=== PATIENT | male | born 1955 | race Caucasian/White ===

== ENCOUNTER 2016-07-05 13:59 | Emergency (ER) | payer MEDICARE ==
[2016-07-05] MEDS ORDERED: Albuterol 2.5 MG/3 ML NEB.SOL* (0.083%) INH ONE (15:06)
[2016-07-05] MEDS ORDERED: methylPREDNISolone SOD SUCC* 125 MG 2 ML VIAL IM ONE (15:06)
[2016-07-05] MEDS ORDERED: Ipratropium 0.5MG/2.5ML NEB* 0.5 MG/2.5 ML NEB.SOLN INH ONE (15:06)
--- NOTE | 2016-07-05 15:15 | UC ---
Respiratory Complaint HPI - History of Current Complaint Chief Complaint: UCRespiratory Stated Complaint: TIGHT CHEST,SINUS,COUGH-COPD Time Seen by Provider: 07/05/16 15:01 Hx Obtained From: Patient Onset/Duration: Sudden Onset, Lasting Weeks - 1 1/2 weeks, Worse Since - gradually worse since onset Severity Initially: Mild Severity Currently: Severe Character: Cough: Productive - yellow sputum Aggravating Factors: Exertion, Deep Breaths Associated Signs And Symptoms: Positive: Dyspnea, Wheezing, URI, Nasal Congestion, Hoarseness, Sinus Discomfort Related History: Similar Episode/Dx as: - COPD exacerbation. - Risk Factors Pulmonary Embolism Risk Factors: Smoking Cardiac Risk Factors: Smoking Pseudomonas Risk Factors: Chronic Lung Disease - COPD Tuberculosis Risk Factors: Smoking - Allergies/Home Medications Allergies/Adverse Reactions: Allergies Allergy/AdvReac Type Severity Reaction Status Date / Time Phenytoin [From Dilantin] Allergy Severe seizure Verified 07/05/16 14:18 BLUEBERRIES Allergy Severe Edema Uncoded 07/05/16 14:18 Home Medications: Home Medications Albuterol HFA INHALER* [Ventolin HFA Inhaler*] 2 puff INH Q4HR PRN 07/05/16 [ History Confirmed 07/05/16] Albuterol/Ipratropium [id number]* [Duoneb (Albuterol 2.5 MG/Ipratropium 0.5 MG)] 1 neb INH Q3HR PRN 07/05/16 [History Confirmed 07/05/16] Fexofenadine (NF) [Angelique (NF)] 1 tab PO DAILY PRN 07/05/16 [History Confirmed 07/05/16] PMH/Surg Hx/FS Hx/Imm Hx Endocrine History Of: Denies: Diabetes, Thyroid Disease Cardiovascular History Of: Denies: Cardiac Disorders, Hypertension, Pacemaker/ICD Respiratory History Of: Reports: COPD, Asthma, Pneumonia Neurological History Of: Reports: 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 1994 CARPET INSTALLATION SPECIALIST SHUNT W/PUMP, [facility] 1995 VALVE REPLACED WITH SHUNT, [facility]. 1996 THIRD VENTRICULAR OSCOPY,. 1977 & 1979 RIGHT KNEE SURGERY REPAIR TENDON & [place],. PUMP DISCONNECTED. CURRENTLY IMPLANTED SHUNT CLEARED FOR IMAGING BY DR KELLER UP TO 1.5 T,USING PLAIN FILMSWEM - Family History Known Family History: Positive: Diabetes Negative: Cardiac Disease, Hypertension - Social History Occupation: Disabled Lives: With Family Alcohol Use: None Substance Use Type: None Smoking Status (MU): Heavy Every Day Tobacco Smoker Type: Cigarettes Amount Used/How Often: 1.5 PPD Length of Time of Smoking/Using Tobacco: since age 15 Have You Smoked in the Last Year: Yes Household Exposure Type: Cigarettes - Immunization History Most Recent Influenza Vaccination: 2016 Most Recent Tetanus Shot: Within 10 years Most Recent Pneumonia Vaccination: 2016 Review of Systems ENT: Sore Throat - feels like something is caught in the throat Respiratory: Shortness Of Breath, Cough All Other Systems Reviewed And Are Negative: Yes Physical Exam Triage Information Reviewed: Yes Appearance: No Pain Distress, Well-Nourished, Ill-Appearing - Mild Vital Signs: Initial Vital Signs Temp 98.5 F 07/05/16 14:02 Pulse 77 07/05/16 14:02 Resp 20 07/05/16 14:02 BP 129/82 07/05/16 14:02 Pulse Ox 96 07/05/16 14:02 Vital Signs Reviewed: Yes Eyes: Positive: Conjunctiva Clear ENT: Positive: Pharynx normal, TMs normal Neck exam: Normal Respiratory: Positive: Decreased breath sounds - diffusely., Wheezing - Diffuse end inspiratory and expiratory wheezes. Cardiovascular: Positive: RRR Musculoskeletal Exam: Normal Neurological Exam: Normal Psychological Exam: Normal Skin Exam: Normal UC Diagnostic Evaluation - Laboratory O2 Sat by Pulse Oximetry: 96 Re-Evaluation - Re-Evaluation First Eval Re-Evaluation Time: 15:47 Change: Improved - Moving air better. Wheezing resolved. Respiratory Course/Dx - Differential Dx/Diagnosis Differential Diagnosis/HQI/PQRI: Exacerbation Of COPD, Lower Resp Infection, Sinusitis Provider Diagnoses: COPD with acute exacerbation. Acute sinusitis Discharge - Discharge Plan Condition: Stable Disposition: HOME Prescriptions: Sulfamethox/Trimethoprim DS* [Bactrim DS 800/160 TAB*] 1 tab PO BID #20 tab predniSONE TAB* [Deltasone TAB*] 20 mg PO DAILY #18 tab Patient Education Materials: COPD (Chronic Obstructive Pulmonary Disease) (ED) , Prednisone (By mouth), Sinusitis (ED), Sulfamethoxazole/Trimethoprim (By mouth ) Additional Instructions: Smoking Cessation Tricks. 1. Cut down by 1 cigarette per day every 2-3 days. Write the number of smokes for that day on the calendar. 2. Identify triggers to smoking: after meals, on the phone, in the car, with coffee, on breaks at work, etc. 3. Formulate a plan with a behavior to replace the smoking. Fireballs in the car , doodle pad on the phone, flavored creamer for the coffee, go for a walk after a meal or on break at work. 4. For stress smokes do deep breathing relaxation. Breath deep in through the nose hold the breath in for a few seconds then breath out slowly through the mouth.
[2016-07-05 15:45] VITALS: BP 118/72
== END 2016-07-05 15:54 | disposition home or self-care (01) ==
LOC: UCCORT 13:59
DX: J44.1 Chronic obstructive pulmonary disease with (acute) exacerbation (principal); J01.90 Acute sinusitis, unspecified; F41.8 Other specified anxiety disorders; Z86.73 Personal history of transient ischemic attack (TIA), and cerebral infarction without residual deficits; F17.210 Nicotine dependence, cigarettes, uncomplicated
CPT/HCPCS: 93005; 96372; 99212; G0463; J2930; J7644

== ENCOUNTER 2016-07-06 22:08 | Inpatient (IN) | payer MEDICARE ==
[2016-07-06] MEDS ORDERED: Albuterol/Ipratropium NEB.SOL* Albuterol 2.5 MG/Ipratropium 0.5 MG 3 ML INH ONE (22:44)
[2016-07-06 23:20] LABS: Hematocrit 43 % (42-52); Hemoglobin 14.5 g/dl (14.0-18.0); Mean Corpuscular HGB Conc 33 g/dl (31-36); Mean Corpuscular Hemoglobin 32 pg (27-31); Mean Corpuscular Volume 97 fL (80-94); Mean Platelet Volume 8 um3 (7.4-10.4); Red Blood Count 4.49 10^6/ul (4.0-5.4); Red Cell Distribution Width 14 % (10.5-15); White Blood Count 13.4 10^3/ul (3.5-10.8)
[2016-07-06 23:30] LABS: Albumin 4.1 g/dL (3.2-5.2); BUN/Creatinine Ratio 19.7 (8-20); Calcium 9.5 mg/dL (8.6-10.3); EGFR African American 82.3 (>60); Globulin 3.4 g/dL (2-4); Potassium 4.3 mmol/L (3.5-5.0); Total Bilirubin 0.2 mg/dL (0.2-1.0); Total Protein 7.5 g/dL (6.4-8.9)
[2016-07-06 23:31] LABS: Troponin I 0.01 ng/mL (<0.04)
--- NOTE | 2016-07-07 00:25 | ED ---
I, Alex,April, scribed for Darryn Diop MD on 07/06/16 at 2246 . Shortness of Breath - HPI Summary HPI Summary: This 60 y/o male presents to ED for acute on chronic SOB since today. Pt was seen at [facility] yesterday where he was dx with bronchitis and sinus infection. Pt was given steroid and abx. He decided to visit ED again today when SOB persisted. PMHx includes asthma, COPD, and CVA with cerebral shunt. - History of Current Complaint Chief Complaint: EDUpperRespComplaint Time Seen by Provider: 07/06/16 22:41 Hx Obtained From: Patient Onset/Duration: Lasting Days, Still Present Timing: Constant Dyspnea At: Rest - Allergy/Home Medications Allergies/Adverse Reactions: Allergies Allergy/AdvReac Type Severity Reaction Status Date / Time Phenytoin [From Dilantin] Allergy Severe seizure Verified 07/05/16 14:18 BLUEBERRIES Allergy Severe Edema Uncoded 07/05/16 14:18 Home Medications: Home Medications Acetaminophen W/ Codeine [Acetaminophen/Codeine #3 300-30 mg] 1 tab PO TID PRN 07/07/16 [History Confirmed 07/07/16] Baclofen TAB* [Lioresal TAB*] 10 mg PO TID 07/07/16 [History Confirmed 07/07/16] Ibuprofen [Motrin Ib] 800 mg PO BID PRN 07/07/16 [History Confirmed 07/07/16] PMH/Surg Hx/FS Hx/Imm Hx Endocrine/Hematology History: Reports: Hx Blood Transfusions Denies: Hx Diabetes, Hx Thyroid Disease Cardiovascular History: Denies: Hx Hypertension, Hx Pacemaker/ICD Respiratory History: Reports: Hx Asthma, Hx Chronic Obstructive Pulmonary Disease (COPD), Hx Pneumonia, Hx Seasonal Allergies, Other Respiratory Problems/ Disorders - HX OF PNEUMONIA 03/20/2013 Musculoskeletal History: Reports: Hx Arthritis, Hx Back Problems Sensory History: Reports: Hx Contacts or Glasses - READING GLASSES Denies: Hx Hearing Aid Opthamlomology History: Reports: Hx Contacts or Glasses - READING GLASSES Neurological History: Reports: Hx Seizures - CAUSED BY A CLOGGED VENTRICLE , SINCE REPAIRED, NO PROBLEMS SINCE 1996 Psychiatric History: Reports: Hx Anxiety, Hx Depression Denies: Hx Panic Disorder - Surgical History Surgery Procedure, Year, and Place: 1994 [facility] 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 1996 THIRD VENTRICULAR OSCOPY,. 1977 & 1979 RIGHT KNEE SURGERY REPAIR TENDON & [place],. PUMP DISCONNECTED. CURRENTLY IMPLANTED SHUNT CLEARED FOR IMAGING BY DR KELLER UP TO 1.5 T,USING PLAIN FILMSWEM Hx Anesthesia Reactions: No - Immunization History Date of Tetanus Vaccine: Unk Date of Influenza Vaccine: None Infectious Disease History: No Infectious Disease History: Denies: Hx Clostridium Difficile, Hx Hepatitis, Hx Human Immunodeficiency Virus (HIV), Hx of Known/Suspected MRSA, Hx Shingles, Hx Tuberculosis, Hx Known/ Suspected VRE, Hx Known/Suspected VRSA, History Other Infectious Disease, Traveled Outside the [place] in Last 30 Days - Family History Known Family History: Positive: Diabetes Negative: Cardiac Disease, Hypertension - Social History Alcohol Use: None Hx Substance Use: No Substance Use Type: Reports: None Hx Tobacco Use: Yes Smoking Status (MU): Heavy Every Day Tobacco Smoker Type: Cigarettes Amount Used/How Often: 1 PPD Length of Time of Smoking/Using Tobacco: since age 15 Have You Smoked in the Last Year: Yes Review of Systems Negative: Fever Positive: Shortness Of Breath All Other Systems Reviewed And Are Negative: Yes Physical Exam Triage Information Reviewed: Yes Vital Signs On Initial Exam: Initial Vitals Temp Pulse Resp BP Pulse Ox 99.5 F 131 24 155/103 93 07/06/16 22:10 07/06/16 22:10 07/06/16 22:10 07/06/16 22:10 07/06/16 22:10 Vital Signs Reviewed: Yes Appearance: Positive: No Pain Distress, Ill-Appearing Skin: Positive: Warm Head/Face: Positive: Normal Head/Face Inspection Eyes: Positive: CHERYLE ENT: Positive: Hearing grossly normal Neck: Positive: Nontender Respiratory/Lung Sounds: Positive: Decreased Breath Sounds, Wheezes - bilat diffuse exp Cardiovascular: Positive: Normal Abdomen Description: Positive: Nontender, Soft Bowel Sounds: Positive: Present Musculoskeletal: Positive: Strength/ROM Intact Diagnostics - Vital Signs Vital Signs Temp Pulse Resp BP Pulse Ox 07/06/16 22:10 99.5 F 131 24 155/103 93 - Laboratory Lab Results: Lab Results 07/06/16 07/06/16 07/06/16 Range/Units 22:55 22:55 22:55 WBC 13.4 H (3.5-10.8) 10^3/ul RBC 4.49 (4.0-5.4) 10^6/ul Hgb 14.5 (14.0-18.0) g/dl Hct 43 (42-52) % MCV 97 H (80-94) fL MCH 32 H (27-31) pg MCHC 33 (31-36) g/dl RDW 14 (10.5-15) % Plt Count 233 (150-450) 10^3/ul MPV 8 (7.4-10.4) um3 Neut % (Auto) 84.1 H (38-83) % Lymph % (Auto) 6.2 L (25-47) % Pinal % (Auto) 9.7 H (1-9) % Eos % (Auto) 0 (0-6) % Baso % (Auto) 0 (0-2) % Absolute Neuts (auto) 11.3 H (1.5-7.7) 10^3/ul Absolute Lymphs (auto) 0.8 L (1.0-4.8) 10^3/ul Absolute Monos (auto) 1.3 H (0-0.8) 10^3/ul Absolute Eos (auto) 0 (0-0.6) 10^3/ul Absolute Basos (auto) 0 (0-0.2) 10^3/ul Absolute Nucleated RBC 0 10^3/ul Nucleated RBC % 0 Sodium 140 (133-145) mmol/L Potassium 4.3 (3.5-5.0) mmol/L Chloride 109 (101-111) mmol/L Carbon Dioxide 22 (22-32) mmol/L Anion Gap 9 (2-11) mmol/L BUN 23 (6-24) mg/dL Creatinine 1.17 (0.67-1.17) mg/dL Est GFR ( Amer) 82.3 (>60) Est GFR (Non-Af Amer) 64.0 (>60) BUN/Creatinine Ratio 19.7 (8-20) Glucose 151 H (70-100) mg/dL Lactic Acid 2.8 H* (0.5-2.0) mmol/L Calcium 9.5 (8.6-10.3) mg/dL Total Bilirubin 0.20 (0.2-1.0) mg/dL AST 13 (13-39) U/L ALT 15 (7-52) U/L Alkaline Phosphatase 53 (34-104) U/L Troponin I 0.01 (<0.04) ng/mL Total Protein 7.5 (6.4-8.9) g/dL Albumin 4.1 (3.2-5.2) g/dL Globulin 3.4 (2-4) g/dL Albumin/Globulin Ratio 1.2 (1-3) Influenza A (Rapid) (Negative) Influenza B (Rapid) (Negative) 07/07/16 Range/Units 00:01 WBC (3.5-10.8) 10^3/ul RBC (4.0-5.4) 10^6/ul Hgb (14.0-18.0) g/dl Hct (42-52) % MCV (80-94) fL MCH (27-31) pg MCHC (31-36) g/dl RDW (10.5-15) % Plt Count (150-450) 10^3/ul MPV (7.4-10.4) um3 Neut % (Auto) (38-83) % Lymph % (Auto) (25-47) % Pinal % (Auto) (1-9) % Eos % (Auto) (0-6) % Baso % (Auto) (0-2) % Absolute Neuts (auto) (1.5-7.7) 10^3/ul Absolute Lymphs (auto) (1.0-4.8) 10^3/ul Absolute Monos (auto) (0-0.8) 10^3/ul Absolute Eos (auto) (0-0.6) 10^3/ul Absolute Basos (auto) (0-0.2) 10^3/ul Absolute Nucleated RBC 10^3/ul Nucleated RBC % Sodium (133-145) mmol/L Potassium (3.5-5.0) mmol/L Chloride (101-111) mmol/L Carbon Dioxide (22-32) mmol/L Anion Gap (2-11) mmol/L BUN (6-24) mg/dL Creatinine (0.67-1.17) mg/dL Est GFR ( Amer) (>60) Est GFR (Non-Af Amer) (>60) BUN/Creatinine Ratio (8-20) Glucose (70-100) mg/dL Lactic Acid (0.5-2.0) mmol/L Calcium (8.6-10.3) mg/dL Total Bilirubin (0.2-1.0) mg/dL AST (13-39) U/L ALT (7-52) U/L Alkaline Phosphatase (34-104) U/L Troponin I (<0.04) ng/mL Total Protein (6.4-8.9) g/dL Albumin (3.2-5.2) g/dL Globulin (2-4) g/dL Albumin/Globulin Ratio (1-3) Influenza A (Rapid) Negative (Negative) Influenza B (Rapid) Negative (Negative) Result Diagrams: 07/06/16 22:55 07/06/16 22:55 Lab Statement: Any lab studies that have been ordered have been reviewed, and results considered in the medical decision making process. - Radiology CXR Xray Interpretation: No Acute Changes Radiology Interpretation Completed By: ED Physician Re-Evaluation - Re-Evaluation First Eval Change: Improved - but still sob Course/Dx - Diagnoses Provider Diagnoses: COPD exacerbation - Physician Notifications Discussed Care of Patient With: Dr. Alvarenga (Hospitalist) at 0252 AM Time Discussed With Above Provider: 02:52 Instructed by Provider To: Admit As Inpatient - Critical Care Time Critical Care Time: 30-74 min Discharge - Discharge Plan Condition: Fair Disposition: ADMITTED TO [facility] The documentation as recorded by the Alex shukla Soohyun accurately reflects the service I personally performed and the decisions made by Chikis rausch David, MD.
[2016-07-07] MEDS ORDERED: Albuterol/Ipratropium NEB.SOL* Albuterol 2.5 MG/Ipratropium 0.5 MG 3 ML INH ONE (00:41)
[2016-07-07] MEDS ORDERED: Ibuprofen TAB* 800 MG PO PRN (03:15)
[2016-07-07] MEDS ORDERED: Cetirizine* 10 MG TAB PO PRN (03:15)
[2016-07-07] MEDS ORDERED: methylPREDNISolone SOD SUCC* 40 MG/ML VIAL IM SCH (04:00)
[2016-07-07] MEDS: methylPREDNISolone SOD SUCC* 40 MG/ML VIAL IV SCH ×3 (04:00→20:33)
[2016-07-07] MEDS: LORazepam INJ* 2 MG/ML 1 ML VIAL IV PUSH PRN ×2 (04:02→09:03)
[2016-07-07] MEDS: Albuterol/Ipratropium NEB.SOL* Albuterol 2.5 MG/Ipratropium 0.5 MG 3 ML INH PRN ×2 (04:03→06:17)
[2016-07-07] MEDS: Azithromycin IV(*) 500 MG in NS 0.9% 250 ML* 250 ML IVPB SCH (04:47)
[2016-07-07] MEDS ORDERED: LORazepam INJ* 2 MG/ML 1 ML VIAL IV PUSH ONE (05:05)
[2016-07-07] MEDS: Heparin VIAL(*) 5000 UNITS/ML VIAL (FIVE THOUSAND) SUBCUT SCH ×3 (06:34→20:33)
--- NOTE | 2016-07-07 07:51 | RAD ---
INDICATION: Short of breath. Bronchitis. COMPARISON: March 05, 2014 TECHNIQUE: PA and lateral dual-energy views were obtained. FINDINGS: Bones/Soft Tissues: There are no acute bony findings. There is a ventriculoperitoneal shunt catheter Cardiomediastinal: The cardiomediastinal silhouette is normal. Lungs: There are no infiltrates. There is mild hyperinflation Pleura: There are no pleural effusions. Other: None IMPRESSION: HYPERINFLATION. NO FOCAL INFILTRATES.
[2016-07-07] MEDS ORDERED: Albuterol 2.5 MG/3 ML NEB.SOL* (0.083%) INH PRN (08:23)
--- NOTE | 2016-07-07 08:28 | PN ---
Subjective Date of Service: 07/07/16 Interval History: Patient seen this morning. Still feels SOB and having dry cough. No fever, chills, chest pain. Notices some improvement with nebulizer treatments. Says he continues to smoke 1.5 PPD "like an idiot" and has been through this illness. Family History: Unchanged from Admission Social History: Unchanged from Admission Past Medical History: Unchanged from Admission Objective Active Medications: Acetaminophen/Codeine Phosphate (Tylenol/Codeine 30 Mg Tab*) 1 tab PO TID PRN Albuterol/Ipratropium (Duoneb (Albuterol 2.5 Mg/Ipratropium 0.5 Mg)) 1 neb INH Q2H PRN Baclofen (Lioresal Tab*) 10 mg PO TID CASIMIRO Cetirizine HCl (Zyrtec*) 5 mg PO DAILY PRN; Protocol Heparin Sodium (Porcine) (Heparin Vial(*)) 5,000 units SUBCUT Q8HR CASIMIRO Azithromycin 500 mg/ Sodium (Chloride) 250 mls @ 250 mls/hr IVPB Q24H CASIMIRO Ibuprofen (Motrin Tab*) 800 mg PO BID PRN Lorazepam (Ativan Inj*) 1 mg IV PUSH Q4H PRN Methylprednisolone Sodium Succinate (Solu-Medrol*) 40 mg IV Q8H CASIMIRO Paroxetine HCl (Paxil Tab*) 20 mg PO QPM [facility] Vital Signs 07/07/16 07/07/16 07/07/16 04:30 05:00 05:17 Temperature Pulse Rate 128 112 Respiratory 33 26 Rate Blood Pressure 190/109 128/77 (mmHg) O2 Sat by Pulse 93 94 Oximetry 07/07/16 07/07/16 07/07/16 05:30 05:51 06:17 Temperature 98.9 F Pulse Rate 102 Respiratory 33 36 Rate Blood Pressure 125/91 (mmHg) O2 Sat by Pulse 97 Oximetry 07/07/16 07/07/16 07/07/16 06:19 06:20 07:53 Temperature 98.1 F 99.3 F Pulse Rate 120 105 85 Respiratory 28 34 16 Rate Blood Pressure 133/62 132/58 (mmHg) O2 Sat by Pulse 97 99 94 Oximetry Oxygen Devices in Use Now: Nasal Cannula - 6L Appearance: Middle-aged, M, laying in bed in mild respiratory distress with intermittent coughing Eyes: No Scleral Icterus Ears/Nose/Mouth/Throat: Mucous Membranes Moist Neck: NL Appearance and Movements; NL JVP, Trachea Midline Respiratory: - - Tachypnea, minimal-moderate air movement, prolonged expiratory phase with significant wheezing diffusely Cardiovascular: NL Sounds; No Murmurs; No JVD, - - Tachycardia Abdominal: NL Sounds; No Tenderness; No Distention Lymphatic: No Cervical Adenopathy Extremities: No Edema Skin: No Rash or Ulcers Neurological: Alert and Oriented x 3 Result Diagrams: 07/06/16 22:55 07/06/16 22:55 Assess/Plan/Problems-Billing Assessment: COPD exacerbation in a 60 yo M with hx of COPD, tobacco abuse, anxiety/ depression, obstructive hydrocephalus s/p CLINICAL NURSING PROFESSOR shunt placement - Patient Problems (1) COPD exacerbation Current Visit: No Comment: Probably due to viral etiology. Still with significant wheezing and O2 requirements. Continue IV solumedrol 40 mg q8h. ATC duonebs and prn albuterol. Continue Azithromycin. Wean O2 as able. (2) Anxiety Current Visit: Yes Comment: Continue Paxil. Continue prn Lorazepam for now. (3) Tobacco abuse Current Visit: No Comment: Counseled on need for cessation. (4) Obstructive hydrocephalus Current Visit: No Comment: Distant hx. S/P CLINICAL NURSING PROFESSOR shunt. No acute issues. (5) Chronic pain Current Visit: Yes Comment: Continue home baclofen and tylenol/codeine (6) DVT prophylaxis Current Visit: No Comment: HSQ Status and Disposition: Inpatient. Likely discharge in 48-72 hours
[2016-07-07] MEDS: Baclofen TAB* 10 MG PO SCH ×3 (09:03→20:32)
[2016-07-07] MEDS: Albuterol/Ipratropium NEB.SOL* Albuterol 2.5 MG/Ipratropium 0.5 MG 3 ML INH SCH ×3 (09:47→19:58)
--- NOTE | 2016-07-07 15:49 | HP ---
HISTORY AND PHYSICAL: DATE OF ADMISSION: 07/07/2016. CHIEF COMPLAINT: Shortness of breath. HISTORY OF PRESENT ILLNESS: The patient is a 60-year-old gentleman with known history of COPD and tobacco abuse, who says he has been cutting wood in his garage and being exposed to quite a bit of saw dust lately. About a week ago, he noticed he was getting more short of breath and feeling increased tightness in his chest. He also started getting a cough productive of yellow thick phlegm. He thought he could handle on his own by using his own inhaler and finally went to [facility] yesterday, where he was put on Bactrim and some prednisone. Despite this treatment, he felt worse today and came to the ER for further evaluation. He denies fevers or chills, but says he just cannot catch his breath. In the ED, the patient was evaluated and felt likely to have COPD exacerbation. PAST MEDICAL HISTORY: Significant for COPD; tobacco abuse; obstructive hydrocephalus, status post FLIGHT INSTRUCTOR shunt with intraoperative CVA complication in 1996 ; multiple craniotomies; right knee arthroscopy, 12/13/13. MEDICATIONS: His current home medications are: 1. Ibuprofen 800 mg twice a day as needed. 2. Baclofen 10 mg 3 times a day. 3. Tylenol with Codeine 1 tab 3 times a day as needed. 4. Angelique 1 tab daily as needed. 5. DuoNeb 1 nebulizer q.3 hours as needed. 6. Albuterol inhaler 2 puffs every 4 hours as needed. 7. Prednisone 20 mg daily. 8. Bactrim 1 tab twice daily. 9. Paxil 20 mg in the evening. ALLERGIES: The patient has an allergy/adverse reaction to PHENYTOIN and BLUEBERRIES. FAMILY HISTORY: Positive for diabetes and cancer. SOCIAL HISTORY: Positive 1 pack a day for over 45 years of tobacco, still smoking. Rare alcohol. No recreational drug use. He is on disability. His significant other, Zeinab Mackey, is his healthcare proxy. He has two daughters and a stepson. REVIEW OF SYSTEMS: A 14-point review of systems was completed with the patient. All pertinent positives and negatives are in the history of present illness, otherwise is negative. PHYSICAL EXAMINATION GENERAL: Pleasant gentleman, lying in bed, in no acute distress. VITAL SIGNS: Blood pressure 124/70, pulse ox 97% on 2 L, respiratory rate 25 breaths per minute, heart rate 119 beats per minute, temperature is 99 degrees. HEENT: Normocephalic, atraumatic. Pupils equal, round, and reactive to light. Moist mucous membranes. NECK: Supple. No JVD, bruits, palpable thyroid, or lymphadenopathy. CHEST: Bilateral wheezing. CARDIOVASCULAR: S1, S2 appreciated. ABDOMEN: Positive bowel sounds in all four quadrants. Soft, nontender, nondistended. EXTREMITIES: No cyanosis, clubbing, or edema. NEURO: Alert and oriented x3. Moves all extremities. SKIN: No rashes. No abnormalities. DIAGNOSTIC STUDIES/LAB DATA: White count 13.4, hemoglobin 14.5, hematocrit 43 , platelets 233. Sodium 140, potassium 4.3, chloride 109, CO2 22, BUN 23, creatinine 1.17, glucose 151, lactic acid 2.8. Flu swab is negative. Chest x-ray shows no acute infiltrates. EKG shows sinus tachycardia, 103 beats per minute, normal axis. No acute ST-T wave changes. ASSESSMENT AND PLAN: 1. Chronic obstructive pulmonary disease exacerbation: Place the patient on respiratory driven protocol and DuoNeb q.2 hours as needed, Solu-Medrol 40 IV q.8 hours, Zithromax 500 mg IV q. day, expect the patient to improve in the next few days. 2. Tobacco abuse: The patient denies need for nicotine replacement at this time. Encourage cessation. 3. Anxiety: Continue Paxil, Ativan p.r.n. at this time. 4. Fluids, electrolytes, and nutrition: Regular diet. 5. DVT prophylaxis: Heparin subcu. 6. The patient is a full code. TIME SPENT: Over 75 minutes was spent on this H and P, more than 40 minutes was spent in direct [id number] contact with the patient in evaluation, physical exam, counseling, and coordination of care. CC: Dr. Alphonso Juárez* [id number]/[facility] #: [id number] RADHA
[2016-07-07] MEDS: PARoxetine HCL TAB* 20 MG PO SCH (18:05)
[2016-07-08] MEDS: Albuterol/Ipratropium NEB.SOL* Albuterol 2.5 MG/Ipratropium 0.5 MG 3 ML INH SCH ×4 (02:08→19:48)
[2016-07-08] MEDS: methylPREDNISolone SOD SUCC* 40 MG/ML VIAL IV SCH ×3 (04:03→20:53)
[2016-07-08] MEDS: Azithromycin IV(*) 500 MG in NS 0.9% 250 ML* 250 ML IVPB SCH (04:03)
[2016-07-08] MEDS: Heparin VIAL(*) 5000 UNITS/ML VIAL (FIVE THOUSAND) SUBCUT SCH ×3 (04:04→21:35)
[2016-07-08] MEDS: Baclofen TAB* 10 MG PO SCH ×3 (09:17→20:52)
--- NOTE | 2016-07-08 09:32 | PN ---
Subjective Date of Service: 07/08/16 Interval History: Patient seen this morning. Says he continues to feel SOB, maybe a bit better than yesterday. Received neb recently. Just got up to urinate and got back into bed and felt winded, needed 1 minute to recover. Continued cough, not productive but feels things "breaking up". No fever or chills. No nausea but minimal appetite. Family History: Unchanged from Admission Social History: Unchanged from Admission Past Medical History: Unchanged from Admission Objective Active Medications: Acetaminophen/Codeine Phosphate (Tylenol/Codeine 30 Mg Tab*) 1 tab PO TID PRN Albuterol (Ventolin 2.5 Mg/3 Ml Neb.Brenda*) 2.5 mg INH Q4H PRN Albuterol/Ipratropium (Duoneb (Albuterol 2.5 Mg/Ipratropium 0.5 Mg)) 1 neb INH Q6H CASIMIRO Baclofen (Lioresal Tab*) 10 mg PO TID CASIMIRO Cetirizine HCl (Zyrtec*) 5 mg PO DAILY PRN; Protocol Heparin Sodium (Porcine) (Heparin Vial(*)) 5,000 units SUBCUT Q8HR CASIMIRO Azithromycin 500 mg/ Sodium (Chloride) 250 mls @ 250 mls/hr IVPB Q24H CSAIMIRO Lorazepam (Ativan Inj*) 1 mg IV PUSH Q4H PRN Methylprednisolone Sodium Succinate (Solu-Medrol*) 40 mg IV Q8H CASIMIRO Paroxetine HCl (Paxil Tab*) 20 mg PO QPM [facility] Vital Signs 07/07/16 07/07/16 07/07/16 09:53 15:30 15:53 Temperature 98.1 F Pulse Rate 104 81 68 Respiratory 22 32 24 Rate Blood Pressure 113/67 (mmHg) O2 Sat by Pulse 96 99 99 Oximetry 07/07/16 07/07/16 07/07/16 18:15 19:39 20:01 Temperature 97.9 F Pulse Rate 74 65 66 Respiratory 28 28 Rate Blood Pressure 113/59 (mmHg) O2 Sat by Pulse 95 97 99 Oximetry 07/08/16 07/08/16 08:51 09:16 Temperature 97.4 F Pulse Rate 87 Respiratory 14 16 Rate Blood Pressure 125/81 (mmHg) O2 Sat by Pulse 96 94 Oximetry Oxygen Devices in Use Now: Nasal Cannula - 3L Appearance: Middle-aged, M, laying in bed in NAD Eyes: No Scleral Icterus Ears/Nose/Mouth/Throat: Mucous Membranes Moist Neck: NL Appearance and Movements; NL JVP Respiratory: Symmetrical Chest Expansion and Respiratory Effort, - - No tachypnea, improved aeration, still with prolonged expiratory phase and diffuse expiratory wheezing Cardiovascular: NL Sounds; No Murmurs; No JVD, RRR Abdominal: NL Sounds; No Tenderness; No Distention Lymphatic: No Cervical Adenopathy Extremities: No Edema Skin: No Rash or Ulcers Neurological: Alert and Oriented x 3 Result Diagrams: 07/06/16 22:55 07/06/16 22:55 Additional Lab and Data: Lab Results 07/06/16 07/06/16 07/06/16 Range/Units 22:55 22:55 22:55 WBC 13.4 H (3.5-10.8) 10^3/ul RBC 4.49 (4.0-5.4) 10^6/ul Hgb 14.5 (14.0-18.0) g/dl Hct 43 (42-52) % MCV 97 H (80-94) fL MCH 32 H (27-31) pg MCHC 33 (31-36) g/dl RDW 14 (10.5-15) % Plt Count 233 (150-450) 10^3/ul MPV 8 (7.4-10.4) um3 Neut % (Auto) 84.1 H (38-83) % Lymph % (Auto) 6.2 L (25-47) % [place] % (Auto) 9.7 H (1-9) % Eos % (Auto) 0 (0-6) % Baso % (Auto) 0 (0-2) % Absolute Neuts (auto) 11.3 H (1.5-7.7) 10^3/ul Absolute Lymphs (auto) 0.8 L (1.0-4.8) 10^3/ul Absolute Monos (auto) 1.3 H (0-0.8) 10^3/ul Absolute Eos (auto) 0 (0-0.6) 10^3/ul Absolute Basos (auto) 0 (0-0.2) 10^3/ul Absolute Nucleated RBC 0 10^3/ul Nucleated RBC % 0 Sodium 140 (133-145) mmol/L Potassium 4.3 (3.5-5.0) mmol/L Chloride 109 (101-111) mmol/L Carbon Dioxide 22 (22-32) mmol/L Anion Gap 9 (2-11) mmol/L BUN 23 (6-24) mg/dL Creatinine 1.17 (0.67-1.17) mg/dL Est GFR ( Amer) 82.3 (>60) Est GFR (Non-Af Amer) 64.0 (>60) BUN/Creatinine Ratio 19.7 (8-20) Glucose 151 H (70-100) mg/dL Lactic Acid 2.8 H* (0.5-2.0) mmol/L Calcium 9.5 (8.6-10.3) mg/dL Total Bilirubin 0.20 (0.2-1.0) mg/dL AST 13 (13-39) U/L ALT 15 (7-52) U/L Alkaline Phosphatase 53 (34-104) U/L Troponin I 0.01 (<0.04) ng/mL Total Protein 7.5 (6.4-8.9) g/dL Albumin 4.1 (3.2-5.2) g/dL Globulin 3.4 (2-4) g/dL Albumin/Globulin Ratio 1.2 (1-3) Influenza A (Rapid) (Negative) Influenza B (Rapid) (Negative) 07/07/16 Range/Units 00:01 WBC (3.5-10.8) 10^3/ul RBC (4.0-5.4) 10^6/ul Hgb (14.0-18.0) g/dl Hct (42-52) % MCV (80-94) fL MCH (27-31) pg MCHC (31-36) g/dl RDW (10.5-15) % Plt Count (150-450) 10^3/ul MPV (7.4-10.4) um3 Neut % (Auto) (38-83) % Lymph % (Auto) (25-47) % [place] % (Auto) (1-9) % Eos % (Auto) (0-6) % Baso % (Auto) (0-2) % Absolute Neuts (auto) (1.5-7.7) 10^3/ul Absolute Lymphs (auto) (1.0-4.8) 10^3/ul Absolute Monos (auto) (0-0.8) 10^3/ul Absolute Eos (auto) (0-0.6) 10^3/ul Absolute Basos (auto) (0-0.2) 10^3/ul Absolute Nucleated RBC 10^3/ul Nucleated RBC % Sodium (133-145) mmol/L Potassium (3.5-5.0) mmol/L Chloride (101-111) mmol/L Carbon Dioxide (22-32) mmol/L Anion Gap (2-11) mmol/L BUN (6-24) mg/dL Creatinine (0.67-1.17) mg/dL Est GFR ( Amer) (>60) Est GFR (Non-Af Amer) (>60) BUN/Creatinine Ratio (8-20) Glucose (70-100) mg/dL Lactic Acid (0.5-2.0) mmol/L Calcium (8.6-10.3) mg/dL Total Bilirubin (0.2-1.0) mg/dL AST (13-39) U/L ALT (7-52) U/L Alkaline Phosphatase (34-104) U/L Troponin I (<0.04) ng/mL Total Protein (6.4-8.9) g/dL Albumin (3.2-5.2) g/dL Globulin (2-4) g/dL Albumin/Globulin Ratio (1-3) Influenza A (Rapid) Negative (Negative) Influenza B (Rapid) Negative (Negative) Assess/Plan/Problems-Billing Assessment: COPD exacerbation in a 60 yo M with hx of COPD, tobacco abuse, anxiety/ depression, obstructive hydrocephalus s/p [employer] shunt placement - Patient Problems (1) COPD exacerbation Current Visit: No Comment: Probably due to viral etiology. Improvement in RR and O2 needs. Continue IV solumedrol 40 mg q8h. ATC duonebs and prn albuterol. Continue Azithromycin. Wean O2 as able. (2) Anxiety Current Visit: Yes Comment: Continue Paxil. Continue prn Lorazepam for now. (3) Tobacco abuse Current Visit: No Comment: Counseled on need for cessation. Patient says intends to quit (4) Obstructive hydrocephalus Current Visit: No Comment: Distant hx. S/P [employer] shunt. No acute issues. (5) Chronic pain Current Visit: Yes Comment: Continue home baclofen and tylenol/codeine (6) DVT prophylaxis Current Visit: No Comment: HSQ Status and Disposition: Inpatient. Likely discharge in 24-48 hours
[2016-07-08] MEDS: guaiFENesin ER TAB 600 MG PO SCH ×2 (09:58→20:52)
[2016-07-08] MEDS: Saline NASAL SPRAY 0.65%* BTL BOTH NARES PRN ×2 (15:17→20:53)
[2016-07-08] MEDS: PARoxetine HCL TAB* 20 MG PO SCH (17:59)
[2016-07-08] MEDS: Acetaminop/Codeine 30 MG TAB* 1 TAB (300 MG/30 MG) PO PRN (20:52)
[2016-07-09] MEDS: Albuterol/Ipratropium NEB.SOL* Albuterol 2.5 MG/Ipratropium 0.5 MG 3 ML INH SCH ×4 (01:45→20:22)
[2016-07-09] MEDS: Azithromycin IV(*) 500 MG in NS 0.9% 250 ML* 250 ML IVPB SCH (04:25)
[2016-07-09] MEDS: methylPREDNISolone SOD SUCC* 40 MG/ML VIAL IV SCH ×3 (05:21→21:41)
[2016-07-09] MEDS: Heparin VIAL(*) 5000 UNITS/ML VIAL (FIVE THOUSAND) SUBCUT SCH ×3 (05:21→21:45)
[2016-07-09] MEDS: Acetaminop/Codeine 30 MG TAB* 1 TAB (300 MG/30 MG) PO PRN ×3 (05:27→21:44)
[2016-07-09] MEDS: Baclofen TAB* 10 MG PO SCH ×3 (08:55→21:45)
[2016-07-09] MEDS: guaiFENesin ER TAB 600 MG PO SCH ×2 (08:56→21:45)
--- NOTE | 2016-07-09 09:44 | PN ---
Subjective Date of Service: 07/09/16 Interval History: Patient seen this morning. Says he feels like he is continuing to improve. Feels cough is breaking up. Walked around the unit last with O2 in place. Denies fever or chills. Does not feel like he is wheezing but "they tell me I am ". Family History: Unchanged from Admission Social History: Unchanged from Admission Past Medical History: Unchanged from Admission Objective Active Medications: Acetaminophen/Codeine Phosphate (Tylenol/Codeine 30 Mg Tab*) 1 tab PO TID PRN Albuterol (Ventolin 2.5 Mg/3 Ml Neb.Brenda*) 2.5 mg INH Q4H PRN Albuterol/Ipratropium (Duoneb (Albuterol 2.5 Mg/Ipratropium 0.5 Mg)) 1 neb INH Q6H CASIMIRO Baclofen (Lioresal Tab*) 10 mg PO TID CASIMIRO Cetirizine HCl (Zyrtec*) 5 mg PO DAILY PRN; Protocol Guaifenesin (Mucinex*) 600 mg PO BID CASIMIRO Heparin Sodium (Porcine) (Heparin Vial(*)) 5,000 units SUBCUT Q8HR CASIMIRO Azithromycin 500 mg/ Sodium (Chloride) 250 mls @ 250 mls/hr IVPB Q24H CASIMIRO Ibuprofen (Motrin Tab*) 800 mg PO BID PRN Lorazepam (Ativan Inj*) 1 mg IV PUSH Q4H PRN Methylprednisolone Sodium Succinate (Solu-Medrol*) 40 mg IV Q8H CASIMIRO Paroxetine HCl (Paxil Tab*) 20 mg PO QPM CASIMIRO Sodium Chloride (Sodium Chloride 0.65% Nasal [place]*) 1 spray BOTH NARES Q4H PRN Vital Signs 07/08/16 07/08/16 07/08/16 11:20 15:06 15:26 Temperature 98.8 F 98.4 F Pulse Rate 63 83 88 Respiratory 15 12 Rate Blood Pressure 134/73 135/79 (mmHg) O2 Sat by Pulse 91 99 90 Oximetry 07/08/16 07/08/16 07/08/16 19:30 19:51 20:00 Temperature 98.6 F Pulse Rate 100 92 Respiratory 17 Rate Blood Pressure 108/85 (mmHg) O2 Sat by Pulse 91 97 Oximetry 07/08/16 07/08/16 07/08/16 20:52 22:52 23:25 Temperature 98.1 F Pulse Rate 75 Respiratory 17 19 21 Rate Blood Pressure 132/86 (mmHg) O2 Sat by Pulse 90 Oximetry 07/09/16 07/09/16 07/09/16 01:48 01:50 05:27 Temperature Pulse Rate 65 82 Respiratory 18 Rate Blood Pressure (mmHg) O2 Sat by Pulse 98 94 Oximetry 07/09/16 07/09/16 07/09/16 07:27 07:30 07:39 Temperature 97.8 F Pulse Rate 64 78 Respiratory 18 20 14 Rate Blood Pressure 142/89 (mmHg) O2 Sat by Pulse 90 92 Oximetry Oxygen Devices in Use Now: Nasal Cannula - 3L Appearance: Middle-aged, M, laying in bed in NAD Eyes: No Scleral Icterus Ears/Nose/Mouth/Throat: Mucous Membranes Moist Neck: NL Appearance and Movements; NL JVP Respiratory: Symmetrical Chest Expansion and Respiratory Effort, - - Moderate air movement, minimal wheezing, no rales or ronchi Cardiovascular: NL Sounds; No Murmurs; No JVD, RRR Abdominal: NL Sounds; No Tenderness; No Distention Lymphatic: No Cervical Adenopathy Extremities: No Edema Skin: No Rash or Ulcers Neurological: Alert and Oriented x 3 Result Diagrams: 07/06/16 22:55 07/06/16 22:55 Assess/Plan/Problems-Billing Assessment: COPD exacerbation in a 60 yo M with hx of COPD, tobacco abuse, anxiety/ depression, obstructive hydrocephalus s/p [employer] shunt placement - Patient Problems (1) COPD exacerbation Current Visit: No Comment: Probably due to viral etiology. Continues to improve, wean O2 more aggressively today. Continue IV solumedrol 40 mg q8h. ATC duonebs and prn albuterol. Completed Azithromycin. (2) Anxiety Current Visit: Yes Comment: Continue Paxil. D/C lorazepam (3) Tobacco abuse Current Visit: No Comment: Counseled on need for cessation. Patient says intends to quit (4) Obstructive hydrocephalus Current Visit: No Comment: Distant hx. S/P [employer] shunt. No acute issues. (5) Chronic pain Current Visit: Yes Comment: Continue home baclofen and tylenol/codeine (6) DVT prophylaxis Current Visit: No Comment: HSQ Status and Disposition: Inpatient. Discharge within 24 hours
[2016-07-09] MEDS: Saline NASAL SPRAY 0.65%* BTL BOTH NARES PRN ×2 (13:53→21:41)
[2016-07-09] MEDS: PARoxetine HCL TAB* 20 MG PO SCH (17:34)
[2016-07-10] MEDS: Albuterol/Ipratropium NEB.SOL* Albuterol 2.5 MG/Ipratropium 0.5 MG 3 ML INH SCH ×2 (05:06→07:41)
[2016-07-10] MEDS: methylPREDNISolone SOD SUCC* 40 MG/ML VIAL IV SCH (05:28)
[2016-07-10] MEDS: Heparin VIAL(*) 5000 UNITS/ML VIAL (FIVE THOUSAND) SUBCUT SCH (05:30)
--- NOTE | 2016-07-10 07:34 | DCNOTE ---
Patient feeling well today. Has been off O2 overnight. Had desaturation with ambulation yesterday, will try again today. Still with cough, not much sputum production. Not wheezing much. On exam, RRR, s1 and s2 present, no m/g/r, lungs with moderate air movement, minimal wheezing, abd soft, NTND, BS+, no LE edema Discharge home today with oral prednisone. Will rx Spiriva and Advair in addition to home ventolin. Patient concerned about costs, says he makes too much for medicaid and usually can't afford inhalers rx by Dr. Juárez. Will see if case packer and sealer can help. Will need to f/u with PCP. Encouraged him to call them if he cannot afford inhalers. Says he is motivated to stop smoking.
[2016-07-10 07:55] VITALS: BP 143/82
[2016-07-10] MEDS: Baclofen TAB* 10 MG PO SCH (07:58)
[2016-07-10] MEDS: guaiFENesin ER TAB 600 MG PO SCH (07:58)
[2016-07-10] MEDS: Acetaminop/Codeine 30 MG TAB* 1 TAB (300 MG/30 MG) PO PRN (08:01)
--- NOTE | 2016-07-11 03:32 | DS ---
CC: Alphonso Juárez DO DISCHARGE SUMMARY: DATE OF ADMISSION: 07/07/16 DATE OF DISCHARGE: 07/10/16 PCP: Alphonso Juárez DO. PRINCIPAL DISCHARGE DIAGNOSIS: Chronic obstructive pulmonary disease exacerbation. SECONDARY DIAGNOSES: 1. Tobacco abuse. 2. Chronic obstructive pulmonary disease. 3. Obstructive hydrocephalus, status post CLINICAL DERMATOLOGIST shunt with intraoperative cerebrovascular accident, mu ltiple craniotomies. DISCHARGE MEDICATION REGIMEN: 1. Ventolin 2 puffs inhaled every 4 hours as needed for shortness of breath or wheezing. 2. Advair 1 puff inhaled 2 times daily. 3. Spiriva 1 capsule inhaled daily. 4. Prednisone taper. 5. Paxil 20 mg by mouth nightly. 6. Angelique 1 tablet by mouth daily as needed for allergies. 7. Acetaminophen with codeine 1 tablet by mouth 3 times daily as needed for pain. 8. Baclofen 10 mg by mouth 3 times daily. 9. Ibuprofen 800 mg by mouth 2 times daily as needed. STUDIES DONE DURING HOSPITALIZATION: Chest x-ray. Impression: Hyperinflation, no focal infiltrate s. HISTORY OF PRESENT ILLNESS AND HOSPITAL SUMMARY: Please see the full history and physical by Dr. Cl Alvarenga for full details. Briefly, Mr. Shepherd is a 60-year-old male with a past medical history as above including tobacco abuse, who presented to the hospital with progressive shortness of breath, chest tightness, productive cough. The patient was initially seen at [facility] and was placed on Bactrim and prednisone; however, despite this, he continued to have issues with breathing and ca me to the hospital for further evaluation. He was noted to be hypoxic and initially required up to 6 L of oxygen for appropriate O2 saturation. He was started on IV steroids, around the clock nebulizers. Over the following day, he was also t reated with a course of azithromycin. The following day, his symptoms improved. He was slowly able to be weaned off oxygen. He will be discharged home on prednisone taper in addition to his home al buterol. He will be also prescribed Spiriva and Advair; however, he states he has had issues afford ing this in the past as he does not have insurance. He will be seen by the family service caseworker prior to dis charge to see if something could be set up. He states at times he is able to get free samples throu gh Dr. Juárez's office and I have encouraged him to call if he is unable to obtain them through the pharmacy. He was counseled multiple times during the hospitalization on smoking cessation and he s tates he is motivated to do so. TIME SPENT: Total time spent on this discharge, 45 minutes. This is the summary of the hospitaliza tion, please see the full medical record for further details. [id number]/[facility] #: [id number]
== END 2016-07-10 11:00 | disposition home or self-care (01) | DRG 192 ==
LOC: ED 22:08 → MED 07-07 04:08
PROVIDERS: ADMIT Internal Medicine; ATTEND Hospitalist
DX: J44.1 Chronic obstructive pulmonary disease with (acute) exacerbation (principal); F32.9 Major depressive disorder, single episode, unspecified; F17.210 Nicotine dependence, cigarettes, uncomplicated; R09.02 Hypoxemia; M19.90 Unspecified osteoarthritis, unspecified site; F41.9 Anxiety disorder, unspecified; G89.29 Other chronic pain; Z86.73 Personal history of transient ischemic attack (TIA), and cerebral infarction without residual deficits; Z88.8 Allergy status to other drugs, medicaments and biological substances; Z91.018 Allergy to other foods; Z87.01 Personal history of pneumonia (recurrent); Z83.3 Family history of diabetes mellitus; Z80.9 Family history of malignant neoplasm, unspecified; Z98.2 Presence of cerebrospinal fluid drainage device
CPT/HCPCS: 36415; 71020; 80053; 83605; 84484; 85025; 87502; 93005; 94640; 94760; 96372; 99212; A9270-GY; G0463; J0456; J1644; J2060; J2920; J2930; J7644

== ENCOUNTER 2018-04-03 12:58 | Inpatient (IN) | payer MEDICARE ==
--- OUTSIDE RECORDS SUMMARY | 2018-04-03 13:07 | XMS REPORT | Continuity of Care Document ---
:1955 External Reference #:[id number] Author Name Alphonso Juárez D.O. Address [address] [place] [address] Care Team Providers Name Role Phone HCP given Primary Care Physician Unavailable Payers Type Date Identification Numbers Payment Provider Subscriber Effective: Policy Number: [id number] [employer] [place] 1998 PayID: [id number] [address] [place] [address] Advance Directives Description No Information Available Problems Date Description Provider Status Onset: 02/28/2003 Seizure Qamar Prater M.D. Active Onset: 02/28/2003 Tobacco user Qamar rPater M.D. Active Onset: 12/20/2012 Cough Alphonso Juárez D.O. Active Onset: 12/20/2012 Prolonged depressive adjustment Alphonso Juárez D.O. Active reaction Onset: 05/23/2013 Acute bronchitis Alphonso Juárez D.O. Active Onset: 05/23/2013 Chronic obstructive lung disease Alphonso Juárez D.O. Active Onset: 10/05/2013 Acute exacerbation of chronic Alphonso Juárez D.O. Active obstructive airways disease Onset: 07/09/2014 Arthralgia of the lower leg Alphonso Juárez D.O. Active Onset: 07/09/2014 Knee joint effusion Alphonso Juárez D.O. Active Onset: 07/09/2014 Localized, primary osteoarthritis Alphonso Juárez D.O. Active Onset: 07/09/2014 Screening Malignant Neoplasm Alphonso Juárez D.O. Active Respiratory Organs Onset: 07/09/2014 Dizziness and giddiness Alphonso Juárez D.O. Active Onset: 10/22/2014 Acute maxillary sinusitis Alphonso Juárez D.O. Active Onset: 12/24/2014 Chronic obstructive pulmonary Alphonso Juárez D.O. Active disease with (acute) exacerbation Onset: 08/25/2017 Abnormal reflex Alphonso Juárez D.O. Active Onset: 08/25/2017 Low back pain Alphonso Juárez D.O. Active Onset: 08/25/2017 Polyneuropathy Alphonso Juárez D.O. Active Family History Date Family Member(s) Problem(s) Comments : (age 54 Father due to Cancer at base of bronchial Years) tubes : (age 62 Mother due to Cancer behind heart Years) Siblings 5 brothers Fourth Brother Diabetes, Nos Fifth Brother Diabetes, Nos First Sister Lupus Social History Type Date Description Comments Sex Unknown Education Highest level completed, 12th grade Marital Status Work Status Not Currently Working due to disability self imposed from stroke Tobacco Use Start: Unknown currently smokes 1/2 2-2.5 packs per day Pack Daily since age 13-14. Decreased to 1/2 ppd 01/2014. Pack year history >80 pack years. ETOH Use Denies alcohol use Tobacco Use Reviewed: 07/24/17 Patient is a current smoker, smokes every day Smoking Status Reviewed: 02/12/18 Patient is a current smoker, smokes every day Sun Exposure moderate amount of sun exposure Sun Exposure Uses sunscreen Seat Belt/Car Seat always uses seat belt Currently Active Patient is currently sexually active Allergies, Adverse Reactions, Alerts Date Description Reaction Status Severity Comments 04/10/2004 Dilantin Active PT Has Seizures On This Med Per PT Medications Medication Date Status Form Strength Qnty SIG Indications Ordering Provider Tamsulosin 12/16/ Active Capsules 0.4mg 90cap 1 by mouth Franck, HCL 2018 s every day Maurice Werner.O. Vitamin B 08/30/ Active Capsules 180ca 1 by mouth Franck, Complex-C 2018 ps twice a day Maurice Werner.O. Vitamin D3 08/30/ Active Capsules 5000Unit 90cap 1 by mouth Sopchak, Maximum 2018 s every day or Alphonso, Strength 7 tablets D.O. once a week Baclofen 08/25/ Active Tablets 10mg 90tab take 1 tablet Franck, 2018 s by mouth Alphonso, three times a D.O. day for muscle spasms Albuterol 01/01/ Active Nebulizer (2.5mg/3ML 225un Use 1 Ampoule Silcoff, Sulfate 2016 ) 0.083% its In Nebulizer Dc, Four Times A M.D. Day as Needed For Cough, For Shortness Of Breath Gabapentin 12/11/ Active Capsules 100mg 180ca 2 tabs three M54.17 Franck 2016 ps times a day. Hetal Werner Acetaminophen 08/18/ Active Tablets 300-30mg 90tab Take One M25.561 [facility], -[facility] #3 2017 s Tablet By Alphonso, Mouth Three D.O. Times A Day as Needed Maximum Daily Dose=3 Tablets Ventolin HFA 07/10/ Active Aerosol 108(90Base 18uni Inhale Two Terra 2016 ) mcg/Act ts Puffs By Dc Mouth Every 4 M.D. Hours as Needed For Bronchospasm Ibuprofen 10/08/ Active Tablets 800mg 90tab 1 cap by Terra, 2015 s mouth three Dc, times a day M.D. Ipratropium 07/09/ Active Solution 0.5-2.5(3) 180un Inhale The J44.9 Sopchak, [place]/Albut 2016 mg/3ML its Contents Of Alphonso, ailyn Sulfate One Vial Via D.O. Nebulizer Four Times A Day Symbicort 12/24/ Active Aerosol 160-4.5mcg 30.6g inhale 2 J44.1 Sopchapadma , 2015 /Act m puffs by Alphonso, mouth twice a D.O. day gargle after use Nebulizer 03/11/ Active 1Set use with Unknown Tubing With 2013 nebulizer5 Med Cup Paxil 10/26/ Active Tablets 20mg 90tab 1 by mouth F43.21 Franck 2011 s every day Hetal Werner R42 Azithromycin Hx Tablets 250mg 12tabs take 2 tablets by Franck 018 - mouth one time on , the first day then Stew Werner take 1 tablet by D.O. mouth daily for 10 days Azithromycin Hx Tablets 250mg 6tabs take 2 tablets by J01.90 Franck 018 - mouth one time on , the first day then Stew Werner take 1 tablet by D.O. mouth daily for 4 days Amoxicillin/Clavula Hx Tablets 875-125 20tabs 1 tab by mouth J01.90 Silcoff guru Potassium 018 - mg twice a day x10 , days Stew Irwin M.D. Diflucan Hx Tablets 150mg 3tabs 1 cap by mouth once B37.0 Sopchak 017 - every 3 days , Stew Werner D.O. Azithromycin Hx Tablets 250mg 12tabs take 2 tablets by J44.1 Sopjamesk 017 - mouth one time on , the first day then Stew Werner take 1 tablet by D.O. mouth daily for 10 days Prednisone Hx Tablets 10mg 10tabs 2 tabs for 3 days J44.1 Sopandra 017 - then 1 tab for 4 , days Stew Werner D.O. Azithromycin Hx Tablets 250mg 6tabs take 2 tablets by J44.1 Sopchak 017 - mouth one time on , the first day then Wayne Werner take 1 tablet by D.O. mouth daily for 4 days Prednisone Hx Tablets 10mg 15tabs 2 tabs for 5 days J44.1 Sopandra 017 - then 1 tab for 5 , days with Wayne Werner exacerbation of D.O. bronchitis Diflucan Hx Tablets 200mg 15tabs 2 tabs day one then B37.0 Silcoff 017 - 1 tab days 2-13. , Wayne Irwin M.D. Gabapentin Hx Capsules 300mg 30caps 1 by mouth at night M54.17 Sopchak 017 - for leg pain , Wayne Werner D.O. Breo Ellipta Hx Aerosol 100-25m 60units Inhale 1 puff by F17.210 Sopchak 017 - cg/Inh mouth daily for , chronic obstructive Wayne Werner lung disease D.O. J44.9 Prednisone 07/16/2016 - Hx Tablets 10mg 10tabs 2 tabs for 3 J44.1 Hektor, 07/23/2016 days then 1 Meli, tab for 4 PA days Angelique Allergy 07/10/2016 - Hx Tablets 180mg 1 by mouth Unknown 11/25/2016 every day as needed for allergies Oxycodone-Acetaminop 05/27/2016 - Hx Tablets 5-325 14tabs 1 every [address] [facility] 06/03/2016 mg hours as 1 Alphonso, needed severe D.O. pain MDD 2 Spiriva Respimat 05/27/2016 - Hx Aerosol 2.5mc 8gm two J44.9 [facility], 07/10/2016 g/Act inhalations Alphonso, (5mcg) once D.O. daily (maximum: 2 inhalations per 24 hours). Cefadroxil 01/25/2016 - Hx Capsules 500mg 20caps 1 bid J44.1 Qamar 02/04/2016 Emerson Prater M.D. Prednisone 01/25/2016 - Hx Tablets 10mg 42tabs 2 tabs for 3 J44.1 Qamar 02/04/2016 days then 1 A. tab for 4 Klepack, days with M.D. exacerbation of bronchitis Proair HFA 12/02/2015 - Hx Aerosol 108(9 18units Inhale Two [facility], 07/10/2016 0Base Puffs By Alphonso, ) Mouth Every 4 D.O. mcg/A To [address] Voltaren 10/09/2015 - Hx Gel 1% 100gm 2 gm apply to [facility], 11/25/2016 affected area Alphonso, every day # D.O. 100gm Amoxicillin 09/21/2015 - Hx Tablets 500mg 60tabs 2 by mouth J01.10 Silcoff, 10/01/2015 three times a Dc, day for 10 M.D. days for sinusitis Loratadine 09/21/2015 - Hx Tablets 10mg 0tabs 1 by mouth J30.9 Silcoff, 07/14/2016 every day as Dc, needed for M.D. allergies Diflucan 05/30/2015 - Hx Suspension 40mg/ 30ml 4ml swish and B37.0 Sopchak, 06/14/2015 Rec ml swallow until Alphonso, gone. D.O. Levofloxacin 05/28/2015 - Hx Tablets 500mg 7tabs 1 by mouth J44.1 [facility], 06/[facility]2015 every day x 7 Alphonso, days D.O. Methylprednisolone 05/28/2015 - Hx Tablets 4mg 21tabs 24 mg([address] [facility], ([place] 06/03/2015 tablets) on Alphonso, day 1, 20 mg D.O. (5 tablets) on day 2, 16 mg (4 tablets) on day 3, 12 mg (3 tablets)day 4, then 2 then 1 tab Guaifenesin ac 05/28/2015 - Hx Syrup 100-1 100unit 1-2 teaspoon J44.1 [facility], 06/07/2015 0mg/5 s every 6 Alphonso, ML hours, as D.O. needed Tylenol With Codeine 05/28/2015 - Hx Tablets 300-3 90tabs 1 by mouth M25.56 Hektor, #3 08/18/2016 0mg three times a 1 Meli, day as needed PA Baclofen 05/28/2015 - Hx Tablets 10mg 90tabs Take One M25.56 [facility], 12/11/2016 Tablet By 1 Alphonso, Mouth Three D.O. Times A Day For Muscle Spasms, Will Make Sleepy Dulera 04/10/2015 - Hx Aerosol 100-5 26.4gm 2 puff twice J41.8 [facility], 05/27/2015 mcg/A a day Alphonso, ct D.O. Prednisone 04/10/2015 - Hx Tablets 10mg 42tabs 2 tabs for 3 J41.8 [facility], 05/27/2015 days then 1 Alphonso, tab for 4 D.O. days with exacerbation of bronchitis Azithromycin 04/10/2015 - Hx Tablets 250mg 6tabs take 2 J41.8 [facility], 04/15/2015 tablets by Alphonso, mouth one D.O. time on the first day then take 1 tablet by mouth daily for 4 days Cephalexin 01/21/2015 - Hx Capsules 500mg 20caps 1 by mouth L72.3 [facility], 01/31/2015 twice a day Alphonso, D.O. Hydrocodone-Acetamin 12/24/2014 - Hx Tablets 5-325 90tabs 1 tabletq 6 M25.56 [facility] ophen 05/28/2015 mg hours as 1 Alphonso, needed for D.O. severe pain Amoxicillin/Clavulan 10/22/2014 - Hx Tablets 875-1 20tabs 1 by mouth 461.[address] [facility], ate Potassium 11/01/2014 25mg twice a day Alphonso, D.O. Fluticasone 10/22/2014 - Hx Suspension 50mcg 16units 2 sprays 461.0 [facility], Propionate 12/21/2014 /Act twice a day Alphonso, for 4 days D.O. then daily until symptoms resolved. Valacyclovir HCL 03/12/2014 - Hx Tablets 1gm 21tabs 1 three times 053.[address] [facility], 03/19/2014 a day for 7 Alphonso, days D.O. Clarithromycin 03/12/2014 - Hx Tablets 500mg 20tabs 1 by mouth 466.0 Sopchak, 03/12/2014 twice a day Alphonso, D.O. Azithromycin 03/12/2014 - Hx Tablets 250mg 6tabs take 2 466.0 [facility], 07/06/2014 tablets by Alphonso, mouth one D.O. time on the first day then take 1 tablet by mouth daily for 4 days Albuterol Sulfate 03/09/2014 - Hx Nebulizer (2.5m 225unit Use 1 Ampoule [facility], 01/24/2016 g/3ML s In Nebulizer Alphonso, ) Four Times A D.O. 0.083 Day as Needed % For Cough, For Shortness Of Breath Bupropion HCL ER 10/05/2013 - Hx Tablets ER 150mg take two 305.[address] [facility], ([facility]) 10/04/2013 24HR tablets by Alphonso, mouth every D.O. morning, for mood, for 1 month, then change back to the 300mg tablets Prednisone 10/05/2013 - Hx Tablets 5mg 1 by mouth 466.0 [facility], 10/04/2013 every day Alphonso, D.O. Proair HFA 10/05/2013 - Hx Aerosol 108(9 8.500gm 1-2 puffs 496 [facility], 03/11/2014 0Base four times a Alphonso, ) day as needed D.O. mcg/A ct Flovent HFA 10/05/2013 - Hx Aerosol 44mcg 1canist 2 puff twice 491.21 [facility], 03/11/2014 /Act er a day Alphonso, D.O. Symbicort 10/05/2013 - Hx Aerosol 160-4 10.2uni inhale 2 491.21 [facility] , 03/11/2014 .5mcg ts puffs by Alphonso, /Act mouth twice a D.O. day gargle after use Bupropion HCL ER 05/23/2013 - Hx Tablets ER 150mg 60tabs 1 tab po in 305.1 [facility], 10/04/2013 12HR am for 3 Alphonso, days anf then D.O. increase to 1 twice a day Chantix Starting 05/23/2013 - Hx Tablets 0.5mg 1tabs take as 305.1 [facility] Reagan 10/04/2013 X 11 directed Alphonso, & 1 D.O. mg X 42 Azithromycin 05/23/2013 - Hx Tablets 250mg 6tabs take 2 466.0 [facility], 10/04/2013 tablets by Alphonso, mouth one D.O. time on the first day then take 1 tablet by mouth daily for 4 days Prednisone 05/23/2013 - Hx Tablets 10mg 10tabs 1 cap by 466.0 [facility], 10/04/2013 mouth every Alphonso, day D.O. Ventolin HFA 05/10/2013 - Hx Aerosol 108(9 1canist 2 puff every [facility], 04/10/2015 0Base er 4-6 Alphonso, ) D.O. mcg/A ct Cefuroxime Axetil 03/23/2013 - Hx Tablets 500mg 20tabs 1 by mouth Unknown 05/22/2013 twice a day for copd exacerbation/ bronchitis Azithromycin 03/23/2013 - Hx Tablets 250mg 6tabs 1 tabs day Unknown 05/22/2013 one x 3 days Prednisone 03/23/2013 - Hx Tablets 10mg 15tabs 1 tab po Unknown 05/22/2013 taper to 5 to 0 in 5 days Ventolin HFA 03/06/2013 - Hx Aerosol 108(9 18units Inhale Two 786.09 [facility], 05/22/2013 0Base Puffs By Alphonso, ) Mouth Every 4 D.O. mcg/A Hours as ct Needed For Bronchospasm 786.2 Proventil 05/20/2012 - Hx Aerosol 108(90Base) 6.700gm 2 puffs q4h 786.09 Sopandra, HFA 03/06/2013 mcg/Act prn for Alphonso, cough, D.O. wheezing, sob 786.2 Acular 05/04/2012 - Hx Solution 0.5% 5ml 1 drop right 918.1 Silcoff, 05/09/2012 eye four Dc, times a day M.D. until pain resolved, or up to 5 days Polyethylene 12/08/2011 - Hx Powder 3350NF 527gm use 1 cap 564.01 Qamar A. Glycol 3350 03/28/2012 full in 8 oz Klepack, of water M.D. every day; may increase to 2 caps as needed Proventil HFA 12/05/2011 - Hx Aerosol 108(90B 6.700g 2 puffs q4h 786.09 Qamar A. 05/20/2012 ase) m prn for Klepack, mcg/ac cough, M.D. wheezing, sob 786.2 Omeprazole 12/05/2011 - Hx Capsules DR 40mg 30caps 1 by mouth 789.06 Silcoff, 12/20/2012 every day Dc, for upper M.D. abdominal pain Paxil 06/22/2011 - Hx Tablets 20mg 30tabs 1 po qd 309.1 Qamar Tanvir. 10/20/2011 Nicola Prater Cipro 06/08/2006 - Hx Tablets 500mg 20tabs 1 PO bid 461.1 Violette, 06/18/2006 Jaycee RANDOLPH Nasonex 06/08/2006 - Hx Aerosol 50mcg Sample 2 Sprays In 461.1 Sanchezson, Intranasal 06/15/2006 Each Nostril Jaycee RANDOLPH [place] Once A Day Cortisporin 09/28/2005 - Hx Suspension 5mg;10 1Bottle 3-4 gtts tid 380.10 Silcoff, Otic 10/05/2005 000U;1 To Left Ear Dc, 0mg/ML For 1 Week M.D. Sodium 09/28/2005 - Hx Solution 10% 1-2 gtts 372.30 Silcoff, Sulfacetamide 10/08/2005 O.D. Q3H Dc, While Awake M.D. For 5 Days; Start Only If Eye Discharge Gets A Lot Heavier Or Redness Very Persistent Fluocinolone 09/29/2004 - Hx Solution 0.01% QS use in ear 380.22 Qamar Norman 06/08/2006 prn bid for Tigre itching M.D. apply with q tip or fingertip Cipro 08/11/2004 - Hx Tablets 500mg 20tabs 1 po bid 380.10 Qamar Norman 08/31/2004 Until Gone Nicola Prater Cortisporin 08/11/2004 - Hx Solution 5mg;10 QS 1 Dropperful 380.10 Qamar Norman Otic 08/18/2004 000U;1 qid For 7 Klecasa 0mg/ML Days M.D. Tylenol W/ 08/11/2004 - Hx Tablets 300mg; 60tabs 1 Or2 Q4H 380.10 Qamar Norman Codeine #3 09/29/2004 30 mg prn Pain Nicola Prater Tylenol W/ 07/11/2004 - Hx Tablets 300mg; 30tabs 1-2 tabs po Violette Codeine #3 06/18/2011 30 mg q4h prn for Jaycee RANDOLPH back pain Anusol HC 07/01/2004 - Hx Suppositor 25mg 28units 1 pr bid as 455.0 Silcoff, 07/15/2004 directed Nicola Irwin Tylenol W04/19/2003 - Hx Tablets 300mg; 30tabs 1 or2 q4h 719.41 Qamar Norman Codeine #3 09/03/2003 30 mg prn pain Nicola Prater Motrin 04/14/2003 - Hx Tablets 600mg 30tabs 1 tid for Qamar Norman 04/24/2003 four days Klecasa, then prn M.D. after that take with food for shoulder Paxil 02/28/2003 - Hx Tablets 20mg 30tabs 1 po qd 309.1 Qamar Norman 06/20/2003 Nicola Prater Doxycycline 01/16/2003 - Hx Capsules 100mg 20caps 1 bid for 464.00 Qamar Norman Hyclate 01/26/2003 ten days Nicola Prater Alkolol 01/16/2003 - Hx qs1mo use tid to 464.00 Qamar Vallejo 09/03/2003 cleanse nose Tigre and throat Nicola Tegretol 01/03/2003 - Hx Tablets 200mg 30tabs 1 tid 780.39 Qamar Norman 06/17/2011 Nicola Prater Tylenol - Hx Tablets 300mg; 100tabs 1 or2 q4h 724.2 Qamar Norman Codeine #3 07/01/2004 30 mg prn pain Nicola Prater Medications Administered in Office Medication Date Status Form Strength Qnty SIG Indications Ordering Provider injection, Administered Injection Sopchak, kenalog, 10 mg 018 Alphonso, D.O. injection, Administered Injection Sopchak, kenalog, 10 mg 017 Alphonso, D.O. Toradol 15MG. Administered Injection Sopchak, 016 Alphonso, D.O. SC/Im Administered Injection Sopchak, Injections 016 Alphonso, D.O. injection, Administered Injection Sopchak, kenalog, 10 mg 015 Alphonso, D.O. injection, Administered Injection Sopchak, kenalog, 10 mg 015 Alphonso, D.O. Injection Of Administered Injection Qamar Norman Phenergan 50 003 Klepack, mg M.D. Injection, Administered Injection Qamar Norman Epinephrine Up 003 Klepack, To 1 ML. M.D. Ampule Immunizations CPT Code Status Date Vaccine Lot # [id number] Given 07/10/2015 Prevnar 13 [id number] Given 09/10/1998 Td Immunization U-Flu Refused 02/12/2018 Influenza,Unspecified [id number] Refused 12/05/2011 Flu, Split Virus 3Yrs Vital Signs Date Vital Result Comment 03/07/2018 5:04pm BP Systolic 128 mmHg BP Diastolic 82 mmHg Body Temperature 98.3 F Weight 168.00 lb with shoes 02/12/2018 11:09am BP Systolic 130 mmHg BP Diastolic 84 mmHg Body Temperature 98.3 F Height 69 inches 5'9" Weight 165.00 lb BMI (Body Mass Index) 24.4 kg/m2 01/11/2018 2:10pm BP Systolic 128 mmHg BP Diastolic 80 mmHg Body Temperature 97.9 F Weight 164.00 lb with shoes 12/16/2017 11:12am BP Systolic 132 mmHg BP Diastolic 72 mmHg Weight 163.50 lb 10/20/2017 2:05pm BP Systolic 142 mmHg BP Diastolic 80 mmHg Body Temperature 98.0 F Weight 163.00 lb w/shoes 09/20/2017 4:48pm BP Systolic 120 mmHg BP Diastolic 82 mmHg Weight 159.00 lb with shoes 08/25/2017 1:00pm BP Systolic 140 mmHg BP Diastolic 88 mmHg Weight 164.00 lb with shoes 07/24/2017 11:26am BP Systolic 148 mmHg BP Diastolic 80 mmHg Weight 164.00 lb w/shoes 06/30/2017 4:19pm BP Systolic 138 mmHg BP Diastolic 82 mmHg Height 69.75 inches 5'9.75" with shoes Weight 161.00 lb with shoes BMI (Body Mass Index) 23.3 kg/m2 04/30/2017 2:26pm BP Systolic 130 mmHg BP Diastolic 76 mmHg Weight 165.00 lb 03/17/2017 2:36pm BP Systolic 136 mmHg BP Diastolic 80 mmHg Heart Rate 100 /min O2 % BldC Oximetry 94 % Body Temperature 98.2 F 03/04/2017 4:36pm BP Systolic 124 mmHg BP Diastolic 80 mmHg Weight 167.00 lb 01/04/2017 8:49am BP Systolic 132 mmHg BP Diastolic 80 mmHg Heart Rate 73 /min O2 % BldC Oximetry 98 % Weight 168.00 lb with shoes 01/01/2017 12:00pm BP Systolic 132 mmHg BP Diastolic 85 mmHg Heart Rate 80 /min O2 % BldC Oximetry 90 % Body Temperature 98.2 F Weight 167.00 lb with shoes 12/11/2016 1:34pm BP Systolic 122 mmHg BP Diastolic 70 mmHg Weight 165.00 lb 11/26/2016 3:12pm BP Systolic 120 mmHg BP Diastolic 76 mmHg Height 69 inches w/shoes Weight 165.00 lb w/shoes BMI (Body Mass Index) 24.4 kg/m2 07/16/2016 10:45am BP Systolic 130 mmHg BP Diastolic 80 mmHg Heart Rate 100 /min O2 % BldC Oximetry 92 % Weight 164.00 lb w/workboots 05/27/2016 2:06pm BP Systolic 156 mmHg BP Diastolic 84 mmHg Weight 175.00 lb 05/05/2016 12:22pm BP Systolic 124 mmHg BP Diastolic 78 mmHg Height 69.50 inches 5'9.50" w/shoes Weight 176.00 lb w/shoes BMI (Body Mass Index) 25.6 kg/m2 10/09/2015 1:29pm BP Systolic 128 mmHg BP Diastolic 83 mmHg Heart Rate 89 /min Height 69 inches 5'9" Weight 174.00 lb BMI (Body Mass Index) 25.7 kg/m2 09/21/2015 12:36pm BP Systolic 122 mmHg BP Diastolic 76 mmHg Heart Rate 70 /min reg Respiratory Rate 14 /min not laboured Body Temperature 98.4 F Weight 175.00 lb 07/10/2015 1:10pm BP Systolic 96 mmHg BP Diastolic 60 mmHg Weight 176.00 lb 05/28/2015 9:52am BP Systolic 121 mmHg BP Diastolic 75 mmHg Heart Rate 76 /min Body Temperature 98.0 F Weight 178.00 lb 04/10/2015 3:40pm BP Systolic 128 mmHg BP Diastolic 76 mmHg Body Temperature 98.1 F Weight 178.00 lb w/shoes 01/21/2015 2:41pm BP Systolic 110 mmHg BP Diastolic 70 mmHg Weight 172.00 lb with boots 12/24/2014 10:31am BP Systolic 116 mmHg BP Diastolic 81 mmHg Heart Rate 54 /min Weight 174.00 lb with boots 10/22/2014 1:58pm BP Systolic 124 mmHg BP Diastolic 66 mmHg Heart Rate 76 /min Body Temperature 98.7 F Weight 164.00 lb w/shoes 07/11/2014 3:39pm BP Systolic 129 mmHg BP Diastolic 85 mmHg Heart Rate 85 /min 07/09/2014 10:48am BP Systolic 139 mmHg BP Diastolic 80 mmHg Heart Rate 76 /min Height 70 inches 5'10" Weight 174.00 lb BMI (Body Mass Index) 25.0 kg/m2 03/12/2014 10:45am BP Systolic 148 mmHg BP Diastolic 70 mmHg Weight 182.00 lb shoes & coat on 10/05/2013 12:06pm BP Systolic 148 mmHg BP Diastolic 88 mmHg Weight 177.00 lb 05/23/2013 4:12pm BP Systolic 120 mmHg BP Diastolic 82 mmHg O2 % BldC Oximetry 9192 % Body Temperature 99.0 F Weight 174.00 lb 12/20/2012 9:56am BP Systolic 126 mmHg BP Diastolic 84 mmHg Height 70 inches 5'10" Weight 169.00 lb BMI (Body Mass Index) 24.2 kg/m2 05/04/2012 1:28pm BP Systolic 138 mmHg BP Diastolic 82 mmHg Body Temperature 98.0 F Weight 176.00 lb 03/28/2012 12:08pm BP Systolic 130 mmHg BP Diastolic 80 mmHg Height 70 inches 5'10" Weight 177.00 lb BMI (Body Mass Index) 25.4 kg/m2 01/22/2012 3:53pm BP Systolic 130 mmHg BP Diastolic 78 mmHg O2 % BldC Oximetry 9697 % Body Temperature 98.0 F Weight 170.00 lb 01/11/2012 5:01pm BP Systolic 126 mmHg BP Diastolic 78 mmHg Heart Rate 80 /min Respiratory Rate 16 /min Body Temperature 97.9 F Weight 167.00 lb Last Menstrual Period 0 12/18/2011 3:42pm BP Systolic 108 mmHg BP Diastolic 66 mmHg Weight 166.00 lb Last Menstrual Period 0 12/08/2011 3:55pm BP Systolic 118 mmHg BP Diastolic 70 mmHg Body Temperature 98.7 F Weight 165.00 lb Last Menstrual Period 0 12/05/2011 9:06am BP Systolic 106 mmHg BP Diastolic 78 mmHg Heart Rate 74 /min reg Respiratory Rate 14 /min not laboured Body Temperature 98.6 F Weight 165.00 lb 10/27/2011 4:31pm BP Systolic 124 mmHg BP Diastolic 78 mmHg Weight 169.00 lb Last Menstrual Period 0 07/09/2011 1:30pm BP Systolic 110 mmHg BP Diastolic 76 mmHg Weight 170.00 lb Last Menstrual Period 0 06/22/2011 3:49pm BP Systolic 140 mmHg BP Diastolic 72 mmHg Height 69 inches 5'9" Weight 171.00 lb BMI (Body Mass Index) 25.2 kg/m2 Last Menstrual Period 0 06/08/2006 4:20pm BP Systolic 108 mmHg BP Diastolic 90 mmHg Body Temperature 99.3 F Height 70.6 inches 5'10.60" Weight 172.00 lb BMI (Body Mass Index) 24.3 kg/m2 Last Menstrual Period 0 11/21/2005 9:05am BP Systolic 132 mmHg BP Diastolic 78 mmHg Height 70.6 inches 5'10.60" Weight 171.00 lb BMI (Body Mass Index) 24.1 kg/m2 09/28/2005 11:17am BP Systolic 136 mmHg BP Diastolic 80 mmHg Body Temperature 97.9 F Height 70.6 inches 5'10.60" Weight 173.00 lb BMI (Body Mass Index) 24.4 kg/m2 09/29/2004 9:29am BP Systolic 134 mmHg BP Diastolic 84 mmHg Heart Rate 80 /min rrr Respiratory Rate 16 /min easy Height 70.6 inches 5'10.60" Weight 172.50 lb BMI (Body Mass Index) 24.3 kg/m2 08/14/2004 10:51am BP Systolic 112 mmHg BP Diastolic 82 mmHg Body Temperature 97.8 F has been running temp in the afternoon Height 70.6 inches 5'10.60" 08/11/2004 11:22am BP Systolic 125 mmHg BP Diastolic 85 mmHg Respiratory Rate 16 /min Body Temperature 98.2 F Height 70.6 inches 5'10.60" Weight 177.00 lb BMI (Body Mass Index) 25.0 kg/m2 07/01/2004 3:27pm BP Systolic 120 mmHg BP Diastolic 74 mmHg Height 70.6 inches 5'10.60" Weight 180.00 lb BMI (Body Mass Index) 25.4 kg/m2 04/10/2004 9:09am BP Systolic 130 mmHg BP Diastolic 76 mmHg Height 70.6 inches 5'10.60" Weight 183.00 lb BMI (Body Mass Index) 25.8 kg/m2 09/03/2003 10:45am BP Systolic 114 mmHg BP Diastolic 76 mmHg Weight 171.00 lb Lost 14 lbs. 04/19/2003 10:17am BP Systolic 120 mmHg R Arm BP Diastolic 80 mmHg R Arm Weight 185.00 lb 02/28/2003 4:21pm BP Systolic 128 mmHg BP Diastolic 74 mmHg Heart Rate 70 /min Weight 185.00 lb 01/16/2003 1:46pm BP Systolic 130 mmHg BP Diastolic 88 mmHg Body Temperature 97.9 F Weight 178.00 lb Last Menstrual Period 0 01/16/2003 1:46pm Body Temperature 97.9 F 01/16/2003 1:43pm BP Systolic 130 mmHg BP Diastolic 88 mmHg Weight 178.00 lb Results Test Date Facility Test Result H/L Range Note Laboratory test 08/25/2017 [facility] Uric Acid 5.5 mg/dL N 4.4-7.6 finding [phone] Phosphorus 3.3 mg/dL N 2.5-5.0 Tick-Borne Panel PCR 08/25/2017 [facility] Babesia microti Negative Negative Blood [phone] PCR Babesia ducani Negative Negative Babesia divergens/Mo-1 Negative Negative 1 Anaplasma phagocytophilum Negative Negative Ehrlichia chaffeensis Negative Negative Ehrlichia ewingii/canis Negative Negative Ehrlichia muris-like Negative Negative 2 B. miyamotoi PCR, B Negative Negative 3 CBC Auto Diff 08/25/2017 [facility] White Blood Count 5.5 10^3/uL N 3.5-10.8 [phone] Red Blood Count 4.35 10^6/uL N 4.0-5.4 Hemoglobin 14.6 g/dL N 14.0-18.0 Hematocrit 43 % N 42-52 Mean Corpuscular Volume 98 fL High 80-94 Mean Corpuscular Hemoglobin 34 pg High 27-31 Mean Corpuscular HGB Conc 34 g/dL N 31-36 Red Cell Distribution Width 13 % N 10.5-15 Platelet Count 274 10^3/uL N 150-450 Mean Platelet Volume 7.6 um3 N 7.4-10.4 Abs Neutrophils 3.5 10^3/uL N 1.5-7.7 Abs Lymphocytes 1.4 10^3/uL N 1.0-4.8 Abs Monocytes 0.5 10^3/uL N 0-0.8 Abs Eosinophils 0 10^3/uL N 0-0.6 Abs Basophils 0 10^3/uL N 0-0.2 Abs Nucleated RBC 0 10^3/uL Granulocyte % 63.7 % N 38-83 Lymphocyte % 25.6 % N 25-47 Monocyte % 9.5 % High 0-7 Eosinophil % 0.8 % N 0-6 Basophil % 0.4 % N 0-2 Nucleated Red Blood Cells % 0 Comp Metabolic Panel 08/25/2017 [facility] Sodium 141 mmol/L N 139- 145 [phone] Potassium 4.2 mmol/L N 3.5-5.0 Chloride 106 mmol/L N 101-111 Co2 Carbon Dioxide 25 mmol/L N 22-32 Anion Gap 10 mmol/L N 2-11 Glucose 104 mg/dL High 70-100 Blood Urea Nitrogen 13 mg/dL N 6-24 Creatinine 0.75 mg/dL N 0.67-1.17 BUN/Creatinine Ratio 17.3 N 8-20 Calcium 9.2 mg/dL N 8.6-10.3 Total Protein 7.1 g/dL N 6.4-8.9 Albumin 4.1 g/dL N 3.2-5.2 Globulin 3.0 g/dL N 2-4 Albumin/Globulin Ratio 1.4 N 1-3 Total Bilirubin 0.50 mg/dL N 0.2-1.0 Alkaline Phosphatase 56 U/L N 34-104 Alt 17 U/L N 7-52 Ast 24 U/L N 13-39 Egfr Non- 106.6 >60 Egfr 137.1 >60 4 Laboratory test 08/25/2017 [facility] TSH (Thyroid 0.36 mcIU/mL N 0.34-5.60 finding [phone] Stim Horm) Magnesium 2.2 mg/dL N 1.9-2.7 Lyme Western Blot 08/25/2017 [facility] Lyme Disease IgG Negative Negative [phone] Ab WB Lyme Disease IgG Bands Present No bands detecte <SEE NOTE> kDa 5 Lyme Disease IgM Ab WB Negative Negative Lyme Disease IgM Bands Present No bands detecte <SEE NOTE> kDa 6 Lyme Disease Interpretation See Comment 7 Laboratory test 08/25/2017 [facility] Erythrocyte Sed 24 mm/Hr High 0 -20 finding [phone] Rate C Reactive Protein 5.31 mg/L High < 5.00 8 Vitamin B12 206 pg/mL N 180-914 9 Vitamin D Total 25(Oh) 15.4 ng/mL Low 20-50 Connective Tissue Panel 08/25/2017 [facility] Anti-Nuclear Antibody 0.2 U 10 [phone] Cyclic Citrullinated Peptide <15.6 U 11 Interpretation See Comment 12 Rapid Influenza A 07/07/2016 [facility] Influenza A NEGATIVE N Negative 13 & B Molecular [phone] Molecular Influenza B Molecular NEGATIVE N Negative Laboratory test 07/06/2016 [facility] Rapid Influenza SEE RESULT 14 finding [phone] A B Antigen BELOW Xray 05/27/2016 [facility] X-Ray, Pelvis, No change 15 1 Or 2 Views Xray 10/09/2015 [facility] X-Ray, Hips, 2 Normal hip View With x-ray Pelvis - Left Laboratory test 05/28/2015 [facility] Throat SEE RESULT 16 finding [phone] BELOW Body Fluid Cell 07/11/2014 [facility] Body Fluid Synovial Fluid N Count [phone] Source Body Fluid Appearance Clear N Body Fluid Color Yellow N Body Fluid Volume 0.3 mL N Body Fluid WBC 3175 N Body Fluid RBC 345 N Body Fluid Polys 2 N Body Fluid Lymph 90 N Body Fluid [place] 3 N Body Fluid Other Cells 2 N Body Fluid NRBC 3 N Body Fluid Total Cells Counted 100 N Fluid Reviewed By MD (SEE NOTE) N 17 Laboratory test 07/11/2014 [facility] Fluid Crystals None Seen N 18 finding [phone] Body Fluid C&S 07/11/2014 [facility] Body Fluid Cult (SEE NOTE) 19 [phone] Gram Stain Body Fluid C&S 07/11/2014 [facility] Body Fluid Cult (SEE NOTE) 20 [phone] Gram Stain Body Fluid Cell 07/11/2014 [facility] Body Fluid Source Synovial Fluid N Count [phone] Body Fluid Appearance Clear N Body Fluid Color Yellow N Body Fluid Volume 1 mL N Body Fluid WBC 1736 N Body Fluid RBC 134 N Body Fluid Polys 2 N Body Fluid Lymph 93 N Body Fluid [place] 4 N Body Fluid Other Cells 1 N Body Fluid NRBC 0 N Body Fluid Total Cells Counted 100 N Fluid Reviewed By MD (SEE NOTE) N 21 Laboratory test 07/11/2014 [facility] Fluid Crystals None Seen N 22 finding [phone] Body Fluid C&S 07/11/2014 [facility] Body Fluid Cult (SEE NOTE) 23 [phone] Gram Stain CBC Auto Diff 03/05/2014 [facility] White Blood 7.5 10^3/uL N 4.8- 10.8 [phone] Count Red Blood Count 4.54 10^6/uL N 4.0-5.4 Hemoglobin 14.6 g/dL N 14.0-18.0 Hematocrit 45 % N 42-52 Mean Corpuscular Volume 99 fL High 80-94 Mean Corpuscular Hemoglobin 32 pg High 27-31 Mean Corpuscular HGB Conc 32 g/dL N 31-36 Red Cell Distribution Width 13 % N 10.5-15 Platelet Count 263 10^3/uL N 150-450 Mean Platelet Volume 8 um3 N 7.4-10.4 Abs Neutrophils 5.3 10^3/uL N 1.5-7.7 Abs Lymphocytes 1.1 10^3/uL N 1.0-4.8 Abs Monocytes 0.7 10^3/uL N 0-0.8 Abs Eosinophils 0.3 10^3/uL N 0-0.6 Abs Basophils 0 10^3/uL N 0-0.2 Abs Nucleated RBC 0 10^3/uL N Granulocyte % 70.7 % N 38-83 Lymphocyte % 15.1 % Low 25-47 Monocyte % 9.7 % High 1-9 Eosinophil % 3.9 % N 0-6 Basophil % 0.6 % N 0-2 Nucleated Red Blood Cells % 0 N Comp Metabolic Panel 03/05/2014 [facility] Sodium 140 mmol/L N 133- 145 [phone] Potassium 4.3 mmol/L N 3.5-5.0 Chloride 108 mmol/L N 101-111 Co2 Carbon Dioxide 25 mmol/L N 22-32 Anion Gap 7 mmol/L N 2-11 Glucose 122 mg/dL High 70-100 Blood Urea Nitrogen 12 mg/dL N 6-24 Creatinine 0.83 mg/dL N 0.67-1.17 BUN/Creatinine Ratio 14.5 N 8-20 Calcium 8.6 mg/dL N 8.6-10.3 Total Protein 7.1 g/dL N 6.4-8.9 Albumin 3.9 g/dL N 3.2-5.2 Globulin 3.2 g/dL N 2-4 Albumin/Globulin Ratio 1.2 N 1-3 Total Bilirubin 0.30 mg/dL N 0.2-1.0 Alkaline Phosphatase 40 U/L N 34-104 Alt 10 U/L N 7-52 Ast 13 U/L N 13-39 Egfr Non- 95.8 N >60 Egfr 123.3 N >60 24 Laboratory test finding 03/05/2014 [facility] Troponin I 0.07 ng/mL High <0.03 25 [phone] C Reactive Protein 9.50 mg/L High < 5.00 26 Inr/Protime 03/05/2014 [facility] Inr 0.91 N 0.85-1.06 [phone] Laboratory test 03/05/2014 [facility] Activated 36.1 seconds N 24.0- 36.1 finding [phone] Partial Thrombo Time B Type Natriuretic Peptide 34 pg/mL N 27 Lactic Acid 1.1 mmol/L N 0.5-2.2 Comp Metabolic Panel 09/21/2013 [facility] Sodium 137 mmol/L N 133- 145 [phone] Potassium 4.4 mmol/L N 3.7-5.6 Chloride 107 mmol/L N 101-111 Co2 Carbon Dioxide 25 mmol/L N 22-32 Anion Gap 5 mmol/L N 2-11 Glucose 107 mg/dL High 70-100 Blood Urea Nitrogen 16 mg/dL N 6-24 Creatinine 0.85 mg/dL N 0.67-1.17 BUN/Creatinine Ratio 18.8 N 8-20 Calcium 9.0 mg/dL N 8.6-10.3 Total Protein 6.8 g/dL N 6.4-8.9 Albumin 3.9 g/dL N 3.2-5.2 Globulin 2.9 g/dL N 2-4 Albumin/Globulin Ratio 1.3 N 1-3 Total Bilirubin 0.30 mg/dL N 0.2-1.0 Alkaline Phosphatase 43 U/L N 34-104 Alt 11 U/L N 7-52 Ast 13 U/L N 13-39 Egfr Non- 93.6 N >60 Egfr 120.4 N >60 28 Laboratory test finding 09/21/2013 [facility] Uric Acid 5.2 mg/dL N 4.4-7.6 [phone] C Reactive Protein 3.03 mg/L N < 5.00 29 B Type Natriuretic Peptide 24 pg/mL N 30 Inr/Protime 09/21/2013 [facility] Inr 0.85 N 0.85-1.06 [phone] Laboratory test 09/21/2013 [facility] Activated 34.9 seconds N 24.0- 36.1 finding [phone] Partial Thrombo Time CBC Auto Diff 09/21/2013 [facility] White Blood 5.3 10^3/uL N 4.8- 10.8 [phone] Count Red Blood Count 4.59 10^6/uL N 4.0-5.4 Hemoglobin 15.1 g/dL N 14.0-18.0 Hematocrit 45 % N 42-52 Mean Corpuscular Volume 97 fL High 80-94 Mean Corpuscular Hemoglobin 33 pg High 27-31 Mean Corpuscular HGB Conc 34 g/dL N 31-36 Red Cell Distribution Width 13 % N 10.5-15 Platelet Count 236 10^3/uL N 150-450 Mean Platelet Volume 8 um3 N 7.4-10.4 Abs Neutrophils 3.7 10^3/uL N 1.5-7.7 Abs Lymphocytes 1.0 10^3/uL N 1.0-4.8 Abs Monocytes 0.4 10^3/uL N 0-0.8 Abs Eosinophils 0.1 10^3/uL N 0-0.6 Abs Basophils 0 10^3/uL N 0-0.2 Abs Nucleated RBC 0 10^3/uL N Granulocyte % 69.7 % N 38-83 Lymphocyte % 18.7 % Low 25-47 Monocyte % 8.5 % N 1-9 Eosinophil % 2.2 % N 0-6 Basophil % 0.9 % N 0-2 Nucleated Red Blood Cells % 0.1 N Laboratory test 09/21/2013 [facility] Erythrocyte Sed Rate 12 mm/Hr N 0-20 finding [phone] Lyme Disease Serology Negative N Negative 31 CBC Auto Diff 05/13/2013 [facility] White Blood Count 5.7 10^3/uL 4.8-10.8 [phone] Red Blood Count 4.77 10^6/uL 4.0-5.4 Hemoglobin 15.1 g/dL 14.0-18.0 Hematocrit 46 % 42-52 Mean Corpuscular Volume 96 fL High 80-94 Mean Corpuscular Hemoglobin 32 pg High 27-31 Mean Corpuscular HGB Conc 33 g/dL 31-36 Red Cell Distribution Width 13 % 10.5-15 Platelet Count 228 10^3/uL 150-450 Mean Platelet Volume 8 um3 7.4-10.4 Abs Neutrophils 3.3 10^3/uL 1.5-7.7 Abs Lymphocytes 1.6 10^3/uL 1.0-4.8 Abs Monocytes 0.5 10^3/uL 0-0.8 Abs Eosinophils 0.3 10^3/uL 0-0.6 Abs Basophils 0.1 10^3/uL 0-0.2 Abs Nucleated RBC 0 10^3/uL Granulocyte % 57.7 % 38-83 Lymphocyte % 28.1 % 25-47 Monocyte % 8.1 % 1-9 Eosinophil % 5.0 % 0-6 Basophil % 1.1 % 0-2 Nucleated Red Blood Cells % 0.1 Comp Metabolic Panel 05/13/2013 [facility] Sodium 138 mmol/L 133- 145 [phone] Potassium 4.5 mmol/L 3.7-5.6 Chloride 105 mmol/L 101-111 Co2 Carbon Dioxide 27 mmol/L 22-32 Anion Gap 6 mmol/L 2-11 Glucose 104 mg/dL High 70-100 Blood Urea Nitrogen 11 mg/dL 6-24 Creatinine 0.86 mg/dL 0.67-1.17 BUN/Creatinine Ratio 12.8 8-20 Calcium 9.1 mg/dL 8.6-10.3 Total Protein 6.7 g/dL 6.4-8.9 Albumin 4.0 g/dL 3.2-5.2 Globulin 2.7 g/dL 2-4 Albumin/Globulin Ratio 1.5 1-3 Total Bilirubin 0.60 mg/dL 0.2-1.0 Alkaline Phosphatase 42 U/L 34-104 Alt 11 U/L 7-52 Ast 12 U/L Low 13-39 Egfr Non- 92.3 >60 Egfr 118.7 >60 32 Laboratory test 05/13/2013 [facility] Troponin I < 0.01 ng/mL <0.03 33 finding [phone] Arterial Blood Gas 03/20/2013 [facility] PH Arterial 7.31 Low 7.35- 7.45 [phone] Pco2 Arterial 50 mmHg High 35-45 Po2 Arterial 72 mmHg Low 80-100 O2 Saturation Arterial 96.3 % 95-98 Base Excess Arterial -1.9 -2.0-2.0 34 Hco3 Arterial 23.3 mmol/L 19-31 O2 Device VentiMask Fio2 35 CBC Auto Diff 03/20/2013 [facility] White Blood Count 10.3 10^3/uL 4.8-10.8 [phone] Red Blood Count 5.20 10^6/uL 4.0-5.4 Hemoglobin 17.0 g/dL 14.0-18.0 Hematocrit 50 % 42-52 Mean Corpuscular Volume 96 fL High 80-94 Mean Corpuscular Hemoglobin 33 pg High 27-31 Mean Corpuscular HGB Conc 34 g/dL 31-36 Red Cell Distribution Width 13 % 10.5-15 Platelet Count 230 10^3/uL 150-450 Mean Platelet Volume 8 um3 7.4-10.4 Abs Neutrophils 4.9 10^3/uL 1.5-7.7 Abs Lymphocytes 3.7 10^3/uL 1.0-4.8 Abs Monocytes 0.8 10^3/uL 0-0.8 Abs Eosinophils 0.8 10^3/uL High 0-0.6 Abs Basophils 0.1 10^3/uL 0-0.2 Abs Nucleated RBC 0.01 10^3/uL Granulocyte % 47.4 % 38-83 Lymphocyte % 36.1 % 25-47 Monocyte % 8.2 % 1-9 Eosinophil % 7.3 % High 0-6 Basophil % 1.0 % 0-2 Nucleated Red Blood Cells % 0.1 Laboratory test 03/20/2013 [facility] D Dimer < 200 ng/mL Less Than 35 finding [phone] Quantitative 230 Comp Metabolic 03/20/2013 [facility] Sodium 142 mmol/L 133-145 Panel [phone] Potassium 4.6 mmol/L 3.5-5.0 Chloride 110 mmol/L 101-111 Co2 Carbon Dioxide 26.0 mmol/L 22-32 Anion Gap 6.0 mmol/L 2-11 Glucose 153 mg/dL High 70-100 Blood Urea Nitrogen 18 mg/dL 6-24 Creatinine 0.90 mg/dL 0.50-1.40 BUN/Creatinine Ratio 20.0 8-20 Calcium 9.0 mg/dL 8.1-9.9 Total Protein 7.3 g/dL 6.2-8.1 Albumin 4.2 g/dL 3.6-5.4 Globulin 3.1 g/dL 2-4 Albumin/Globulin Ratio 1.4 1-3 Total Bilirubin 0.4 mg/dL 0.4-1.5 Alkaline Phosphatase 47 U/L 30-110 Alt 13 U/L Low 14-54 Ast 18 U/L 12-42 Egfr Non- 87.6 >60 Egfr 112.7 >60 36 Laboratory test 03/20/2013 [facility] Creatine Kinase 213 U/L High 0- 200 finding [phone] CKMB 03/20/2013 [facility] CKMB ng/mL 5.9 ng/mL High 0.3-4.0 37 [phone] Laboratory test 03/20/2013 [facility] Troponin I 0.04 0-0.06 38 finding [phone] ng/mL Venous Blood Gas 03/20/2013 [facility] Venous Blood pH 7.23 Low 7.33- 7.43 [phone] Venous Pco2 58 mmHg High 41-51 Venous Po2 154 mmHg High 35-45 Venous O2 Saturation 100.1 % High 70-80 Venous Blood Base Excess -4.6 Low 0-4 39 Venous Bicarbonate Hco3 21.2 mmol/L Low 24-28 West Nile Igg And 01/14/2012 [facility] West Nile Virus Negative Negative Igm [phone] IgG West Nile Virus IgM Negative Negative 40 Laboratory test 01/14/2012 [facility] Lyme Disease Negative Negative 41 finding [phone] Serology Clotest 12/29/2011 [facility] Clotest (SEE NOTE) 42, 43 [phone] Surgical 12/29/2011 [facility] S RUN DATE: 44, 45 Pathology [phone] 12/30/ <SEE NOTE> Laboratory test 12/18/2011 [facility] Erythrocyte Sed 8 MM/HR 0-20 finding [phone] Rate Basic Metabolic 12/18/2011 [facility] Sodium 138 mmol/L 135-145 Panel [phone] Potassium 4.0 mmol/L 3.5-5.0 Chloride 101 mmol/L 101-111 Co2 (Carbon Dioxide) 30.0 mmol/L 22-32 Anion Gap 7.0 mmol/L 2-11 46 Glucose 134 mg/dL High 70-100 BUN 9 mg/dL 6-24 Creatinine 0.9 mg/dL 0.50-1.40 One Over Creatinine 1.11 BUN/Creatinine Ratio 10.0 8-20 Calcium 9.1 mg/dL 8.1-9.9 eGFR Non- 87.9 > 60 eGFR 113.1 > 60 47 Liver Function Panel 12/18/2011 [facility] Total Protein 7.1 GM/DL 6.2-8.9 [phone] Albumin 3.9 GM/DL 3.6-5.4 Globulin 3.2 GM/DL 2-4 Albumin/Globulin Ratio 1.2 1-3 Bilirubin Total 0.7 mg/dL 0.4-1.5 48 Bilirubin Direct 0.1 mg/dL 0.1-0.5 Indirect Bilirubin 0.6 mg/dL 0.3-1.0 49 Alkaline Phosphatase 44 U/L 39-117 Alt (SGPT) 18 U/L 17-63 Ast (Sgot) 18 U/L 12-42 CBC Auto Diff 12/18/2011 [facility] White Blood Count 6.8 CUMM 4.8- 10.8 [phone] Red Cell Count 4.71 CUMM 4.6-6.2 Hemoglobin 15.6 g/dL 14.0-18.0 Hematocrit 47 % 42-52 Mean Corpuscular Volume 99 um3 High 80-94 Mean Corpuscular Hemoglob 33 pg High 27-31 Mean Corpuscular HGB Cone 34 g/dL 32-36 Redcell Distribution WDTH 13 % 10.5-15 Platelet Count 189 CUMM 150-450 Mean Platelet Volume 8.6 um3 7.4-10.4 Gran % 59.9 % 38-83 Lymph % 34.4 % 20-45 Mononuclear % 4.4 % 1-9 Eosinophil % 0.8 % 0-6 Basophil % 0.5 % 0-2 Abs Lymphs 2.3 1.0-4.8 Abs Mononuclear 0.3 0-0.8 Absolute Neutrophil Count 4.1 1.5-7.7 Abs Eosinophils 0.1 0-0.6 Abs Basophils 0 0-0.2 Urine Micro Inhouse 12/08/2011 In House Ua WBC - Ua RBC - Ua Casts - Ua Epi - Ua Other - Ua Glucose - Ua Bilirubin - Ua Ketones - Ua Specific [place] 1.015 Ua Blood - Ua PH 6.5 Ua Protein - Ua Urobilinogen - Ua Nitrite - Ua Leukocytes - Xray 12/08/2011 [facility] Medicine X-Ray, Chest, 2 Views nl acute chge X-Ray, Abdomen, Acute Series, 2 views stool CBC Auto Diff 06/24/2011 [facility] White Blood Count 6.7 CUMM 4.8- 10.8 [phone] Red Cell Count 4.74 CUMM 4.6-6.2 Hemoglobin 15.7 g/dL 14.0-18.0 Hematocrit 45 % 42-52 Mean Corpuscular Volume 95 um3 High 80-94 Mean Corpuscular Hemoglob 33 pg High 27-31 Mean Corpuscular HGB Cone 35 g/dL 32-36 Redcell Distribution WDTH 13 % 10.5-15 Platelet Count 293 CUMM 150-450 Mean Platelet Volume 8.4 um3 7.4-10.4 Gran % 65.2 % 38-83 Lymph % 27.8 % 25-47 Mononuclear % 5.7 % 1-9 Eosinophil % 0.9 % 0-6 Basophil % 0.4 % 0-2 Abs Lymphs 1.9 1.0-4.8 Abs Mononuclear 0.4 0-0.8 Absolute Neutrophil Count 4.4 1.5-7.7 Abs Eosinophils 0.1 0-0.6 Abs Basophils 0 0-0.2 Comp Metabolic Panel 06/24/2011 [facility] Sodium 135 mmol/L 135- 145 [phone] Potassium 4.5 mmol/L 3.5-5.0 Chloride 101 mmol/L 101-111 Co2 (Carbon Dioxide) 27.0 mmol/L 22-32 Anion Gap 7.0 mmol/L 2-11 50 Glucose 131 mg/dL High 70-100 BUN 10 mg/dL 6-24 Creatinine 0.9 mg/dL 0.50-1.40 One Over Creatinine 1.11 BUN/Creatinine Ratio 11.1 8-20 Calcium 9.1 mg/dL 8.1-9.9 Total Protein 7.2 GM/DL 6.2-8.1 Albumin 4.1 GM/DL 3.6-5.4 Globulin 3.1 GM/DL 2-4 Albumin/Globulin Ratio 1.3 1-3 Bilirubin Total 0.6 mg/dL 0.4-1.5 51 Alkaline Phosphatase 49 U/L 39-117 Alt (SGPT) 19 U/L 17-63 Ast (Sgot) 15 U/L 12-42 eGFR Non- 88.3 > 60 eGFR 113.5 > 60 52 Laboratory test 06/24/2011 [facility] Folic Acid 13.8 NG/ML See Below 53 finding [phone] Vitamin B12 338 pg/mL 180-914 TSH 0.96 MIU/ML 0.34-5.60 Urine Drug Screen Inhouse 06/22/2011 In House Urine THC Screen NEG Ua Cocaine NEG Ua Opiates NEG Ua Amphetamines NEG Urine Methanephrine Random NEG Urine Phenyclidine GC/MS NEG Urine Mdma QN Random NEG Ua Barbiturates NEG Urine Benzodiazepines QN [place] NEG Ua Methadone NEG Urine Tricyclc Antidepress RND NEG Urine Oxycodone QL NEG Urine Micro Inhouse 06/22/2011 In House Ua WBC - Ua RBC - Ua Casts - Ua Epi - Ua Other - Ua Glucose - Ua Bilirubin - Ua Ketones - Ua Specific [place] 1.020 Ua Blood - Ua PH 5.0 Ua Protein - Ua Urobilinogen - Ua Nitrite - Ua Leukocytes - Lipid Profile 09/29/2004 [facility] Cholesterol 184 mg/dL Less Than 54 (Trig/Chol/HDL) [phone] 200 Triglyceride 106 mg/dL 40-200 High Density Lipoprotein 49 mg/dL 40-60 Low Density Lipoprotein 114 mg/dL High Less Than 100 55 Cholesterol/HDL Ratio 3.76 AVERAGE 1-4.97 Comp Metabolic Panel 09/29/2004 [facility] Anion Gap 7.0 mmol/L 2- 11 56 [phone] Albumin/Globulin Ratio 1.3 1-3 Albumin 4.0 GM/DL 3.6-5.4 Alkaline Phosphatase 60 U/L 39-117 Alt (SGPT) 20 U/L 17-63 Ast (Sgot) 15 U/L 12-42 BUN 10 mg/dL 6-24 Calcium 9.6 mg/dL 8.7-10.2 Chloride 104 mmol/L 101-111 Co2 (Carbon Dioxide) 28.0 mmol/L 22-32 Creatinine 0.9 mg/dL 0.5-1.4 Globulin 3.0 GM/DL 2-4 Glucose 120 mg/dL High 70-105 Potassium 5.0 mmol/L 3.5-5.0 Sodium 139 mmol/L 135-145 Bilirubin Total 0.7 mg/dL 0.4-1.5 Total Protein 7.0 GM/DL 6.2-8.1 BUN/Creatinine Ratio 11.1 8-20 CBC With Electronic 09/29/2004 [facility] White Blood 7.9 CUMM 4.8- 10.8 Diff [phone] Count Abs Basophils 0 0-0.2 Abs Eosinophils 0.1 0-0.6 Abs Grans 5.5 1.5-7.7 Abs Lymphs 1.8 1.0-4.8 Abs Mononuclear 0.4 0-0.8 Basophil % 0.3 % 0-2 Hematocrit 50 % 42-52 Hemoglobin 16.9 g/dL 14.0-18.0 Eosinophil % 1.4 % 0-6 Gran % 70.0 % 38-83 Lymph % 22.6 % 20-45 Mean Corpuscular HGB Cone 34 g/dL 32-36 Mean Corpuscular Hemoglob 33 pg High 27-31 Mean Corpuscular Volume 96 um3 High 80-94 Mean Platelet Volume 8.0 um3 7.4-10.4 Mononuclear % 5.7 % 1-9 Platelet Count 318 CUMM 150-450 Red Cell Count 5.20 CUMM 4.6-6.2 Redcell Distribution WDTH 13 % 10.5-15 Laboratory test finding 09/29/2004 [facility] PSA Screening 0.6 NG/ML 0-4 57 [phone] CBC With Manual Diff 04/10/2004 [facility] RBC Morphology NORMAL [phone] White Blood Count 6.5 CUMM 4.8-10.8 Atypical Lymph 8 % High 0-6 Hematocrit 48 % 42-52 Hemoglobin 16.3 g/dL 14.0-18.0 Eosenophil 5 % 0-6 Lymphocyte 18 % 5-47 Mean Corpuscular HGB Cone 34 g/dL 32-36 Mean Corpuscular Hemoglob 32 pg High 27-31 Mean Corpuscular Volume 95 um3 High 80-94 Monocyte 10 % 0-13 Mean Platelet Volume 8.0 um3 7.4-10.4 Platelet Count 266 CUMM 150-450 Polysegmented Neutrophil 59 % 38-83 Red Cell Count 5.11 CUMM 4.6-6.2 Redcell Distribution WDTH 12 % 10.5-15 CBC With Electronic 04/10/2004 [facility] White Blood 6.5 CUMM 4.8- 10.8 Diff [phone] Count Abs Basophils 0 0-0.2 Abs Eosinophils 0 0-0.6 Abs Grans 1.9 1.5-7.7 Abs Lymphs 0.9 Low 1.0-4.8 Abs Mononuclear 3.7 High 0-0.8 Basophil % 0.5 % 0-2 Hematocrit 48 % 42-52 Hemoglobin 16.3 g/dL 14.0-18.0 Eosinophil % 0.6 % 0-6 Gran % 28.8 % Low 38-83 Lymph % 13.3 % Low 20-45 Mean Corpuscular HGB Cone 34 g/dL 32-36 Mean Corpuscular Hemoglob 32 pg High 27-31 Mean Corpuscular Volume 95 um3 High 80-94 Mean Platelet Volume 8.0 um3 7.4-10.4 Mononuclear % 56.8 % High 1-9 Platelet Count 266 CUMM 150-450 Red Cell Count 5.11 CUMM 4.6-6.2 Redcell Distribution WDTH 12 % 10.5-15 Comp Metabolic Panel 04/10/2004 [facility] Anion Gap 8.0 mmol/L 2- 11 58 [phone] Albumin/Globulin Ratio 2.0 1-3 Albumin 4.2 GM/DL 3.6-5.4 Alkaline Phosphatase 62 U/L 39-117 Alt (SGPT) 21 U/L 17-63 Ast (Sgot) 18 U/L 12-42 BUN 15 mg/dL 6-24 Calcium 9.8 mg/dL 8.7-10.2 Chloride 101 mmol/L 101-111 Co2 (Carbon Dioxide) 27.0 mmol/L 22-32 Creatinine 0.9 mg/dL 0.5-1.4 Globulin 2.1 GM/DL 2-4 Glucose 113 mg/dL High 70-105 Potassium 4.7 mmol/L 3.5-5.0 Sodium 136 mmol/L 135-145 Bilirubin Total 0.6 mg/dL 0.4-1.5 Total Protein 6.3 GM/DL 6.2-8.1 BUN/Creatinine Ratio 16.7 8-20 CBC With Electronic Diff 09/03/2003 [facility] White Blood Count 6.4 [phone] Abs Basophils 0.1 Abs Eosinophils 0.1 Abs Grans 3.8 Abs Lymphs 2.1 Abs Mononuclear 0.4 Basophil % 1.3 Hematocrit 47 Hemoglobin 16.5 Eosinophil % 1.2 Gran % 58.8 Lymph % 32.4 Mean Corpuscular HGB Cone 35 Mean Corpuscular Hemoglob 33 High Mean Corpuscular Volume 94 Mean Platelet Volume 8.2 Mononuclear % 6.3 Platelet Count 239 Red Cell Count 5.04 Redcell Distribution WDTH 13 Comp Metabolic Panel 09/03/2003 [facility] Anion Gap 1.0 Low 59 [phone] Albumin/Globulin Ratio 1.7 Albumin 4.1 Alkaline Phosphatase 61 Alt (SGPT) 22 Ast (Sgot) 17 BUN 12 Calcium 9.4 Chloride 107 Co2 (Carbon Dioxide) 30.0 Creatinine 1.0 Globulin 2.4 Glucose 120 High Potassium 4.7 Sodium 138 Bilirubin Total 0.5 Total Protein 6.5 BUN/Creatinine Ratio 12.0 Laboratory test 09/03/2003 [facility] Carbamazepine 5.6 60 finding [phone] (Tegretol) Laboratory test 01/22/2003 [facility] TSH 0.85 0.34-5. finding [phone] MIU/ML 60 Monospot NEGATIVE Negative Erythrocyte Sed Rate 1 MM/HR 0-15 Comp Metabolic Panel 01/22/2003 [facility] Anion Gap 8.0 mmol/L 2- 11 61 [phone] Albumin/Globulin Ratio 1.6 1-3 Albumin 4.1 GM/DL 3.6-5.4 BUN 13 mg/dL 6-24 Calcium 9.2 mg/dL 8.7-10.2 Chloride 102 mmol/L 101-111 Co2 (Carbon Dioxide) 27.0 mmol/L 22-32 Creatinine 0.9 mg/dL 0.5-1.4 Globulin 2.6 GM/DL 2-4 Glucose 117 mg/dL High 70-105 Potassium 4.5 mmol/L 3.5-5.0 Sodium 137 mmol/L 135-145 Total Protein 6.7 GM/DL 6.2-8.1 BUN/Creatinine Ratio 14.4 8-20 Alkaline Phosphatase 51 U/L 39-117 Alt (SGPT) 31 U/L 17-63 Ast (Sgot) 22 U/L 12-42 Bilirubin Total 0.5 mg/dL 0.4-1.5 CBC With Electronic 01/22/2003 [facility] Platelet Count 288 CUMM 150-450 Diff [phone] White Blood Count 7.4 CUMM 4.8-10.8 Abs Basophils 0.1 0-0.2 Abs Eosinophils 0.1 0-0.6 Abs Grans 4.7 1.5-7.7 Abs Lymphs 2.1 1.0-4.8 Abs Mononuclear 0.4 0-0.8 Basophil % 1.0 % 0-2 Hematocrit 47 % 42-52 Hemoglobin 15.7 g/dL 14.0-18.0 Eosinophil % 0.7 % 0-6 Gran % 64.3 % 38-83 Lymph % 28.3 % 20-45 Mean Corpuscular HGB Cone 34 g/dL 32-36 Mean Corpuscular Hemoglob 32 pg High 27-31 Mean Corpuscular Volume 96 um3 High 80-94 Mean Platelet Volume 7.7 um3 7.4-10.4 Mononuclear % 5.7 % 1-9 Red Cell Count 4.85 CUMM 4.6-6.2 Redcell Distribution WDTH 12 % 10.5-15 1 ADDITIONAL INFORMATION This test was developed and its performance characteristics determined by [facility] in a manner consistent with CLIA requirements. This test has not been cleared or approved by the U.S. Food and Drug Administration. 2 ADDITIONAL INFORMATION This test was developed and its performance characteristics determined by [facility] in a manner consistent with CLIA requirements. This test has not been cleared or approved by the U.S. Food and Drug Administration. 3 ADDITIONAL INFORMATION This test was developed and its performance characteristics determined by [facility] in a manner consistent with CLIA requirements. This test has not been cleared or approved by the U.S. Food and Drug Administration. Test Performed by: [address] [address] 4 Because ethnic data is not always readily available, this report includes an eGFR for both -Americans and non- Americans. The National Kidney Disease Education Program (NKDEP) does not endorse the use of the MDRD equation for patients that are not between the ages of 18 and 70, are , have extremes of body size, muscle mass, or nutritional status, or are non- or non-. According to the National Kidney Foundation, irrespective of diagnosis, the stage of the disease is based on the level of kidney function: Stage Description GFR(mL/min/1.73 m(2)) 1 Kidney damage with normal or decreased GFR 90 2 Kidney damage with mild decrease in GFR 60-89 3 Moderate decrease in GFR 30-59 4 Severe decrease in GFR 15-29 5 Kidney failure <15 (or dialysis) 5 No bands detected 6 No bands detected 7 Specific serologic response to B. burgdorferi infection is not detected, but cannot rule out early infection during which low or undetectable antibody levels to B. burgdorferi may be present. If clinically indicated, a new serum specimen should be submitted in 7-14 days. ADDITIONAL INFORMATION CDC criteria require >=5 bands for IgG or >=2 bands for IgM for the Immunoblot to be considered positive. Bands (e.g.,p41) may be detected in patients without Lyme disease, and patterns not meeting the CDC criteria should be interpreted with caution. Immunoblot should be ordered only on specimens that are positive or equivocal by a FDA-licensed Lyme disease antibody screening test (e.g., EIA). Test Performed by: [facility] [employer] [facility] [address] [place] [address] 8 Acute inflammation: >10.00 9 Normal Range 180 to 914 Indeterminate Range 145 to 180 Deficient Range <145 10 REFERENCE VALUE <=1.0 (Negative) 11 REFERENCE VALUE <20.0 (Negative) 12 Tests for antibodies to dsDNA and HOLLY antigens are not performed automatically unless the WOLFGANG result is > or= 3.0 U. Studies performed at [facility] indicate that positive WOLFGANG results <3.0 U are rarely accompanied by positive second order tests. Test Performed by: [facility] - [address] [address] 13 Logistics Support: [id number] 14 SEE RESULT BELOW Name: PA ANDERSON : [address]: Darryn Diop MD Acct: [id number] Unit: [id number] AGE: 60 Location: ED Re07/06/16 SEX: M Status: REG ER SPEC: [id number] FRANTZ: 07/06/[address] [facility] [address]: Darryn Diop MD REQ: [id number] RECD: 07/07/16 STATUS: COLEEN NESS DR: Alphonso Juárez DO _ SOURCE: [facility]: ORDERED: Flu A B Request Procedure Result Reported Site Rapid Influenza A B Request Final 07/07/16- 0006 ML Specimen received for Influenza A/B Molecular testing * ML - MAIN LAB ([facility]) . END OF REPORT * ML=Testing performed at Main Lab DEPARTMENT OF PATHOLOGY, [address] [place] [address] Chas Huggins M.D. Director [facility] # [id number] 15 No fracture DJD right > left hip minimal to no progression from September hip x- ray. 16 SEE RESULT BELOW Name: PA ANDERSON : [address]: Alphonso Juárez DO Acct: [id number] Unit: [id number] AGE: 59 Location: [facility] Re05/28/15 SEX: M Status: REG REF SPEC: [id number] FRANTZ: 05/28/15-[address] [facility] [address]: Alphonso Juárez DO REQ: [id number] RECD: 05/28/15 STATUS: COMP _ SOURCE: THROAT SPDESC: ORDERED: Throat Culture Procedure Result Reported Site Throat Culture Final 05/30/15- 0957 ML Organism 1 YEAST Quantity 3+ Organism 2 NORMAL CONSTANTINE Quantity 3+ Throat cultures are clinically indicated to detect the presence of group A strep, arcanobacterium and yeast. In certain cases, predominating organisms will be reported. * ML - MAIN LAB ([facility]) . END OF REPORT * ML=Testing performed at Main Lab DEPARTMENT OF PATHOLOGY, [facility] [employer] [place], [place] [address] Chas Huggins M.D. Director [facility] # [id number] 17 Others are synoviocytes. Reviewed by Christina Carrera MD 18 Synovial (Joint) Fluid [id number] 19 RUN DATE: 07/16/14 [facility] LAB LIVE PAGE 1 RUN TIME: 1051 [facility] [employer] [place], [place] [address] Specimen Inquiry Name: PA ANDERSON : [address]: Alphonso Juárez DO Acct: [id number] Unit: [id number] AGE: 58 Location: [facility] Re07/11/14 SEX: M Status: REG REF SPEC: [id number] FRANTZ: 07/11/14-[address] [facility] [address]: Alphonso Juárez DO REQ: [id number] RECD: 07/12/14-1557 STATUS: COMP _ SOURCE: JOINT FLUI SPDESC:KNEE LEFT ORDERED: BF Cult/GS QUERIES: Provider Requisition # [id number] Procedure Result Verified Site Body Fluid Gram Stain Final 07/12/14- 1617 ML 3+ Nucleated Cells No Neutrophils Observed No Organisms Seen Preparation By Direct Smear Body Fluid Culture Final 07/16/14- 1051 ML No Growth Day 4 * ML - MAIN LAB ([facility]) . END OF REPORT * ML=Testing performed at Main Lab DEPARTMENT OF PATHOLOGY, [facility] [employer] [address] [place], [place] [address] Chas Huggins M.D. Director [facility] # [id number] 20 RUN DATE: 07/16/14 [facility] LAB LIVE PAGE 1 RUN TIME: 1052 [facility] [employer] [place], [place] [address] Specimen Inquiry Name: PA ANDERSON : [address]: Alphonso Juárez DO Acct: [id number] Unit: [id number] AGE: 58 Location: [facility] Re07/11/14 SEX: M Status: REG REF SPEC: [id number] FRANTZ: 07/11/14-[address]: Alphonso Juárez DO REQ: [id number] RECD: 07/12/14 STATUS: COMP _ SOURCE: JOINT FLUI SPDESC:KNEE RIGHT ORDERED: YOVANI Ugarte/SHERI QUERIES: Provider Requisition # [id number] Procedure Result Verified Site Body Fluid Gram Stain Final 07/12/14- 1620 ML 3+ Nucleated Cells No Neutrophils Observed No Organisms Seen Preparation By Direct Smear Body Fluid Culture Final 07/16/14- 1051 ML No Growth Day 4 * ML - MAIN LAB ([facility]) . END OF REPORT * ML=Testing performed at Main Lab DEPARTMENT OF PATHOLOGY, [facility] [employer] [address] [place], [place] [address] Chas Huggins M.D. Director [facility] # [id number] 21 Others are synoviocytes. Reviewed by Christina Carrera MD 22 Synovial (Joint) Fluid [id number] 23 RUN DATE: 07/12/14 [facility] LAB LIVE PAGE 1 RUN TIME: 1618 [facility] [employer] [place], [place] [address] Specimen Inquiry Name: PA ANDERSON : [address]: Alphonso Juárez DO Acct: [id number] Unit: [id number] AGE: 58 Location: [facility] Re07/11/14 SEX: M Status: REG REF SPEC: [id number] FRANTZ: 07/11/14-[address]: Alphonso Juárez DO REQ: [id number] RECD: 07/12/14-7119 STATUS: RES _ SOURCE: JOINT FLUI SPDESC:KNEE LEFT ORDERED: BF Cult/SHERI QUERIES: Provider Requisition # [id number] Procedure Result Verified Site Body Fluid Gram Stain Final 07/12/14- 1617 ML 3+ Nucleated Cells No Neutrophils Observed No Organisms Seen Preparation By Direct Smear Body Fluid Culture PENDING * ML - MAIN LAB ([facility]) . END OF REPORT * ML=Testing performed at Main Lab DEPARTMENT OF PATHOLOGY, [address] [place] [address] Chas Huggins M.D. Director [facility] # [id number] 24 Because ethnic data is not always readily available, this report includes an eGFR for both -Americans and non- Americans. The National Kidney Disease Education Program (NKDEP) does not endorse the use of the MDRD equation for patients that are not between the ages of 18 and 70, are , have extremes of body size, muscle mass, or nutritional status, or are non- or non-. According to the National Kidney Foundation, irrespective of diagnosis, the stage of the disease is based on the level of kidney function: Stage Description GFR(mL/min/1.73 m(2)) 1 Kidney damage with normal or decreased GFR 90 2 Kidney damage with mild decrease in GFR 60-89 3 Moderate decrease in GFR 30-59 4 Severe decrease in GFR 15-29 5 Kidney failure <15 (or dialysis) 25 Reference Range and Interpretation: TnI (ng/mL) Interpretation Less Than 0.03 ng/mL Not supportive of diagnosis of [place] 0.03 - 0.50 ng/mL Indeterminate: suggest serial studies if clinically indicated. Greater than 0.5 ng/mL Consistent with diagnosis of [place] 26 Acute inflammation: >10.00 27 >100 to <200 pg/mL: likely compensated congestive heart failure (CHF) 200 to 400 pg/mL: likely moderate CHF >400 pg/mL: likely moderate to severe CHF [place] [facility] 28 Because ethnic data is not always readily available, this report includes an eGFR for both -Americans and non- Americans. The National Kidney Disease Education Program (NKDEP) does not endorse the use of the MDRD equation for patients that are not between the ages of 18 and 70, are , have extremes of body size, muscle mass, or nutritional status, or are non- or non-. According to the National Kidney Foundation, irrespective of diagnosis, the stage of the disease is based on the level of kidney function: Stage Description GFR(mL/min/1.73 m(2)) 1 Kidney damage with normal or decreased GFR 90 2 Kidney damage with mild decrease in GFR 60-89 3 Moderate decrease in GFR 30-59 4 Severe decrease in GFR 15-29 5 Kidney failure <15 (or dialysis) 29 Acute inflammation: >10.00 30 >100 to <200 pg/mL: likely compensated congestive heart failure (CHF) 200 to 400 pg/mL: likely moderate CHF >400 pg/mL: likely moderate to severe CHF [place] [facility] 31 Serologic response to B. burgdorferi infection is not detected, but cannot rule out early infection during which low or undetectable antibody levels to B. burgdorferi may be present. If clinically indicated, a new serum specimen should be submitted in 7-14 days. Test Performed by: [place] [address] Shoulder Boner: Danial Salomon III, M.D. 32 Because ethnic data is not always readily available, this report includes an eGFR for both -Americans and non- Americans. The National Kidney Disease Education Program (NKDEP) does not endorse the use of the MDRD equation for patients that are not between the ages of 18 and 70, are , have extremes of body size, muscle mass, or nutritional status, or are non- or non-. According to the National Kidney Foundation, irrespective of diagnosis, the stage of the disease is based on the level of kidney function: Stage Description GFR(mL/min/1.73 m(2)) 1 Kidney damage with normal or decreased GFR 90 2 Kidney damage with mild decrease in GFR 60-89 3 Moderate decrease in GFR 30-59 4 Severe decrease in GFR 15-29 5 Kidney failure <15 (or dialysis) 33 Reference Range and Interpretation: TnI (ng/mL) Interpretation Less Than 0.03 ng/mL Not supportive of diagnosis of [place] 0.03 - 0.50 ng/mL Indeterminate: suggest serial studies if clinically indicated. Greater than 0.5 ng/mL Consistent with diagnosis of [place] 34 Reference ranges based on room air. 35 Please note: The following may produce a false positive D Dimer test: - Rheumatoid factor greater than 60 IU/ml - Plasma hemoglobin greater than 0.05 gm/dl - Bilirubin greater than 50 mg/dl - Lipids greater than 1000 mg/dl - FDP greater than 20 ug/ml 36 Because ethnic data is not always readily available, this report includes an eGFR for both -Americans and non- Americans. The National Kidney Disease Education Program (NKDEP) does not endorse the use of the MDRD equation for patients that are not between the ages of 18 and 70, are , have extremes of body size, muscle mass, or nutritional status, or are non- or non-. According to the National Kidney Foundation, irrespective of diagnosis, the stage of the disease is based on the level of kidney function: Stage Description GFR(mL/min/1.73 m(2)) 1 Kidney damage with normal or decreased GFR 90 2 Kidney damage with mild decrease in GFR 60-89 3 Moderate decrease in GFR 30-59 4 Severe decrease in GFR 15-29 5 Kidney failure <15 (or dialysis) 37 CKMB interpretation should be made in conjunction with clinical symptoms, patient history and EKG changes. 38 Reference Range and Interpretation: TnI (ng/mL) Interpretation Less Than 0.06 ng/mL Not supportive of diagnosis of [place] 0.06 - 0.50 ng/mL Indeterminate: suggest serial studies if clinically indicated. Greater than 0.5 ng/mL Consistent with diagnosis of [place] 39 Reference ranges based on room air. 40 Test Performed by: [facility] [place] [address] Shoulder Boner: Danial Salomon III, M.D. R 41 Serologic response to B. burgdorferi infection is not detected, but cannot rule out early infection during which low or undetectable antibody levels to B. burgdorferi may be present. If clinically indicated, a new serum specimen should be submitted in 7-14 days. Test Performed by: [facility] [place] [address] Shoulder Boner: Danial Salomon III, M.D. R 42 neg 43 RUN DATE: 12/30/11 [facility] LAB LIVE PAGE 1 RUN TIME: [address] [place] [address] Specimen Inquiry Name: PA ANDERSON : [address]: Chris Busby MD Acct: [id number] Unit: [id number] AGE: 56 Location: [facility] Re12/29/11 SEX: M Status: REG REF SPEC: [id number] FRANTZ: 12/29/[address]: Chris Busby MD REQ: [id number] RECD: 12/29/11 STATUS: COLEEN NESS DR: Tigre RANDOLPH,Qamar Norman _ SOURCE: [facility]: ORDERED: Clotest Procedure Result Verified Site Clotest Final 12/30/11 2140 ML Clotest Negative END OF REPORT * ML=Testing performed at Main Lab DEPARTMENT OF PATHOLOGY, [facility] [employer] [address] [place], [place] [address] Chas Huggins M.D. Director [facility] Permit #[id number] 44 wnl 45 RUN DATE: 12/31/11 [facility] LAB LIVE PAGE 1 RUN TIME: 1210 [facility] [employer] [place], [place] [address] Specimen Inquiry Name: PA ANDERSON : [address]: Chris Busby MD Acct: [id number] Unit: [id number] AGE: 56 Location: ENDO Re12/29/11 SEX: M Status: REG REF SPEC: [id number] FRANTZ: 12/29/11- DR: Chris Busby MD REQ: [id number] RECD: 12/30/11 STATUS: PEYTON NESS DR: Tigre RANDOLPH,Qamar Norman _ ORDERED: LEVEL IV/5 FINAL DIAGNOSIS 1. Small bowel, third portion of duodenum, biopsy: Small bowel mucosa with normal villous architecture and no significant pathologic abnormality. 2. Stomach, cardia, biopsy: A. Gastroesophageal transition zone mucosa with foveolar hyperplasia and focal hyperplastic glandular changes. B. No specific features of reflux esophagitis identified. C. No goblet cell metaplasia or dysplasia identified. 3. Colon, distal transverse, biopsy: A. Tubular adenoma. B. No high grade dysplasia or malignancy. 4. Colon, 16 cm., biopsy: Hyperplastic polyp. 5. Colon, 13 cm., biopsy: Hyperplastic polyp. 1. Colon, biopsy - BIOPSY THIRD PORTION DUODENUM, 2. Fundus - BIOPSY GASTRIC CARDIA NODULE, 3. Colon Polyp - DISTAL TRANSVERSE POLYP, 4. Colon Polyp - COLON POLYP AT 16 CM., 5. Colon Polyp - COLON POLYP AT 13 CM. CLINICAL HISTORY Abdominal pain; constipation CONTINUED ON NEXT PAGE * ML=Testing performed at Main Lab DEPARTMENT OF PATHOLOGY, [facility] [employer] [address] [place], [place] [address] Chas Huggins M.D. Director [facility] Permit #[id number] RUN DATE: 12/31/11 [facility] LAB LIVE PAGE 2 RUN TIME: 1450 [facility] [employer] [facility], [place], [place] [address] Specimen Inquiry Patient: PA ANDERSON [id number] (Continued) POST-OPERATIVE DIAGNOSIS (Continued) POST-OPERATIVE DIAGNOSIS Rule out duodenopathy. Colon polyps, constipation GROSS DESCRIPTION 1. The specimen is received in formalin labelled Pa Anderson, Biopsy Third Portion Duodenum, and consists of multiple graf, soft tissue fragments measuring 0.9 x 0.3 x 0.2 cm. Submitted entirely, one cassette. 2. The specimen is received in formalin labelled Pa Anderson, Biopsy Gastric Cardia Nodule, and consists of two graf, soft tissue fragments measuring 0.5 x 0.2 x 0.2 cm. Submitted entirely, one cassette. 3. The specimen is received in formalin labelled Pa Anderson, Distal Transverse Polyp, and consists of a graf, soft tissue fragment measuring 0.7 x 0.4 x 0.2 cm. Submitted entirely, one cassette. 4. The specimen is received in formalin labelled Pa Anderson, Colon Polyp at 16 cm., and consists of two graf, soft tissue fragments measuring 0.5 x 0.3 x 0.2 cm. Submitted entirely, one cassette. 5. The specimen is received in formalin labelled Pa Anderson, Colon Polyp at 13 cm., and consists of a graf, soft tissue fragment measuring 0.4 x 0.3 x 0.2 cm. Submitted entirely, one cassette. 1. Signed (signature on file) Chas Huggins MD 1450 END OF REPORT * ML=Testing performed at Main Lab DEPARTMENT OF PATHOLOGY, [address] [place] [address] Chas Huggins M.D. Director [facility] Permit #[id number] 46 Anion gap measurement may be of limited value in the presence of any alkalosis, especially in a combined acid base disorder. . 47 Because ethnic data is not always readily available, this report includes an eGFR for both -Americans and non- Americans. The National Kidney Disease Education Program (NKDEP) does not endorse the use of the MDRD equation for patients that are not between the ages of 18 and 70, are , have extremes of body size, muscle mass, or nutritional status, or are non- or non-. According to the National Kidney Foundation, irrespective of diagnosis, the stage of the disease is based on the level of kidney function: Stage Description GFR(mL/min/1.73 m(2)) 1 Kidney damage with normal or decreased GFR 90 2 Kidney damage with mild decrease in GFR 60-89 3 Moderate decrease in GFR 30-59 4 Severe decrease in GFR 15-29 5 Kidney failure <15 (or dialysis) 48 A metabolite of Naproxen, O-desmethylnaproxen, has been shown to interfere with the Jendrassik-Rema method for measuring total bilirubin. Samples from patients who have taken Naproxen have shown spurious elevation in total bilirubin levels. 49 Please note updated reference range, effective 10/10/09 50 Anion gap measurement may be of limited value in the presence of any alkalosis, especially in a combined acid base disorder. . 51 A metabolite of Naproxen, O-desmethylnaproxen, has been shown to interfere with the Jendrassik-Rema method for measuring total bilirubin. Samples from patients who have taken Naproxen have shown spurious elevation in total bilirubin levels. 52 Because ethnic data is not always readily available, this report includes an eGFR for both -Americans and non- Americans. The National Kidney Disease Education Program (NKDEP) does not endorse the use of the MDRD equation for patients that are not between the ages of 18 and 70, are , have extremes of body size, muscle mass, or nutritional status, or are non- or non-. According to the National Kidney Foundation, irrespective of diagnosis, the stage of the disease is based on the level of kidney function: Stage Description GFR(mL/min/1.73 m(2)) 1 Kidney damage with normal or decreased GFR 90 2 Kidney damage with mild decrease in GFR 60-89 3 Moderate decrease in GFR 30-59 4 Severe decrease in GFR 15-29 5 Kidney failure <15 (or dialysis) 53 Please note: New reference range, effective 03/12/11 NORMAL REFERENCE RANGE: GREATER THAN 4.1 NG/ML 54 Classification: Desirable . 55 CALCULATED LDL APPROXIMATES THE VALUE OF A DIRECT LDL MEASUREMENT. Classification: Near or above optimal . 56 Anion gap measurement may be of limited value in the presence of any alkalosis, especially in a combined acid base disorder. . 57 * SERUM LEVELS OF PSA MEASURED USING THE [employer]it ACCESS HYBRITECH IMMUNOASSAY SHOULD NOT BE INTERPRETED ABSOLUTE EVIDENCE OF THE PRESENCE OR ABSENCE OF DISEASE. THE PSA VALUE SHOULD BE USED IN CONJUNCTION WITH OTHER PERTINENT CLINICAL DIAGNOSTIC PROCEDURES. A PSA value in the range of 0.1 to 0.6 ng/ml is indeterminate if being used as an indicator of recurrent or residual disease. . 58 Anion gap measurement may be of limited value in the presence of any alkalosis, especially in a combined acid base disorder. . 59 Anion gap measurement may be of limited value in the presence of any alkalosis, especially in a combined acid base disorder. . 60 The detection limit for CARBAMAZEPINE is 2.0 mcg/ml . Values less than 2.0 mcg/ml cannot be accurately measured. . 61 Anion gap measurement may be of limited value in the presence of any alkalosis, especially in a combined acid base disorder. . Procedures Date Code Description Status 06/30/2017 34760 Omt 7-8 Body Regions Completed 06/30/2017 16706 Brief Emotional/Behav Assessment W/ Scoring Doc Per Completed Standard Inst 04/30/201757433 Inject/Drain Joint/Bursa Major Completed 12/11/2016 38858 Omt 3 To 4 Body Regions Involved Completed 05/27/2016 13307 X-Ray Pelvis, Ap Only Completed 05/05/201625885 Inject/Drain Joint/Bursa Major Completed 10/09/2015 49861 Radiologic Exam Hip Unilateral With Pelvis 2-3 Views Completed 05/28/2015 47955 SC/Im Injections Completed 12/24/201413715 Inject/Drain Joint/Bursa Major Completed 07/11/201415847 Inject/Drain Joint/Bursa Major Completed 12/21/2012 05274 X-Ray Chest Two Views Completed 03/28/2012 35901 Bronchospasm Evaluation Pre & Post Completed 12/21/2011 12443660 Colonoscopy Completed 12/08/2011 87706 X-Ray Chest Two Views Completed 12/08/2011 96168 Xray Abdomen Upright/Flat Abd Completed 08/22/2004 91483 Removal Of FB, External Eye Completed 08/21/2004 72813 Remove Impact Cerumen Requiring Instrument, Unilateral Completed 08/21/2004 33626 Remove Impact Cerumen Requiring Instrument, Unilateral Completed 08/14/2004 86639 Remove Impact Cerumen Requiring Instrument, Unilateral Completed 07/01/2004 34929 Anoscopy Diagnostic Completed 09/03/200329431 Injection Tendon Origin/Insertion Completed 01/18/2003 04075 X-Ray Chest Two Views Completed 01/18/2003 04220 X-Ray Chest Two Views Completed 09/30/2002 Inject/Drain Joint/Bursa Major Completed 09/30/2002 Injection Tendon Origin/Insertion Completed Encounters Type Date Location Provider Dx Diagnosis Office Visit 02/12/2018 Main Office Rosa Maria Valdes M79.605 Pain in left leg 11:00a L53.9 Erythematous condition, unspecified R60.0 Localized edema Office Visit 01/11/2018 2:00p Main Office Alphonso Juárez, J01.00 Acute maxillary D.O. sinusitis, unspecified M54.5 Low back pain F17.210 Nicotine dependence, cigarettes, uncomplicated Office Visit 12/16/2017 11:00a Main Office Alphonso Juárez, G91.1 Obstructive D.O. 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 R29.2 Abnormal reflex M54.5 Low back pain G63 Polyneuropathy in diseases classified elsewhere F17.210 Nicotine dependence, cigarettes, uncomplicated M17.0 Bilateral primary osteoarthritis of knee L72.3 Sebaceous cyst Office Visit 07/24/2017 11:15a Main Office Meli Morales PA R07.82 Intercostal pain F17.210 Nicotine dependence, cigarettes, uncomplicated Office Visit 06/30/2017 3:45p Main Office Alphonso Juárez, M99.08 Segmental and D.O. somatic dysfunction of rib cage M99.02 Segmental and somatic dysfunction of thoracic region M99.01 Segmental and somatic dysfunction of cervical region M99.05 Segmental and somatic dysfunction of pelvic region M99.04 Segmental and somatic dysfunction of sacral region M99.03 Segmental and somatic dysfunction of lumbar region M99.00 Segmental and somatic dysfunction of head region M17.0 Bilateral primary osteoarthritis of knee M54.17 Radiculopathy, lumbosacral region M47.25 Other spondylosis with radiculopathy, thoracolumbar region Z13.89 Encounter for screening for other disorder Office Visit 04/30/2017 2:00p Main Office Alphonso Juárez, M17.0 Bilateral primary D.O. osteoarthritis of knee J44.1 Chronic obstructive pulmonary disease w (acute) exacerbation F17.210 Nicotine dependence, cigarettes, uncomplicated Office Visit 03/17/2017 2:30p Main Office Alphonso Juárez J44.1 Chronic obstructive D.O. pulmonary disease w (acute) exacerbation J06.9 Acute upper respiratory infection, unspecified B37.0 Candidal stomatitis F17.210 Nicotine dependence, cigarettes, uncomplicated Z63.4 Disappearance and of family member Office Visit 03/04/2017 4:30p Main Office Alphonso Juárez J44.1 Chronic obstructive D.O. pulmonary disease w (acute) exacerbation J06.9 Acute upper respiratory infection, unspecified Office Visit 01/04/2017 8:40a Main Office Kathleen Valdes06.9 Acute upper P.A. respiratory infection, unspecified J44.1 Chronic obstructive pulmonary disease w (acute) exacerbation B37.0 Candidal stomatitis Office Visit 01/01/2017 11:40a Main Office Kathleen Valdes44.1 Chronic obstructive P.A. pulmonary disease w (acute) exacerbation F17.210 Nicotine dependence, cigarettes, uncomplicated B37.0 Candidal stomatitis Office Visit 12/11/2016 1:30p Main Office Alphonso Juárez, M54.17 Radiculopathy, D.O. lumbosacral region J44.1 Chronic obstructive pulmonary disease w (acute) exacerbation F17.210 Nicotine dependence, cigarettes, uncomplicated M99.03 Segmental and somatic dysfunction of lumbar region M99.04 Segmental and somatic dysfunction of sacral region M99.05 Segmental and somatic dysfunction of pelvic region Office Visit 11/26/2016 3:00p Main Office Alphonso Juárez, M54.17 Radiculopathy, D.O. lumbosacral region Office Visit 07/16/2016 10:25a Main Office Meli Morales J44.1 Chronic obstructive PA pulmonary disease w (acute) exacerbation F17.210 Nicotine dependence, cigarettes, uncomplicated Office Visit 05/27/2016 1:30p Main Office Alphonso Juárez, M25.551 Pain in right D.O. hip J44.9 Chronic obstructive pulmonary disease, unspecified W07.xxxA Fall from chair, initial encounter Y92.[address] in single-family (private) house as place Office Visit 05/05/2016 11:45a Main Office Aplhonso Juárez J44.9 Chronic obstructive D.O. pulmonary disease, unspecified M25.561 Pain in right knee M25.562 Pain in left knee M17.0 Bilateral primary osteoarthritis of knee Office Visit 01/25/2016 11:00a Main Office Qamar [email or web address] Chronic obstructive Nicola Prater pulmonary disease w (acute) exacerbation Office Visit 10/09/2015 1:15p Main Office Alphonso Juárez, M25.552 Pain in left hip D.O. R05 Cough J44.9 Chronic obstructive pulmonary disease, unspecified F17.210 Nicotine dependence, cigarettes, uncomplicated Office Visit 09/21/2015 11:15a Main Office Dc Ellison M.D. R05 Cough J30.9 Allergic rhinitis, unspecified J01.10 Acute frontal sinusitis, unspecified J44.9 Chronic obstructive pulmonary disease, unspecified G89.4 Chronic pain syndrome Office Visit 07/10/2015 12:55p Main Office Alphonso Juárez D.O. R05 Cough J44.9 Chronic obstructive pulmonary disease, unspecified F17.210 Nicotine dependence, cigarettes, uncomplicated Z23 Encounter for immunization Office Visit 05/28/2015 9:45a Main Office Alphonso Juárez D.O. 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 Office Visit 12/24/2014 10:15a Main Office Alphonso Juárez, M25.461 Effusion, right D.O. knee M25.462 Effusion, left knee M25.561 Pain in right knee M25.562 Pain in left knee J44.1 Chronic obstructive pulmonary disease w (acute) exacerbation Office Visit 10/22/2014 1:45p Main Office Alphonso Juárez D.O. 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 Leg 719.06 Effusion Joint Lower Leg 715.16 Osteoarthrosis Localized Prim Lower Leg Office Visit 07/09/2014 10:45a Main Office Alphonso Juárez, 309.1 Depressive Reaction D.O. Prolonged 719.46 Pain Joint Lower Leg 719.06 Effusion Joint Lower Leg 715.16 Osteoarthrosis Localized Prim Lower Leg V76.0 Screening Malignant Neoplasm Respiratory Organs 780.4 Dizziness & Giddiness Office Visit 03/12/2014 10:15a Main Office Alphonso Juárez, 491.21 Bronchitis D.O. Obstructive Chronic W/Acute Exacerbation 466.0 Bronchitis Acute 305.1 Tobacco Use Disorder 496 COPD Airway Obstruction Chronic Not Class Elsewhere 053.9 Herpes Zoster W/O Complication Office Visit 10/05/2013 11:30a Main Office Alphonso Juárez, 305.1 Tobacco Use D.O. Disorder 496 COPD Airway Obstruction Chronic Not Class Elsewhere 786.2 Cough 491.21 Bronchitis Obstructive Chronic W/Acute Exacerbation Office Visit 05/23/2013 4:00p Main Office Alphonso Juárez, 305.1 Tobacco Use D.O. Disorder 466.0 Bronchitis Acute 496 COPD Airway Obstruction Chronic Not Class Elsewhere 491.21 Bronchitis Obstructive Chronic W/Acute Exacerbation Office Visit 12/20/2012 9:45a Main Office Alphonso Juárez D.O. 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.5 Monoplegia Unspec Nicola Prater Office Visit 01/11/2012 5:00p Main Office Qamar Norman 780.79 Malaise And Nicola Prater Fatigue Other V12.54 Personal HX TIA, & Cerebral Infarct W/Out Residual Deficit Office Visit 12/18/2011 3:25p Main Office Qamar Norman 564.01 Constipation Slow Nicola Prater Transit Office Visit 12/08/2011 3:45p Main Office Qamar Norman 789.06 Pain Abdominal Nicola Prater Epigastric 305.1 Tobacco Use Disorder V76.51 Special Screening For Malignant Neoplasms Colon 786.50 Pain Chest Unspec 564.01 Constipation Slow Transit Office Visit 12/05/2011 9:00a Main Office Dc Ellison, 789.06 Pain Abdominal MYeseniaDYesenia Epigastric 786.2 Cough 786.09 Dyspnea & Respiratory Abnormalities Other 305.1 Tobacco Use Disorder V76.51 Special Screening For Malignant Neoplasms Colon Office Visit 10/27/2011 4:15p Main Office Qamar Norman 780.39 Convulsions Other Nicola Prater 780.79 Malaise And Fatigue Other 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 at Main Office
--- NOTE | 2018-04-03 13:29 | ED ---
Shortness of Breath - HPI Summary HPI Summary: A 62 y/o male accompanied by family presents to the ED c/o increased SOB. Additionally has a fever. In the ED room, the patient has a pulse of 11 BPM, O2 saturation of 94%, and blood pressure of 119/73. As per triage, "pt woke up this morning with increased sob and states he took several of his duo nebs at home without relief. Pt states everyone around him has been ill. Pt given mask in triage. Hx copd". According to the patient, he has been SOB. He stated that he stopped taking his antibiotics (doxycycline, 14 days) a little over a week ago. He noted that this is the first time this has happened to him. He stated that he has been waking up in the morning SOB with pneumonia. As per family, the patient has had 2 COPD spells in the morning, yesterday he was given an nebulizer albuterol treatment which helped, however, today (this morning) he was given 5 treatments but nothing has helped. He has no O2 at home. Patient was trembling in the ED room. - History of Current Complaint Chief Complaint: EDShortnessOfBreath Time Seen by Provider: 04/03/18 13:27 Hx Obtained From: Patient Onset/Duration: Sudden Onset, Lasting Days, Still Present, Worse Since Timing: Constant Current Severity: None Dyspnea At: Rest Aggrevating Factors: Nothing Alleviating Factors: Nothing Associated Signs & Symptoms: Fever - Allergy/Home Medications Allergies/Adverse Reactions: Allergies Allergy/AdvReac Type Severity Reaction Status Date / Time phenytoin [From Dilantin] Allergy Severe See Comment Verified 04/03/18 13:26 blueberry Allergy Edema Verified 04/03/18 13:26 Home Medications: Home Medications Baclofen 1 tab PO TID 04/03/18 [History Confirmed 04/03/18] PMH/Surg Hx/FS Hx/Imm Hx Endocrine/Hematology History: Reports: Hx Blood Transfusions Denies: Hx Diabetes, Hx Thyroid Disease Cardiovascular History: Denies: Hx Hypertension, Hx Pacemaker/ICD Respiratory History: Reports: Hx Asthma, Hx Chronic Obstructive Pulmonary Disease (COPD), Hx Pneumonia, Hx Seasonal Allergies, Other Respiratory Problems/ Disorders - HX OF PNEUMONIA 03/20/2013 History: Denies: Hx Renal Disease Musculoskeletal History: Reports: Hx Arthritis, Hx Back Problems Sensory History: Reports: Hx Contacts or Glasses - READING GLASSES Denies: Hx Hearing Aid Opthamlomology History: Reports: Hx Contacts or Glasses - READING GLASSES Neurological History: Reports: Hx Seizures - CAUSED BY A CLOGGED VENTRICLE , SINCE REPAIRED, NO PROBLEMS SINCE 1996 Psychiatric History: Reports: Hx Anxiety, Hx Depression Denies: Hx Panic Disorder - Surgical History Surgery Procedure, Year, and Place: 1994 REMOVAL OF CYST FROM CRANIAL POCKET, [facility] 1994 HEAD END DESIZING MACHINE OPERATOR SHUNT W/PUMP, [facility] 1995 VALVE REPLACED WITH SHUNT, [facility]. 1996 THIRD VENTRICULAR OSCOPY,OK [address] MASCORRO(01/2012). 1977 & 1979 RIGHT KNEE SURGERY REPAIR TENDON & [place],. HEAD END DESIZING MACHINE OPERATOR PUMP DISCONNECTED.CURRENTLY IMPLANTED SHUNT CLEARED FOR IMAGING BY DR KELLER UP TO 1.5 T,USING PLAIN FILMSWEM Hx Anesthesia Reactions: No - Immunization History Date of Tetanus Vaccine: Unk Date of Influenza Vaccine: None Infectious Disease History: No Infectious Disease History: Denies: Hx Clostridium Difficile, Hx Hepatitis, Hx Human Immunodeficiency Virus (HIV), Hx of Known/Suspected MRSA, Hx Shingles, Hx Tuberculosis, Hx Known/ Suspected VRE, Hx Known/Suspected VRSA, History Other Infectious Disease, Traveled Outside the [place] in Last 30 Days - Family History Known Family History: Positive: Diabetes Negative: Cardiac Disease, Hypertension - Social History Alcohol Use: None Hx Substance Use: No Substance Use Type: Reports: None Hx Tobacco Use: Yes Smoking Status (MU): Heavy Every Day Tobacco Smoker Type: Cigarettes Amount Used/How Often: 1 PPD Length of Time of Smoking/Using Tobacco: since age 15 Have You Smoked in the Last Year: Yes Review of Systems Positive: Fever Positive: Shortness Of Breath Positive: Other - POSITIVE: TREMORS All Other Systems Reviewed And Are Negative: Yes Physical Exam - Summary Physical Exam Summary: Appearance: The patient is well-nourished in no acute distress and in no acute pain. Skin: The skin is warm and dry and skin color reflects adequate perfusion. HEENT: The head is normocephalic and atraumatic. The pupils are equal and reactive. The conjunctivae are clear and without drainage. Nares are patent and without drainage. Mouth reveals moist mucous membranes and the throat is without erythema and exudate. The external ears are intact. The ear canals are patent and without drainage. The tympanic membranes are intact. Neck: The neck is supple with full range of motion and non-tender. There are no carotid bruits. There is no neck vein distension. Respiratory: Chest is non-tender. Diffuse rhonchi and Dyspneic. Cardiovascular: Tachycardic. There is no murmur or rub auscultated. There is no peripheral edema and pulses are symmetrical and equal. Abdomen: The abdomen is soft and non-tender. There are normal bowel sounds heard in all four quadrants and there is no organomegaly palpated. Musculoskeletal: There is no back tenderness noted. Extremities are non-tender with full range of motion. There is good capillary refill. There is no peripheral edema or calf tenderness elicited. Patient has tremors. Neurological: Patient is alert and oriented to person, place and time. The patient has symmetrical motor strength in all four extremities. Cranial nerves are grossly intact. Deep tendon reflexes are symmetrical and equal in all four extremities. Psychiatric: The patient has an appropriate affect and does not exhibit any anxiety or depression. Triage Information Reviewed: Yes Vital Signs On Initial Exam: Initial Vitals Temp Pulse Resp BP Pulse Ox 99.4 F 123 22 123/82 93 04/03/18 13:02 04/03/18 13:02 04/03/18 13:02 04/03/18 13:02 04/03/18 13:02 Vital Signs Reviewed: Yes Diagnostics - Vital Signs Vital Signs Temp Pulse Resp BP Pulse Ox 04/03/18 13:05 100.2 F 04/03/18 13:02 99.4 F 123 22 123/82 93 - Laboratory Result Diagrams: 04/03/18 13:05 04/03/18 13:05 Lab Statement: Any lab studies that have been ordered have been reviewed, and results considered in the medical decision making process. - Radiology CXR Radiology Interpretation Completed By: Radiologist Summary of Radiographic Findings: 1. No acute cardiopulmonary process. 2. A HEAD END DESIZING MACHINE OPERATOR shunt is partially imaged. 3. Several old left rib fractures. ED PHYSICIAN REVIEWED THIS RADIOLOGY REPORT. Course/Dx - Course Course Of Treatment: Mr. Shepherd presented to the emergency department with a complaint of shortness of breath. He has had upper respiratory symptoms for a few days and came in with a low-grade fever. He had 5 duo nebs prior to arrival. For that reason duo nebs were held because he was a bit tachycardic and he was given fluids and steroids. His workup revealed no pneumonia. He felt a bit improved and I ambulated him in the department. His pulse ox dropped precipitously and he felt very short of breath. I haven't heard much in the way of wheezing but I did give him a DuoNeb at that point and consult to the hospitalist for admission. - Diagnoses Provider Diagnoses: Bronchitis, COPD exacerbation - Physician Notifications Discussed Care of Patient With: Jo-Ann Gomez Time Discussed With Above Provider: 15:55 Instructed by Provider To: Other - ACCEPTS PATIENT FOR ADMISSION. - Critical Care Time Critical Care Time: 30-74 min Discharge - Sign-Out/Discharge Documenting (check all that apply): Patient Departure - ADMIT, Sign-Out Patient - JAVAD Signing out patient TO: Jo-Ann Gomez Receiving patient FROM: Issac Alcantar - Discharge Plan Condition: Stable Disposition: ADMITTED TO [facility] - Billing Disposition and Condition Condition: STABLE Disposition: Admitted to [facility] - Attestation Statements Document Initiated by Addie: Yes Documenting Scribe: Tobin Dixon Provider For Whom Annaibe is Documenting (Include Credential): Issac Alcantar MD Scribe Attestation: I, Tobin Dixon, scribed for Issac Alcantar MD on 04/03/18 at 2140. Scribe Documentation Reviewed: Yes Provider Attestation: The documentation as recorded by the annaibeTobin accurately reflects the service I personally performed and the decisions made by me, Issac Alcantar MD Status of Scribe Document: Viewed
[2018-04-03] MEDS ORDERED: Levofloxacin 750 MG IVPREMIX(* 750 MG/150 ML BAG IVPB ONE (13:41)
[2018-04-03] MEDS ORDERED: NS 0.9% 1000 ML* 2,000 ML IV ONE (13:41)
[2018-04-03 14:06] LABS: ABS Basophils 0 10^3/ul (0-0.2); ABS Eosinophils 0 10^3/ul (0-0.6); ABS Lymphocytes 0.5 10^3/ul (1.0-4.8); ABS Monocytes 0.8 10^3/ul (0-0.8); ABS Neutrophils 6.1 10^3/ul (1.5-7.7); ABS Nucleated RBC 0 10^3/ul; Eosinophil % 0.4 %; Hematocrit 41 % (42-52); Hemoglobin 13.9 g/dl (14.0-18.0); Lymphocyte % 6.1 %; Mean Corpuscular HGB Conc 34 g/dl (31-36); Mean Corpuscular Hemoglobin 33 pg (27-31); Mean Corpuscular Volume 98 fL (80-94); Mean Platelet Volume 7.7 fL (7.4-10.4); Nucleated Red Blood Cells % 0; Platelet Count 204 10^3/ul (150-450); Red Blood Count 4.18 10^6/ul (4.00-5.40); Red Cell Distribution Width 13 % (10.5-15); White Blood Count 7.5 10^3/ul (3.5-10.8)
[2018-04-03 14:22] LABS: Albumin/Globulin Ratio 1.5 (1-3); C Reactive Protein 8.91 mg/L (<8.01); EGFR Non-African American 90.7 (>60); Globulin 2.7 g/dL (2-4); Total Bilirubin 0.3 mg/dL (0.2-1.0); Total Protein 6.7 g/dL (6.4-8.9)
[2018-04-03] MEDS ORDERED: methylPREDNISolone 125 MG* 2 ML VIAL IV ONE (14:33)
[2018-04-03] MEDS ORDERED: Albuterol/Ipratropium NEB.SOL* Albuterol 2.5 MG/Ipratropium 0.5 MG 3 ML INH ONE (15:23)
[2018-04-03 16:03] LABS: Urine Appearance Cloudy; Urine Bilirubin Negative (Negative); Urine Blood Negative (Negative); Urine Color Yellow; Urine Glucose Negative (Negative); Urine Ketones Negative (Negative); Urine Nitrite Negative (Negative); Urine Protein Negative (Negative); Urine Specific Gravity 1.018 (1.010-1.030); Urine Urobilinogen Negative (Negative)
[2018-04-03] MEDS ORDERED: Acetaminophen TAB* 325 MG PO PRN (16:24)
[2018-04-03] MEDS ORDERED: Al Hydrox/Mg Hydrox/Simet LIQ* 30 ML UDC PO PRN (16:24)
[2018-04-03] MEDS ORDERED: Docusate CAP* 100 MG PO PRN (16:24)
[2018-04-03] MEDS ORDERED: Ondansetron INJ* 2 MG/ML VIAL IV PRN (16:24)
[2018-04-03] MEDS ORDERED: Senna TAB PO PRN (16:24)
[2018-04-03] MEDS ORDERED: Albuterol 2.5 MG/3 ML NEB.SOL* (0.083%) INH PRN (16:28)
[2018-04-03] MEDS ORDERED: Albuterol/Ipratropium NEB.SOL* Albuterol 2.5 MG/Ipratropium 0.5 MG 3 ML INH PRN (16:29)
[2018-04-03] MEDS ORDERED: Benzonatate CAP* 100 MG PO PRN (16:30)
[2018-04-03] MEDS ORDERED: Nicotine Inhaler* 10 MG AMP INH PRN (16:42)
[2018-04-03] MEDS: Nystatin SUSPENSION* 100000 UNITS/ML 5 ML UDC PO SCH ×2 (18:40→20:14)
[2018-04-03] MEDS: NS 0.9% 1000 ML* 1,000 ML IV SCH (18:53)
[2018-04-03] MEDS ORDERED: Albuterol 2.5 MG/3 ML NEB.SOL* (0.083%) INH SCH (19:00)
--- NOTE | 2018-04-03 19:21 | HP ---
CC: Alphonso Juárez DO * HISTORY AND PHYSICAL: DATE OF ADMISSION: 04/03/18 PRIMARY CARE PHYSICIAN: Alphonso Juárez DO TIME OF EVALUATION: 1600. CHIEF COMPLAINT: Shortness of breath. HISTORY OF PRESENT ILLNESS: This is a 62-year-old male with past medical history of COPD on room air who presented to the emergency room with onset of shortness of breath for the past 2 days. He is here with his . He states he has had some congestion for the past 2 weeks. Yesterday morning he woke up, felt like he could not breathe. Had his "attack," gave himself a nebulizer which did help. He has had a persistently dry cough that seemed to have worsened. This morning, he woke up with another attack, gave himself 5 DuoNeb. It did help, but he still felt very short of breath, significantly worse with exertion and had his bring him to the emergency room for further evaluation. He states he has a very difficult time taking a breath in or out, has significant chest tightness as if a 10-pound concrete slab was on his chest. He has had a low-grade temp here. He denies any nausea, vomiting, or diarrhea. No abdominal pain. No urinary symptoms. He denies any changes in his weight. No recent medication changes. He is still smoking half to three- quarter pack per day for the past 47 years. In the emergency room, the patient had labs and imaging. When he ambulated, his sats went down to the 80s. He was referred to the hospitalist service for further evaluation. He did receive 1 DuoNeb, Levaquin 750 mg, Solu-Medrol 25 mg IV and 2 L of normal saline. Otherwise, remainder of the systems is negative. PAST MEDICAL HISTORY: 1. COPD, on room air. 2. Tobacco use. 3. 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 4. History of right knee arthroscopy in November 2013. 5. History of spasms and spasticity secondary to complications from his intracranial surgeries. 6. BPH. 7. Depression and anxiety. MEDICATIONS: 1. Baclofen 10 mg t.i.d. as needed for spasms. 2. Vitamin B complex 1 tab daily. 3. Tamsulosin 1 cap daily. 4. Symbicort 160/4.5 two puffs inhaled b.i.d. 5. Paxil 20 mg p.o. daily. 6. Vitamin D3 of 5000 units daily. 7. DuoNeb 1 neb every 3 hours as needed. 8. Albuterol neb every 4 hours as needed. 9. Tylenol with codeine 1 tab every 8 hours as needed. ALLERGIES: PHENYTOIN and BLUEBERRY. FAMILY HISTORY: Mother at age 62 related to question of a heart tumor. Father at age 54 from esophageal cancer. SOCIAL HISTORY: The patient lives at home with his who is his healthcare proxy. The patient states he mainly ambulates independently. He is disabled, unemployed. As mentioned, he smokes half to three-quarter pack per day for the past 47 years. No alcohol use. Code status is full code. REVIEW OF SYSTEMS: A 14-point review of systems as mentioned in the HPI, otherwise negative. PHYSICAL EXAMINATION GENERAL: No acute distress, resting comfortably with his at the bedside. VITAL SIGNS: T-max 100.2, pulse rate is 100, respiratory rate 18, oxygen saturation 99% on 2 L, blood pressure 136/83. HEENT: Head: Normocephalic. Pupils are equal and reactive. Oropharynx: Mucous membranes moist. The patient with posterior oral erythema in the oropharynx. Does have white patches on his tongue. NECK: Supple. No lymphadenopathy. No nuchal rigidity. RESPIRATORY: Poor aeration. Tight coarse cough. No increased work of breathing. No wheezes. No rhonchi or rales, but very poor aeration. CARDIAC: Tachycardia. Soft systolic murmur heard throughout. ABDOMEN: Soft, nontender, nondistended. EXTREMITIES: No clubbing, cyanosis, or edema. +1 DPs. NEUROLOGIC: Alert and oriented x3. He does have weakness in his left side and tremor noted on the left side as well that is his baseline. DIAGNOSTIC STUDIES/LAB DATA: White count 7.5, hemoglobin 13.9, hematocrit 41, platelets 204,000. INR is 1. Sodium 140, potassium 4.0, chloride 107, bicarb 27, BUN 12, creatinine 0.86, glucose 121. Troponin 0.03. CRP 8.91. BNP is 60. Urine is unremarkable. Flu is negative. RADIOGRAPHIC DATA: Chest x-ray: No acute cardiopulmonary process. The CHIN STRAP MAKER shunt is partially imaged, several old left rib fractures. ASSESSMENT: This is a 62-year-old male with past medical history of chronic obstructive pulmonary disease and tobacco use who presents to the emergency room with worsening respiratory distress. 1. Respiratory distress. Assessment: The patient's history and physical are consistent with a chronic obstructive pulmonary disease exacerbation most likely secondary to a viral illness. He is not actively wheezing but he is very tight on his respiratory exam despite getting Solu-Medrol and several Duo-Neb at home prior to his arrival. His lab workup is unremarkable. His chest x-ray does not suggest infiltrate. Plan: We will treat him for a chronic obstructive pulmonary disease exacerbation including albuterol q.2 as needed and q.4 as scheduled with DuoNeb. We will start him on prednisone in the morning. We will substitute a Symbicort for Dulera for now. Place him on antitussive agents as well. There is no indication for antibiotics at this time. Actually, we will continue him on Levaquin at 500 mg for bronchitis. Due to significance of his hypoxia with ambulation, we will check a D-dimer. If this is elevated, we will check a CTA to rule out a pulmonary embolus. We will trend his troponin as well. 2. Oral thrush. We will start him on nystatin. 3. Chronic medical problems. We will resume his home medications as prescribed. 4. FEN: We will place the patient on a regular diet with IV fluids. 5. Code status is full code. 6. DVT prophylaxis: The patient scores moderate risk. Placed him on heparin subcu t.i.d. TIME SPENT: Greater than 45 minutes spent doing the history and physical, more than half the time spent in direct patient contact. [id number]/[facility] #: [id number] RADHA
[2018-04-03] MEDS: Mometasone/Formoter 200/5 MDI INH SCH (19:51)
[2018-04-03] MEDS: Heparin VIAL(*) 5000 UNITS/ML VIAL (FIVE THOUSAND) SUBCUT SCH (20:14)
[2018-04-03] MEDS: guaiFENesin ER TAB 600 MG PO SCH (20:14)
[2018-04-03] MEDS: Baclofen TAB* 10 MG PO PRN (21:45)
[2018-04-03] MEDS: Acetaminop/Codeine 30 MG TAB* 1 TAB (300 MG/30 MG) PO PRN (21:45)
[2018-04-03] MEDS: Melatonin 3 MG TAB PO PRN (21:45)
[2018-04-04] MEDS: Albuterol 2.5 MG/3 ML NEB.SOL* (0.083%) INH SCH ×4 (01:13→20:10)
[2018-04-04] MEDS: NS 0.9% 1000 ML* 1,000 ML IV SCH ×2 (05:44→17:07)
[2018-04-04] MEDS: Heparin VIAL(*) 5000 UNITS/ML VIAL (FIVE THOUSAND) SUBCUT SCH ×3 (05:45→21:50)
[2018-04-04] MEDS: Acetaminop/Codeine 30 MG TAB* 1 TAB (300 MG/30 MG) PO PRN ×2 (05:48→12:18)
[2018-04-04 06:04] LABS: ABS Basophils 0 10^3/ul (0-0.2); ABS Eosinophils 0 10^3/ul (0-0.6); ABS Lymphocytes 0.6 10^3/ul (1.0-4.8); ABS Monocytes 0.3 10^3/ul (0-0.8); ABS Neutrophils 3.3 10^3/ul (1.5-7.7); ABS Nucleated RBC 0 10^3/ul; Eosinophil % 0 %; Hematocrit 40 % (42-52); Hemoglobin 13.5 g/dl (14.0-18.0); Lymphocyte % 13.5 %; Mean Corpuscular HGB Conc 34 g/dl (31-36); Mean Corpuscular Hemoglobin 33 pg (27-31); Mean Corpuscular Volume 99 fL (80-94); Mean Platelet Volume 7.8 fL (7.4-10.4); Nucleated Red Blood Cells % 0; Platelet Count 196 10^3/ul (150-450); Red Blood Count 4.06 10^6/ul (4.00-5.40); Red Cell Distribution Width 13 % (10.5-15); White Blood Count 4.2 10^3/ul (3.5-10.8)
[2018-04-04 06:31] LABS: BUN/Creatinine Ratio 21.1 (8-20); Calcium 8.9 mg/dL (8.6-10.3); EGFR Non-African American 113.2 (>60); Potassium 4.5 mmol/L (3.5-5.0)
[2018-04-04] MEDS: Mometasone/Formoter 200/5 MDI INH SCH ×2 (07:42→20:10)
[2018-04-04] MEDS: Cholecalciferol TAB* 1000 UNITS PO SCH (08:41)
[2018-04-04] MEDS: PARoxetine HCL TAB* 20 MG PO SCH (08:45)
[2018-04-04] MEDS: guaiFENesin ER TAB 600 MG PO SCH ×2 (08:45→21:50)
[2018-04-04] MEDS: Nystatin SUSPENSION* 100000 UNITS/ML 5 ML UDC PO SCH ×4 (08:46→19:52)
[2018-04-04] MEDS: predniSONE TAB* 20 MG PO SCH (08:46)
[2018-04-04] MEDS: Tamsulosin CAP* 0.4 MG PO SCH (08:46)
[2018-04-04] MEDS: Baclofen TAB* 10 MG PO PRN ×2 (08:56→21:51)
[2018-04-04] MEDS ORDERED: Morphine VIAL* 4 MG/ML VIAL (1 ml vial) IV ONE ×2 (13:58→19:33)
[2018-04-04] MEDS ORDERED: Cyclobenzaprine TAB* 10 MG PO PRN (13:59)
[2018-04-04] MEDS ORDERED: oxyCODONE/Acetamin 5/325 MG* TAB PO PRN (13:59)
[2018-04-04] MEDS: Levofloxacin 500 MG IVPREMIX(* 500 MG/100 ML BAG IVPB SCH (14:25)
--- NOTE | 2018-04-04 15:15 | PN ---
Subjective Date of Service: 04/04/18 Interval History: Patient seen and examined. Has deep unproductive cough, denies acute SOB, no chest pain. Complaint of left thigh and hip pain as well as right shoulder pain which are chronic since his stroke. Denies fever or chills, remains on O2. Objective Active Medications: Acetaminophen (Tylenol Tab*) 650 mg PO Q4H PRN PRN Reason: FEVER/PAIN Last Admin: 04/04/18 08:55 Dose: 650 mg Al Hydrox/Mg Hydrox/Simethicone (Maalox Plus*) 30 ml PO Q6H PRN PRN Reason: INDIGESTION Albuterol (Ventolin 2.5 Mg/3 Ml Neb.Brenda*) 2.5 mg INH Q2H PRN PRN Reason: SOB/WHEEZING Albuterol (Ventolin 2.5 Mg/3 Ml Neb.Brenda*) 2.5 mg INH [id number] AWAKE [facility] Last Admin: 04/04/18 13:02 Dose: 2.5 mg Albuterol/Ipratropium (Duoneb (Albuterol 2.5 Mg/Ipratropium 0.5 Mg)) 1 neb INH Q4H PRN PRN Reason: SOB/WHEEZING Baclofen (Lioresal Tab*) 10 mg PO TID PRN PRN Reason: SPASMS Last Admin: 04/04/18 08:56 Dose: 10 mg Benzonatate (Tessalon Cap*) 100 mg PO BID PRN PRN Reason: COUGH Cholecalciferol (Vitamin D Tab*) 5,000 units PO DAILY [facility] Last Admin: 04/04/18 08:41 Dose: 5,000 units Cyclobenzaprine HCl (Flexeril Tab*) 10 mg PO BID PRN PRN Reason: SPASMS Docusate Sodium (Colace Cap*) 100 mg PO BID PRN PRN Reason: CONSTIPATION Guaifenesin (Mucinex*) 1,200 mg PO BID [facility] Last Admin: 04/04/18 08:45 Dose: 1,200 mg Heparin Sodium (Porcine) (Heparin Vial(*)) 5,000 units SUBCUT Q8HR [facility] Last Admin: 04/04/18 14:16 Dose: 5,000 units Sodium Chloride (Ns 0.9% 1000 Ml*) 1,000 mls @ 100 mls/hr IV PER RATE [facility] Last Admin: 04/04/18 05:44 Dose: 100 mls/hr Levofloxacin/Dextrose (Levaquin 500 Mg Ivpremix(*)) 500 mg in 100 mls @ 100 mls /hr IVPB Q24H [facility] Last Admin: 04/04/18 14:25 Dose: 100 mls/hr Melatonin (Melatonin) 3 mg PO BEDTIME PRN; Protocol PRN Reason: SLEEP Last Admin: 04/03/18 21:45 Dose: 3 mg Mometasone Furoate/Formoterol Fumar (Dulera 200/5 Mdi*) 2 puff INH BID [facility] Last Admin: 04/04/18 07:42 Dose: 2 puff Nicotine (Nicotine Inhaler*) 10 mg INH Q2H PRN PRN Reason: CRAVING Nystatin (Nystatin Suspension*) 500,000 units PO QID [facility] Stop: 04/10/18 16:43 Last Admin: 04/04/18 14:16 Dose: 500,000 units Ondansetron HCl (Zofran Inj*) 4 mg IV Q4H PRN PRN Reason: NAUSEA/VOMITING Oxycodone/Acetaminophen (Percocet 5/325 Tab*) 1 tab PO Q6H PRN PRN Reason: PAIN Paroxetine HCl (Paxil Tab*) 20 mg PO DAILY [facility] Last Admin: 04/04/18 08:45 Dose: 20 mg Prednisone (Deltasone Tab*) 40 mg PO DAILY [facility] Last Admin: 04/04/18 08:46 Dose: 40 mg Senna (Senokot Tab*) 1 tab PO BID PRN PRN Reason: CONSTIPATION Tamsulosin HCl (Flomax Cap*) 0.4 mg PO DAILY [facility] Last Admin: 04/04/18 08:46 Dose: 0.4 mg Vital Signs - 8 hr 04/04/18 04/04/18 04/04/18 07:22 07:45 07:46 Temperature 97.6 F Pulse Rate 86 72 72 Respiratory 24 14 14 Rate Blood Pressure 152/87 (mmHg) O2 Sat by Pulse 95 95 95 Oximetry 04/04/18 04/04/18 04/04/18 08:00 08:46 11:25 Temperature 98.2 F Pulse Rate 72 Respiratory 18 18 16 Rate Blood Pressure 137/77 (mmHg) O2 Sat by Pulse 98 Oximetry 04/04/18 04/04/18 04/04/18 12:18 13:04 14:17 Temperature Pulse Rate 72 Respiratory 22 14 20 Rate Blood Pressure (mmHg) O2 Sat by Pulse 94 Oximetry Oxygen Devices in Use Now: Nasal Cannula Appearance: alert, NAD Eyes: No Scleral Icterus, PERRLA Ears/Nose/Mouth/Throat: NL Teeth, Lips, Gums, Mucous Membranes Moist Neck: NL Appearance and Movements; NL JVP, Trachea Midline Respiratory: Symmetrical Chest Expansion and Respiratory Effort, - - diminished throughout, no wheeze Cardiovascular: NL Sounds; No Murmurs; No JVD, RRR, No Edema Abdominal: NL Sounds; No Tenderness; No Distention Extremities: No Edema, No Clubbing, Cyanosis Skin: No Rash or Ulcers Neurological: Alert and Oriented x 3 Nutrition: Taking PO's Result Diagrams: 04/04/18 05:42 04/04/18 05:42 Microbiology and Other Data: Microbiology 04/03/18 13:05 Aerobic Blood Culture - Preliminary Blood Venous No Growth Day 1 Anaerobic Blood Culture - Preliminary No Growth Day 1 04/03/18 13:05 Aerobic Blood Culture - Preliminary Blood Venous No Growth Day 1 Anaerobic Blood Culture - Preliminary No Growth Day 1 04/03/18 14:09 Influenza Types A,B Antigen - Final Nasal Specimen received for Influenza A/B Molecular testing Assess/Plan/Problems-Billing Assessment: This is a 62 year old male with hx of COPD, CVA and craniotomies in the past that presents to ER with acute SOB 2/2 COPD exacerbation. - Patient Problems (1) COPD exacerbation Code(s): J44.1 - CHRONIC OBSTRUCTIVE PULMONARY DISEASE W (ACUTE) EXACERBATION SNOMED Code(s): 317643644 Comment: - hx of environmental exposures with daily tobacco use - No consolidation on CXR - No elevation in WBC count, had low grade fever at admission with mild tachycardia - Last exacerbation appears to be 1 year ago - Will continue nebs, tessalon, mucines, IS/pulmonary toilet - On day 2/5 of levaquin - Continue steroids then taper at DC (2) Chronic pain Code(s): G89.29 - OTHER CHRONIC PAIN SNOMED Code(s): 44751019 Comment: - No relief with tylenol/codeine, baclofen helping a little - Patient did not tolerate gabapentin or lyrica in the past - Will give one dose morphine now, apply lidoderm patches and alternate percocet with flexeril (3) Tobacco abuse Code(s): Z72.0 - TOBACCO USE SNOMED Code(s): 662708710 Comment: - daily smoker, cessation encouraged - combined with environmental exposures in his previous occupation, contributing to his COPD (4) 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
[2018-04-04] MEDS: Lidocaine PATCH 5%* 1 PATCH TRANSDERM SCH (17:01)
[2018-04-04] MEDS: oxyCODONE/Acetamin 5/325 MG* TAB PO PRN (19:51)
[2018-04-04] MEDS: Cyclobenzaprine TAB* 10 MG PO SCH (21:50)
[2018-04-04] MEDS: Melatonin 3 MG TAB PO PRN (21:51)
[2018-04-04] MEDS: Lidocaine Patch REMOVE* 1 NOTE MISC SCH (21:51)
[2018-04-05] MEDS: Albuterol 2.5 MG/3 ML NEB.SOL* (0.083%) INH SCH ×4 (01:44→20:50)
[2018-04-05] MEDS: Heparin VIAL(*) 5000 UNITS/ML VIAL (FIVE THOUSAND) SUBCUT SCH ×3 (05:59→21:06)
[2018-04-05] MEDS: Mometasone/Formoter 200/5 MDI INH SCH ×2 (07:50→20:54)
[2018-04-05] MEDS: Nystatin SUSPENSION* 100000 UNITS/ML 5 ML UDC PO SCH ×4 (08:45→21:41)
[2018-04-05] MEDS: predniSONE TAB* 20 MG PO SCH (08:48)
[2018-04-05] MEDS: PARoxetine HCL TAB* 20 MG PO SCH (08:48)
[2018-04-05] MEDS: Cyclobenzaprine TAB* 10 MG PO SCH ×3 (08:48→21:07)
[2018-04-05] MEDS: Tamsulosin CAP* 0.4 MG PO SCH (08:48)
[2018-04-05] MEDS: guaiFENesin ER TAB 600 MG PO SCH ×2 (08:48→21:06)
[2018-04-05] MEDS: Cholecalciferol TAB* 1000 UNITS PO SCH (08:48)
[2018-04-05] MEDS: Lidocaine PATCH 5%* 1 PATCH TRANSDERM SCH (09:29)
[2018-04-05] MEDS: oxyCODONE/Acetamin 5/325 MG* TAB PO PRN (10:08)
[2018-04-05] MEDS: Levofloxacin 500 MG IVPREMIX(* 500 MG/100 ML BAG IVPB SCH (13:17)
--- NOTE | 2018-04-05 15:39 | PN ---
Subjective Date of Service: 04/05/18 Interval History: Patient seen and examined. States he feels his breathing is starting to improve. States his pain is bad throughout the day because at home he is able to move and ambulate more and get comfortable or stretch. Denies chest pain, no fevers or chills. Objective Active Medications: Acetaminophen (Tylenol Tab*) 650 mg PO Q4H PRN PRN Reason: FEVER/PAIN Last Admin: 04/04/18 08:55 Dose: 650 mg Al Hydrox/Mg Hydrox/Simethicone (Maalox Plus*) 30 ml PO Q6H PRN PRN Reason: INDIGESTION Albuterol (Ventolin 2.5 Mg/3 Ml Neb.Brenda*) 2.5 mg INH Q2H PRN PRN Reason: SOB/WHEEZING Albuterol (Ventolin 2.5 Mg/3 Ml Neb.Brenda*) 2.5 mg INH [id number] AWAKE [facility] Last Admin: 04/05/18 13:44 Dose: 2.5 mg Albuterol/Ipratropium (Duoneb (Albuterol 2.5 Mg/Ipratropium 0.5 Mg)) 1 neb INH Q4H PRN PRN Reason: SOB/WHEEZING Baclofen (Lioresal Tab*) 10 mg PO TID PRN PRN Reason: SPASMS Last Admin: 04/04/18 21:51 Dose: 10 mg Benzonatate (Tessalon Cap*) 100 mg PO BID PRN PRN Reason: COUGH Cholecalciferol (Vitamin D Tab*) 5,000 units PO DAILY [facility] Last Admin: 04/05/18 08:48 Dose: 5,000 units Cyclobenzaprine HCl (Flexeril Tab*) 10 mg PO TID [facility] Last Admin: 04/05/18 13:19 Dose: 10 mg Docusate Sodium (Colace Cap*) 100 mg PO BID PRN PRN Reason: CONSTIPATION Guaifenesin (Mucinex*) 1,200 mg PO BID [facility] Last Admin: 04/05/18 08:48 Dose: 1,200 mg Heparin Sodium (Porcine) (Heparin Vial(*)) 5,000 units SUBCUT Q8HR [facility] Last Admin: 04/05/18 13:19 Dose: 5,000 units Levofloxacin/Dextrose (Levaquin 500 Mg Ivpremix(*)) 500 mg in 100 mls @ 100 mls /hr IVPB Q24H [facility] Last Admin: 04/05/18 13:17 Dose: 100 mls/hr Lidocaine (Lidoderm 5% Patch*) 2 patch TRANSDERM DAILY [facility] Last Admin: 04/05/18 09:29 Dose: 2 patch Melatonin (Melatonin) 3 mg PO BEDTIME PRN; Protocol PRN Reason: SLEEP Last Admin: 04/04/18 21:51 Dose: 3 mg Mometasone Furoate/Formoterol Fumar (Dulera 200/5 Mdi*) 2 puff INH BID [facility] Last Admin: 04/05/18 07:50 Dose: 2 puff Nicotine (Nicotine Inhaler*) 10 mg INH Q2H PRN PRN Reason: CRAVING Nystatin (Nystatin Suspension*) 500,000 units PO QID [facility] Stop: 04/10/18 16:43 Last Admin: 04/05/18 12:26 Dose: Not Given Ondansetron HCl (Zofran Inj*) 4 mg IV Q4H PRN PRN Reason: NAUSEA/VOMITING Oxycodone/Acetaminophen (Percocet 5/325 Tab*) 2 tab PO Q6H PRN PRN Reason: PAIN Last Admin: 04/05/18 10:08 Dose: 2 tab Paroxetine HCl (Paxil Tab*) 20 mg PO DAILY [facility] Last Admin: 04/05/18 08:48 Dose: 20 mg Pharmacy Profile Note (Lidocaine Patch Remove*) 1 note N/A 2100 [facility] Last Admin: 04/04/18 21:51 Dose: 1 note Prednisone (Deltasone Tab*) 40 mg PO DAILY [facility] Last Admin: 04/05/18 08:48 Dose: 40 mg Senna (Senokot Tab*) 1 tab PO BID PRN PRN Reason: CONSTIPATION Tamsulosin HCl (Flomax Cap*) 0.4 mg PO DAILY [facility] Last Admin: 04/05/18 08:48 Dose: 0.4 mg Vital Signs - 8 hr 04/05/18 04/05/18 04/05/18 07:30 07:50 07:58 Temperature 98.0 F Pulse Rate 67 73 Respiratory 20 16 20 Rate Blood Pressure 125/70 (mmHg) O2 Sat by Pulse 97 98 Oximetry 04/05/18 04/05/18 04/05/18 08:00 08:48 10:08 Temperature Pulse Rate Respiratory 18 20 Rate Blood Pressure (mmHg) O2 Sat by Pulse 98 Oximetry 04/05/18 04/05/18 04/05/18 11:33 11:42 13:19 Temperature 97.9 F Pulse Rate 82 Respiratory 20 18 18 Rate Blood Pressure 126/78 (mmHg) O2 Sat by Pulse 93 Oximetry 04/05/18 13:46 Temperature Pulse Rate 90 Respiratory 16 Rate Blood Pressure (mmHg) O2 Sat by Pulse 95 Oximetry Oxygen Devices in Use Now: Nasal Cannula Appearance: alert, NAD Eyes: No Scleral Icterus, PERRLA Ears/Nose/Mouth/Throat: NL Teeth, Lips, Gums, Mucous Membranes Moist Neck: NL Appearance and Movements; NL JVP, Trachea Midline Respiratory: Symmetrical Chest Expansion and Respiratory Effort, - - diminished throughout, improved air entry at the apices, no wheeze Cardiovascular: NL Sounds; No Murmurs; No JVD, RRR, No Edema Abdominal: NL Sounds; No Tenderness; No Distention Extremities: No Edema, No Clubbing, Cyanosis Skin: No Rash or Ulcers, No Nodules or Sclerosis Neurological: Alert and Oriented x 3, NL Sensation, NL Gait Nutrition: Taking PO's Result Diagrams: 04/04/18 05:42 04/04/18 05:42 Microbiology and Other Data: Microbiology 04/03/18 13:05 Aerobic Blood Culture - Preliminary Blood Venous No Growth Day 1 Anaerobic Blood Culture - Preliminary No Growth Day 1 04/03/18 13:05 Aerobic Blood Culture - Preliminary Blood Venous No Growth Day 1 Anaerobic Blood Culture - Preliminary No Growth Day 1 04/03/18 14:09 Influenza Types A,B Antigen - Final Nasal Specimen received for Influenza A/B Molecular testing Assess/Plan/Problems-Billing Assessment: This is a 62 year old male with hx of COPD, CVA and craniotomies in the past that presents to ER with acute SOB 2/2 COPD exacerbation. - Patient Problems (1) COPD exacerbation Code(s): J44.1 - CHRONIC OBSTRUCTIVE PULMONARY DISEASE W (ACUTE) EXACERBATION SNOMED Code(s): 530873013 Comment: - Remains in hypoxic respiratory failure with persistent desats on room air to 86% - hx of environmental exposures with daily tobacco use - No consolidation on CXR - No elevation in WBC count, had low grade fever at admission with mild tachycardia - Last exacerbation appears to be 1 year ago - Will continue nebs, tessalon, mucinex, IS/pulmonary toilet - On day 3/5 of levaquin - Continue steroids then taper at DC - May need home O2 (2) Chronic pain Code(s): G89.29 - OTHER CHRONIC PAIN SNOMED Code(s): 90689080 Comment: - No relief with tylenol/codeine, baclofen helping a little - Patient did not tolerate gabapentin or lyrica in the past - Responded well to IV morphine yesterday which also improved breathing and helped patient sleep, will continue low dose morphine BID (3) Tobacco abuse Code(s): Z72.0 - TOBACCO USE SNOMED Code(s): 822914052 Comment: - daily smoker, cessation encouraged - combined with environmental exposures in his previous occupation, contributing to his COPD (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 Expet to DC home in 1-2 days, may need to be on home O2.
[2018-04-05] MEDS ORDERED: Morphine VIAL* 4 MG/ML VIAL (1 ml vial) IV PRN (21:00)
[2018-04-05] MEDS: Lidocaine Patch REMOVE* 1 NOTE MISC SCH (21:52)
[2018-04-06] MEDS: Albuterol 2.5 MG/3 ML NEB.SOL* (0.083%) INH SCH ×2 (01:32→07:20)
[2018-04-06] MEDS: oxyCODONE/Acetamin 5/325 MG* TAB PO PRN ×3 (01:41→21:16)
[2018-04-06] MEDS: Heparin VIAL(*) 5000 UNITS/ML VIAL (FIVE THOUSAND) SUBCUT SCH ×3 (06:15→21:10)
[2018-04-06] MEDS: Mometasone/Formoter 200/5 MDI INH SCH ×2 (07:20→19:58)
[2018-04-06] MEDS: guaiFENesin ER TAB 600 MG PO SCH ×2 (07:53→21:09)
[2018-04-06] MEDS: Cyclobenzaprine TAB* 10 MG PO SCH ×3 (07:53→21:09)
[2018-04-06] MEDS: Cholecalciferol TAB* 1000 UNITS PO SCH (07:53)
[2018-04-06] MEDS: PARoxetine HCL TAB* 20 MG PO SCH (07:53)
[2018-04-06] MEDS: predniSONE TAB* 20 MG PO SCH (07:53)
[2018-04-06] MEDS: Tamsulosin CAP* 0.4 MG PO SCH (07:53)
[2018-04-06] MEDS: Lidocaine PATCH 5%* 1 PATCH TRANSDERM SCH (07:54)
[2018-04-06] MEDS: Nystatin SUSPENSION* 100000 UNITS/ML 5 ML UDC PO SCH ×4 (07:57→21:22)
[2018-04-06] MEDS: Levofloxacin 500 MG IVPREMIX(* 500 MG/100 ML BAG IVPB SCH (13:47)
--- NOTE | 2018-04-06 16:55 | PN ---
Subjective Date of Service: 04/06/18 Interval History: Resting in bed on assessment. Reports improvement in sob and cough. Hoping for discharge. Denies chest pain, sob, palpitations, nausea, vomiting, diarrhea. Objective Active Medications: Acetaminophen (Tylenol Tab*) 650 mg PO Q4H PRN PRN Reason: FEVER/PAIN Last Admin: 04/04/18 08:55 Dose: 650 mg Al Hydrox/Mg Hydrox/Simethicone (Maalox Plus*) 30 ml PO Q6H PRN PRN Reason: INDIGESTION Albuterol (Ventolin 2.5 Mg/3 Ml Neb.Brenda*) 2.5 mg INH Q2H PRN PRN Reason: SOB/WHEEZING Last Admin: 04/06/18 13:25 Dose: 2.5 mg Albuterol/Ipratropium (Duoneb (Albuterol 2.5 Mg/Ipratropium 0.5 Mg)) 1 neb INH Q4H PRN PRN Reason: SOB/WHEEZING Baclofen (Lioresal Tab*) 10 mg PO TID PRN PRN Reason: SPASMS Last Admin: 04/04/18 21:51 Dose: 10 mg Benzonatate (Tessalon Cap*) 100 mg PO BID PRN PRN Reason: COUGH Cholecalciferol (Vitamin D Tab*) 5,000 units PO DAILY [facility] Last Admin: 04/06/18 07:53 Dose: 5,000 units Cyclobenzaprine HCl (Flexeril Tab*) 10 mg PO TID [facility] Last Admin: 04/06/18 13:46 Dose: 10 mg Docusate Sodium (Colace Cap*) 100 mg PO BID PRN PRN Reason: CONSTIPATION Guaifenesin (Mucinex*) 1,200 mg PO BID [facility] Last Admin: 04/06/18 07:53 Dose: 1,200 mg Heparin Sodium (Porcine) (Heparin Vial(*)) 5,000 units SUBCUT Q8HR [facility] Last Admin: 04/06/18 13:46 Dose: 5,000 units Levofloxacin/Dextrose (Levaquin 500 Mg Ivpremix(*)) 500 mg in 100 mls @ 100 mls /hr IVPB Q24H [facility] Last Admin: 04/06/18 13:47 Dose: 100 mls/hr Lidocaine (Lidoderm 5% Patch*) 2 patch TRANSDERM DAILY [facility] Last Admin: 04/06/18 07:54 Dose: 2 patch Melatonin (Melatonin) 3 mg PO BEDTIME PRN; Protocol PRN Reason: SLEEP Last Admin: 04/04/18 21:51 Dose: 3 mg Mometasone Furoate/Formoterol Fumar (Dulera 200/5 Mdi*) 2 puff INH BID [facility] Last Admin: 04/06/18 07:20 Dose: 2 puff Morphine Sulfate (Morphine Vial*) 2 mg IV BID PRN PRN Reason: PAIN Last Admin: 04/05/18 21:52 Dose: 2 mg Nicotine (Nicotine Inhaler*) 10 mg INH Q2H PRN PRN Reason: CRAVING Nystatin (Nystatin Suspension*) 500,000 units PO QID [facility] Stop: 04/10/18 16:43 Last Admin: 04/06/18 16:06 Dose: Not Given Ondansetron HCl (Zofran Inj*) 4 mg IV Q4H PRN PRN Reason: NAUSEA/VOMITING Oxycodone/Acetaminophen (Percocet 5/325 Tab*) 2 tab PO Q6H PRN PRN Reason: PAIN Last Admin: 04/06/18 07:54 Dose: 2 tab Paroxetine HCl (Paxil Tab*) 20 mg PO DAILY [facility] Last Admin: 04/06/18 07:53 Dose: 20 mg Pharmacy Profile Note (Lidocaine Patch Remove*) 1 note N/A 2100 [facility] Last Admin: 04/05/18 21:52 Dose: 1 note Prednisone (Deltasone Tab*) 40 mg PO DAILY [facility] Last Admin: 04/06/18 07:53 Dose: 40 mg Senna (Senokot Tab*) 1 tab PO BID PRN PRN Reason: CONSTIPATION Tamsulosin HCl (Flomax Cap*) 0.4 mg PO DAILY [facility] Last Admin: 04/06/18 07:53 Dose: 0.4 mg Vital Signs - 8 hr 04/06/18 04/06/18 04/06/18 09:25 11:30 13:40 Temperature 98.3 F Pulse Rate 74 76 Respiratory 18 20 14 Rate Blood Pressure 128/81 (mmHg) O2 Sat by Pulse 92 91 Oximetry 04/06/18 04/06/18 13:46 15:19 Temperature 98.0 F Pulse Rate 91 Respiratory 20 16 Rate Blood Pressure 122/76 (mmHg) O2 Sat by Pulse 92 Oximetry Oxygen Devices in Use Now: None Appearance: Cooperative, comfortable, NAD Eyes: No Scleral Icterus Ears/Nose/Mouth/Throat: Clear Oropharnyx, Mucous Membranes Moist Neck: NL Appearance and Movements; NL JVP Respiratory: Symmetrical Chest Expansion and Respiratory Effort - Sporadic wheeze with moderate decrease in aeration Cardiovascular: NL Sounds; No Murmurs; No JVD, RRR, No Edema Abdominal: NL Sounds; No Tenderness; No Distention Lymphatic: No Cervical Adenopathy Extremities: No Edema Skin: No Rash or Ulcers Neurological: Alert and Oriented x 3 Nutrition: Taking PO's Result Diagrams: 04/04/18 05:42 04/04/18 05:42 Microbiology and Other Data: Microbiology 04/03/18 13:05 Aerobic Blood Culture - Preliminary Blood Venous No Growth Day 1 Anaerobic Blood Culture - Preliminary No Growth Day 1 04/03/18 13:05 Aerobic Blood Culture - Preliminary Blood Venous No Growth Day 1 Anaerobic Blood Culture - Preliminary No Growth Day 1 04/03/18 14:09 Influenza Types A,B Antigen - Final Nasal Specimen received for Influenza A/B Molecular testing Assess/Plan/Problems-Billing Assessment: This is a 62 year old male with hx of COPD, CVA and craniotomies in the past that presents to ER with acute SOB 2/2 COPD exacerbation. - Patient Problems (1) COPD exacerbation Comment: - Hypoxic respiratory failure improving as sats remained above 90% on room and with ambulation - Hx of environmental exposures with daily tobacco use - No consolidation on CXR - No elevation in WBC count, had low grade fever at admission with mild tachycardia - Last exacerbation appears to be 1 year ago - Will continue nebs, tessalon, mucinex, IS/pulmonary toilet - On day 4/5 of levaquin - Continue steroids then taper at DC - May need home O2 (2) Chronic pain Comment: - No relief with tylenol/codeine, baclofen helping a little - Patient did not tolerate gabapentin or lyrica in the past - Responded well to IV morphine yesterday which also improved breathing and helped patient sleep patient was on low dose morphine BID, but in anticipation of discharge tomorrow this will be held (3) DVT prophylaxis Comment: - HSQ (4) Tobacco abuse Comment: - daily smoker, cessation encouraged - combined with environmental exposures in his previous occupation, contributing to his COPD (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 Expect to DC home in 1-2 days, may need to be on home O2. Attending: Deanna Pickett
[2018-04-06] MEDS: Melatonin 3 MG TAB PO PRN (21:10)
[2018-04-06] MEDS: Lidocaine Patch REMOVE* 1 NOTE MISC SCH (21:22)
[2018-04-07] MEDS: Heparin VIAL(*) 5000 UNITS/ML VIAL (FIVE THOUSAND) SUBCUT SCH (05:31)
[2018-04-07] MEDS: predniSONE TAB* 20 MG PO SCH (08:06)
[2018-04-07] MEDS: guaiFENesin ER TAB 600 MG PO SCH (08:06)
[2018-04-07] MEDS: Nystatin SUSPENSION* 100000 UNITS/ML 5 ML UDC PO SCH ×2 (08:07→11:59)
[2018-04-07] MEDS: Cholecalciferol TAB* 1000 UNITS PO SCH (08:07)
[2018-04-07] MEDS: Lidocaine PATCH 5%* 1 PATCH TRANSDERM SCH (08:07)
[2018-04-07] MEDS: Tamsulosin CAP* 0.4 MG PO SCH (08:07)
[2018-04-07] MEDS: PARoxetine HCL TAB* 20 MG PO SCH (08:07)
[2018-04-07] MEDS: Cyclobenzaprine TAB* 10 MG PO SCH (08:07)
[2018-04-07] MEDS: Mometasone/Formoter 200/5 MDI INH SCH (08:59)
[2018-04-07] MEDS: Levofloxacin 500 MG IVPREMIX(* 500 MG/100 ML BAG IVPB SCH (11:07)
[2018-04-07 12:04] VITALS: BP 121/80
--- NOTE | 2018-04-07 23:25 | DS ---
CC: Alphonso Juárez DO * DATE OF ADMISSION: 04/03/18 DATE OF DISCHARGE: 04/07/18 PRIMARY CARE PROVIDER: Alphonso Juárez DO. ATTENDING PHYSICIAN: Dr. Falcon * (dictated by Arden Plata NP). PRIMARY DIAGNOSES: 1. Chronic obstructive pulmonary disease exacerbation. 2. Tobacco use. 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 CONSULTATIONS WHILE IN THE HOSPITAL: There were no consultations. PROCEDURES WHILE IN THE HOSPITAL: There were no procedures. STUDIES WHILE IN THE HOSPITAL: 1. Chest x-ray: Impression: No acute cardiopulmonary disease. There is a INDUSTRIAL ECONOMIST shunt that is partially imaged, several old left rib fractures. 2. EKG: Impression: Sinus rhythm. DISCHARGE MEDICATIONS: New home medications: Prednisone taper. The patient should complete 30 mg x2 days starting tomorrow, then followed by 20 mg x2 days , 10 mg x2 days and 5 mg x2 days. Continued Home Medications: 1. Baclofen 10 mg p.o. t.i.d. 2. Vitamin B complex 1 tab daily. 3. Tamsulosin 1 cap p.o. daily. 4. Symbicort 160/4.5 two puffs inhaled b.i.d. 5. Paxil 20 mg p.o. daily. 6. Vitamin D3 of 5000 units daily. 7. DuoNeb every 3 hours as needed. 8. Albuterol every 4 hours as needed. 9. Tylenol with Codeine 1 tab every 8 hours as needed. Discontinued home medications: No home medications discontinued. HISTORY OF PRESENT ILLNESS/HOSPITAL COURSE: Mr. Shepherd is a 62-year-old male with a past medical history significant for COPD and tobacco use, who presented to the emergency department on 04/03/18 with complaints of shortness of breath x2 days. Please see history and physical dictated by Dr. Gomez for complete summary of events leading up to his hospitalization, but in short, the patient reports he was having shortness of breath x2 days, in addition he was having congestion x2 weeks. He reports the day before presenting to the emergency department he gave himself a nebulizer which helped initially, but today when he awoke feeling short of breath again, five nebulizers did not help. Therefore , he presented to the emergency department. While in the emergency department, the patient was ambulated on room air and his sats went down into the 80s. therefore, he was referred to the hospital service for further evaluation and admission. In addition, while in the emergency department, the patient did receive 1 DuoNeb, Levaquin 750 mg, Solu- Medrol 25 mg IV and 2 L of normal saline. The patient was admitted to the telemetry unit for further evaluation and treatment. It was found that the patient was having exacerbation of chronic obstructive pulmonary disease, most likely secondary to a viral illness. He received Solu-Medrol IV in the emergency department and then was transitioned to p.o. prednisone while inpatient. He received DuoNebs initially q.2 as needed and q.4 as scheduled. Levaquin was also continued 500 mg IV and the patient has completed a full course of five days, half of today. In addition, due to his hypoxia with ambulation, we did check a D-dimer which was negative. Therefore, a CT was not obtained. The patient's troponin was also trended due to his symptomatology, but remained unremarkable at 0.03. Finally, the patient was also on telemetry and remained in sinus with no acute findings while admitted. Today, the patient is stable for discharge and reports he feels ready for discharge. The patient will be discharged home. Prior to discharge decision, the patient was ambulated on room air and noted the sat to 90%, but it should be noted that at rest the patient is 94% to 97% on room air. Therefore, the patient does not qualify for home O2 at this time. I discussed this with the patient and seriously stressed the importance of quitting smoking. In addition, due to slightly low baseline O2 saturation, I have encouraged the patient to continue regular DuoNebs for the next three days and continue prednisone taper. Vital signs as follows: Temp 97.9, pulse 85, respirations 18, O2 saturation 94 % on room air, BP 155/87. REVIEW OF SYSTEMS: The patient reports occasional cough. The patient reports he feels much improved in regards to shortness of breath, as he is not experiencing shortness of breath at this time. The patient denies fever and chills. The patient denies chest pain and palpitations. A 12-point review of systems was completed and all others were negative. PHYSICAL EXAMINATION: General: Mr. Shepherd is a 62-year-old male, sitting on the edge of the bed, breathing with ease, does not appear to be in any acute distress. HEENT: External ears and nose normal. Oropharynx is moist without lesions. Neck: Full ROM. Supple. No lymphadenopathy. Cardiac: S1 and S2 present. Regular rate and rhythm. No murmurs, rubs or gallops. Respiratory: Lung sounds are clear to auscultation with mild decrease in aeration. No wheezing, rales or rhonchi. Abdomen: Soft, nontender, and nondistended. Bowel sounds x4. Extremities: No clubbing or cyanosis. No edema. No deformities. Skin: Harris, warm, intact. Neurologic: Alert and oriented x4. No focal deficits. DISCHARGE PLAN/FOLLOWUP: Mr. Shepherd is a 62-year-old male who will be discharged home with following the plan. 1. COPD exacerbation: As mentioned above, the patient should continue prednisone taper. The patient should also resume home inhalers as previously prescribed. Discussed proper use of Symbicort and albuterol rescue inhaler. The patient should also continue use of DuoNebs during this acute period. The patient has been educated on importance of smoking cessation. The patient has improved since admission as he was ambulating on room air. In the emergency room, he was noted to be low 80s on room air, but today, he is in the 90s on room air. I have encouraged the patient to follow up with his primary care, Dr. Juárez, next week for reassessment and possible referral to a nurse first assist due to COPD, smoking, environmental exposure. 2. Tobacco use: As mentioned above, I have discussed at length the risks associated with continued tobacco use and the patient's COPD. The patient states understanding. The patient reports he will try best to quit. 3. 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 Therefore, at one point, the patient did require IV morphine to sleep. In addition, the patient was provided with Percocet to substitute instead of morphine while admitted. The patient reports that at home his pain is well tolerated on his Tylenol No. 3. Therefore, I have sent no prescriptions and the patient should continue his Tylenol No. 3 and follow up with primary care as needed. 4. BPH: The patient should continue medications as same. 5. Depression/anxiety: The patient should continue paroxetine as previously ordered. 6. Lab followup: The patient had labs completed including the CBC and BMP on 04/04/18 which were within normal limits. Therefore, there is no recommended followup for labs. 7. Education: The patient was educated when he should return to the ER or nearest hospital including experiencing any worsening of symptoms, shortness of breath, lightheadedness, dizziness, chest discomfort, high fevers, chills, night sweats, loss of consciousness, or any other worsening signs or symptoms. This is a summarized report of a complex medical history and hospital stay. For further details, please see the entire medical record. The plan was also discussed with my attending, Dr. Falcon and he agrees with my plan. TIME SPENT: Approximately 35 minutes were spent on this discharge, greater than half that time was spent [id number] with the patient discussing the discharge plans and instructions. ARDEN PLATA, JENNI [id number]/CPS #: [id number] RADHA
== END 2018-04-07 12:30 | disposition home or self-care (01) | DRG 191 ==
LOC: ED 12:58 → MEDTELE 16:24
PROVIDERS: ADMIT Pediatrics; ATTEND Internal Medicine
DX: J44.1 Chronic obstructive pulmonary disease with (acute) exacerbation (principal); B37.0 Candidal stomatitis; B34.9 Viral infection, unspecified; R09.02 Hypoxemia; R25.2 Cramp and spasm; N40.0 Benign prostatic hyperplasia without lower urinary tract symptoms; F41.9 Anxiety disorder, unspecified; M19.90 Unspecified osteoarthritis, unspecified site; F32.9 Major depressive disorder, single episode, unspecified; G89.29 Other chronic pain; F17.210 Nicotine dependence, cigarettes, uncomplicated; Z88.8 Allergy status to other drugs, medicaments and biological substances; Z91.018 Allergy to other foods; Z82.49 Family history of ischemic heart disease and other diseases of the circulatory system; Z80.0 Family history of malignant neoplasm of digestive organs; Z83.3 Family history of diabetes mellitus; Z86.73 Personal history of transient ischemic attack (TIA), and cerebral infarction without residual deficits; Z98.2 Presence of cerebrospinal fluid drainage device
CPT/HCPCS: 36415; 71045; 80048; 80053; 81003; 83605; 83880; 84484; 85025; 85379; 85610; 86140; 87040; 93005; 94640; 99284; 99406; A9270-GY; J1644; J1956; J2270; J2930; J7512

== ENCOUNTER 2018-06-04 12:40 | Inpatient (IN) | payer MEDICARE ==
[2018-06-04] MEDS ORDERED: NS 0.9% 1000 ML** 1,000 ML IV ONE (12:46)
[2018-06-04] MEDS ORDERED: Albuterol/Ipratropium NEB.SOL* Albuterol 2.5 MG/Ipratropium 0.5 MG 3 ML INH ONE (12:47)
[2018-06-04] MEDS ORDERED: Magnesium Sulfate 1 GM IV* 1 GM/100 ML BAG IV ONE (12:48)
--- NOTE | 2018-06-04 12:53 | ED ---
Shortness of Breath - HPI Summary HPI Summary: This patient is a 62 year old M brought in by ambulance to [facility] with a chief complaint of SOB that began yesterday. The patient rates the pain 0/10 in severity. Symptoms aggravated by nothing. Symptoms alleviated by EMS treatment. Patient reports shakiness. Patient states his O2Sat was 58 when he woke up yesterday. Per EMS, the patient had an O2Sat of 88 when they arrived. 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 - History of Current Complaint Hx Obtained From: Patient, EMS Onset/Duration: Sudden Onset, Lasting Days, Still Present Timing: Constant Dyspnea At: Rest Aggrevating Factors: Nothing Alleviating Factors: EMS Tx - Allergy/Home Medications Allergies/Adverse Reactions: Allergies Allergy/AdvReac Type Severity Reaction Status Date / Time phenytoin [From Dilantin] Allergy Severe See Comment Verified 04/03/18 13:26 blueberry Allergy Edema Verified 04/03/18 13:26 PMH/Surg Hx/FS Hx/Imm Hx Previously Healthy: No Endocrine/Hematology History: Reports: Hx Blood Transfusions Denies: Hx Diabetes, Hx Thyroid Disease Cardiovascular History: Denies: Hx Hypertension, Hx Pacemaker/ICD Respiratory History: Reports: Hx Asthma, Hx Chronic Obstructive Pulmonary Disease (COPD), Hx Pneumonia, Hx Seasonal Allergies, Other Respiratory Problems/ Disorders - HX OF PNEUMONIA 03/20/2013 History: Denies: Hx Renal Disease Musculoskeletal History: Reports: Hx Arthritis, Hx Back Problems Sensory History: Reports: Hx Contacts or Glasses - READING GLASSES Denies: Hx Hearing Aid Opthamlomology History: Reports: Hx Contacts or Glasses - READING GLASSES Neurological History: Reports: Hx 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 1994 MORNING NEWS ANCHOR SHUNT W/PUMP, [facility] 1995 VALVE REPLACED WITH SHUNT, [facility]. 1996 THIRD VENTRICULAR OSCOPY,OK 1.[address] MASCORRO(01/2012). 1977 & 1979 RIGHT KNEE SURGERY REPAIR TENDON & [place],. MORNING NEWS ANCHOR PUMP DISCONNECTED.CURRENTLY IMPLANTED SHUNT CLEARED FOR IMAGING BY DR KELLER UP TO 1.5 T,USING PLAIN FILMSWEM Hx Anesthesia Reactions: No - Immunization History Date of Tetanus Vaccine: Unk Date of Influenza Vaccine: None Infectious Disease History: Denies: Hx Clostridium Difficile, Hx Hepatitis, Hx Human Immunodeficiency Virus (HIV), Hx of Known/Suspected MRSA, Hx Shingles, Hx Tuberculosis, Hx Known/ Suspected VRE, Hx Known/Suspected VRSA, History Other Infectious Disease - Family History Known Family History: Positive: Diabetes Negative: Cardiac Disease, Hypertension - Social History Occupation: Disabled Lives: With Family Alcohol Use: None Hx Substance Use: No Substance Use Type: Reports: None Hx Tobacco Use: Yes Smoking Status (MU): Heavy Every Day Tobacco Smoker Type: Cigarettes Amount Used/How Often: 1 PPD Length of Time of Smoking/Using Tobacco: since age 15 Have You Smoked in the Last Year: Yes Review of Systems Positive: Shortness Of Breath Neurological: Other - Positive shakiness All Other Systems Reviewed And Are Negative: Yes Physical Exam - Summary Physical Exam Summary: Appearance: Well appearing, no pain distress Skin: hot and dry, reflects adequate perfusion Head/face: normal Eyes: EOMI, CHERYLE ENT: mucous membranes moist, thick mucus in the pharynx Neck: supple, non-tender Respiratory: Grossly diminished. Fine crackles at the left base best heard anteriorly. Fine expiratory wheeze, breath sounds present Cardiovascular: tachycardia, pulses symmetrical Abdomen: non-tender, soft Bowel Sounds: present Musculoskeletal: normal, strength/ROM intact Neuro: normal, sensory motor intact, A&Ox3 Triage Information Reviewed: Yes Vital Signs Reviewed: Yes Diagnostics - Laboratory Result Diagrams: 06/04/18 13:07 06/04/18 13:07 Lab Statement: Any lab studies that have been ordered have been reviewed, and results considered in the medical decision making process. - Radiology Chest XR Radiology Interpretation Completed By: ED Physician Summary of Radiographic Findings: CXR reveals, per ED physician, right basilar infiltrate. - EKG 1251 Cardiac Rate: Tachycardia EKG Rhythm: Sinus Rhythm - [address] Segment: Non-Specific Summary of EKG Findings: An EKG taken at 1251 reveals sinus tachycardia at 124 BPM with normal axis, PVCs, and nonspecific ST. Course/Dx - Course Course Of Treatment: Nurse's notes reviewed. Patient with fever, difficulty breathing and hypoxia. Infiltrate noted and WBC elevated. Flu negative. Improving with breathing treatments and oxygen. Hydrated here. No elevation a lactate. Rocephin, Zithromax given. Admit to the hospitalist. - Diagnoses Differential Diagnosis/HQI/PQRI: Positive: COPD Exacerbation, Pneumonia Provider Diagnoses: Community acquired pneumonia, COPD exacerbation, Hypoxia - Physician Notifications Discussed Care of Patient With: Louann Valencia Time Discussed With Above Provider: 14:30 Instructed by Provider To: Other - Consult with Dr. Valencia (hospitalist) at 1430. She agrees to admit the patient for further evaluation. - Critical Care Time Critical Care Time: 30-74 min - CCT is EXCLUSIVE of separately billable procedures Discharge - Sign-Out/Discharge Documenting (check all that apply): Patient Departure - [place] [facility] Received Moderate/Deep Sedation with Procedure: No - Discharge Plan Condition: Fair Disposition: ADMITTED TO [facility] - Billing Disposition and Condition Condition: FAIR Disposition: Admitted to [facility] - Attestation Statements Document Initiated by Scribe: Yes Documenting Scribe: Regina Sheffield Provider For Whom Jocelyne is Documenting (Include Credential): Dr. Amari Acevedo MD Scribe Attestation: IRegina, scribed for Dr. Amari Acevedo MD on 06/04/18 at 1613. Scribe Documentation Reviewed: Yes Provider Attestation: The documentation as recorded by the Regina shukla accurately reflects the service I personally performed and the decisions made by me, Dr. Amari Acevedo MD Status of Scribe Document: Viewed
--- OUTSIDE RECORDS SUMMARY | 2018-06-04 13:02 | XMS REPORT | Continuity of Care Document ---
:1955 External Reference #:[id number] Author Name Alphonso Juárez D.O. Address [address] [place] [address] Care Team Providers Name Role Phone HCP given Primary Care Physician Unavailable Payers Date Identification Numbers Payment Provider Subscriber Effective: 1998 Policy Number: [id number] [facility] [place] PayID: [id number] [address] [place] [address] Advance Directives Description No Information Available Problems Date Description Provider Status Onset: 02/28/2003 Seizure Qamar Prater M.D. Active Onset: 02/28/2003 Tobacco user Qamar Prater M.D. Active Onset: 12/20/2012 Cough Alphonso Juárez [...] D.O. Active Family History Date Family Member(s) Observation Comments : (age 54 Father due to [...] smoker, smokes every day Smoking Status Reviewed: 04/19/18 Patient is a current smoker, smokes every [...] Form Strength Qnty SIG Indications Ordering Provider Prednisone 05/18/ Active Tablets 20mg 11tab 2 pills for 3 J44.1 Sopjamesk , 2019 s days then 1 Alphonso, pill for 3 D.O. days 1/2 pill for 4 days. Cefuroxime 05/18/ Active Tablets 500mg 20tab 1 tab by J44.1 Franck Axetil 2018 s mouth twice a Alphonso, day x 10 days D.O. Tamiflu 05/18/ Active Capsules 75mg 10cap Take 1 J11.1 Franck, 2019 s capsule by Alphonso, mouth 2 times D.O. per day for 5 days for flu Tamsulosin 12/16/ Active Capsules 0.4mg 90cap 1 by mouth Margaritak, HCL 2018 s every day Alphonso, D.O. Vitamin B 08/30/ Active Capsules 180ca 1 by mouth Franck, Complex-C 2018 ps twice a day Alphonso, D.O. Vitamin D3 08/30/ Active Capsules 5000Unit 90cap 1 by mouth Sopchak, Maximum 2018 s every day or Alphonso, Strength 7 tablets D.O. once a week Baclofen 08/25/ Active Tablets 10mg 90tab take 1 tablet Sopchak, 2018 s by mouth Alphonso, three times a D.O. day for muscle spasms Albuterol 01/01/ Active Nebulizer (2.5mg/3ML 225un Use 1 Ampoule Silcoff, Sulfate 2016 ) 0.083% its In Nebulizer Dc, Four Times A M.D. Day as Needed For Cough, For Shortness Of Breath Acetaminophen 08/18/ Active Tablets 300-30mg 90tab take one M25.561 [facility], -Code[facility] #3 2016 s tablet by Alphonso, mouth three D.O. times a day as needed maximum daily dose=6 tablets start 04/06 end 04/21 then mdd 3 due 04/28/18 Ventolin HFA 07/10/ Active Aerosol 108(90Base 18uni Inhale Two Franck , 2016 ) mcg/Act ts Puffs By Alphonso, Mouth Every 4 D.O. Hours as Needed For Bronchospasm Ibuprofen 10/08/ Active Tablets 800mg 90tab 1 cap by Silcoff, 2015 s mouth three Dc, times a day M.D. Ipratropium 07/09/ Active Solution 0.5-2.5(3) 180un inhale the J44.9 Sopchak, [place]/Albut 2015 mg/3ML its contents of Alphonso, ailyn Sulfate one vial via D.O. nebulizer four times a day Symbicort 12/24/ Active Aerosol 160-4.5mcg 30.6g inhale 2 J44.1 Sopchak , 2015 /Act m puffs by Alphonso, mouth twice a D.O. day gargle after use Nebulizer 03/11/ Active 1Set use with Unknown Tubing With 2013 nebulizer5 Med Cup Paxil 10/26/ Active Tablets 20mg 90tab 1 by mouth F43.21 Franck 2011 s every day Alphonso D.OYesenia R42 Prednisone Hx Tablets 10mg 8tabs 1 by mouth every Sopchak 019 - day x 5 days then , 1/2 tab for 6 days Jennifer Werner then stop D.O. Prednisone Hx Tablets 20mg 5tabs 1 tab by mouth Silcoff 019 - daily x5 days , Jennifer Irwin M.D. Prednisone Hx Tablets 20mg 5tabs 1 tab by mouth Silcoff 019 - daily x5 days , Jennifer Irwin M.DYesenia Doxycycline Hx Capsules 100mg 28caps 1 by mouth twice a J01.00 Sopandra Monohydrate 018 - day for 14 days. , Stew Werner D.O. Prednisone Hx Tablets 10mg 10tabs 2 tabs for 3 days Sopandra 018 - then 1 tab for 4 , days Stew Werner D.O. Azithromycin Hx Tablets 250mg 12tabs take 2 tablets by Sopandra 018 - mouth one time on , the first day then Stew Werner take 1 tablet by D.O. mouth daily for 10 days Azithromycin Hx Tablets 250mg 6tabs take 2 tablets by J01.90 Sopandra 018 - mouth one time on , the first day then Stew Werner take 1 tablet by D.O. mouth daily for 4 days Amoxicillin/Clavula Hx Tablets 875-125 20tabs 1 tab by mouth J01.90 Silcoff guru Potassium 018 - mg twice a day x10 , days Stew Irwin.DYesenia Diflucan Hx Tablets 150mg 3tabs 1 cap by mouth once B37.0 Franck 017 - every 3 days , Stew Werner D.O. Azithromycin Hx Tablets 250mg 12tabs take 2 tablets by J44.1 Sopchak 017 - mouth one time on , the first day then Stew Werner take 1 tablet by D.O. mouth daily for 10 days Prednisone Hx Tablets 10mg 10tabs 2 tabs for 3 days J44.1 Sopchak 017 - then 1 tab for 4 , days Stew Werner D.O. Azithromycin Hx Tablets 250mg 6tabs take 2 tablets by J44.1 Sopchak 017 - mouth one time on , the first day then Wayne Werner take 1 tablet by D.O. mouth daily for 4 days Prednisone Hx Tablets 10mg 15tabs 2 tabs for 5 days J44.1 Sopchak 017 - then 1 tab for 5 , days with Wayne Werner exacerbation of D.O. bronchitis Diflucan Hx Tablets 200mg 15tabs 2 tabs day one then B37.0 Silcoff 017 - 1 tab days 2-13. , Wayne Irwin M.DYesenia Gabapentin Hx Capsules 100mg 180caps 2 tabs three times M54.17 Sopchak 017 - a day. , Alphonso 019 D.O. Gabapentin Hx Capsules 300mg 30caps 1 by mouth at night M54.17 Sopchak 017 - for leg pain , Alphonso 017 D.O. Breo Ellipta Hx Aerosol 100-25m 60units [...] Tablets 5-325 14tabs 1 every 4 M25.55 kyle Juárez 06/03/2016 mg hours as 1 Alphonso, needed severe D.O. pain MDD 2 Spiriva Respimat 05/27/2016 - Hx Aerosol 2.5mc 8gm two J44.9 [facility], 07/10/2016 g/Act inhalations Alphonso, (5mcg) once D.O. daily (maximum: 2 inhalations per 24 hours). Cefadroxil 01/25/2016 - Hx Capsules 500mg 20caps 1 bid J44.1 Qamar 02/04/2016 Emerson Prater M.D. Prednisone 01/25/2016 - Hx Tablets 10mg 42tabs 2 tabs for 3 J44.1 Qamar 02/04/2016 days then 1 A. tab for 4 [facility], days with M.D. exacerbation of bronchitis Proair HFA 12/02/2015 - Hx Aerosol 108([address] [facility], 07/10/2016 0Base Puffs By Alphonso, ) Mouth Every 4 D.O. mcg/A To [address] Voltaren 10/09/2015 - Hx Gel 1% 100gm [address] [facility], 11/25/2016 affected area Alphonso, every day # D.O. 100gm Amoxicillin 09/21/2015 - Hx Tablets 500mg 60tabs 2 by mouth J01.10 Silcoff, 10/01/2015 three times a Dc, day for 10 M.D. days for sinusitis Loratadine 09/21/2015 - Hx Tablets 10mg 0tabs 1 by mouth J30.9 Silco, 07/14/2016 every day as Dc, needed for M.D. allergies Diflucan 05/30/2015 - Hx Suspension 40mg/ 30ml 4ml swish and B37.0 [facility], 06/14/2015 Rec ml swallow until Alphonso, gone. D.O. Levofloxacin 05/28/2015 - Hx Tablets 500mg 7tabs [address] [facility], 06/04/2015 every day x 7 Alphonso, days D.O. Methylprednisolone 05/28/2015 - Hx Tablets 4mg 21tabs 24 mg([address] [facility], ([place]) 06/03/2015 tablets) on Alphonso, day 1, 20 mg D.O. (5 tablets) on day 2, 16 mg (4 tablets) on day 3, 12 mg (3 tablets)day 4, then 2 then 1 tab Guaifenesin ac 05/28/2015 - Hx Syrup 100-1 100unit 1-2 teaspoon J44.1 [facility], 06/07/2015 0mg/5 s every 6 Alphonso, ML hours, as D.O. needed Tylenol With Codeine 05/28/2015 - Hx Tablets 300-3 90tabs 1 by mouth M25.56 Hektor, #3 08/18/2016 0mg three times a 1 Meli, day as needed PA Baclofen 05/28/2015 - Hx Tablets 10mg 90tabs Take One M25.56 Sopchak, 12/11/2016 Tablet By 1 Alphonso, Mouth Three D.O. Times A Day For Muscle Spasms, Will Make Sleepy Dulera 04/10/2015 - Hx Aerosol 100-5 26.4gm 2 puff twice J41.8 [facility], 05/27/2015 mcg/A a day Alphonso, ct D.O. Prednisone 04/10/2015 - Hx Tablets 10mg 42tabs 2 tabs for [address] [facility], 05/27/2015 days then 1 Alphonso, tab for 4 D.O. days with exacerbation of bronchitis Azithromycin 04/10/2015 - Hx Tablets 250mg 6tabs take 2 J41.8 [facility], 04/15/2015 tablets by Alphonso, mouth one D.O. time on the first day then take 1 tablet by mouth daily for 4 days Cephalexin 01/21/2015 - Hx Capsules 500mg 20caps [address] [facility], 01/31/2015 twice a day Alphonso, D.O. Hydrocodone-Acetamin 12/24/2014 - Hx Tablets 5-325 90tabs 1 tabletq 6 M25.56 [facility] 05[facility]2015 mg hours as 1 Alphonso, needed for D.O. severe pain Amoxicillin/Clavulan 10/22/2014 - Hx Tablets 875-1 20tabs [address] [facility], ate Potassium 11/01/2014 25mg twice a day Alphonso, D.O. Fluticasone 10/22/2014 - Hx Suspension 50mcg 16units [address] [facility], Propionate 12/21/2014 /Act twice a day Alphonso, for 4 days D.O. then daily until symptoms resolved. Valacyclovir HCL 03/12/2014 - Hx Tablets 1gm 21tabs 1 three times 053.9 [facility], 03/19/2014 a day for 7 Alphonso, days D.O. Clarithromycin 03/12/2014 - Hx Tablets 500mg 20tabs 1 by mouth 466.0 [facility], 03/12/2014 twice a day Alphonso, D.O. Azithromycin 03/12/2014 - Hx Tablets 250mg 6tabs take 2 466.0 [facility], 07/06/2014 tablets by Alphonso, mouth one D.O. time on the first day then take 1 tablet by mouth daily for 4 days Albuterol Sulfate 03/09/2014 - Hx Nebulizer (2.5m 225unit Use [address] [facility], 01/24/2016 g/3ML s In Nebulizer Alphonso, ) Four Times A D.O. 0.083 Day as Needed % For Cough, For Shortness Of Breath Bupropion HCL ER 10/05/2013 - Hx Tablets ER 150mg take two 305.1 [facility], (XL) 10/04/2013 24HR tablets by Alphonso, mouth every D.O. morning, for mood, for 1 month, then change back to the 300mg tablets Prednisone 10/05/2013 - Hx Tablets 5mg 1 by mouth 466.0 [facility], 10/04/2013 every day Maurice Werner.O. Proair HFA 10/05/2013 - Hx Aerosol 108(9 8.500gm 1-[address] [facility], 03/11/2014 0Base four times a Alphonso, ) day as needed D.O. mcg/A ct Flovent HFA 10/05/2013 - Hx Aerosol 44mcg 1canist [address] [facility], 03/11/2014 /Act er a day Alphonso, D.O. Symbicort 10/05/2013 - Hx Aerosol 160-[address] inhale [address] [facility] , 03/11/2014 .5mcg ts puffs by Alphonso, /Act mouth twice a D.O. day gargle after use Bupropion HCL ER 05/23/2013 - Hx Tablets ER 150mg 60tabs 1 tab po in 305.1 [facility], 10/04/2013 12HR am for 3 Alphonso, days anf then D.O. increase to 1 twice a day Chantix Starting 05/23/2013 - Hx Tablets 0.5mg 1tabs take as 305.1 Franck, Elliott Reagan 10/04/2013 X 11 directed Alphonso, & 1 D.O. mg X 42 Azithromycin 05/23/2013 - Hx Tablets 250mg 6tabs take [address] [facility], 10/04/2013 tablets by Alphonso, mouth one D.O. time on the first day then take 1 tablet by mouth daily for 4 days Prednisone 05/23/2013 - Hx Tablets 10mg 10tabs [address] [facility], 10/04/2013 mouth every Alphonso, day D.O. Ventolin A 05/10/2013 - Hx Aerosol 108(9 1canist [address] [facility], 04/10/2015 0Base er 4-6 Alphonso, ) D.O. [...] 5 to 0 in 5 days Ventolin A 03/06/2013 - Hx Aerosol 108(9 18units Inhale Two 786.09 [facility], 05/22/2013 0Base Puffs By Alphonso, ) Mouth Every 4 D.O. mcg/A Hours as ct Needed For Bronchospasm 786.2 Proventil 05/20/2012 - Hx Aerosol 108(90Base) 6.700gm 2 puffs q4h 786.09 [facility] 03/06/2013 mcg/Act prn for Alphonso, cough, D.O. [...] 108(90B 6.700g 2 puffs q4h 786.09 Qamar AYesenia 05/20/2012 ase) m prn for Tigre, mcg/ac cough, M.D. wheezing, sob 786.2 Omeprazole 12/05/2011 - Hx Capsules DR 40mg 30caps 1 by mouth 789.06 Silcoff, 12/20/2012 every day Dc, for upper M.D. abdominal pain Paxil 06/22/2011 - Hx Tablets 20mg 30tabs 1 po qd 309.1 Qamar Emerson 10/20/2011 Nicola Prater Cipro 06/08/2006 - Hx Tablets 500mg 20tabs 1 PO bid 461.1 [place], 06/18/2006 Jaycee RANDOLPH Nasonex 06/08/2006 - Hx Aerosol 50mcg Sample 2 Sprays In 461.1 [place], Intranasal 06/15/2006 Each Nostril Jaycee RANDOLPH [place] Once A Day Cortisporin 09/28/2005 - Hx [...] Norman Otic 08/18/2004 000U;1 qid For 7 Tigre 0mg/ML Days RgDYesenia Tylenol W/ 08/11/2004 - Hx Tablets 300mg; 60tabs 1 Or2 Q4H 380.10 Qamar Norman Codeine #3 09/29/2004 30 mg prn Pain Nicola Prater Tylenol W/ 07/11/2004 - Hx Tablets 300mg; 30tabs 1-2 tabs po How[place], Codeine #3 06/18/2011 30 mg q4h prn for Jaycee RANDOLPH back pain Anusol HC 07/01/2004 - Hx Suppositor 25mg 28units 1 pr bid as 455.0 Silcoff, 07/15/2004 directed Nicola Irwin Tylenol W/ 04/19/2003 - Hx Tablets 300mg; 30tabs 1 or2 q4h 719.41 Qamar Norman Codeine #3 09/03/2003 30 mg prn pain Nicola Prater Motrin 04/14/2003 - Hx Tablets 600mg 30tabs 1 tid for Qamar Norman 04/24/2003 four days Tigre then dia Petersen after that take with food for shoulder Paxil 02/28/2003 - Hx Tablets 20mg 30tabs 1 po qd 309.1 Qamar Norman 06/20/2003 Nicola Prater Doxycycline 01/16/2003 - Hx Capsules 100mg 20caps 1 bid for 464.00 Qamar Norman Hyclate 01/26/2003 ten days Nicola Prater Alkolol 01/16/2003 - Hx qs1mo use tid to 464.00 Qamar Norman Solution 09/03/2003 cleanse nose Tigre and throat Nicola Tegretol 01/03/2003 - Hx Tablets 200mg 30tabs 1 tid 780.39 Qamar Norman 06/17/2011 Nicola Prater Tylenol W/ - Hx Tablets 300mg; 100tabs 1 or2 q4h 724.2 Qamar Norman Codeine #3 07/01/2004 30 mg prn pain Klepack, M.D. Medications Administered in Office Medication Date Status [...] CPT Code Status Date Vaccine Lot # [id number] Given 07/10/2015 Prevnar 13 [id number] Given 09/10/1998 Td Immunization U-Flu Refused 02/12/2018 Influenza,Unspecified [id number] Refused 12/05/2011 Flu, Split Virus 3Yrs Vital Signs Date Vital Result Comment 05/18/2018 3:59pm BP Systolic 126 mmHg BP Diastolic 84 mmHg Heart Rate 109 /min O2 % BldC Oximetry 91 % Body Temperature 98.8 F Weight 163.00 lb 04/19/2018 1:43pm BP Systolic 128 mmHg BP Diastolic 68 mmHg Weight 164.00 lb 04/13/2018 2:38pm BP Systolic 120 mmHg BP Diastolic 80 mmHg Heart Rate 101 /min O2 % BldC Oximetry 92 % Weight 164.50 lb w/boots 03/07/2018 5:04pm BP Systolic 128 mmHg BP [...] Date Facility Test Result H/L Range Note Rapid Influenza 04/03/2018 [facility] Influenza A NEGATIVE Negative 1 A & B Molecular [phone] Molecular Influenza B Molecular NEGATIVE Negative Laboratory test 04/03/2018 [facility] B-Type Natriuretic 60 pg/mL <= 100 finding [phone] Peptide BNP Rapid Influenza A B Antigen SEE RESULT BELOW 2 CBC Auto Diff 04/03/2018 [facility] White Blood Count 7.5 10^3/uL N 3.5-10.8 [phone] Red Blood Count 4.18 10^6/uL N 4.00-5.40 Hemoglobin 13.9 g/dL Low 14.0-18.0 Hematocrit 41 % Low 42-52 Mean Corpuscular Volume 98 fL High 80-94 Mean Corpuscular Hemoglobin 33 pg High 27-31 Mean Corpuscular HGB Conc 34 g/dL N 31-36 Red Cell Distribution Width 13 % N 10.5-15 Platelet Count 204 10^3/uL N 150-450 Mean Platelet Volume 7.7 fL N 7.4-10.4 Abs Neutrophils 6.1 10^3/uL N 1.5-7.7 Abs Lymphocytes 0.5 10^3/uL Low 1.0-4.8 Abs Monocytes 0.8 10^3/uL N 0-0.8 Abs Eosinophils 0 10^3/uL N 0-0.6 Abs Basophils 0 10^3/uL N 0-0.2 Abs Nucleated RBC 0 10^3/uL Granulocyte % 81.8 % Lymphocyte % 6.1 % Monocyte % 11.3 % Eosinophil % 0.4 % Basophil % 0.4 % Nucleated Red Blood Cells % 0 Inr/Protime 04/03/2018 [facility] Inr 1.00 N 0.77-1.02 [phone] Comp Metabolic Panel 04/03/2018 [facility] Sodium 140 mmol/L N 135- 145 [phone] Potassium 4.0 mmol/L N 3.5-5.0 Chloride 107 mmol/L N 101-111 Co2 Carbon Dioxide 27 mmol/L N 22-32 Anion Gap 6 mmol/L N 2-11 Glucose 121 mg/dL High 70-100 Blood Urea Nitrogen 12 mg/dL N 6-24 Creatinine 0.86 mg/dL N 0.67-1.17 BUN/Creatinine Ratio 14.0 N 8-20 Calcium 9.0 mg/dL N 8.6-10.3 Total Protein 6.7 g/dL N 6.4-8.9 Albumin 4.0 g/dL N 3.2-5.2 Globulin 2.7 g/dL N 2-4 Albumin/Globulin Ratio 1.5 N 1-3 Total Bilirubin 0.30 mg/dL N 0.2-1.0 Alkaline Phosphatase 44 U/L N 34-104 Alt 20 U/L N 7-52 Ast 22 U/L N 13-39 Egfr Non- 90.7 >60 Egfr 109.8 >60 3 Laboratory test 04/03/2018 [facility] C Reactive 8.91 mg/L High < 8.01 finding [phone] Protein Troponin-I (TnI) 0.03 ng/mL <0.04 4 Lactic Acid 1.2 mmol/L N 0.5-2.0 5 Urinalysis Profile 04/03/2018 [facility] Urine Color Yellow [phone] Urine Appearance Cloudy Urine Specific Majestic 1.018 N 1.010-1.030 Urine pH 5.0 N 5-9 Urine Urobilinogen Negative Negative Urine Ketones Negative Negative Urine Protein Negative Negative Urine Leukocytes Negative Negative Urine Blood Negative Negative Urine Nitrite Negative Negative Urine Bilirubin Negative Negative Urine Glucose Negative Negative Laboratory test 04/03/2018 [facility] D Dimer < 200 ng/mL N Less Than 6 finding [phone] Quantitative 230 Blood Culture SEE RESULT BELOW 7 CBC Auto Diff 08/25/2017 [facility] White Blood Count 5.5 10^3/uL N 3.5-10.8 [phone] Red Blood Count 4.35 10^6/uL N 4.0-5.4 [...] 0-2 Nucleated Red Blood Cells % 0 Laboratory test finding 08/25/2017 [facility] Uric Acid 5.5 mg/dL N 4.4-7.6 [phone] Phosphorus 3.3 mg/dL N 2.5-5.0 Tick-Borne Panel PCR 08/25/2017 [facility] Babesia microti Negative Negative Blood [phone] PCR Babesia ducani Negative Negative Babesia divergens/Mo-1 Negative Negative 8 Anaplasma phagocytophilum Negative Negative Ehrlichia chaffeensis Negative Negative Ehrlichia ewingii/canis Negative Negative Ehrlichia muris-like Negative Negative 9 B. miyamotoi PCR, B Negative Negative 10 Comp Metabolic Panel 08/25/2017 [facility] Sodium 141 mmol/L N 139- 145 [phone] Potassium 4.2 mmol/L N 3.5-5.0 Chloride 106 [...] Egfr Non- 106.6 >60 Egfr 137.1 >60 11 Laboratory test 08/25/2017 [facility] TSH (Thyroid 0.36 mcIU/mL N 0.34-5.60 finding [phone] Stim Horm) Magnesium 2.2 mg/dL N 1.9-2.7 Connective Tissue Panel 08/25/2017 [facility] Anti-Nuclear Antibody 0.2 U 12 [phone] Cyclic Citrullinated Peptide <15.6 U 13 Interpretation See Comment 14 Lyme Western Blot 08/25/2017 [facility] Lyme Disease IgG Negative Negative [phone] Ab WB Lyme Disease IgG Bands Present No bands detecte <SEE NOTE> kDa 15 Lyme Disease IgM Ab WB Negative Negative Lyme Disease IgM Bands Present No bands detecte <SEE NOTE> kDa 16 Lyme Disease Interpretation See Comment 17 Laboratory test 08/25/2017 [facility] Erythrocyte Sed 24 mm/Hr High 0 -20 finding [phone] Rate C Reactive Protein 5.31 mg/L High < 5.00 18 Vitamin B12 206 pg/mL N 180-914 19 Vitamin D Total 25(Oh) 15.4 ng/mL Low 20-50 Rapid Influenza A 07/07/2016 [facility] Influenza A NEGATIVE N Negative 20 & B Molecular [phone] Molecular Influenza B Molecular NEGATIVE N Negative Laboratory test 07/06/2016 [facility] Rapid Influenza SEE RESULT 21 finding [phone] A B Antigen BELOW Xray 05/27/2016 [facility] X-Ray, Pelvis, No change 22 1 Or 2 Views Xray 10/09/2015 [facility] X-Ray, Hips, 2 Normal hip View With x-ray Pelvis - Left Laboratory test 05/28/2015 [facility] Culture Throat SEE RESULT 23 finding [phone] BELOW Body Fluid Cell 07/11/2014 [facility] Body Fluid Synovial Fluid N Count [phone] Source Body Fluid Appearance Clear N Body Fluid Color Yellow N Body Fluid Volume 0.3 mL N Body Fluid WBC 3175 N Body Fluid RBC 345 N Body Fluid Polys 2 N Body Fluid Lymph 90 N Body Fluid Dane 3 N Body Fluid Other Cells 2 N Body Fluid NRBC 3 N Body Fluid Total Cells Counted 100 N Fluid Reviewed By MD (SEE NOTE) N 24 Laboratory test 07/11/2014 [facility] Fluid Crystals None Seen N 25 finding [phone] Body Fluid C&S 07/11/2014 [facility] Body Fluid Cult (SEE NOTE) 26 [phone] Gram Stain Body Fluid C&S 07/11/2014 [facility] Body Fluid Cult (SEE NOTE) 27 [phone] Gram Stain Body Fluid Cell 07/11/2014 [facility] Body Fluid Source Synovial Fluid N Count [phone] Body Fluid Appearance Clear N Body Fluid Color Yellow N Body Fluid Volume 1 mL N Body Fluid WBC 1736 N Body Fluid RBC 134 N Body Fluid Polys 2 N Body Fluid Lymph 93 N Body Fluid Dane 4 N Body Fluid Other Cells 1 N Body Fluid NRBC 0 N Body Fluid Total Cells Counted 100 N Fluid Reviewed By MD (SEE NOTE) N 28 Laboratory test 07/11/2014 [facility] Fluid Crystals None Seen N 29 finding [phone] Body Fluid C&S 07/11/2014 [facility] Body Fluid Cult (SEE NOTE) 30 [phone] Gram Stain CBC Auto Diff 03/05/2014 [facility] White Blood 7.5 10^3/uL N 4.8- 10.8 [phone] Count Red Blood Count 4.54 10^6/uL N [...] % 0 N Comp Metabolic Panel 03/05/2014 [facility] Sodium 140 mmol/L N 133- 145 [phone] Potassium 4.3 mmol/L N 3.5-5.0 Chloride 108 [...] 95.8 N >60 Egfr 123.3 N >60 31 Laboratory test finding 03/05/2014 [facility] Troponin I 0.07 ng/mL High <0.03 32 [phone] C Reactive Protein 9.50 mg/L High < 5.00 33 Inr/Protime 03/05/2014 [facility] Inr 0.91 N 0.85-1.06 [phone] Laboratory test 03/05/2014 [facility] Activated 36.1 seconds N 24.0- 36.1 finding [phone] Partial Thrombo Time B Type Natriuretic Peptide 34 pg/mL N 34 Lactic Acid 1.1 mmol/L N 0.5-2.2 Comp Metabolic Panel 09/21/2013 [facility] Sodium 137 mmol/L N 133- 145 [phone] Potassium 4.4 mmol/L N 3.7-5.6 Chloride 107 [...] 93.6 N >60 Egfr 120.4 N >60 35 Laboratory test finding 09/21/2013 [facility] Uric Acid 5.2 mg/dL N 4.4-7.6 [phone] C Reactive Protein 3.03 mg/L N < 5.00 36 B Type Natriuretic Peptide 24 pg/mL N 37 Inr/Protime 09/21/2013 [facility] Inr 0.85 N 0.85-1.06 [phone] Laboratory test 09/21/2013 [facility] Activated 34.9 seconds N 24.0- 36.1 finding [phone] Partial Thrombo Time CBC Auto Diff 09/21/2013 [facility] White Blood 5.3 10^3/uL N 4.8- 10.8 [phone] Count Red Blood Count 4.59 10^6/uL N [...] Cells % 0.1 N Laboratory test 09/21/2013 [facility] Erythrocyte Sed Rate 12 mm/Hr N 0-20 finding [phone] Lyme Disease Serology Negative N Negative 38 CBC Auto Diff 05/13/2013 [facility] White Blood Count 5.7 10^3/uL 4.8-10.8 [phone] Red Blood Count 4.77 10^6/uL 4.0-5.4 Hemoglobin [...] Cells % 0.1 Comp Metabolic Panel 05/13/2013 [facility] Sodium 138 mmol/L 133- 145 [phone] Potassium 4.5 mmol/L 3.7-5.6 Chloride 105 mmol/L [...] Egfr Non- 92.3 >60 Egfr 118.7 >60 39 Laboratory test 05/13/2013 [facility] Troponin I < 0.01 ng/mL <0.03 40 finding [phone] Arterial Blood Gas 03/20/2013 [facility] PH Arterial 7.31 Low 7.35- 7.45 [phone] Pco2 Arterial 50 mmHg High 35-45 Po2 Arterial 72 mmHg Low 80-100 O2 Saturation Arterial 96.3 % 95-98 Base Excess Arterial -1.9 -2.0-2.0 41 Hco3 Arterial 23.3 mmol/L 19-31 O2 Device VentiMask Fio2 35 CBC Auto Diff 03/20/2013 [facility] White Blood Count 10.3 10^3/uL 4.8-10.8 [phone] Red Blood Count 5.20 10^6/uL 4.0-5.4 Hemoglobin [...] Blood Cells % 0.1 Laboratory test 03/20/2013 [facility] D Dimer < 200 ng/mL Less Than 42 finding [phone] Quantitative 230 Comp Metabolic 03/20/2013 [facility] Sodium 142 mmol/L 133-145 Panel [phone] Potassium 4.6 mmol/L 3.5-5.0 Chloride 110 mmol/L [...] Egfr Non- 87.6 >60 Egfr 112.7 >60 43 Laboratory test 03/20/2013 [facility] Creatine Kinase 213 U/L High 0- 200 finding [phone] CKMB 03/20/2013 [facility] CKMB ng/mL 5.9 ng/mL High 0.3-4.0 44 [phone] Laboratory test 03/20/2013 [facility] Troponin I 0.04 0-0.06 45 finding [phone] Venous Blood Gas 03/20/2013 [facility] Venous Blood pH 7.23 Low 7.33- 7.43 [phone] Venous Pco2 58 mmHg High 41-51 Venous Po2 154 mmHg High 35-45 Venous O2 Saturation 100.1 % High 70-80 Venous Blood Base Excess -4.6 Low 0-4 46 Venous Bicarbonate Hco3 21.2 mmol/L Low 24-28 West Nile Igg And 01/14/2012 [facility] West Nile Virus Negative Negative Igm [phone] IgG West Nile Virus IgM Negative Negative 47 Laboratory test 01/14/2012 [facility] Lyme Disease Negative Negative 48 finding [phone] Serology Clotest 12/29/2011 [facility] Clotest (SEE NOTE) 49, 50 [phone] Surgical 12/29/2011 [facility] S RUN DATE: 51, 52 Pathology [phone] 12/30/ <SEE NOTE> CBC Auto Diff 12/18/2011 [facility] White Blood 6.8 CUMM 4.8-10.8 [phone] Count Red Cell Count 4.71 CUMM 4.6-6.2 Hemoglobin [...] Eosinophils 0.1 0-0.6 Abs Basophils 0 0-0.2 Laboratory test 12/18/2011 [facility] Erythrocyte Sed 8 MM/HR 0-20 finding [phone] Rate Basic Metabolic 12/18/2011 [facility] Sodium 138 mmol/L 135-145 Panel [phone] Potassium 4.0 mmol/L 3.5-5.0 Chloride 101 mmol/L 101-111 Co2 (Carbon Dioxide) 30.0 mmol/L 22-32 Anion Gap 7.0 mmol/L 2-11 53 Glucose 134 mg/dL High 70-100 BUN 9 mg/dL 6-24 Creatinine 0.9 mg/dL 0.50-1.40 One Over Creatinine 1.11 BUN/Creatinine Ratio 10.0 8-20 Calcium 9.1 mg/dL 8.1-9.9 eGFR Non- 87.9 > 60 eGFR 113.1 > 60 54 Liver Function Panel 12/18/2011 [facility] Total Protein 7.1 GM/DL 6.2-8.3 [phone] Albumin 3.9 GM/DL 3.6-5.4 Globulin 3.2 GM/DL 2-4 Albumin/Globulin Ratio 1.2 1-3 Bilirubin Total 0.7 mg/dL 0.4-1.5 55 Bilirubin Direct 0.1 mg/dL 0.1-0.5 Indirect Bilirubin 0.6 mg/dL 0.3-1.0 56 Alkaline Phosphatase 44 U/L 39-117 Alt (SGPT) 18 U/L 17-63 Ast (Sgot) 18 U/L 12-42 Xray 12/08/2011 [facility] Medicine X-Ray, Chest, 2 Views nl acute chge X-Ray, Abdomen, Acute Series, 2 views stool Urine Micro Inhouse 12/08/2011 In House Ua WBC - Ua RBC - Ua Casts - Ua Epi - Ua Other - Ua Glucose - Ua Bilirubin - Ua Ketones - Ua Specific Majestic 1.015 Ua Blood - Ua PH 6.5 Ua Protein - Ua Urobilinogen - Ua Nitrite - Ua Leukocytes - CBC Auto Diff 06/24/2011 [facility] White Blood Count 6.7 CUMM 4.8- 10.8 [phone] Red Cell Count 4.74 CUMM 4.6-6.2 Hemoglobin [...] Basophils 0 0-0.2 Comp Metabolic Panel 06/24/2011 [facility] Sodium 135 mmol/L 135- 145 [phone] Potassium 4.5 mmol/L 3.5-5.0 Chloride 101 mmol/L 101-111 Co2 (Carbon Dioxide) 27.0 mmol/L 22-32 Anion Gap 7.0 mmol/L 2-11 57 Glucose 131 mg/dL High 70-100 BUN 10 mg/dL 6-24 Creatinine 0.9 mg/dL 0.50-1.40 One Over Creatinine 1.11 BUN/Creatinine Ratio 11.1 8-20 Calcium 9.1 mg/dL 8.1-9.9 Total Protein 7.2 GM/DL 6.2-8.1 Albumin 4.1 GM/DL 3.6-5.4 Globulin 3.1 GM/DL 2-4 Albumin/Globulin Ratio 1.3 1-3 Bilirubin Total 0.6 mg/dL 0.4-1.5 58 Alkaline Phosphatase 49 U/L 39-117 Alt (SGPT) 19 U/L 17-63 Ast (Sgot) 15 U/L 12-42 eGFR Non- 88.3 > 60 eGFR 113.5 > 60 59 Laboratory test 06/24/2011 [facility] Folic Acid 13.8 NG/ML See Below 60 finding [phone] Vitamin B12 338 pg/mL [phone] TSH 0.96 MIU/ML 0.34-5.60 Urine Drug Screen Inhouse 06/22/2011 In House Urine THC Screen NEG Ua Cocaine NEG Ua Opiates NEG Ua Amphetamines NEG Urine Methanephrine Random NEG Urine Phenyclidine GC/MS NEG Urine Mdma QN Random NEG Ua Barbiturates NEG Urine Benzodiazepines QN [place] NEG Ua Methadone NEG Urine Tricyclc Antidepress RND NEG Urine Oxycodone QL NEG Urine Micro Inhouse 06/22/2011 In House Ua WBC - Ua RBC - Ua Casts - Ua Epi - Ua Other - Ua Glucose - Ua Bilirubin - Ua Ketones - Ua Specific Majestic 1.020 Ua Blood - Ua PH 5.0 Ua Protein - Ua Urobilinogen - Ua Nitrite - Ua Leukocytes - Lipid Profile 09/29/2004 [facility] Cholesterol 184 mg/dL Less Than 61 (Trig/Chol/HDL) [phone] 200 Triglyceride 106 mg/dL 40-200 High Density Lipoprotein 49 mg/dL 40-60 Low Density Lipoprotein 114 mg/dL High Less Than 100 62 Cholesterol/HDL Ratio 3.76 AVERAGE 1-4.97 Laboratory test finding 09/29/2004 [facility] PSA Screening 0.6 NG/ML 0-4 63 [phone] Comp Metabolic Panel 09/29/2004 [facility] Anion Gap 7.0 mmol/L 2- 11 64 [phone] Albumin/Globulin Ratio 1.3 1-3 Albumin 4.0 GM/DL [...] Ratio 11.1 8-20 CBC With Electronic 09/29/2004 [facility] White Blood 7.9 CUMM 4.8- 10.8 Diff [phone] Count Abs Basophils 0 0-0.2 Abs Eosinophils [...] 4.6-6.2 Redcell Distribution WDTH 13 % 10.5-15 CBC With Manual Diff 04/10/2004 [facility] RBC Morphology NORMAL [phone] White Blood Count 6.5 CUMM 4.8-10.8 Atypical [...] 12 % 10.5-15 CBC With Electronic 04/10/2004 [facility] White Blood 6.5 CUMM 4.8- 10.8 Diff [phone] Count Abs Basophils 0 0-0.2 Abs Eosinophils [...] 12 % 10.5-15 Comp Metabolic Panel 04/10/2004 [facility] Anion Gap 8.0 mmol/L 2- 11 65 [phone] Albumin/Globulin Ratio 2.0 1-3 Albumin 4.2 GM/DL [...] 16.7 8-20 CBC With Electronic Diff 09/03/2003 [facility] White Blood Count 6.4 [phone] Abs Basophils 0.1 Abs Eosinophils 0.1 Abs [...] Distribution WDTH 13 Comp Metabolic Panel 09/03/2003 [facility] Anion Gap 1.0 Low 66 [phone] Albumin/Globulin Ratio 1.7 Albumin 4.1 Alkaline Phosphatase 61 Alt (SGPT) 22 Ast (Sgot) 17 BUN 12 Calcium 9.4 Chloride 107 Co2 (Carbon Dioxide) 30.0 Creatinine 1.0 Globulin 2.4 Glucose 120 High Potassium 4.7 Sodium 138 Bilirubin Total 0.5 Total Protein 6.5 BUN/Creatinine Ratio 12.0 Laboratory test 09/03/2003 [facility] Carbamazepine 5.6 67 finding [phone] (Tegretol) Laboratory test 01/22/2003 [facility] TSH 0.85 0.34-5. finding [phone] MIU/ML 60 Monospot NEGATIVE Negative Erythrocyte Sed Rate 1 MM/HR 0-15 Comp Metabolic Panel 01/22/2003 [facility] Anion Gap 8.0 mmol/L 2- 11 68 [phone] Albumin/Globulin Ratio 1.6 1-3 Albumin 4.1 GM/DL [...] 0.5 mg/dL 0.4-1.5 CBC With Electronic 01/22/2003 [facility] Platelet Count 288 CUMM 150-450 Diff [phone] White Blood Count 7.4 CUMM 4.8-10.8 Abs [...] Redcell Distribution WDTH 12 % 10.5-15 1 Youth Corrections Officer: [id number] SEE RESULT BELOW Name: PA ANDERSON : [address]: Issac Alcantar MD Acct: [id number] Unit: [id number] AGE: 62 Location: ED Re04/03/18 SEX: M Status: REG ER SPEC: [id number] FRANTZ: 04/03/18-1409 [facility] [address]: Issac Alcantar MD REQ: [id number] RECD: 04/03/18 STATUS: COLEEN NESS DR: Alphonso Juárez DO _ SOURCE: NASAL SPDESC: ORDERED: Flu A B Request Procedure Result Reported Site Rapid Influenza A B Request Final 04/03/18- 1418 ML Specimen received for Influenza A/B Molecular testing * ML - Main Lab . END OF REPORT DEPARTMENT OF PATHOLOGY, [address] [place] [address] Chas Huggins M.D. Director [facility] # [id number] 3 Because ethnic data is not always readily [...] 15-29 5 Kidney failure <15 (or dialysis) 4 Troponin-I testing on Plasma Separator Tubes (PST) has a known false positive rate of 0.20-0.40%. All positive troponins reflex immediate secondary confirmatory testing. 5 [facility] Severe Sepsis and Septic Shock Management Bundle Measure requires all lactic acids initially measuring >2.0 mmol/L be repeated. 6 Please note: The following may produce a false positive D Dimer test: - Rheumatoid factor greater than 60 IU/ml - Plasma hemoglobin greater than 0.05 gm/dl - Bilirubin greater than 50 mg/dl - Lipids greater than 1000 mg/dl - FDP greater than 20 ug/ml 7 SEE RESULT BELOW Name: ANDERSONPA : [address]: Deanna Pickett MD Acct: [id number] Unit: [id number] AGE: 62 Location: [place] [address] Re04/03/18 Dis: 04/07/18 SEX: M Status: DIS IN SPEC: [id number] FRANTZ: 04/03/18-1305 [facility] [address]: Issac Alcantar MD REQ: [id number] RECD: 04/03/18 STATUS: COLEEN NESS DR: Alphonso Juárez DO _ SOURCE: BLOOD,VENO SPDESC: ORDERED: Blood Cult Procedure Result Reported Site Aerobic Culture Bottle Final 04/08/18- 1401 ML No Growth Day 5 Anaerobic Culture Bottle Final 04/08/18- 1401 ML No Growth Day 5 * ML - Main Lab . END OF REPORT DEPARTMENT OF PATHOLOGY, [address] [place] [address] Chas Huggins M.D. Director [facility] # [id number] ADDITIONAL INFORMATION This test was developed and its performance characteristics determined by [facility] in a manner consistent with CLIA requirements. This test has not been cleared or approved by the U.S. Food and Drug Administration. 9 ADDITIONAL INFORMATION This test was developed and its performance characteristics determined by [facility] in a manner consistent with CLIA requirements. This test has not been cleared or approved by the U.S. Food and Drug Administration. 10 ADDITIONAL INFORMATION This test was developed and its performance characteristics determined by [facility] in a manner consistent with CLIA requirements. This test has not been cleared or approved by the U.S. Food and Drug Administration. Test Performed by: [facility] - [facility] [address] [place] [address] 11 Because ethnic data is not always readily [...] 15-29 5 Kidney failure <15 (or dialysis) 12 REFERENCE VALUE <=1.0 (Negative) 13 REFERENCE VALUE <20.0 (Negative) 14 Tests for antibodies to dsDNA and HOLLY antigens are not performed automatically unless the WOLFGANG result is > or= 3.0 U. Studies performed at [facility] indicate that positive WOLFGANG results <3.0 U are rarely accompanied by positive second order tests. Test Performed by: [facility] - [address] [address] 15 No bands detected 16 No bands detected 17 Specific serologic response to B. burgdorferi infection [...] (e.g., EIA). Test Performed by: [facility] - [facility] [address] [place] [address] 18 Acute inflammation: >10.00 19 Normal Range 180 to 914 Indeterminate Range 145 to 180 Deficient Range <145 20 Youth Corrections Officer: [id number] 21 SEE RESULT BELOW Name: PA ANDERSON : [address]: Darryn Diop MD Acct: [id number] Unit: [id number] AGE: 60 Location: ED Re07/06/16 SEX: M Status: REG ER SPEC: [id number] FRANTZ: 07/06/162345 [facility] DR: Darryn Diop MD REQ: [id number] RECD: 07/07/16 STATUS: COLEEN NSES DR: Alphonso Juárez DO _ S[facility]: ORDERED: Flu A B Request Procedure Result Reported Site Rapid Influenza A B Request Final 07/07/16- 0006 ML Specimen received for Influenza A/B Molecular testing * ML - MAIN LAB (PSC1) . END OF REPORT * ML=Testing performed at Main Lab DEPARTMENT OF PATHOLOGY, [address] [place] [address] Chas Huggins M.D. Director [facility] # [id number] 22 No fracture DJD right > left hip minimal to no progression from September hip x- ray. 23 SEE RESULT BELOW Name: PA ANDERSON : [address]: Alphonso Juárez DO Acct: [id number] Unit: [id number] AGE: 59 Location: [facility] Re05/28/15 SEX: M Status: REG REF SPEC: [id number] FRANTZ: 05/28/15-[address]: Alphonso Juárez DO REQ: [id number] RECD: 05/28/15 STATUS: COMP _ SOURCE: THROAT SPDESC: ORDERED: Throat Culture Procedure Result Reported Site Throat Culture Final 05/30/15- 0957 ML Organism 1 YEAST Quantity 3+ Organism 2 NORMAL CONSTANTINE Quantity 3+ Throat cultures are clinically indicated to detect the presence of group A strep, arcanobacterium and yeast. In certain cases, predominating organisms will be reported. * ML - MAIN LAB (PSC1) . END OF REPORT * ML=Testing performed at Main Lab DEPARTMENT OF PATHOLOGY, [facility] [employer] [place], [place] [address] Chas Huggins M.D. Director [facility] # [id number] 24 Others are synoviocytes. Reviewed by Christina Carrera MD 25 Synovial (Joint) Fluid [id number] 26 RUN DATE: 07/16/14 [facility] LAB LIVE PAGE 1 RUN TIME: 1051 [facility] [employer] [place], [place] [address] Specimen Inquiry Name: PA ANDERSON : [address]: Alphonso Juárez DO Acct: [id number] Unit: [id number] AGE: 58 Location: [facility] Re07/11/14 SEX: M Status: REG REF SPEC: [id number] FRANTZ: 07/11/14-[address]: Alphonso Juárez DO REQ: [id number] RECD: 07/12/14-5445 STATUS: COMP _ SOURCE: JOINT FLUI SPDESC:KNEE LEFT ORDERED: BF Cult/GS QUERIES: Provider Requisition # [id number] Procedure Result Verified Site Body Fluid Gram Stain Final 07/12/14- 1617 ML 3+ Nucleated Cells No Neutrophils Observed No Organisms Seen Preparation By Direct Smear Body Fluid Culture Final 07/16/14- 1051 ML No Growth Day 4 * ML - MAIN LAB (PSC1) . END OF REPORT * ML=Testing performed at Main Lab DEPARTMENT OF PATHOLOGY, [facility] [place] [place], [place] [address] Chas Huggins M.D. Director [facility] # [id number] RUN DATE: 07/16/14 [facility] LAB LIVE PAGE 1 RUN TIME: 1606 [facility] [employer] [place], [place] [address] Specimen Inquiry Name: PA ANDERSON : [address]: Alphonso Juárez DO Acct: [id number] Unit: [id number] AGE: 58 Location: [facility] Re07/11/14 SEX: M Status: REG REF SPEC: [id number] FRANTZ: 07/11/14-[address]: Alphonso Juárez DO REQ: [id number] RECD: 07/12/14 STATUS: COMP _ SOURCE: JOINT FLUI SPDESC:KNEE RIGHT ORDERED: BF Torito/SHERI QUERIES: Provider Requisition # [id number] Procedure Result Verified Site Body Fluid Gram Stain Final 07/12/14- 1620 ML 3+ Nucleated Cells No Neutrophils Observed No Organisms Seen Preparation By Direct Smear Body Fluid Culture Final 07/16/14- 1051 ML No Growth Day 4 * ML - MAIN LAB ([facility]) . END OF REPORT * ML=Testing performed at Main Lab DEPARTMENT OF PATHOLOGY, [facility] [place], [place] [address] Chas Huggins M.D. Director [facility] # [id number] 28 Others are synoviocytes. Reviewed by Christina Carrera MD 29 Synovial (Joint) Fluid [id number] 30 RUN DATE: 07/12/14 [facility] LAB LIVE PAGE 1 RUN TIME: 1618 [facility] [employer] [place], [place] [address] Specimen Inquiry Name: PA ANDERSON : [address]: Alphonso Juárez DO Acct: [id number] Unit: [id number] AGE: 58 Location: [facility] Re07/11/14 SEX: M Status: REG REF SPEC: [id number] FRANTZ: 07/11/14-[address]: Alphonso Juárez DO REQ: [id number] RECD: 07/12/14-1305 STATUS: RES _ SOURCE: JOINT FLUI SPDESC:KNEE LEFT ORDERED: YOVANI Ugaret/SHERI QUERIES: Provider Requisition # [id number] Procedure Result Verified Site Body Fluid Gram Stain Final 07/12/14- 1617 ML 3+ Nucleated Cells No Neutrophils Observed No Organisms Seen Preparation By Direct Smear Body Fluid Culture PENDING * ML - MAIN LAB (PSC1) . END OF REPORT * ML=Testing performed at Main Lab DEPARTMENT OF PATHOLOGY, [address] [place] [address] Chas Huggins M.D. Director [facility] # [id number] 31 Because ethnic data is not always readily [...] 15-29 5 Kidney failure <15 (or dialysis) 32 Reference Range and Interpretation: TnI (ng/mL) Interpretation Less Than 0.03 ng/mL Not supportive of diagnosis of OR 0.03 - 0.50 ng/mL Indeterminate: suggest serial studies if clinically indicated. Greater than 0.5 ng/mL Consistent with diagnosis of OR 33 Acute inflammation: >10.00 34 >100 to <200 pg/mL: likely compensated congestive heart failure (CHF) 200 to 400 pg/mL: likely moderate CHF >400 pg/mL: likely moderate to severe CHF [place] [facility] 35 Because ethnic data is not always readily [...] 15-29 5 Kidney failure <15 (or dialysis) 36 Acute inflammation: >10.00 37 >100 to <200 pg/mL: likely compensated congestive heart failure (CHF) 200 to 400 pg/mL: likely moderate CHF >400 pg/mL: likely moderate to severe CHF [place] [facility] 38 Serologic response to B. burgdorferi infection is not detected, but cannot rule out early infection during which low or undetectable antibody levels to B. burgdorferi may be present. If clinically indicated, a new serum specimen should be submitted in 7-14 days. Test Performed by: [facility] [place] [address] Continuous Crusher Operator: Danial Salomon III, M.D. 39 Because ethnic data is not always readily [...] 15-29 5 Kidney failure <15 (or dialysis) 40 Reference Range and Interpretation: TnI (ng/mL) Interpretation Less Than 0.03 ng/mL Not supportive of diagnosis of OR 0.03 - 0.50 ng/mL Indeterminate: suggest serial studies if clinically indicated. Greater than 0.5 ng/mL Consistent with diagnosis of OR 41 Reference ranges based on room air. 42 Please note: The following may produce a false positive D Dimer test: - Rheumatoid factor greater than 60 IU/ml - Plasma hemoglobin greater than 0.05 gm/dl - Bilirubin greater than 50 mg/dl - Lipids greater than 1000 mg/dl - FDP greater than 20 ug/ml 43 Because ethnic data is not always readily [...] 15-29 5 Kidney failure <15 (or dialysis) 44 CKMB interpretation should be made in conjunction with clinical symptoms, patient history and EKG changes. 45 Reference Range and Interpretation: TnI (ng/mL) Interpretation Less Than 0.06 ng/mL Not supportive of diagnosis of OR 0.06 - 0.50 ng/mL Indeterminate: suggest serial studies if clinically indicated. Greater than 0.5 ng/mL Consistent with diagnosis of OR 46 Reference ranges based on room air. 47 Test Performed by: [facility] [place] [address] Continuous Crusher Operator: Danial Salomon III, M.D. R 48 Serologic response to B. burgdorferi infection is not detected, but cannot rule out early infection during which low or undetectable antibody levels to B. burgdorferi may be present. If clinically indicated, a new serum specimen should be submitted in 7-14 days. Test Performed by: [facility] [place] [id number] Continuous Crusher Operator: Danial Salomon III, M.D. R 49 neg 50 RUN DATE: 12/30/11 [facility] LAB LIVE PAGE 1 RUN TIME: [address] [place] [address] Specimen Inquiry Name: PA ANDERSON : [address]: Chris Busby MD Acct: [id number] Unit: [id number] AGE: 56 Location: [facility] Re12/29/11 SEX: M Status: REG REF SPEC: [id number] FRANTZ: 12/29/[address]: Chris Busby MD REQ: [id number] RECD: 12/29/11 STATUS: COLEEN NESS DR: Tigre RANDOLPH,Qamar Norman _ SOURCE: CLOTEST [facility]: ORDERED: Clotest Procedure Result Verified Site Clotest Final 12/30/11 4383 ML Clotest Negative END OF REPORT * ML=Testing performed at Main Lab DEPARTMENT OF PATHOLOGY, [address] [place] [address] Chas Huggins M.D. Director [facility] Permit #[id number] wnl 52 RUN DATE: 12/31/11 [facility] LAB LIVE PAGE 1 RUN TIME: [address] [place] [address], [place], [place] [address] Specimen Inquiry Name: PA ANDERSON : [address]: Chris Busby MD Acct: [id number] Unit: [id number] AGE: 56 Location: ENDO Re12/29/11 SEX: M Status: REG REF SPEC: [id number] FRANTZ: 12/29/11- SUBM DR: Chris Busby MD REQ: [id number] RECD: 12/30/11 STATUS: PEYTON NESS DR: Qamar Prater MD _ ORDERED: LEVEL IV/5 FINAL DIAGNOSIS 1. [...] performed at Main Lab DEPARTMENT OF PATHOLOGY, [facility] [employer] [place], [place] [address] Chas Huggins M.D. Director [facility] Permit #[id number] RUN DATE: 12/31/11 [facility] LAB LIVE PAGE 2 RUN TIME: 145 [facility] [employer] [facility], [place], [place] [address] Specimen Inquiry Patient: PA ANDERSON [id number] (Continued) POST-OPERATIVE DIAGNOSIS (Continued) POST-OPERATIVE DIAGNOSIS Rule [...] Signed (signature on file) Chas Huggins MD [id number] END OF REPORT * ML=Testing performed at Main Lab DEPARTMENT OF PATHOLOGY, [address] [place] [address] Chas Huggins M.D. Director [facility] Permit #[id number] 53 Anion gap measurement may be of limited value in the presence of any alkalosis, especially in a combined acid base disorder. . 54 Because ethnic data is not always readily [...] 15-29 5 Kidney failure <15 (or dialysis) 55 A metabolite of Naproxen, O-desmethylnaproxen, has been shown to interfere with the Jendrassik-Whitsett method for measuring total bilirubin. Samples from patients who have taken Naproxen have shown spurious elevation in total bilirubin levels. 56 Please note updated reference range, effective 10/10/09 57 Anion gap measurement may be of limited value in the presence of any alkalosis, especially in a combined acid base disorder. . 58 A metabolite of Naproxen, O-desmethylnaproxen, has been shown to interfere with the Jendrassik-Whitsett method for measuring total bilirubin. Samples from patients who have taken Naproxen have shown spurious elevation in total bilirubin levels. 59 Because ethnic data is not always readily [...] 15-29 5 Kidney failure <15 (or dialysis) 60 Please note: New reference range, effective 03/12/11 NORMAL REFERENCE RANGE: GREATER THAN 4.1 NG/ML 61 Classification: Desirable . 62 CALCULATED LDL APPROXIMATES THE VALUE OF A DIRECT LDL MEASUREMENT. Classification: Near or above optimal . 63 * SERUM LEVELS OF PSA MEASURED USING THE [employer] ACCESS HYBRITECH IMMUNOASSAY SHOULD NOT BE INTERPRETED ABSOLUTE EVIDENCE OF THE PRESENCE OR ABSENCE OF DISEASE. THE PSA VALUE SHOULD BE USED IN CONJUNCTION WITH OTHER PERTINENT CLINICAL DIAGNOSTIC PROCEDURES. A PSA value in the range of 0.1 to 0.6 ng/ml is indeterminate if being used as an indicator of recurrent or residual disease. . 64 Anion gap measurement may be of limited value in the presence of any alkalosis, especially in a combined acid base disorder. . 65 Anion gap measurement may be of limited value in the presence of any alkalosis, especially in a combined acid base disorder. . 66 Anion gap measurement may be of limited value in the presence of any alkalosis, especially in a combined acid base disorder. . 67 The detection limit for CARBAMAZEPINE is 2.0 mcg/ml . Values less than 2.0 mcg/ml cannot be accurately measured. . 68 Anion gap measurement may be of limited value in the presence of any alkalosis, especially in a combined acid base disorder. . Procedures Date Code Description Status 06/30/2017 90631 Omt 7-8 Body Regions Completed 06/30/2017 02789 Brief Emotional/Behav Assessment W/ Scoring Doc Per Completed Standard Inst 04/30/2017 Inject/Drain Joint/Bursa Major Completed 12/11/2016 32607 Omt 3 To 4 Body Regions Involved Completed 05/27/2016 59271 X-Ray Pelvis, Ap Only Completed 05/05/2016 Inject/Drain Joint/Bursa Major Completed 10/09/2015 12433 Radiologic Exam Hip Unilateral With Pelvis 2-3 Views Completed 05/28/2015 54524 SC/Im Injections Completed 12/24/2014 Inject/Drain Joint/Bursa Major Completed 07/11/2014 Inject/Drain Joint/Bursa Major Completed 12/21/2012 30636 X-Ray Chest Two Views Completed 03/28/2012 74906 Bronchospasm Evaluation Pre & Post Completed 12/21/2011 [id number] Colonoscopy Completed 12/08/2011 22895 X-Ray Chest Two Views Completed 12/08/2011 32221 Xray Abdomen Upright/Flat Abd Completed 08/22/2004 46595 Removal Of FB, External Eye Completed 08/21/2004 71939 Remove Impact Cerumen Requiring Instrument, Unilateral Completed 08/21/2004 06395 Remove Impact Cerumen Requiring Instrument, Unilateral Completed 08/14/2004 81090 Remove Impact Cerumen Requiring Instrument, Unilateral Completed 07/01/2004 51593 Anoscopy Diagnostic Completed 09/03/2003 Injection Tendon Origin/Insertion Completed 01/18/2003 X-Ray Chest Two Views Completed 01/18/200317932 X-Ray Chest Two Views Completed 09/30/2002 Inject/Drain Joint/Bursa Major Completed 09/30/2002 Injection Tendon Origin/Insertion Completed Encounters Type Date Location Provider Dx Diagnosis Office Visit 05/18/2018 Main Office Alphonso Juárez J11.1 Flu due to 3:30p D.O. unidentified influenza virus w oth resp manifest J44.1 Chronic obstructive pulmonary disease w (acute) exacerbation Office Visit 04/19/2018 1:30p Main Office Alphonso Juárez J44.1 Chronic obstructive D.O. pulmonary disease w (acute) exacerbation R05 Cough F17.210 Nicotine dependence, cigarettes, uncomplicated Office Visit 04/13/2018 2:30p Main Office Alphonso Juárez J44.1 Chronic obstructive D.O. pulmonary disease w (acute) exacerbation R05 Cough M54.5 Low back pain F17.210 Nicotine dependence, cigarettes, uncomplicated Office Visit 03/07/2018 4:30p Main Office Alphonso Juárez, J01.00 Acute maxillary D.O. sinusitis, unspecified R05 Cough M79.605 Pain in left leg L53.9 Erythematous condition, unspecified R60.0 Localized edema Office Visit 02/12/2018 11:00a Main Office Rosa Maria Valdes M79.605 Pain in left leg L53.9 Erythematous condition, unspecified R60.0 Localized edema [...] hydrocephalus Office Visit 09/20/2017 4:00p Main Office Alphonos Juárez D.O. R29.2 Abnormal reflex I63.9 Cerebral [...] Office Visit 07/24/2017 11:15a Main Office Meli Morales, PA R07.82 Intercostal pain F17.210 Nicotine dependence, [...] Office Visit 03/17/2017 2:30p Main Office Alphonso Juárez, J44.1 Chronic obstructive D.O. pulmonary disease w (acute) exacerbation J06.9 Acute upper respiratory infection, unspecified B37.0 Candidal stomatitis F17.210 Nicotine dependence, cigarettes, uncomplicated Z63.4 Disappearance and of family member Office Visit 03/04/2017 4:30p Main Office Alphonso Juárez J44.1 Chronic obstructive D.O. pulmonary disease w (acute) exacerbation J06.9 Acute upper respiratory infection, unspecified Office Visit 01/04/2017 8:40a Main Office Jessica Tobin J06.9 Acute upper P.A. respiratory infection, unspecified J44.1 [...] place Office Visit 05/05/2016 11:45a Main Office Alphonso Juárez J44.9 Chronic obstructive D.O. pulmonary disease, unspecified M25.561 Pain in right knee M25.562 Pain in left knee M17.0 Bilateral primary osteoarthritis of knee Office Visit 01/25/2016 11:00a Main Office Qamar Wang44.1 Chronic obstructive Nicola Prater pulmonary disease w [...] Office Visit 04/10/2015 3:30p Main Office Alphonso Juárez J41.8 Mixed simple and D.O. mucopurulent chronic bronchitis R05 Cough M25.561 Pain in right knee M25.562 Pain in left knee Office Visit 01/21/2015 2:30p Main Office Alphonso Juárez, L72.3 Sebaceous cyst D.O. Office Visit 12/24/2014 10:15a Main Office Alphonso Juárez M25.461 Effusion, right D.O. knee M25.462 Effusion, [...] Main Office Dc Ellison, 918.1 Injury Superficial Nicola Cornea Office Visit 03/28/2012 11:15a Main Office Qamar Norman 724.2 Letibaadilson Prater M.D. 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 Office Visit 01/11/2012 5:00p Main Office Qamar [...] Main Office Dc Ellison, 789.06 Pain Abdominal M.DYesenia Epigastric 786.2 Cough 786.09 Dyspnea & Respiratory Abnormalities Other 305.1 Tobacco Use Disorder V76.51 Special Screening For Malignant Neoplasms Colon Office Visit 10/27/2011 4:15p Main Office Qamar Norman 780.39 Convulsions Trupti [...] Main Office Dc Ellison, 569.3 Hemorrhage Rectum M.D. & Anus 792.1 Stool Contents Abnormal 455.0 Hemorrhoids Internal W/O Complication Office Visit 04/10/2004 9:05a Main Office Qamar Norman 780.39 Convulsions Trupti [...] 4:00p Main Office Qamar Norman 780.39 Convulsions Trupti [...] Mention Of Obstruction Plan of Treatment Future Appointment(s):07/21/2018 9:45 am - Alphonso Juárez D.O. at [id number]/18/2018 - Alphonso Juárez D.O.J11.1 Influenza due to unidentified influenza virus with other resNew Medication:Tamiflu 75 mg - Take 1 capsule by mouth 2 times per day for 5 days for fluJ44.1 Chronic obstructive pulmonary disease with (acute) exacerbatNew Medication:Prednisone 20 mg - 2 pills for 3 days then 1 pill for 3 days 1/2 pill for 4 days.Cefuroxime Axetil 500 mg - 1 tab by mouth twice a day x 10 days
--- OUTSIDE RECORDS SUMMARY | 2018-06-04 13:03 | XMS REPORT | Continuity of Care Document ---
:1955 External Reference #:[id number] Author Name Alphonso Juárez D.O. Address [address] [place] [address] Care Team Providers Name Role Phone HCP given Primary Care Physician Unavailable Payers Date Identification Numbers Payment Provider Subscriber Effective: 1998 Policy Number: [id number] [place] [employer] [place] Anderson PayID: [id number] [address] [place] [address] Advance Directives Description No Information Available Problems [...] D.O. Active Onset: 07/09/2014 Localized, primary osteoarthritis Aplhonso Juárez D.O. Active Onset: 07/09/2014 Screening Malignant [...] Active Capsules 0.4mg 90cap 1 by mouth Sopchak, HCL 2018 s every day Alphonso D.O. Vitamin B 08/30/ Active Capsules 180ca 1 by mouth Sopandra, Complex-C 2018 ps twice a day Alphonso, [...] Sulfate 2016 ) 0.083% its In Nebulizer Dc Four Times A M.D. Day as Needed For Cough, For Shortness Of Breath Acetaminophen 08/18/ Active Tablets 300-30mg 90tab take [facility]25.561 [facility] 2017 s tablet by Alphonso, mouth three D.O. times a day as needed maximum daily dose=6 tablets start 04/06 end 04/21 then mdd 3 due 04/28/18 Ventolin HFA 07/10/ Active Aerosol 108(90Base 18uni Inhale Two Franck , 2016 ) mcg/Act ts Puffs By Alphonso, Mouth Every 4 D.O. Hours as Needed For Bronchospasm Ibuprofen 10/08/ Active Tablets 800mg 90tab 1 cap by Silcojonathan, 2015 s mouth three Dc, times a day M.D. Ipratropium 07/09/ Active Solution 0.5-2.5(3) 180un inhale the J44.9 [facility] [place]/Albut 2016 mg/3ML its contents of Alphonso, ailyn Sulfate [...] - day x 5 days then , 03/23 tab for 6 days Jennifer Werner then stop D.O. Prednisone Hx Tablets 20mg 5tabs 1 tab by mouth Silcoff 019 - daily x5 days , Jennifer Irwin M.D. Prednisone Hx Tablets 20mg 5tabs 1 tab by mouth Silcoff 019 - daily x5 days , Jennifer Irwin M.D. Doxycycline Hx Capsules 100mg 28caps 1 by mouth twice a J01.00 Sopchak Monohydrate 018 - day for 14 days. , Stew Werner D.O. Prednisone Hx Tablets 10mg 10tabs 2 tabs for 3 days Sopandra 018 - then 1 tab for 4 , days Stew Werner D.O. Azithromycin Hx Tablets 250mg 12tabs take 2 tablets by Sopchak 018 - mouth one time on , the first day then Stew Werner take 1 tablet by D.O. mouth daily for 10 days Azithromycin Hx Tablets 250mg 6tabs take 2 tablets by J01.90 Sopchak 018 - mouth one time on , the first day then Stew Werner take 1 tablet by D.O. mouth daily for 4 days Amoxicillin/Clavula Hx Tablets 875-125 20tabs 1 tab by mouth J01.90 Silcoff guru Potassium 018 - mg twice a day x10 , days Stew Irwin M.D. Diflucan Hx Tablets 150mg 3tabs 1 cap by mouth once B37.0 Sopandra 017 - every 3 days , Stew Werner D.O. Azithromycin Hx Tablets 250mg 12tabs take 2 tablets by J44.1 Sopjamesk 017 - mouth one time on , the first day then Stew Werner take 1 tablet by D.O. mouth daily for 10 days Prednisone Hx Tablets 10mg 10tabs 2 tabs for 3 days J44.1 Margaritak 017 - then 1 tab for 4 [...] 1 tab for 5 , days with Alphonso, 017 exacerbation of D.O. bronchitis Diflucan Hx Tablets 200mg 15tabs 2 tabs day one then B37.0 Silcoff 017 - 1 tab days 2-13. , Wayne Irwin M.D. Gabapentin Hx Capsules 100mg 180caps 2 tabs three times M54.17 Sopchak 017 - a day. , Alphonso, 019 D.O. Gabapentin Hx Capsules 300mg 30caps 1 by mouth at night M54.17 Sopchak 017 - for leg pain , Alphonso, 017 D.O. Breo Ellipta Hx Aerosol 100-25m 60units Inhale 1 puff by F17.210 Sopchak 017 - cg/Inh mouth daily for , chronic obstructive Alphonso, 017 lung disease D.O. J44.9 Prednisone 07/16/2016 - Hx Tablets 10mg 10tabs 2 tabs for 3 J44.1 Hektor, 07/23/2016 days then 1 Meli, tab for 4 PA days Angelique Allergy 07/10/2016 - Hx Tablets 180mg 1 by mouth Unknown 11/25/2016 every day as needed for allergies Oxycodone-Acetaminop 05/27/2016 - Hx Tablets 5-325 14tabs 1 every 4 M25.55 [facility] 06/[facility]/2016 mg hours as 1 Alphonso, needed severe D.O. pain MDD 2 Spiriva Respimat 05/27/2016 - Hx Aerosol 2.5mc 8gm two J44.9 Sopchak, 07/10/2016 g/Act inhalations Alphonso, (5mcg) once D.O. [...] - Hx Aerosol 108(9 18units Inhale Two [facility], 07/10/2016 0Base Puffs By Alphonso, ) Mouth Every 4 D.O. mcg/A To [address] Voltaren 10/09/2015 - Hx Gel 1% 100gm 2 gm apply to [facility], 11/25/2016 affected area Alphonso, every day [...] Suspension 40mg/ 30ml 4ml swish and B37.0 [facility], 06/14/2015 Rec ml swallow until Alphonso, gone. D.O. Levofloxacin 05/28/2015 - Hx Tablets 500mg 7tabs 1 by mouth J44.1 [facility], 06/04/2015 every day x 7 Alphonso, days D.O. Methylprednisolone 05/28/2015 - Hx Tablets 4mg 21tabs 24 mg(6 J44.1 [facility], ([place]) 06/03/2015 tablets) on Alphonso, day 1, 20 mg D.O. (5 tablets) on day 2, 16 mg (4 tablets) on day 3, 12 mg (3 tablets)day 4, then 2 then 1 tab Guaifenesin ac 05/28/2015 - Hx Syrup 100-1 100unit 1-2 teaspoon J44.1 [facility], 06/07/2015 0mg/5 s every 6 Alphonso, ML hours, as D.O. needed Tylenol With Codeine 05/28/2015 - Hx Tablets 300-3 90tabs 1 by mouth M25.56 Hektor, #3 08/18/2016 0mg three times a 1 Meli, day as needed PA Baclofen 05/28/2015 - Hx Tablets 10mg 90tabs Take One M25.56 [facility], 12/11/2016 Tablet By 1 Alphonso, Mouth Three D.O. Times A Day For Muscle Spasms, Will Make Sleepy Dulera 04/10/2015 - Hx Aerosol 100-5 26.4gm 2 puff twice J41.8 [facility], 05/27/2015 mcg/A a day Alphonso, ct D.O. Prednisone 04/10/2015 - Hx Tablets 10mg 42tabs 2 tabs for 3 J41.8 [facility], 05/27/2015 days then 1 Alphonso, tab for 4 D.O. days with exacerbation of bronchitis Azithromycin 04/10/2015 - Hx Tablets 250mg 6tabs take 2 J41.8 [facility], 04/15/2015 tablets by Alphonso, mouth one D.O. time on the first day then take 1 tablet by mouth daily for 4 days Cephalexin 01/21/2015 - Hx Capsules 500mg 20caps 1 by mouth L72.3 [facility], 01/31/2015 twice a day Alphonso, D.O. Hydrocodone-Acetamin 12/24/2014 - Hx Tablets 5-325 90tabs 1 tabletq 6 M25.56 [facility] 05/28/2015 mg hours as 1 Alphonso, needed for D.O. severe pain Amoxicillin/Clavulan 10/22/2014 - Hx Tablets 875-1 20tabs 1 by mouth 461.0 [facility], ate Potassium 11/01/2014 25mg twice a day Alphonso, D.O. Fluticasone 10/22/2014 - Hx Suspension 50mcg 16units 2 sprays 461.0 [facility], Propionate 12/21/2014 /Act twice a day Alphonso, for 4 days D.O. then daily until symptoms resolved. Valacyclovir HCL 03/12/2014 - Hx Tablets 1gm 21tabs 1 three times 053.9 [facility], 03/19/2014 a day for 7 Alphonso, days D.O. Clarithromycin 03/12/2014 - Hx Tablets 500mg 20tabs 1 by mouth 466.0 [facility], 03/12/2014 twice a day Alphonso, D.O. Azithromycin 03/12/2014 - Hx Tablets 250mg 6tabs take 2 466.0 [facility], 07/06/2014 tablets by Alphonso, mouth one D.O. time on the first day then take 1 tablet by mouth daily for 4 days Albuterol Sulfate 03/09/2014 - Hx Nebulizer (2.5m 225unit Use 1 Ampoule [facility], 01/24/2016 g/3ML s In Nebulizer Alphonso, ) Four Times A D.O. 0.083 Day as Needed % For Cough, For Shortness Of Breath Bupropion HCL ER 10/05/2013 - Hx Tablets ER 150mg take two 305.1 [facility] ([facility] 10/04/2013 24HR tablets by Alphonso, mouth every D.O. morning, for mood, for 1 month, then change back to the 300mg tablets Prednisone 10/05/2013 - Hx Tablets 5mg 1 by mouth 466.0 [facility], 10/04/2013 every day Alphonso D.O. Proair HFA 10/05/2013 - Hx Aerosol 108(9 8.500gm 1-2 puffs 496 [facility], 03/11/2014 0Base four times a Alphonso, ) day as needed D.O. mcg/A ct Flovent HFA 10/05/2013 - Hx Aerosol 44mcg 1canist 2 puff twice 491.21 [facility], 03/11/2014 /Act er a day Alphonso, D.O. Symbicort 10/05/2013 - Hx Aerosol 160-4 10.2uni inhale 2 491.21 [facility] , 03/11/2014 .5mcg ts puffs by Alphonso, /Act mouth twice a D.O. day gargle after use Bupropion HCL ER 05/23/2013 - Hx Tablets ER 150mg 60tabs 1 tab [facility] 305[facility]1 [facility] 12[facility] am for 3 Alphonso, days anf then D.O. increase to 1 twice a day Chantix Starting 05/23/2013 - Hx Tablets 0.5mg 1tabs take as 305.1 Sopchak, Month Reagan 10/04/2013 X 11 directed Alphonso, & 1 D.O. mg X 42 Azithromycin 05/23/2013 - Hx Tablets 250mg 6tabs take 2 466.0 [facility], 10/04/2013 tablets by Alphonso, mouth one D.O. time on the first day then take 1 tablet by mouth daily for 4 days Prednisone 05/23/2013 - Hx Tablets 10mg 10tabs 1 cap by 466.0 Sopchak, 10/04/2013 mouth every Alphonso, day D.O. Ventolin HFA 05/10/2013 - Hx Aerosol 108(9 1canist 2 puff every Sopchak, 04/10/2015 0Base er 4-6 Alphonso, ) D.O. [...] Hx Aerosol 108(9 18units Inhale Two 786.09 Sopchak, 05/22/2013 0Base Puffs By Alphonso, ) Mouth Every 4 D.O. mcg/A Hours as ct Needed For Bronchospasm 786.2 Proventil 05/20/2012 - Hx Aerosol 108(90Base) 6.700gm 2 puffs q4h 786.09 Sopchak, HFA 03/06/2013 mcg/Act prn for Alphonso, cough, [...] DR 40mg 30caps 1 by mouth 789.06 Terra, 12/20/2012 every day Dc, for upper M.D. abdominal pain Paxil 06/22/2011 - Hx Tablets 20mg 30tabs 1 po qd 309.1 Qamar Norman 10/20/2011 Nicola Prater Cipro 06/08/2006 - Hx Tablets 500mg 20tabs 1 PO bid 461.1 Violette, 06/18/2006 Jaycee RANDOLPH Nasonex 06/08/2006 - Hx Aerosol 50mcg Sample 2 Sprays In 461.1 [place], Intranasal 06/15/2006 Each Nostril Jaycee RANDOLPH Dewy Rose Once A Day Cortisporin 09/28/2005 - Hx [...] 380.22 Qamar Norman 06/08/2006 prn bid for Klepack, itching M.D. apply with q tip or fingertip Cipro 08/11/2004 - Hx Tablets 500mg 20tabs 1 po bid 380.10 Qamar Norman 08/31/2004 Until Gone Nicola Prater Cortisporin 08/11/2004 - Hx Solution 5mg;10 QS 1 Dropperful 380.10 Qamar Norman Otic 08/18/2004 000U;1 qid For 7 Klepack, 0mg/ML Days M.D. Tylenol W/ 08/11/2004 - Hx Tablets 300mg; 60tabs 1 Or2 Q4H 380.10 Qamar Norman Codeine #3 09/29/2004 30 mg prn Pain Kusum Prater.DYesenia Tylenol W/ 07/11/2004 - Hx Tablets 300mg; 30tabs 1-2 tabs po Violette Codeine #3 06/18/2011 30 mg q4h prn for Jaycee MD back pain Anusol HC 07/01/2004 - Hx Suppositor 25mg 28units 1 pr bid as 455.0 Silcoff, 07/15/2004 karen Irwin M.D. Tylenol W/ 04/19/2003 - Hx Tablets 300mg; 30tabs 1 or2 q4h 719.41 Qamar Norman Codeine #3 09/03/2003 30 mg prn pain Nicola Prater Motrin 04/14/2003 - Hx Tablets 600mg 30tabs 1 tid for Qamar ChristianYesenia 04/24/2003 four days Tigre, then prn RgDYesenia after that take with food for shoulder [...] CPT Code Status Date Vaccine Lot # [id number] Given 07/10/2015 Prevnar 13 [id number] Given 09/10/1998 Td Immunization U-Flu Refused 02/12/2018 Influenza,Unspecified [id number] Refused 12/05/2011 Flu, Split Virus 3Yrs Vital [...] Result H/L Range Note Rapid Influenza 04/03/2018 [facility] Influenza A NEGATIVE Negative 1 A & B Molecular [phone] Molecular Influenza B Molecular NEGATIVE Negative Laboratory test 04/03/2018 [facility] B-Type Natriuretic 60 pg/mL <= 100 finding [phone] Peptide BNP Rapid Influenza A B Antigen SEE RESULT BELOW 2 CBC Auto Diff 04/03/2018 [facility] White Blood Count 7.5 10^3/uL N 3.5-10.8 [phone] Red Blood Count 4.18 10^6/uL N 4.00-5.40 [...] Red Blood Cells % 0 Inr/Protime 04/03/2018 [facility] Inr 1.00 N 0.77-1.02 [phone] Comp Metabolic Panel 04/03/2018 [facility] Sodium 140 mmol/L N 135- 145 [phone] Potassium 4.0 mmol/L N 3.5-5.0 Chloride 107 [...] Egfr 109.8 >60 3 Laboratory test 04/03/2018 [facility] C Reactive 8.91 mg/L High < 8.01 finding [phone] Protein Troponin-I (TnI) 0.03 ng/mL <0.04 4 Lactic Acid 1.2 mmol/L N 0.5-2.0 5 Urinalysis Profile 04/03/2018 [facility] Urine Color Yellow [phone] Urine Appearance Cloudy Urine Specific [place] 1.018 N 1.010-1.030 Urine pH 5.0 N 5-9 Urine Urobilinogen Negative Negative Urine Ketones Negative Negative Urine Protein Negative Negative Urine Leukocytes Negative Negative Urine Blood Negative Negative Urine Nitrite Negative Negative Urine Bilirubin Negative Negative Urine Glucose Negative Negative Laboratory test 04/03/2018 [facility] D Dimer < 200 ng/mL N Less Than 6 finding [phone] Quantitative 230 Blood Culture SEE RESULT BELOW 7 CBC Auto Diff 08/25/2017 [facility] White Blood Count 5.5 10^3/uL N 3.5-10.8 [phone] Red Blood Count 4.35 10^6/uL N 4.0-5.4 [...] Cells % 0 Laboratory test finding 08/25/2017 [facility] Uric Acid 5.5 mg/dL N 4.4-7.6 [phone] Phosphorus 3.3 mg/dL N 2.5-5.0 Tick-Borne Panel PCR 08/25/2017 [facility] Babesia microti Negative Negative Blood [phone] PCR Babesia ducani Negative Negative Babesia divergens/Mo-1 Negative Negative 8 Anaplasma phagocytophilum Negative Negative Ehrlichia chaffeensis Negative Negative Ehrlichia ewingii/canis Negative Negative Ehrlichia muris-like Negative Negative 9 B. miyamotoi PCR, B Negative Negative 10 Comp Metabolic Panel 08/25/2017 [facility] Sodium 141 mmol/L N 139- 145 [phone] Potassium 4.2 mmol/L N 3.5-5.0 Chloride 106 [...] Egfr 137.1 >60 11 Laboratory test 08/25/2017 [facility] TSH (Thyroid 0.36 mcIU/mL N 0.34-5.60 finding [phone] Stim Horm) Magnesium 2.2 mg/dL N 1.9-2.7 Connective Tissue Panel 08/25/2017 [facility] Anti-Nuclear Antibody 0.2 U 12 [phone] Cyclic Citrullinated Peptide <15.6 U 13 Interpretation See Comment 14 Lyme Western Blot 08/25/2017 [facility] Lyme Disease IgG Negative Negative [phone] Ab WB Lyme Disease IgG Bands Present No bands detecte <SEE NOTE> kDa 15 Lyme Disease IgM Ab WB Negative Negative Lyme Disease IgM Bands Present No bands detecte <SEE NOTE> kDa 16 Lyme Disease Interpretation See Comment 17 Laboratory test 08/25/2017 [facility] Erythrocyte Sed 24 mm/Hr High 0 -20 finding [phone] Rate C Reactive Protein 5.31 mg/L High < 5.00 18 Vitamin B12 206 pg/mL N 180-914 19 Vitamin D Total 25(Oh) 15.4 ng/mL Low 20-50 Rapid Influenza A 07/07/2016 [facility] Influenza A NEGATIVE N Negative 20 & B Molecular [phone] Molecular Influenza B Molecular NEGATIVE N Negative Laboratory test 07/06/2016 [facility] Rapid Influenza SEE RESULT 21 finding [phone] A B Antigen BELOW Xray 05/27/2016 [facility] X-Ray, Pelvis, No change 22 1 Or 2 Views Xray 10/09/2015 [facility] X-Ray, Hips, 2 Normal hip View With x-ray Pelvis - Left Laboratory test 05/28/2015 [facility] Culture Throat SEE RESULT 23 finding [phone] BELOW Body Fluid Cell 07/11/2014 [facility] Body Fluid Synovial Fluid N Count [phone] Source Body Fluid Appearance Clear N Body Fluid Color Yellow N Body Fluid Volume 0.3 mL N Body Fluid WBC 3175 N Body Fluid RBC 345 N Body Fluid Polys 2 N Body Fluid Lymph 90 N Body Fluid Aiken 3 N Body Fluid Other Cells 2 N Body Fluid NRBC 3 N Body Fluid Total Cells Counted 100 N Fluid Reviewed By MD (SEE NOTE) N 24 Laboratory test 07/11/2014 [facility] Fluid Crystals None Seen N 25 finding [phone] Body Fluid C&S 07/11/2014 [facility] Body Fluid Cult (SEE NOTE) 26 [phone] Gram Stain Body Fluid C&S 07/11/2014 [facility] Body Fluid Cult (SEE NOTE) 27 [phone] Gram Stain Body Fluid Cell 07/11/2014 [facility] Body Fluid Source Synovial Fluid N Count [phone] Body Fluid Appearance Clear N Body Fluid Color Yellow N Body Fluid Volume 1 mL N Body Fluid WBC 1736 N Body Fluid RBC 134 N Body Fluid Polys 2 N Body Fluid Lymph 93 N Body Fluid Aiken 4 N Body Fluid Other Cells 1 N Body Fluid NRBC 0 N Body Fluid Total Cells Counted 100 N Fluid Reviewed By MD (SEE NOTE) N 28 Laboratory test 07/11/2014 [facility] Fluid Crystals None Seen N 29 finding [phone] Body Fluid C&S 07/11/2014 [facility] Body Fluid Cult (SEE NOTE) 30 [phone] Gram Stain CBC Auto Diff 03/05/2014 [facility] White Blood 7.5 10^3/uL N 4.8- 10.8 [phone] Count Red Blood Count 4.54 10^6/uL N [...] % 0 N Comp Metabolic Panel 03/05/2014 [facility] Sodium 140 mmol/L N 133- 145 [phone] Potassium 4.3 mmol/L N 3.5-5.0 Chloride 108 [...] N >60 31 Laboratory test finding 03/05/2014 [facility] Troponin I 0.07 ng/mL High <0.03 32 [phone] C Reactive Protein 9.50 mg/L High < 5.00 33 Inr/Protime 03/05/2014 [facility] Inr 0.91 N 0.85-1.06 [phone] Laboratory test 03/05/2014 [facility] Activated 36.1 seconds N 24.0- 36.1 finding [phone] Partial Thrombo Time B Type Natriuretic Peptide 34 pg/mL N 34 Lactic Acid 1.1 mmol/L N 0.5-2.2 Comp Metabolic Panel 09/21/2013 [facility] Sodium 137 mmol/L N 133- 145 [phone] Potassium 4.4 mmol/L N 3.7-5.6 Chloride 107 [...] N >60 35 Laboratory test finding 09/21/2013 [facility] Uric Acid 5.2 mg/dL N 4.4-7.6 [phone] C Reactive Protein 3.03 mg/L N < 5.00 36 B Type Natriuretic Peptide 24 pg/mL N 37 Inr/Protime 09/21/2013 [facility] Inr 0.85 N 0.85-1.06 [phone] Laboratory test 09/21/2013 [facility] Activated 34.9 seconds N 24.0- 36.1 finding [phone] Partial Thrombo Time CBC Auto Diff 09/21/2013 [facility] White Blood 5.3 10^3/uL N 4.8- 10.8 [phone] Count Red Blood Count 4.59 10^6/uL N [...] Cells % 0.1 N Laboratory test 09/21/2013 [facility] Erythrocyte Sed Rate 12 mm/Hr N 0-20 finding [phone] Lyme Disease Serology Negative N Negative 38 CBC Auto Diff 05/13/2013 [facility] White Blood Count 5.7 10^3/uL 4.8-10.8 [phone] Red Blood Count 4.77 10^6/uL 4.0-5.4 Hemoglobin [...] Cells % 0.1 Comp Metabolic Panel 05/13/2013 [facility] Sodium 138 mmol/L 133- 145 [phone] Potassium 4.5 mmol/L 3.7-5.6 Chloride 105 mmol/L [...] Egfr 118.7 >60 39 Laboratory test 05/13/2013 [facility] Troponin I < 0.01 ng/mL <0.03 40 finding [phone] Arterial Blood Gas 03/20/2013 [facility] PH Arterial 7.31 Low 7.35- 7.45 [phone] Pco2 Arterial 50 mmHg High 35-45 Po2 Arterial 72 mmHg Low 80-100 O2 Saturation Arterial 96.3 % 95-98 Base Excess Arterial -1.9 -2.0-2.0 41 Hco3 Arterial 23.3 mmol/L 19-31 O2 Device VentiMask Fio2 35 CBC Auto Diff 03/20/2013 [facility] White Blood Count 10.3 10^3/uL 4.8-10.8 [phone] Red Blood Count 5.20 10^6/uL 4.0-5.4 Hemoglobin [...] Blood Cells % 0.1 Laboratory test 03/20/2013 [facility] D Dimer < 200 ng/mL Less Than 42 finding [phone] Quantitative 230 Comp Metabolic 03/20/2013 [facility] Sodium 142 mmol/L 133-145 Panel [phone] Potassium 4.6 mmol/L 3.5-5.0 Chloride 110 mmol/L [...] Egfr 112.7 >60 43 Laboratory test 03/20/2013 [facility] Creatine Kinase 213 U/L High 0- 200 finding [phone] CKMB 03/20/2013 [facility] CKMB ng/mL 5.9 ng/mL High 0.3-4.0 44 [phone] Laboratory test 03/20/2013 [facility] Troponin I 0.04 0-0.06 45 finding [phone] ng/[phone] Venous Blood Gas 03/20/2013 [facility] Venous Blood pH 7.23 Low 7.33- 7.43 [phone] Venous Pco2 58 mmHg High 41-51 Venous Po2 154 mmHg High 35-45 Venous O2 Saturation 100.1 % High 70-80 Venous Blood Base Excess -4.6 Low 0-4 46 Venous Bicarbonate Hco3 21.2 mmol/L Low 24-28 West Nile Igg And 01/14/2012 [facility] West Nile Virus Negative Negative Igm [phone] IgG West Nile Virus IgM Negative Negative 47 Laboratory test 01/14/2012 [facility] Lyme Disease Negative Negative 48 finding [phone] Serology Clotest 12/29/2011 [facility] Clotest (SEE NOTE) 49, 50 [phone] Surgical 12/29/2011 [facility] S RUN DATE: 51, 52 Pathology [phone] 12/30/ <SEE NOTE> CBC Auto Diff 12/18/2011 [facility] White Blood 6.8 CUMM 4.8-10.8 [phone] Count Red Cell Count 4.71 CUMM 4.6-6.2 [...] Abs Basophils 0 0-0.2 Laboratory test 12/18/2011 [facility] Erythrocyte Sed 8 MM/HR 0-20 finding [phone] Rate Basic Metabolic 12/18/2011 [facility] Sodium 138 mmol/L 135-145 Panel [phone] Potassium 4.0 mmol/L 3.5-5.0 Chloride 101 mmol/L 101-111 Co2 (Carbon Dioxide) 30.0 mmol/L 22-32 Anion Gap 7.0 mmol/L 2-11 53 Glucose 134 mg/dL High 70-100 BUN 9 mg/dL 6-24 Creatinine 0.9 mg/dL 0.50-1.40 One Over Creatinine 1.11 BUN/Creatinine Ratio 10.0 8-20 Calcium 9.1 mg/dL 8.1-9.9 eGFR Non- 87.9 > 60 eGFR 113.1 > 60 54 Liver Function Panel 12/18/2011 [facility] Total Protein 7.1 GM/DL 6.2-8.0 [phone] Albumin 3.9 GM/DL 3.6-5.4 Globulin 3.2 GM/DL 2-4 Albumin/Globulin Ratio 1.2 1-3 Bilirubin Total 0.7 mg/dL 0.4-1.5 55 Bilirubin Direct 0.1 mg/dL 0.1-0.5 Indirect Bilirubin 0.6 mg/dL 0.3-1.0 56 Alkaline Phosphatase 44 U/L 39-117 Alt (SGPT) 18 U/L 17-63 Ast (Sgot) 18 U/L 12-42 Xray 12/08/2011 [facility] Medicine X-Ray, Chest, 2 Views nl acute chge X-Ray, Abdomen, Acute Series, 2 views stool Urine Micro Inhouse 12/08/2011 In House Ua WBC - Ua RBC - Ua Casts - Ua Epi - Ua Other - Ua Glucose - Ua Bilirubin - Ua Ketones - Ua Specific [place] 1.015 Ua Blood - Ua PH 6.5 Ua Protein - Ua Urobilinogen - Ua Nitrite - Ua Leukocytes - CBC Auto Diff 06/24/2011 [facility] White Blood Count 6.7 CUMM 4.8- 10.8 [phone] Red Cell Count 4.74 CUMM 4.6-6.2 Hemoglobin [...] Basophils 0 0-0.2 Comp Metabolic Panel 06/24/2011 [facility] Sodium 135 mmol/L 135- 145 [phone] Potassium 4.5 mmol/L 3.5-5.0 Chloride 101 mmol/L [...] 113.5 > 60 59 Laboratory test 06/24/2011 [facility] Folic Acid 13.8 NG/ML See Below 60 finding [phone] Vitamin B12 338 pg/mL 180-914 TSH 0.96 MIU/ML 0.34-5.60 Urine Drug Screen Inhouse 06/22/2011 In House Urine THC Screen NEG Ua Cocaine NEG Ua Opiates NEG Ua Amphetamines NEG Urine Methanephrine Random NEG Urine Phenyclidine GC/MS NEG Urine Mdma QN Random NEG Ua Barbiturates NEG Urine Benzodiazepines QN [place] NEG Ua Methadone NEG Urine Tricyclc Antidepress RND NEG Urine Oxycodone QL NEG Urine Micro Inhouse 06/22/2011 In House Ua WBC - Ua RBC - Ua Casts - Ua Epi - Ua Other - Ua Glucose - Ua Bilirubin - Ua Ketones - Ua Specific [place] 1.020 Ua Blood - Ua PH 5.0 Ua Protein - Ua Urobilinogen - Ua Nitrite - Ua Leukocytes - Lipid Profile 09/29/2004 [facility] Cholesterol 184 mg/dL Less Than 61 (Trig/Chol/HDL) [phone] 200 Triglyceride 106 mg/dL 40-200 High Density Lipoprotein 49 mg/dL 40-60 Low Density Lipoprotein 114 mg/dL High Less Than 100 62 Cholesterol/HDL Ratio 3.76 AVERAGE 1-4.97 Laboratory test finding 09/29/2004 [facility] PSA Screening 0.6 NG/ML 0-4 63 [phone] Comp Metabolic Panel 09/29/2004 [facility] Anion Gap 7.0 mmol/L 2- 11 64 [phone] Albumin/Globulin Ratio 1.3 1-3 Albumin 4.0 GM/DL [...] Ratio 11.1 8-20 CBC With Electronic 09/29/2004 [facility] White Blood 7.9 CUMM 4.8- 10.8 Diff [phone] Count Abs Basophils 0 0-0.2 Abs Eosinophils [...] % 10.5-15 CBC With Manual Diff 04/10/2004 [facility] RBC Morphology NORMAL [phone] White Blood Count 6.5 CUMM 4.8-10.8 Atypical [...] 12 % 10.5-15 CBC With Electronic 04/10/2004 [facility] White Blood 6.5 CUMM 4.8- 10.8 Diff [phone] Count Abs Basophils 0 0-0.2 Abs Eosinophils [...] 12 % 10.5-15 Comp Metabolic Panel 04/10/2004 [facility] Anion Gap 8.0 mmol/L 2- 11 65 [phone] Albumin/Globulin Ratio 2.0 1-3 Albumin 4.2 GM/DL [...] 16.7 8-20 CBC With Electronic Diff 09/03/2003 [facility] White Blood Count 6.4 [phone] Abs Basophils 0.1 Abs Eosinophils 0.1 Abs [...] Distribution WDTH 13 Comp Metabolic Panel 09/03/2003 [facility] Anion Gap 1.0 Low 66 [phone] Albumin/Globulin Ratio 1.7 Albumin 4.1 Alkaline Phosphatase 61 Alt (SGPT) 22 Ast (Sgot) 17 BUN 12 Calcium 9.4 Chloride 107 Co2 (Carbon Dioxide) 30.0 Creatinine 1.0 Globulin 2.4 Glucose 120 High Potassium 4.7 Sodium 138 Bilirubin Total 0.5 Total Protein 6.5 BUN/Creatinine Ratio 12.0 Laboratory test 09/03/2003 [facility] Carbamazepine 5.6 67 finding [phone] (Tegretol) Laboratory test 01/22/2003 [facility] TSH 0.85 0.34-5. finding [phone] MIU/ML 60 Monospot NEGATIVE Negative Erythrocyte Sed Rate 1 MM/HR 0-15 Comp Metabolic Panel 01/22/2003 [facility] Anion Gap 8.0 mmol/L 2- 11 68 [phone] Albumin/Globulin Ratio 1.6 1-3 Albumin 4.1 GM/DL [...] 0.5 mg/dL 0.4-1.5 CBC With Electronic 01/22/2003 [facility] Platelet Count 288 CUMM 150-450 Diff [phone] White Blood Count 7.4 CUMM 4.8-10.8 Abs [...] Redcell Distribution WDTH 12 % 10.5-15 1 Looping Inspector: [id number] 2 SEE RESULT BELOW Name: JUSTINPA : [address]: Issac Alcantar MD Acct: [id number] Unit: [id number] AGE: 62 Location: ED Re04/03/18 SEX: M Status: REG ER SPEC: [id number] FRANTZ: 04/03/[address]: Issac Alcantar MD REQ: [id number] RECD: 04/03/18 STATUS: COLEEN NESS DR: Alphonso Juárez DO _ SOURCE: NASAL SPDESC: ORDERED: Flu A B Request Procedure Result Reported Site Rapid Influenza A B Request Final 04/03/181417 ML Specimen received for Influenza A/B Molecular testing * ML - Main Lab . END OF REPORT DEPARTMENT OF PATHOLOGY, [address] [place] [address] Chas Huggins M.D. Director [facility] # [id number] 3 Because ethnic data is not always [...] troponins reflex immediate secondary confirmatory testing. 5 [facility] Severe Sepsis and Septic Shock Management [...] 20 ug/ml 7 SEE RESULT BELOW Name: JUSTINPA : [address]: Deanna Pickett MD Acct: [id number] Unit: [id number] AGE: 62 Location: [place] [address] Re04/03/18 Dis: 04/07/18 SEX: M Status: DIS IN SPEC: [id number] FRANTZ: 04/03/18-1304 [facility] DR: Issac Alcantar MD REQ: [id number] RECD: 04/03/18 STATUS: COLEEN NESS DR: Alphonso Juárez DO _ SOURCE: BLOOD,VENO SPDESC: ORDERED: Blood Cult Procedure Result Reported Site Aerobic Culture Bottle Final 04/08/18- 1401 ML No Growth Day 5 Anaerobic Culture Bottle Final 04/08/18- 1401 ML No Growth Day 5 * - [facility] Lab . END OF REPORT DEPARTMENT OF PATHOLOGY, [address] [place] [address] Chas Huggins M.D. Director [facility] # [id number] ADDITIONAL INFORMATION This test was developed and its performance characteristics determined by [facility] in a manner consistent with CLIA requirements. This test has not been cleared or approved by the U.S. Food and Drug Administration. 9 ADDITIONAL INFORMATION This test was developed and its performance characteristics determined by [facility] in a manner consistent with CLIA requirements. This test has not been cleared or approved by the U.S. Food and Drug Administration. 10 ADDITIONAL INFORMATION This test was developed and its performance characteristics determined by [facility] in a manner consistent with CLIA requirements. This test has not been cleared or approved by the U.S. Food and Drug Administration. Test Performed by: [facility] - [address] [address] 11 Because ethnic data is not always [...] or= 3.0 U. Studies performed at [facility] indicate that positive WOLFGANG results <3.0 U are rarely accompanied by positive second order tests. Test Performed by: [facility] [employer] - [address] [address] 15 No bands detected 16 No bands [...] screening test (e.g., EIA). Test Performed by: [facility] [employer] - [facility] [address] [place] [address] 18 Acute inflammation: >10.00 19 Normal Range 180 to 914 Indeterminate Range 145 to 180 Deficient Range <145 20 Looping Inspector: [id number] 21 SEE RESULT BELOW Name: PA ANDERSON : [address]: Darryn Diop MD Acct: [id number] Unit: [id number] AGE: 60 Location: ED Re07/06/16 SEX: M Status: REG ER SPEC: [id number] FRANTZ: 07/06/16-5 [facility] DR: Darryn Diop MD REQ: [id number] RECD: 07/07/16 STATUS: COLEEN NESS DR: Alphonso Juárez DO _ SOURCE: [facility]: ORDERED: Flu A B Request Procedure Result Reported Site Rapid Influenza A B Request Final 07/07/16- 0006 ML Specimen received for Influenza A/B Molecular testing * ML - MAIN LAB ([facility]) . END OF REPORT * ML=Testing performed at Main Lab DEPARTMENT OF PATHOLOGY, [address] [place] [address] Chas Huggins M.D. Director [facility] # [id number] 22 No fracture DJD right > left hip minimal to no progression from September hip x- ray. 23 SEE RESULT BELOW Name: PA ANDERSON : [address]: Alphonso Juárez DO Acct: [id number] Unit: [id number] AGE: 59 Location: [facility] Re05/28/15 SEX: M Status: REG REF SPEC: [id number] FRANTZ: 05/28/15-1100 [facility] DR: Alphonso Juárez DO REQ: [id number] RECD: 05/28/15 STATUS: COMP _ SOURCE: THROAT SPDES: ORDERED: Throat Culture Procedure Result Reported Site Throat Culture Final 05/30/15- 0957 ML Organism 1 YEAST Quantity 3+ Organism 2 NORMAL CONSTANTINE Quantity 3+ Throat cultures are clinically indicated to detect the presence of group A strep, arcanobacterium and yeast. In certain cases, predominating organisms will be reported. * ML - MAIN LAB ([facility]) . END OF REPORT * ML=Testing performed at Main Lab DEPARTMENT OF PATHOLOGY, [address] [place] [address] Chas Huggins M.D. Director [facility] # [id number] 24 Others are synoviocytes. Reviewed by Christina Carrera MD 25 Synovial (Joint) Fluid [id number] 26 RUN DATE: 07/16/14 [facility] LAB LIVE PAGE 1 RUN TIME: 1051 [address] [place], [place] [address] Specimen Inquiry Name: PA ANDERSON : [address]: Alphonso Juárez DO Acct: [id number] Unit: [id number] AGE: 58 Location: [facility] Re07/11/14 SEX: M Status: REG REF SPEC: [id number] FRANTZ: 07/11/14-[address]: Alphonso Juárez DO REQ: [id number] RECD: 07/12/14-1304 STATUS: COMP _ SOURCE: JOINT FLUI SPDESC:KNEE LEFT ORDERED: YOVANI Ugarte/SHERI QUERIES: Provider Requisition # [id number] Procedure Result Verified Site Body Fluid Gram Stain Final 07/12/14- 1617 ML 3+ Nucleated Cells No Neutrophils Observed No Organisms Seen Preparation By Direct Smear Body Fluid Culture Final 07/16/14- 1051 ML No Growth Day 4 * ML - MAIN LAB ([facility]) . END OF REPORT * ML=Testing performed at Main Lab DEPARTMENT OF PATHOLOGY, [facility] [email or web address] [place], [place] [address] Chas Huggins M.D. Director [facility] # [id number] 27 RUN DATE: 07/16/14 [facility] LAB LIVE PAGE 1 RUN TIME: [address] [facility] [employer] [place], [place] [address] Specimen Inquiry Name: PA ANDERSON : [address]: Alphonso Juárez DO Acct: [id number] Unit: [id number] AGE: 58 Location: [facility] Re07/11/14 SEX: M Status: REG REF SPEC: [id number] FRANTZ: 07/11/14 [facility] [address]: Alphonso Juárez DO REQ: [id number] RECD: 07/12/14 STATUS: COMP _ SOURCE: JOINT FLUI SPDESC:KNEE RIGHT ORDERED: YOVANI gUarte/SHERI QUERIES: Provider Requisition # [id number] Procedure Result Verified Site Body Fluid Gram Stain Final 07/12/14- 1620 ML 3+ Nucleated Cells No Neutrophils Observed No Organisms Seen Preparation By Direct Smear Body Fluid Culture Final 07/16/14- 1051 ML No Growth Day 4 * ML - MAIN LAB ([facility]) . END OF REPORT * ML=Testing performed at Main Lab DEPARTMENT OF PATHOLOGY, [address] [place] [address] Chas Huggins M.D. Director [facility] # [id number] 28 Others are synoviocytes. Reviewed by Christina Carrera MD 29 Synovial (Joint) Fluid [id number] 30 RUN DATE: 07/12/14 [facility] LAB LIVE PAGE 1 RUN TIME: [address] [place] [address] Specimen Inquiry Name: PA ANDERSON : [address]: Alphonso Juárez DO Acct: [id number] Unit: [id number] AGE: 58 Location: [facility] Re07/11/14 SEX: M Status: REG REF SPEC: [id number] FRANTZ: 07/11/14-1639 [facility] DR: Alphonso Juárez DO REQ: [id number] RECD: 07/12/14-4769 STATUS: RES _ SOURCE: JOINT FLUI SPDESC:KNEE LEFT ORDERED: YOVANI Ugarte/SHERI QUERIES: Provider Requisition # [id number] Procedure Result Verified Site Body Fluid Gram Stain Final 07/12/14- 1617 ML 3+ Nucleated Cells No Neutrophils Observed No Organisms Seen Preparation By Direct Smear Body Fluid Culture PENDING * ML - MAIN LAB ([facility]) . END OF REPORT * ML=Testing performed at Main Lab DEPARTMENT OF PATHOLOGY, [address] [place] [address] Chas Huggins M.D. Director [facility] # [id number] 31 Because ethnic data is not always [...] 0.03 ng/mL Not supportive of diagnosis of [place] 0.03 - 0.50 ng/mL Indeterminate: suggest serial studies if clinically indicated. Greater than 0.5 ng/mL Consistent with diagnosis of [place] 33 Acute inflammation: >10.00 34 >100 to [...] submitted in 7-14 days. Test Performed by: [place] [address] Board Liner Operator: Danial Salomon III, M.D. 39 Because [...] 0.03 ng/mL Not supportive of diagnosis of [place] 0.03 - 0.50 ng/mL Indeterminate: suggest serial studies if clinically indicated. Greater than 0.5 ng/mL Consistent with diagnosis of [place] 41 Reference ranges based on room air. [...] 0.06 ng/mL Not supportive of diagnosis of [place] 0.06 - 0.50 ng/mL Indeterminate: suggest serial studies if clinically indicated. Greater than 0.5 ng/mL Consistent with diagnosis of [place] 46 Reference ranges based on room air. 47 Test Performed by: [facility] - [address] [address] Board Liner Operator: Danial Salomon III, M.D. R 48 Serologic response to B. burgdorferi infection is not detected, but cannot rule out early infection during which low or undetectable antibody levels to B. burgdorferi may be present. If clinically indicated, a new serum specimen should be submitted in 7-14 days. Test Performed by: [facility] - [address] [address] Board Liner Operator: Danial Salomon III, M.D. R 49 neg 50 RUN DATE: 12/30/11 [facility] LAB LIVE PAGE 1 RUN TIME: [address] [place] [address] Specimen Inquiry Name: PA ANDERSON : [address]: Chris Busby MD Acct: [id number] Unit: [id number] AGE: 56 Location: ENDO Re12/29/11 SEX: M Status: REG REF SPEC: [id number] FRANTZ: 12/29/11-1499 [facility] DR: Chris Busby MD REQ: [id number] RECD: 12/29/11 STATUS: COLEEN NESS DR: Tigre RANDOLPH,Qamar Norman _ SOURCE: CLOTEST SPDESC: ORDERED: Clotest Procedure Result Verified Site Clotest Final 12/30/11- 0740 ML Clotest Negative END OF REPORT * ML=Testing performed at Main Lab DEPARTMENT OF PATHOLOGY, [facility] [email or web address] [place], [place] [address] Chas Huggins M.D. Director [facility] Permit #[id number] 51 wnl 52 RUN DATE: 12/31/11 [facility] LAB LIVE PAGE 1 RUN TIME: [address] [place] [address] Specimen Inquiry Name: PA ANDERSON DOB: [address]: Chris Busby MD Acct: [id number] Unit: [id number] AGE: 56 Location: ENDO Re12/29/11 SEX: M Status: REG REF SPEC: [id number] FRANTZ: 12/29/11- SUBM DR: Chris Busby MD REQ: [id number] RECD: 12/30/11 STATUS: PEYTON NESS DR: Tigre [...] performed at Main Lab DEPARTMENT OF PATHOLOGY, [employer] [place], [place] [address] Chas Huggins M.D. Director [facility] Permit #[id number] RUN DATE: 12/31/11 [facility] LAB LIVE PAGE 2 RUN TIME: [address] [employer] [place], [place] [address] Specimen Inquiry Patient: PA ANDERSON Maeve [id number] (Continued) POST-OPERATIVE DIAGNOSIS (Continued) POST-OPERATIVE DIAGNOSIS Rule [...] performed at Main Lab DEPARTMENT OF PATHOLOGY, [address] [place] [address] Chas Huggins M.D. Director [facility] Permit #[id number] 53 Anion gap measurement may be of [...] has been shown to interfere with the Jendrassik-Nibbe method for measuring total bilirubin. Samples from [...] SERUM LEVELS OF PSA MEASURED USING THE PA Naked ACCESS HYBRITECH IMMUNOASSAY SHOULD NOT BE INTERPRETED [...] . Procedures Date Code Description Status 06/30/2017 33198 Omt 7-8 Body Regions Completed 06/30/2017 83677 Brief Emotional/Behav Assessment W/ Scoring Doc Per Completed Standard Inst 04/30/2017 Inject/Drain Joint/Bursa Major Completed 12/11/2016 03943 Omt 3 To 4 Body Regions Involved Completed 05/27/2016 65964 X-Ray Pelvis, Ap Only Completed 05/05/2016 Inject/Drain Joint/Bursa Major Completed 10/09/2015 86868 Radiologic Exam Hip Unilateral With Pelvis 2-3 Views Completed 05/28/2015 31728 SC/Im Injections Completed 12/24/2014 Inject/Drain Joint/Bursa Major Completed 07/11/2014 Inject/Drain Joint/Bursa Major Completed 12/21/2012 15899 X-Ray Chest Two Views Completed 03/28/2012 00356 Bronchospasm Evaluation Pre & Post Completed 12/21/2011 93979620 Colonoscopy Completed 12/08/2011 99860 X-Ray Chest Two Views Completed 12/08/2011 20466 Xray Abdomen Upright/Flat Abd Completed 08/22/2004 80206 Removal Of FB, External Eye Completed 08/21/2004 27870 Remove Impact Cerumen Requiring Instrument, Unilateral Completed 08/21/2004 32800 Remove Impact Cerumen Requiring Instrument, Unilateral Completed 08/14/2004 53139 Remove Impact Cerumen Requiring Instrument, Unilateral Completed 07/01/2004 13299 Anoscopy Diagnostic Completed 09/03/200375400 Injection Tendon Origin/Insertion Completed 01/18/2003 55571 X-Ray Chest Two Views Completed 01/18/2003 36515 X-Ray Chest Two Views Completed 09/30/200232827 Inject/Drain Joint/Bursa Major Completed 09/30/200284078 Injection Tendon Origin/Insertion Completed Encounters Type Date Location Provider Dx Diagnosis Office Visit 04/19/2018 Main Office Alphonso Juárez J44.1 Chronic obstructive 1:30p D.O. pulmonary disease w (acute) exacerbation R05 Cough F17.210 Nicotine dependence, cigarettes, uncomplicated Office Visit 04/13/2018 2:30p Main Office Alphonso Juárez, J44.1 Chronic [...] stomatitis Office Visit 01/01/2017 11:40a Main Office Jessica Tobin, J44.1 Chronic obstructive P.A. pulmonary disease w (acute) [...] Office Visit 07/16/2016 10:25a Main Office Meli Morales, J44.1 Chronic obstructive PA pulmonary disease w (acute) exacerbation F17.210 Nicotine dependence, cigarettes, uncomplicated Office Visit 05/27/2016 1:30p Main Office Alphonso Juárez, M25.551 Pain in right D.O. hip J44.9 Chronic obstructive pulmonary disease, unspecified W07.xxxA Fall from chair, initial encounter Y92.[address] in single-family (private) house as place Office Visit 05/05/2016 11:45a Main Office Alphonso Juárez, J44.9 Chronic obstructive D.O. pulmonary disease, unspecified [...] Frontal Office Visit 11/21/2005 9:00a Main Office aQmar Serrano.39 Convulsions Trupti Prater M.D. 305.1 Tobacco Use [...] 10:45a Main Office Qamar Norman 380.10 Otitis Externchristian Prater M.D. Infective Unspec Office Visit 08/11/2004 11:15a Main Office Qamar Norman 380.10 Otitis Externa Nicola Prater Infective Unspec Office Visit 07/01/2004 3:15p Main Office Dc Ellison, 569.3 Hemorrhage Rectum M.DYesenia & Anus 792.1 Stool Contents Abnormal 455.0 Hemorrhoids Internal W/O Complication Office Visit 04/10/2004 9:05a Main Office Qamar Serrano.39 Convsenait Prater M.D. 305.1 Tobacco Use Disorder [...] Obstruction Plan of Treatment Future Appointment(s):07/21/2018 9:45 ifrah - Alphonso Juárez D.O. at Main Office
[2018-06-04 13:20] LABS: ABS Basophils 0.1 10^3/ul (0-0.2); ABS Eosinophils 0 10^3/ul (0-0.6); ABS Lymphocytes 0.2 10^3/ul (1.0-4.8); ABS Monocytes 0.3 10^3/ul (0-0.8); ABS Neutrophils 10.7 10^3/ul (1.5-7.7); ABS Nucleated RBC 0 10^3/ul; Eosinophil % 0 %; Hematocrit 39 % (36-46); Hemoglobin 13.2 g/dL (14.0-18.0); Lymphocyte % 1.7 %; Mean Corpuscular HGB Conc 34 g/dL (31-36); Mean Corpuscular Hemoglobin 33 pg (27-31); Mean Corpuscular Volume 99 fL (80-94); Mean Platelet Volume 7.6 fL (7.4-10.4); Nucleated Red Blood Cells % 0; Platelet Count 208 10^3/uL (150-450); Red Blood Count 3.99 10^6 /uL (4.18-5.48); Red Cell Distribution Width 14 % (10.5-15); White Blood Count 11.3 10^3/uL (3.5-10.8)
[2018-06-04 13:28] LABS: INR 1.05 (0.77-1.02)
[2018-06-04] MEDS ORDERED: Acetaminophen TAB* 325 MG PO ONE (13:35)
[2018-06-04 13:36] LABS: Albumin 3.6 g/dL (3.2-5.2); Albumin/Globulin Ratio 1.1 (1-3); BUN/Creatinine Ratio 22.8 (8-20); C Reactive Protein 127.18 mg/L (<8.01); Calcium 8.3 mg/dL (8.6-10.3); EGFR African American 121.1 (>60); Globulin 3.3 g/dL (2-4); Potassium 4.1 mmol/L (3.5-5.0); Total Bilirubin 0.3 mg/dL (0.2-1.0); Total Protein 6.9 g/dL (6.4-8.9)
[2018-06-04] MEDS ORDERED: ED Azithromycn 500 mg/250 ml 500 MG/250 ML PREMIX.SET IVPB ONE (13:36)
[2018-06-04] MEDS ORDERED: cefTRIAXone(*) 1 GM in NS 0.9% 50 ML* 50 ML IVPB ONE (13:36)
[2018-06-04 13:37] LABS: Troponin I 0.01 ng/mL (<0.04)
[2018-06-04 14:21] LABS: Influenza A Molecular NEGATIVE (Negative); Influenza B Molecular NEGATIVE (Negative)
[2018-06-04] MEDS ORDERED: Docusate CAP* 100 MG PO PRN (14:52)
[2018-06-04] MEDS ORDERED: Magnesium Hydroxide LIQ* 30 ML UDC PO PRN (14:52)
[2018-06-04] MEDS ORDERED: methylPREDNISolone 125 MG* 2 ML VIAL IV ONE (15:02)
[2018-06-04] MEDS ORDERED: Albuterol 2.5 MG/3 ML NEB.SOL* (0.083%) INH PRN (15:03)
[2018-06-04] MEDS ORDERED: Benzocaine/Menthol LOZ* 1 LOZENGE PO PRN (15:04)
[2018-06-04] MEDS: Albuterol/Ipratropium NEB.SOL* Albuterol 2.5 MG/Ipratropium 0.5 MG 3 ML INH SCH ×3 (15:46→23:14)
[2018-06-04] MEDS: Nicotine PATCH 21 MG/24 HR* PATCH TRANSDERM SCH (17:17)
[2018-06-04] MEDS: Acetaminophen TAB* 325 MG PO PRN (17:26)
[2018-06-04] MEDS ORDERED: Zolpidem TAB* 5 MG PO PRN (18:09)
--- NOTE | 2018-06-04 18:57 | HP ---
CC: Dr. Alphonso Juárez * ADMISSION HISTORY AND PHYSICAL: DATE OF ADMISSION: 06/04/18 PRIMARY CARE PROVIDER: Dr. Alphonso Juárez. ATTENDING FOR THIS ADMISSION: Dr. Louann Tillman.* (DICTATED BY CHAVEZ NOLASCO NP) CHIEF COMPLAINT: Shortness of breath, fever, and chills. HISTORY OF PRESENT ILLNESS: This is a very pleasant gentleman, age 62 years, who presented to the emergency department today with a complaint of shortness of breath. Mr. Shepherd does have history of COPD. He was admitted back in March with a COPD exacerbation. The patient reports he was at home and was doing some work on the house and was exposed to some construction dust and he felt that he started to have a cough and some shortness of breath. He was scheduled to go to his primary care provider to assess for oxygen needs this week. However, he began to feel very poorly, then having cough with fever and chills. At that point, his called the ambulance because his oxygen saturation was in the 80s. He did have a nebulized dexamethasone on the way with the ambulance; he did feel that that helped. He was on oxygen. He presents in the ER now, very tremulous, tachycardiac, febrile with a cough. His imaging in the ED does show that he has a consolidation on the right lower lobe. For these reasons, we were asked to evaluate the patient for admission. PAST MEDICAL HISTORY: Significant for COPD, tobacco use, remote history of an obstructive hydrocephalus with a [employer]ICK[employer] H[employer] shunt. Also, at that time, had intraoperative CVA and multiple craniotomies thereafter, history of back pain and spasm secondary to above, BPH, depression, and anxiety. 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 MEDICATIONS AT HOME: Include: 1. Vitamin D3 one cap daily. 2. Baclofen 10 mg p.o. 3 times a day as needed. 3. DuoNeb 1 neb inhaled q.3 hours as needed. 4. Ventolin inhaler 2 puffs q.4 hours as needed. 5. Tylenol with codeine 1 tab q. 8 hours as needed for pain. 6. Prednisone 10 mg p.o. daily. 7. Vitamin B 1 cap p.o. daily. 8. Flomax 1 cap p.o. daily. 9. Symbicort 160/4.5 two puffs p.o. 2 times a day. 10. Paxil 1 tab p.o. daily. FAMILY HISTORY: Mother with cardiac disease and father with esophageal cancer. SOCIAL HISTORY: The patient does have everyday use of tobacco, 3/4 to 1 pack per day for 47 years. Denies any illicit drug use. Denies any alcohol abuse. He lives at home with his . He is disabled. ALLERGIES: PHENYTOIN AND BLUEBERRIES. REVIEW OF SYSTEMS: The patient is endorsing night sweats, coughing, shortness of breath, general respiratory distress, some tremulousness. Denies any acute chest pain. Denies nausea, vomiting. No urinary complaints. No unusual arthralgias or myalgias and no further constitutional complaints. PHYSICAL EXAMINATION GENERAL: The patient is awake and alert, in mild amount of distress. VITAL SIGNS: Blood pressure 139/84, temperature 101.4, heart rate 127, respiratory rate 26, O2 saturation 93% on 3 L. HEENT: The patient is atraumatic, normocephalic. PERRLA, nonicteric sclerae. Oral mucosa is moist. Tongue is midline. NECK: Supple. Nontender. No JVD noted. No carotid bruit auscultated. LUNGS: Diminished throughout the lung patricia bilaterally with poor air entry, bilateral wheeze, and some scattered rhonchi. CARDIOVASCULAR: S1, S2 present. Rate is tachycardic. Rhythm is regular. No murmurs, gallops, or rubs noted. ABDOMEN: Soft, nontender, nondistended. Positive bowel sounds in all 4 quadrants. : Deferred. MUSCULOSKELETAL: There is no clubbing, no cyanosis, no edema. He has +2 distal pulses palpable. He does have gross motor and sensation intact. NEUROLOGIC: Grossly intact with no focal deficits. PSYCHIATRIC: He is cooperative and appropriate. SKIN: Warm, diaphoretic. He does have some ecchymoses and bruising to the left elbow. No further rashes or lacerations noted. DIAGNOSTIC STUDIES/LAB DATA: Labs: WBCs 11.3, RBCs 3.99, hemoglobin 13.2, hematocrit 39, platelets 208. Sodium 137, potassium 4.1, chloride 105, CO2 of 25, BUN 18, creatinine 0.79, GFR 100. Glucose 154, lactic acid 1.3, calcium 8.3, AST 18, ALT 19, alkaline phosphatase 40. Troponin is negative at 0.01. CRP is 127.18. BNP is 20. Total protein 6.9, albumin 3.6, globulin 3.3, albumin-globulin ratio 1.1. Influenza A and B are both negative. Arterial blood gas is pH of 7.40, CO2 of 39, pO2 of 75, bicarb 24.4, O2 saturation 96.9, base excess of negative 0.5. Imaging: Chest x-ray does show consolidation. There is some air space ossification concerning for pneumonia on the right lower lobe. EKG: EKG shows sinus tachycardia with no acute ST segment changes. No other ectopy. IMPRESSION: This is a 62-year-old gentleman with a history of chronic obstructive pulmonary disease and recent hospitalization for exacerbation that presents with similar symptoms of respiratory distress and hypoxia today. DIAGNOSES: 1. Respiratory distress with hypoxia, acute hypoxic respiratory failure secondary to right lower lobe pneumonia. The patient has already received Zithromax and ceftriaxone in the ED. These will be continued on a daily basis. I will order 125 mg of Solu-Medrol now. Continue Solu-Medrol 40 mg q.8 hours thereafter. He has received multiple neb treatments in the emergency department. We will continue DuoNeb q.4 hours scheduled with albuterol nebs q.4 hours as needed. Start him on guaifenesin 600 mg 2 times a day and also Chloraseptic lozenges. The patient was endorsing a scratchy throat after having nebulizer treatments. Supplemental oxygen will be provided. I suggest that we do overnight pulse oximetry on the patient tomorrow night after hopefully he is feeling better. The patient will likely need oxygen for home, room air sats, and overnight oximetry should be checked. The patient has already received a gram of magnesium sulfate in the ER and has received Tylenol for fever. Tylenol will be continued on an as-needed basis. 2. Chronic obstructive pulmonary disease with what is likely acute exacerbation and community-acquired pneumonia. Plan of care as above. 3. History of ventriculoperitoneal shunt. The patient does have issue with spasms. We will continue him on his baclofen and Tylenol with codeine as needed. 4. History of tobacco abuse. The patient will be placed on nicotine patch. Cessation strongly encouraged. DVT prophylaxis. The patient will be placed on heparin subcu. He is moderate risk. Diet: Regular and restricted diet as tolerated. Disposition: The patient will be admitted inpatient on telemetry. The rest of the patient's course will be determined by further diagnostics, laboratories, and any other input from other providers as warranted during this admission. This plan of care has been discussed with Dr. Louann Tillman, the attending on this case, and she is in agreement with the plan. TIME SPENT: Approximately 70 minutes interviewing the patient and developing admission plan of care. CHAVEZ NOLASCO, POSTPARTUM NURSE [id number]/CPS #: [id number]
[2018-06-04] MEDS: Acetaminop/Codeine 30 MG TAB* 1 TAB (300 MG/30 MG) PO PRN (21:44)
[2018-06-04] MEDS: methylPREDNISolone SOD 40 MG* 1 ML VIAL IV SCH (21:44)
[2018-06-04] MEDS: Baclofen TAB* 10 MG PO PRN (21:45)
[2018-06-04] MEDS: Benzonatate CAP* 100 MG PO SCH (21:45)
[2018-06-04] MEDS: guaiFENesin ER TAB 600 MG PO SCH (21:45)
[2018-06-04] MEDS: Heparin VIAL(*) 5000 UNITS/ML VIAL (FIVE THOUSAND) SUBCUT SCH (21:45)
[2018-06-04] MEDS: CMCS: Diclofenac 1% GEL (NF) 100 GM TUBE TOPICAL SCH (21:46)
[2018-06-05] MEDS: Mometasone/Formoter 200/5 MDI INH SCH ×3 (00:11→23:53)
[2018-06-05] MEDS: Albuterol/Ipratropium NEB.SOL* Albuterol 2.5 MG/Ipratropium 0.5 MG 3 ML INH SCH ×5 (03:38→18:08)
[2018-06-05] MEDS: NS 0.9% 1000 ML** 1,000 ML IV SCH ×2 (04:23→21:45)
[2018-06-05] MEDS: Heparin VIAL(*) 5000 UNITS/ML VIAL (FIVE THOUSAND) SUBCUT SCH ×3 (05:25→21:55)
[2018-06-05 05:27] LABS: ABS Basophils 0 10^3/ul (0-0.2); ABS Eosinophils 0 10^3/ul (0-0.6); ABS Lymphocytes 0.4 10^3/ul (1.0-4.8); ABS Monocytes 0.2 10^3/ul (0-0.8); ABS Neutrophils 5.9 10^3/ul (1.5-7.7); ABS Nucleated RBC 0 10^3/ul; Eosinophil % 0 %; Hematocrit 38 % (36-46); Hemoglobin 12.7 g/dL (14.0-18.0); Mean Corpuscular HGB Conc 33 g/dL (31-36); Mean Corpuscular Hemoglobin 33 pg (27-31); Mean Corpuscular Volume 98 fL (80-94); Mean Platelet Volume 7.8 fL (7.4-10.4); Nucleated Red Blood Cells % 0; Platelet Count 202 10^3/uL (150-450); Red Blood Count 3.88 10^6 /uL (4.18-5.48); Red Cell Distribution Width 14 % (10.5-15); White Blood Count 6.5 10^3/uL (3.5-10.8)
[2018-06-05 05:43] LABS: BUN/Creatinine Ratio 22.8 (8-20); Calcium 8.4 mg/dL (8.6-10.3); EGFR African American 176.4 (>60); EGFR Non-African American 145.8 (>60); Potassium 4.6 mmol/L (3.5-5.0)
--- NOTE | 2018-06-05 07:37 | PN ---
Subjective Date of Service: 06/05/18 Interval History: Reports he still feels very SOB and winded with any exertion. Occasional cough, no sputum. Denies fever/chills. No N/V/D. Feels that this is secondary to inhaling dust after a home project where he didnt wear a mask, he is trying to cut down on smoking. reports that when he first started to not feel well he took his O2 sat at home and found he was 58% ( wed) he gave himself a nebulizer and it came up to 85%. At that point he started using his nebs more frequently but stated he wasnt getting any better, Baseline O2 sat when feeling well is around 95% Reports sore throat for several days-week. Reports appetite. Objective Active Medications: Acetaminophen (Tylenol Tab*) 650 mg PO Q4H PRN PRN Reason: FEVER/PAIN Last Admin: 06/04/18 17:26 Dose: 650 mg Acetaminophen/Codeine Phosphate (Tylenol/Codeine 30 Mg Tab*) 1 tab PO 1200 PRN PRN Reason: PAIN Acetaminophen/Codeine Phosphate (Tylenol/Codeine 30 Mg Tab*) 2 tab PO BEDTIME PRN PRN Reason: PAIN Last Admin: 06/04/18 21:44 Dose: 2 tab Albuterol (Ventolin 2.5 Mg/3 Ml Neb.Brenda*) 2.5 mg INH Q4H PRN PRN Reason: SOB/WHEEZING Albuterol/Ipratropium (Duoneb (Albuterol 2.5 Mg/Ipratropium 0.5 Mg)) 1 neb INH [id number] AWAKE [facility] Last Admin: 06/05/18 03:38 Dose: Not Given Baclofen (Lioresal Tab*) 10 mg PO TID PRN PRN Reason: SPASMS Last Admin: 06/04/18 21:45 Dose: 10 mg Benzonatate (Tessalon Cap*) 100 mg PO BID [facility] Last Admin: 06/04/18 21:45 Dose: 100 mg Cholecalciferol (Vitamin D Tab*) 5,000 units PO DAILY [facility] Diclofenac Sodium (Voltaren 1% Gel (Nf)) 1 applic TOPICAL BID [facility]; Protocol Last Admin: 06/04/18 21:46 Dose: 1 applic Docusate Sodium (Colace Cap*) 100 mg PO BID PRN PRN Reason: CONSTIPATION Guaifenesin (Mucinex*) 600 mg PO BID [facility] Last Admin: 06/04/18 21:45 Dose: 600 mg Heparin Sodium (Porcine) (Heparin Vial(*)) 5,000 units SUBCUT Q8HR [facility] Last Admin: 06/05/18 05:25 Dose: 5,000 units Sodium Chloride (Ns 0.9% 1000 Ml) 1,000 mls @ 75 mls/hr IV PER RATE [facility] Last Admin: 06/05/18 04:23 Dose: 75 mls/hr Ceftriaxone Sodium 1 gm/ (Sodium Chloride) 50 mls @ 200 mls/hr IVPB Q24H [facility] Azithromycin 500 mg/ Sodium (Chloride) 250 mls @ 250 mls/hr IVPB Q24H [facility] Magnesium Hydroxide (Milk Of [place] Liq*) 30 ml PO Q4H PRN PRN Reason: CONSTIPATION Methylprednisolone Sodium Succinate (Solu-Medrol 40 Mg) 40 mg IV Q8H [facility] Last Admin: 06/04/18 21:44 Dose: 40 mg Mometasone Furoate/Formoterol Fumar (Dulera 200/5 Mdi*) 2 puff INH BID [facility] Last Admin: 06/05/18 00:11 Dose: 2 puff Nicotine (Nicotine Patch 21 Mg/24 Hr*) 1 patch TRANSDERM DAILY [facility] Last Admin: 06/04/18 17:17 Dose: Not Given Paroxetine HCl (Paxil Tab*) 20 mg PO DAILY [facility] Tamsulosin HCl (Flomax Cap*) 0.4 mg PO DAILY [facility] Throat Lozenges (Chloraseptic Bhavana*) 1 bhavana PO Q6H PRN PRN Reason: SORE THROAT Last Admin: 06/04/18 19:40 Dose: 1 bhavana Zolpidem Tartrate (Ambien Tab*) 5 mg PO BEDTIME PRN PRN Reason: INSOMNIA Last Admin: 06/05/18 00:12 Dose: 5 mg Vital Signs - 8 hr 06/05/18 06/05/18 06/05/18 00:22 03:07 05:31 Temperature 97.8 F Pulse Rate 68 Respiratory 18 16 Rate Blood Pressure 124/74 (mmHg) O2 Sat by Pulse 98 98 Oximetry 06/05/18 07:09 Temperature 97.5 F Pulse Rate 76 Respiratory 20 Rate Blood Pressure 120/65 (mmHg) O2 Sat by Pulse 99 Oximetry Oxygen Devices in Use Now: Nasal Cannula Appearance: 62 yo male A+O x3 laying in bed, appears mildy dyspneic when talking Eyes: No Scleral Icterus, PERRLA Ears/Nose/Mouth/Throat: Mucous Membranes Moist, - - white patchy areas noted on tongue - difficult to visualize posterior throat Neck: NL Appearance and Movements; NL JVP Respiratory: - - mild dyspnea when talking, lungs are very diminished bilaterally - appears comfortable Cardiovascular: NL Sounds; No Murmurs; No JVD, RRR, No Edema Abdominal: NL Sounds; No Tenderness; No Distention Extremities: No Edema, No Clubbing, Cyanosis Skin: No Rash or Ulcers, No Nodules or Sclerosis Neurological: Alert and Oriented x 3, NL Sensation, NL Muscle Strength and Tone Lines/Tubes/Other Access: Clean, Dry and Intact Peripheral IV Nutrition: Taking PO's Result Diagrams: 06/05/18 05:16 06/05/18 05:16 Microbiology and Other Data: Microbiology 06/05/18 00:10 Gram Stain - Final Sputum 06/04/18 13:50 Influenza Types A,B Antigen - Final Nasal Specimen received for Influenza A/B Molecular testing Assess/Plan/Problems-Billing Assessment: 62 yo male with a PMH of COPD, tobacco abuse, remote hx of hydrocephalus with WEB CONTENT DIRECTOR shunt, hx of intraoperative CVA, multiple craniotomies, back pain, depression/anxiety who presented on 06/04 to the ER with c/o SOB foun dto be hypoxic with a RLL PNA. Hospitalized 03/2018 with pna and COPD exacerbation. - Patient Problems (1) Acute respiratory failure with hypoxia Comment: - stable. - COPD exacerbation with possible RLL PNA - appears the exacerbation was 2nd to exposure of dust. He did however present with a fever/chills. Mild leukocytosis. - Chest xray "right lower lung zone airspace opacification concerning for pna" - Continue azithro & ceftriaxone - Continue Solumedrol 40 mg Q8hrs today - start to titrate tomorrow. - Blood and sputum cx pending - Influenza negative - urine for S.pneumoniae and legionella pending - continues to be on O2 but is noted his O2 sats 99% - will ask nursing staff to titrate O2 to maintain sat 95% which is the patients baseline - If not improving tomorrow consider Pulm consult (2) COPD exacerbation Comment: -See above - Add daily Vitamin C (should be DC'd home on this, tobacco use depletes Vit C and should help inflammation/Immunity) (3) Thrush, oral Comment: - suspect source of sore throat; oral thrush is noted. - Start Nystatin swish and swallow - add probiotic - pt should be continue this at home for minimum 3 months (4) Tobacco abuse Comment: - daily smoker 1/2-1 pack daily, cessation encouraged - Nicotine patch _ smoking cessation strongly encouraged - RT consult for smoking cessation (5) Anxiety Comment: Continue Paxil. (6) WEB CONTENT DIRECTOR (ventriculoperitoneal) shunt status Comment: - complex neurologic complications, CVA during surgery, hydrocephalus - no significant deficits (7) Chronic pain Comment: - Continue home dose tylenol/codeine, baclofen (8) Vitamin D deficiency Comment: - continue home dose supplementation. recheck Vitamin D level (9) Vitamin B deficiency Comment: last B12 level 2018 was low normal. Continue home B complex. In the setting of tobacco abuse should continue supplementation (10) DVT prophylaxis Comment: - HSQ (11) Full code status Status and Disposition: inpatient with acute hypoxic resp failure. Home when medically stable.
[2018-06-05] MEDS: methylPREDNISolone SOD 40 MG* 1 ML VIAL IV SCH ×3 (07:50→21:52)
[2018-06-05] MEDS: Nicotine PATCH 21 MG/24 HR* PATCH TRANSDERM SCH (08:58)
[2018-06-05] MEDS: Cholecalciferol TAB* 1000 UNITS PO SCH (10:02)
[2018-06-05] MEDS: guaiFENesin ER TAB 600 MG PO SCH ×2 (10:03→21:51)
[2018-06-05] MEDS: Benzonatate CAP* 100 MG PO SCH ×2 (10:03→21:52)
[2018-06-05] MEDS: Tamsulosin CAP* 0.4 MG PO SCH (10:04)
[2018-06-05] MEDS: Baclofen TAB* 10 MG PO PRN (10:04)
[2018-06-05] MEDS: PARoxetine HCL TAB* 20 MG PO SCH (10:04)
[2018-06-05] MEDS: CMCS: Diclofenac 1% GEL (NF) 100 GM TUBE TOPICAL SCH ×2 (10:05→21:47)
[2018-06-05 11:38] LABS: Vitamin D Total 25(OH) 29.8 ng/mL (20-50)
[2018-06-05] MEDS ORDERED: Acetaminop/Codeine 30 MG TAB* 1 TAB (300 MG/30 MG) PO PRN (12:00)
[2018-06-05] MEDS: cefTRIAXone(*) 1 GM in NS 0.9% 50 ML* 50 ML IVPB SCH (13:40)
[2018-06-05] MEDS: Nystatin SUSPENSION* 100000 UNITS/ML 5 ML UDC PO SCH ×2 (13:40→21:51)
[2018-06-05] MEDS: Acetaminophen TAB* 325 MG PO PRN ×2 (13:52→23:29)
[2018-06-05] MEDS ORDERED: Ketorolac INJ* 15 MG/ML 1 ML VIAL IV PUSH ONE (13:57)
[2018-06-05] MEDS: Azithromycin IV(*) 500 MG in NS 0.9% 250 ML* 250 ML IVPB SCH (14:45)
[2018-06-05] MEDS ORDERED: LORazepam TAB(*) 0.5 MG PO ONE (17:53)
[2018-06-05] MEDS ORDERED: Ketorolac INJ* 15 MG/ML 1 ML VIAL IV PUSH SCH (19:00)
[2018-06-05] MEDS: Acetaminop/Codeine 30 MG TAB* 1 TAB (300 MG/30 MG) PO PRN (21:50)
[2018-06-05] MEDS: Lactobacillus Acidophilus* 1 TAB PO SCH (21:51)
[2018-06-05] MEDS: Ascorbic Acid TAB* 500 MG PO SCH (21:52)
[2018-06-05] MEDS ORDERED: hydrALAZINE IV* 20 MG/ML VIAL IV SLOW PU ONE (23:45)
--- NOTE | 2018-06-05 23:47 | PN ---
Hospitalist Progress Note Date of Service: 06/05/18 HOSPITALIST ADDENDUM Called by RN because patient's BP 160/118 with c/o GERARD and mild dyspnea. Hydralazine IV ordered.
[2018-06-06] MEDS: Albuterol/Ipratropium NEB.SOL* Albuterol 2.5 MG/Ipratropium 0.5 MG 3 ML INH SCH ×5 (00:03→20:12)
[2018-06-06] MEDS: Acetaminophen TAB* 325 MG PO PRN (03:45)
[2018-06-06] MEDS: Heparin VIAL(*) 5000 UNITS/ML VIAL (FIVE THOUSAND) SUBCUT SCH ×3 (05:22→21:28)
[2018-06-06 06:22] LABS: ABS Basophils 0 10^3/ul (0-0.2); ABS Eosinophils 0 10^3/ul (0-0.6); ABS Lymphocytes 0.6 10^3/ul (1.0-4.8); ABS Monocytes 0.6 10^3/ul (0-0.8); ABS Neutrophils 4.9 10^3/ul (1.5-7.7); ABS Nucleated RBC 0 10^3/ul; Eosinophil % 0 %; Hematocrit 37 % (36-46); Hemoglobin 12.8 g/dL (14.0-18.0); Lymphocyte % 10.2 %; Mean Corpuscular HGB Conc 34 g/dL (31-36); Mean Corpuscular Hemoglobin 33 pg (27-31); Mean Corpuscular Volume 97 fL (80-94); Mean Platelet Volume 7.8 fL (7.4-10.4); Nucleated Red Blood Cells % 0; Platelet Count 230 10^3/uL (150-450); Red Blood Count 3.85 10^6 /uL (4.18-5.48); Red Cell Distribution Width 14 % (10.5-15); White Blood Count 6.1 10^3/uL (3.5-10.8)
[2018-06-06 06:41] LABS: BUN/Creatinine Ratio 44.3 (8-20); Calcium 8.5 mg/dL (8.6-10.3); EGFR African American 163.2 (>60); EGFR Non-African American 134.8 (>60); Potassium 4.6 mmol/L (3.5-5.0)
[2018-06-06] MEDS ORDERED: Vitamin B Complex TAB PO SCH (09:00)
[2018-06-06] MEDS: Cholecalciferol TAB* 1000 UNITS PO SCH (09:03)
[2018-06-06] MEDS: Lactobacillus Acidophilus* 1 TAB PO SCH ×2 (09:03→21:24)
[2018-06-06] MEDS: Tamsulosin CAP* 0.4 MG PO SCH (09:04)
[2018-06-06] MEDS: Ascorbic Acid TAB* 500 MG PO SCH ×2 (09:04→21:26)
[2018-06-06] MEDS: methylPREDNISolone SOD 40 MG* 1 ML VIAL IV SCH ×2 (09:05→14:57)
[2018-06-06] MEDS: PARoxetine HCL TAB* 20 MG PO SCH (09:05)
[2018-06-06] MEDS: Benzonatate CAP* 100 MG PO SCH ×2 (09:05→21:25)
[2018-06-06] MEDS: Nystatin SUSPENSION* 100000 UNITS/ML 5 ML UDC PO SCH ×3 (09:05→21:27)
[2018-06-06] MEDS: guaiFENesin ER TAB 600 MG PO SCH ×2 (09:05→21:25)
[2018-06-06] MEDS: CMCS: Diclofenac 1% GEL (NF) 100 GM TUBE TOPICAL SCH ×3 (09:11→21:24)
[2018-06-06] MEDS: Nicotine PATCH 21 MG/24 HR* PATCH TRANSDERM SCH (09:15)
[2018-06-06] MEDS ORDERED: LORazepam TAB(*) 0.5 MG PO ONE (10:26)
[2018-06-06] MEDS ORDERED: Ketorolac INJ* 15 MG/ML 1 ML VIAL IV PUSH ONE (12:32)
[2018-06-06] MEDS: Saline NASAL SPRAY 0.65%* BTL BOTH NARES PRN ×2 (13:34→18:17)
[2018-06-06] MEDS: cefTRIAXone(*) 1 GM in NS 0.9% 50 ML* 50 ML IVPB SCH (14:20)
[2018-06-06] MEDS: Mometasone/Formoter 200/5 MDI INH SCH ×2 (14:55→21:22)
[2018-06-06] MEDS: Azithromycin IV(*) 500 MG in NS 0.9% 250 ML* 250 ML IVPB SCH (14:57)
--- NOTE | 2018-06-06 18:05 | PN ---
Subjective Date of Service: 06/06/18 Interval History: patient continues to report moderate shortness of breath with exertion. c/o feeling anxious. patient denies fever or chills. denies chest pain. denies abd pain n/v/d Family History: Unchanged from Admission Social History: Unchanged from Admission Past Medical History: Unchanged from Admission Objective Active Medications: Acetaminophen (Tylenol Tab*) 650 mg PO Q4H PRN PRN Reason: FEVER/PAIN Last Admin: 06/06/18 03:45 Dose: 650 mg Acetaminophen/Codeine Phosphate (Tylenol/Codeine 30 Mg Tab*) 1 tab PO 1200 PRN PRN Reason: PAIN Last Admin: 06/06/18 17:34 Dose: 1 tab Acetaminophen/Codeine Phosphate (Tylenol/Codeine 30 Mg Tab*) 2 tab PO BEDTIME PRN PRN Reason: PAIN Last Admin: 06/05/18 21:50 Dose: 2 tab Albuterol (Ventolin 2.5 Mg/3 Ml Neb.Brenda*) 2.5 mg INH Q4H PRN PRN Reason: SOB/WHEEZING Albuterol/Ipratropium (Duoneb (Albuterol 2.5 Mg/Ipratropium 0.5 Mg)) 1 neb INH [id number] AWAKE [facility] Last Admin: 06/06/18 13:33 Dose: 1 neb Ascorbic Acid (Vitamin C Tab*) 500 mg PO BID [facility] Last Admin: 06/06/18 09:04 Dose: 500 mg Baclofen (Lioresal Tab*) 10 mg PO TID PRN PRN Reason: SPASMS Last Admin: 06/05/18 10:04 Dose: 10 mg Benzonatate (Tessalon Cap*) 100 mg PO BID [facility] Last Admin: 06/06/18 09:05 Dose: 100 mg Cholecalciferol (Vitamin D Tab*) 5,000 units PO DAILY [facility] Last Admin: 06/06/18 09:03 Dose: 5,000 units Diclofenac Sodium (Voltaren 1% Gel (Nf)) 1 applic TOPICAL BID [facility]; Protocol Last Admin: 06/06/18 10:41 Dose: 1 applic Docusate Sodium (Colace Cap*) 100 mg PO BID PRN PRN Reason: CONSTIPATION Guaifenesin (Mucinex*) 600 mg PO BID [facility] Last Admin: 06/06/18 09:05 Dose: 600 mg Heparin Sodium (Porcine) (Heparin Vial(*)) 5,000 units SUBCUT Q8HR [facility] Last Admin: 06/06/18 14:56 Dose: 5,000 units Ceftriaxone Sodium 1 gm/ (Sodium Chloride) 50 mls @ 200 mls/hr IVPB Q24H [facility] Last Admin: 06/06/18 14:20 Dose: 200 mls/hr Azithromycin 500 mg/ Sodium (Chloride) 250 mls @ 250 mls/hr IVPB Q24H [facility] Last Admin: 06/06/18 14:57 Dose: 250 mls/hr Lactobacillus Rhamnosus (Lactobacillus Acidophilus*) 1 tab PO BID [facility] Last Admin: 06/06/18 09:03 Dose: 1 tab Magnesium Hydroxide (Milk Of [place] Liq*) 30 ml PO Q4H PRN PRN Reason: CONSTIPATION Methylprednisolone Sodium Succinate (Solu-Medrol 40 Mg) 40 mg IV Q8H [facility] Last Admin: 06/06/18 14:57 Dose: 40 mg Mometasone Furoate/Formoterol Fumar (Dulera 200/5 Mdi*) 2 puff INH BID [facility] Last Admin: 06/06/18 14:55 Dose: Not Given Nicotine (Nicotine Patch 21 Mg/24 Hr*) 1 patch TRANSDERM DAILY [facility] Last Admin: 06/06/18 09:15 Dose: Not Given Nystatin (Nystatin Suspension*) 500,000 units PO TID [facility] Stop: 06/12/18 10:08 Last Admin: 06/06/18 14:57 Dose: 500,000 units Paroxetine HCl (Paxil Tab*) 20 mg PO DAILY [facility] Last Admin: 06/06/18 09:05 Dose: 20 mg Sodium Chloride (Sodium Chloride 0.65% Nasal [place]*) 1 spray BOTH NARES Q4H PRN PRN Reason: CONGESTION Last Admin: 06/06/18 13:34 Dose: 1 spray Tamsulosin HCl (Flomax Cap*) 0.4 mg PO DAILY [facility] Last Admin: 06/06/18 09:04 Dose: 0.4 mg Throat Lozenges (Chloraseptic Kat*) 1 kat PO Q6H PRN PRN Reason: SORE THROAT Last Admin: 06/04/18 19:40 Dose: 1 kat Zolpidem Tartrate (Ambien Tab*) 5 mg PO BEDTIME PRN PRN Reason: INSOMNIA Last Admin: 06/05/18 00:12 Dose: 5 mg Vital Signs - 8 hr 06/06/18 06/06/18 06/06/18 10:37 11:28 12:24 Temperature 96.7 F Pulse Rate 89 Respiratory 20 18 18 Rate Blood Pressure 152/96 (mmHg) O2 Sat by Pulse 97 Oximetry 06/06/18 06/06/18 06/06/18 13:36 15:26 17:34 Temperature 97.7 F Pulse Rate 79 93 Respiratory 17 18 18 Rate Blood Pressure 151/94 (mmHg) O2 Sat by Pulse 98 100 Oximetry Oxygen Devices in Use Now: Nasal Cannula Appearance: alert restingin bed , no acute distress, appears anxious Eyes: No Scleral Icterus Ears/Nose/Mouth/Throat: Clear Oropharnyx, Mucous Membranes Moist Neck: NL Appearance and Movements; NL JVP, Trachea Midline Respiratory: Symmetrical Chest Expansion and Respiratory Effort, - - exp. 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 Hospitalized 03/2018 with pna and COPD exacerbation. - Patient Problems (1) Acute respiratory failure with hypoxia Current Visit: Yes Status: Acute Code(s): J96.01 - ACUTE RESPIRATORY FAILURE WITH HYPOXIA SNOMED Code(s): 07496685 Comment: - stable. - COPD exacerbation with possible RLL PNA - appears the exacerbation was 2nd to exposure of dust. He did however present with a fever/chills. Mild leukocytosis. - Chest xray "right lower lung zone airspace opacification concerning for pna" - Continue azithro & ceftriaxone - Continue Solumedrol 40 mg x2 today and will start 40 mg daily tomorrow - Blood negative - sputum cx pending - Influenza negative - urine for S.pneumoniae and legionella pending - continues to be on O2 but is noted his O2 sats 99% - will titate o2 to maintain saturation of greater than 92% (2) COPD exacerbation Current Visit: Yes Status: Acute Priority: High Onset Date: 03/05/14 Code(s): J44.1 - CHRONIC OBSTRUCTIVE PULMONARY DISEASE W (ACUTE) EXACERBATION SNOMED Code(s): 968785209 Comment: -See above - Add daily Vitamin C (should be DC'd home on this, tobacco use depletes Vit C and should help inflammation/Immunity) (3) Anxiety Current Visit: Yes Status: Chronic Code(s): F41.9 - ANXIETY DISORDER, UNSPECIFIED SNOMED Code(s): 69065239 Comment: Continue Paxil. - feeling very anxious this AM about being in the hospital - given 1 time dose of ativan (4) Chronic pain Current Visit: Yes Status: Chronic Code(s): G89.29 - OTHER CHRONIC PAIN SNOMED Code(s): 12105773 Comment: - Continue home dose tylenol/codeine, baclofen - will give 1 time dose of toradol for pain (5) Thrush, oral Current Visit: Yes Status: Acute Code(s): B37.0 - CANDIDAL STOMATITIS SNOMED Code(s): 81600182 Comment: - suspect source of sore throat; oral thrush is noted. - Start Nystatin swish and swallow - add probiotic - pt should be continue this at home for minimum 3 months (6) Vitamin D deficiency Current Visit: Yes Status: Acute Code(s): E55.9 - VITAMIN D DEFICIENCY, UNSPECIFIED SNOMED Code(s): 36496719 Comment: - continue home dose supplementation. recheck Vitamin D level (7) DVT prophylaxis Current Visit: Yes Status: Acute Priority: Medium Onset Date: 03/05/14 Code(s): HOP8315 - SNOMED Code(s): 443009698 Comment: - HSQ (8) Full code status Current Visit: Yes Status: Acute Priority: Medium Onset Date: 03/05/14 Code(s): Z78.9 - OTHER SPECIFIED HEALTH STATUS SNOMED Code(s): 774037119 Status and Disposition: inpatient with acute hypoxic resp failure. Home when medically stable.
[2018-06-06] MEDS: Acetaminop/Codeine 30 MG TAB* 1 TAB (300 MG/30 MG) PO PRN (21:25)
[2018-06-06] MEDS: Baclofen TAB* 10 MG PO PRN (21:26)
[2018-06-07] MEDS: Albuterol/Ipratropium NEB.SOL* Albuterol 2.5 MG/Ipratropium 0.5 MG 3 ML INH SCH ×2 (01:21→08:17)
[2018-06-07] MEDS: Heparin VIAL(*) 5000 UNITS/ML VIAL (FIVE THOUSAND) SUBCUT SCH ×3 (06:10→21:15)
[2018-06-07] MEDS: CMCS: Diclofenac 1% GEL (NF) 100 GM TUBE TOPICAL SCH ×3 (07:59→21:21)
[2018-06-07] MEDS: methylPREDNISolone SOD 40 MG* 1 ML VIAL IV SCH (07:59)
[2018-06-07] MEDS: Nystatin SUSPENSION* 100000 UNITS/ML 5 ML UDC PO SCH ×3 (07:59→21:16)
[2018-06-07] MEDS: Cholecalciferol TAB* 1000 UNITS PO SCH (07:59)
[2018-06-07] MEDS: guaiFENesin ER TAB 600 MG PO SCH ×2 (07:59→21:16)
[2018-06-07] MEDS: Benzonatate CAP* 100 MG PO SCH ×2 (08:00→21:16)
[2018-06-07] MEDS: PARoxetine HCL TAB* 20 MG PO SCH (08:00)
[2018-06-07] MEDS: Tamsulosin CAP* 0.4 MG PO SCH (08:00)
[2018-06-07] MEDS: Ascorbic Acid TAB* 500 MG PO SCH ×2 (08:00→21:16)
[2018-06-07] MEDS: Lactobacillus Acidophilus* 1 TAB PO SCH ×2 (08:00→21:16)
[2018-06-07] MEDS: Nicotine PATCH 21 MG/24 HR* PATCH TRANSDERM SCH (08:00)
[2018-06-07] MEDS: Acetaminophen TAB* 325 MG PO PRN (08:07)
[2018-06-07] MEDS ORDERED: Albuterol/Ipratropium NEB.SOL* Albuterol 2.5 MG/Ipratropium 0.5 MG 3 ML INH PRN (08:20)
[2018-06-07] MEDS: Baclofen TAB* 10 MG PO PRN ×3 (09:08→21:16)
[2018-06-07] MEDS: Acetaminop/Codeine 30 MG TAB* 1 TAB (300 MG/30 MG) PO PRN ×3 (09:08→21:23)
[2018-06-07] MEDS: Saline NASAL SPRAY 0.65%* BTL BOTH NARES PRN (10:29)
[2018-06-07] MEDS: Mometasone/Formoter 200/5 MDI INH SCH ×2 (13:27→21:01)
[2018-06-07] MEDS: cefTRIAXone(*) 1 GM in NS 0.9% 50 ML* 50 ML IVPB SCH (13:28)
[2018-06-07] MEDS ORDERED: Melatonin 3 MG TAB PO PRN (14:06)
[2018-06-07] MEDS: Azithromycin IV(*) 500 MG in NS 0.9% 250 ML* 250 ML IVPB SCH (15:09)
--- NOTE | 2018-06-07 20:59 | PN ---
Subjective Date of Service: 06/07/18 Interval History: continues to have shortness of breath , minimal improvement. denies chest pain. denies abd pain n/v/d. denies fever or chills frustrated with being woke up during the night for vital signs long discussion with family today about concerns of recurrent pneumonia and poor respiratory status at home. Patient and family are concerned about Lung Cancer d/t family hx of lung cancer and patients smoking hx and now with recurrent pneumonia and respiratory status not improving. Family History: Unchanged from Admission Social History: Unchanged from Admission Past Medical History: Unchanged from Admission Objective Active Medications: Acetaminophen (Tylenol Tab*) 650 mg PO Q4H PRN PRN Reason: FEVER/PAIN Last Admin: 06/07/18 08:07 Dose: 650 mg Acetaminophen/Codeine Phosphate (Tylenol/Codeine 30 Mg Tab*) 2 tab PO BEDTIME PRN PRN Reason: PAIN Last Admin: 06/06/18 21:25 Dose: 2 tab Acetaminophen/Codeine Phosphate (Tylenol/Codeine 30 Mg Tab*) 1 tab PO Q6H PRN PRN Reason: PAIN Last Admin: 06/07/18 15:18 Dose: 1 tab Albuterol (Ventolin 2.5 Mg/3 Ml Neb.Brenda*) 2.5 mg INH Q4H PRN PRN Reason: SOB/WHEEZING Albuterol/Ipratropium (Duoneb (Albuterol 2.5 Mg/Ipratropium 0.5 Mg)) 1 neb INH [id number] AWAKE PRN PRN Reason: SOB/WHEEZING Ascorbic Acid (Vitamin C Tab*) 500 mg PO BID [facility] Last Admin: 06/07/18 08:00 Dose: 500 mg Baclofen (Lioresal Tab*) 10 mg PO TID PRN PRN Reason: SPASMS Last Admin: 06/07/18 15:15 Dose: 10 mg Benzonatate (Tessalon Cap*) 100 mg PO BID [facility] Last Admin: 06/07/18 08:00 Dose: 100 mg Cholecalciferol (Vitamin D Tab*) 5,000 units PO DAILY [facility] Last Admin: 06/07/18 07:59 Dose: 5,000 units Diclofenac Sodium (Voltaren 1% Gel (Nf)) 1 applic TOPICAL BID [facility]; Protocol Last Admin: 06/07/18 08:44 Dose: 1 applic Docusate Sodium (Colace Cap*) 100 mg PO BID PRN PRN Reason: CONSTIPATION Guaifenesin (Mucinex*) 600 mg PO BID [facility] Last Admin: 06/07/18 07:59 Dose: 600 mg Heparin Sodium (Porcine) (Heparin Vial(*)) 5,000 units SUBCUT Q8HR [facility] Last Admin: 06/07/18 13:22 Dose: 5,000 units Ceftriaxone Sodium 1 gm/ (Sodium Chloride) 50 mls @ 200 mls/hr IVPB Q24H [facility] Last Admin: 06/07/18 13:28 Dose: 200 mls/hr Azithromycin 500 mg/ Sodium (Chloride) 250 mls @ 250 mls/hr IVPB Q24H [facility] Last Admin: 06/07/18 15:09 Dose: 250 mls/hr Lactobacillus Rhamnosus (Lactobacillus Acidophilus*) 1 tab PO BID [facility] Last Admin: 06/07/18 08:00 Dose: 1 tab Magnesium Hydroxide (Milk Of Magnes[place] Liq*) 30 ml PO Q4H PRN PRN Reason: CONSTIPATION Melatonin (Melatonin) 3 mg PO BEDTIME PRN PRN Reason: SLEEP Methylprednisolone Sodium Succinate (Solu-Medrol 40 Mg) 40 mg IV DAILY [facility] Last Admin: 06/07/18 07:59 Dose: 40 mg Mometasone Furoate/Formoterol Fumar (Dulera 200/5 Mdi*) 2 puff INH BID [facility] Last Admin: 06/07/18 13:27 Dose: Not Given Nicotine (Nicotine Patch 21 Mg/24 Hr*) 1 patch TRANSDERM DAILY [facility] Last Admin: 06/07/18 08:00 Dose: Not Given Nystatin (Nystatin Suspension*) 500,000 units PO TID [facility] Stop: 06/12/18 10:08 Last Admin: 06/07/18 13:23 Dose: 500,000 units Paroxetine HCl (Paxil Tab*) 20 mg PO DAILY [facility] Last Admin: 06/07/18 08:00 Dose: 20 mg Sodium Chloride (Sodium Chloride 0.65% Nasal [place]*) 1 spray BOTH NARES Q4H PRN PRN Reason: CONGESTION Last Admin: 06/07/18 10:29 Dose: 1 spray Tamsulosin HCl (Flomax Cap*) 0.4 mg PO DAILY [facility] Last Admin: 06/07/18 08:00 Dose: 0.4 mg Throat Lozenges (Chloraseptic Kat*) 1 kat PO Q6H PRN PRN Reason: SORE THROAT Last Admin: 06/04/18 19:40 Dose: 1 kat Zolpidem Tartrate (Ambien Tab*) 5 mg PO BEDTIME PRN PRN Reason: INSOMNIA Last Admin: 06/05/18 00:12 Dose: 5 mg Vital Signs - 8 hr 06/07/18 06/07/18 06/07/18 15:18 15:52 17:05 Temperature 97.4 F Pulse Rate 71 Respiratory 24 20 20 Rate Blood Pressure 132/80 (mmHg) O2 Sat by Pulse 97 Oximetry 06/07/18 06/07/18 19:56 20:24 Temperature 97.5 F Pulse Rate 104 Respiratory 20 18 Rate Blood Pressure 133/77 (mmHg) O2 Sat by Pulse 96 Oximetry Oxygen Devices in Use Now: Nasal Cannula Appearance: moderate shortness of breath , alert calm Eyes: No Scleral Icterus Ears/Nose/Mouth/Throat: Clear Oropharnyx, Mucous Membranes Moist Neck: NL Appearance and Movements; NL JVP, Trachea Midline Respiratory: Symmetrical Chest Expansion and Respiratory Effort, - - diminished t/o bilat with few scattered exp wheezes Cardiovascular: NL Sounds; No Murmurs; No JVD, No Edema Abdominal: NL Sounds; No Tenderness; No Distention Extremities: No Edema, No Clubbing, Cyanosis Skin: No Rash or Ulcers Neurological: Alert and Oriented x 3 Nutrition: Taking PO's Result Diagrams: 06/06/18 06:08 06/06/18 06:08 Microbiology and Other Data: Microbiology 06/05/18 00:10 Gram Stain - Final Sputum 06/04/18 13:50 Influenza Types A,B Antigen - Final Nasal Specimen received for Influenza A/B Molecular testing Assess/Plan/Problems-Billing Assessment: 62 yo male with a PMH of COPD, tobacco abuse, remote hx of hydrocephalus with 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 Hospitalized 03/2018 with pna and COPD exacerbation. - Patient Problems (1) Acute respiratory failure with hypoxia Current Visit: Yes Status: Acute Code(s): J96.01 - ACUTE RESPIRATORY FAILURE WITH HYPOXIA SNOMED Code(s): 24828869 Comment: - COPD exacerbation with possible RLL PNA - appears the exacerbation was 2nd to exposure of dust. He did however present with a fever/chills. Mild leukocytosis. - Chest xray "right lower lung zone airspace opacification concerning for pna" - Continue azithro & ceftriaxone - Continue Solumedrol 40 mg daily - Blood cultures negative - sputum cx normal pooja - Influenza negative - urine for S.pneumoniae and legionella negative - continues to be on O2 but is noted his O2 sats 99% - will titate o2 to maintain saturation of greater than 92% - consulted Dr. Crockett - will see tomorrow - Will check walking O2 tomorrow (2) COPD exacerbation Current Visit: Yes Status: Acute Priority: High Onset Date: 03/05/14 Code(s): J44.1 - CHRONIC OBSTRUCTIVE PULMONARY DISEASE W (ACUTE) EXACERBATION SNOMED Code(s): 662009008 Comment: -See above - Add daily Vitamin C (should be DC'd home on this, tobacco use depletes Vit C and should help inflammation/Immunity) (3) Anxiety Current Visit: Yes Status: Chronic Code(s): F41.9 - ANXIETY DISORDER, UNSPECIFIED SNOMED Code(s): 73238342 Comment: Continue Paxil. -seems calm today (4) Chronic pain Current Visit: Yes Status: Chronic Code(s): G89.29 - OTHER CHRONIC PAIN SNOMED Code(s): 32969137 Comment: - Continue home dose tylenol/codeine, baclofen - reports that he takes 3 tabs of tc#3 at night with 2 tablets of baclofen to control pain and sleep at night - will change TC# to Q 6 hours and 2 tabs at night (5) Thrush, oral Current Visit: Yes Status: Acute Code(s): B37.0 - CANDIDAL STOMATITIS SNOMED Code(s): 94824740 Comment: - suspect source of sore throat; oral thrush is noted. - Start Nystatin swish and swallow - add probiotic - pt should be continue this at home for minimum 3 months (6) Vitamin D deficiency Current Visit: Yes Status: Acute Code(s): E55.9 - VITAMIN D DEFICIENCY, UNSPECIFIED SNOMED Code(s): 52413982 Comment: stable - continue home dose supplementation. vit D level 29 (7) DVT prophylaxis Current Visit: Yes Status: Acute Priority: Medium Onset Date: 03/05/14 Code(s): [id number] - SNOMED Code(s): 245373587 Comment: - HSQ (8) Full code status Current Visit: Yes Status: Acute Priority: Medium Onset Date: 03/05/14 Code(s): Z78.9 - OTHER SPECIFIED HEALTH STATUS SNOMED Code(s): 304911963 Status and Disposition: inpatient with acute hypoxic resp failure. Home when medically stable.
[2018-06-08] MEDS: Heparin VIAL(*) 5000 UNITS/ML VIAL (FIVE THOUSAND) SUBCUT SCH ×3 (05:22→21:31)
[2018-06-08 06:44] LABS: BUN/Creatinine Ratio 50.8 (8-20); Calcium 8.6 mg/dL (8.6-10.3); EGFR African American 163.2 (>60); EGFR Non-African American 134.8 (>60); Magnesium 2.2 mg/dL (1.9-2.7); Potassium 4.1 mmol/L (3.5-5.0)
[2018-06-08] MEDS: Acetaminop/Codeine 30 MG TAB* 1 TAB (300 MG/30 MG) PO PRN ×2 (08:34→21:34)
[2018-06-08] MEDS: methylPREDNISolone SOD 40 MG* 1 ML VIAL IV SCH (08:34)
[2018-06-08] MEDS: Saline NASAL SPRAY 0.65%* BTL BOTH NARES PRN (08:34)
[2018-06-08] MEDS: Lactobacillus Acidophilus* 1 TAB PO SCH ×2 (08:35→21:31)
[2018-06-08] MEDS: Nicotine PATCH 21 MG/24 HR* PATCH TRANSDERM SCH (08:35)
[2018-06-08] MEDS: Nystatin SUSPENSION* 100000 UNITS/ML 5 ML UDC PO SCH ×3 (08:35→21:31)
[2018-06-08] MEDS: Ascorbic Acid TAB* 500 MG PO SCH ×2 (08:35→21:31)
[2018-06-08] MEDS: PARoxetine HCL TAB* 20 MG PO SCH (08:35)
[2018-06-08] MEDS: Tamsulosin CAP* 0.4 MG PO SCH (08:35)
[2018-06-08] MEDS: CMCS: Diclofenac 1% GEL (NF) 100 GM TUBE TOPICAL SCH ×2 (08:35→21:31)
[2018-06-08] MEDS: Benzonatate CAP* 100 MG PO SCH ×2 (08:35→21:31)
[2018-06-08] MEDS: guaiFENesin ER TAB 600 MG PO SCH ×2 (08:35→21:31)
[2018-06-08] MEDS: Cholecalciferol TAB* 1000 UNITS PO SCH (08:42)
[2018-06-08] MEDS: Mometasone/Formoter 200/5 MDI INH SCH (08:43)
[2018-06-08] MEDS ORDERED: LORazepam INJ* 2 MG/ML 1 ML VIAL IV PUSH ONE (10:47)
[2018-06-08] MEDS: cefTRIAXone(*) 1 GM in NS 0.9% 50 ML* 50 ML IVPB SCH (13:26)
[2018-06-08] MEDS: Azithromycin IV(*) 500 MG in NS 0.9% 250 ML* 250 ML IVPB SCH (15:39)
--- NOTE | 2018-06-08 16:17 | PN ---
Subjective Date of Service: 06/08/18 Interval History: Patient is feeling better with regards to SOB. Was able to produce a sputum sample today, but has decreased cough. Patient denies CP, N/V, abdominal pain, diarrhea, dysuria, dizziness, or other pain. Family History: Unchanged from Admission Social History: Unchanged from Admission Past Medical History: Unchanged from Admission Objective Active Medications: Acetaminophen (Tylenol Tab*) 650 mg PO Q4H PRN PRN Reason: FEVER/PAIN Last Admin: 06/07/18 08:07 Dose: 650 mg Acetaminophen/Codeine Phosphate (Tylenol/Codeine 30 Mg Tab*) 2 tab PO BEDTIME PRN PRN Reason: PAIN Last Admin: 06/07/18 21:23 Dose: 2 tab Acetaminophen/Codeine Phosphate (Tylenol/Codeine 30 Mg Tab*) 1 tab PO Q6H PRN PRN Reason: PAIN Last Admin: 06/08/18 08:34 Dose: 1 tab Albuterol (Ventolin 2.5 Mg/3 Ml Neb.Brenda*) 2.5 mg INH Q4H PRN PRN Reason: SOB/WHEEZING Albuterol/Ipratropium (Duoneb (Albuterol 2.5 Mg/Ipratropium 0.5 Mg)) 1 neb INH [id number] AWAKE PRN PRN Reason: SOB/WHEEZING Last Admin: 06/08/18 14:14 Dose: 1 neb Ascorbic Acid (Vitamin C Tab*) 500 mg PO BID [facility] Last Admin: 06/08/18 08:35 Dose: 500 mg Baclofen (Lioresal Tab*) 10 mg PO TID PRN PRN Reason: SPASMS Last Admin: 06/07/18 21:16 Dose: 10 mg Benzonatate (Tessalon Cap*) 100 mg PO BID [facility] Last Admin: 06/08/18 08:35 Dose: 100 mg Cholecalciferol (Vitamin D Tab*) 5,000 units PO DAILY [facility] Last Admin: 06/08/18 08:42 Dose: 5,000 units Diclofenac Sodium (Voltaren 1% Gel (Nf)) 1 applic TOPICAL BID [facility]; Protocol Last Admin: 06/08/18 08:35 Dose: 1 applic Docusate Sodium (Colace Cap*) 100 mg PO BID PRN PRN Reason: CONSTIPATION Guaifenesin (Mucinex*) 600 mg PO BID [facility] Last Admin: 06/08/18 08:35 Dose: 600 mg Heparin Sodium (Porcine) (Heparin Vial(*)) 5,000 units SUBCUT Q8HR [facility] Last Admin: 06/08/18 13:26 Dose: 5,000 units Ceftriaxone Sodium 1 gm/ (Sodium Chloride) 50 mls @ 200 mls/hr IVPB Q24H [facility] Last Admin: 06/08/18 13:26 Dose: 200 mls/hr Azithromycin 500 mg/ Sodium (Chloride) 250 mls @ 250 mls/hr IVPB Q24H [facility] Stop: 06/08/18 17:00 Last Admin: 06/08/18 15:39 Dose: 250 mls/hr Lactobacillus Rhamnosus (Lactobacillus Acidophilus*) 1 tab PO BID [facility] Last Admin: 06/08/18 08:35 Dose: 1 tab Magnesium Hydroxide (Milk Of [place] Liq*) 30 ml PO Q4H PRN PRN Reason: CONSTIPATION Melatonin (Melatonin) 3 mg PO BEDTIME PRN PRN Reason: SLEEP Methylprednisolone Sodium Succinate (Solu-Medrol 40 Mg) 40 mg IV DAILY [facility] Last Admin: 06/08/18 08:34 Dose: 40 mg Mometasone Furoate/Formoterol Fumar (Dulera 200/5 Mdi*) 2 puff INH BID [facility] Last Admin: 06/08/18 08:43 Dose: Not Given Nicotine (Nicotine Patch 21 Mg/24 Hr*) 1 patch TRANSDERM DAILY [facility] Last Admin: 06/08/18 08:35 Dose: Not Given Nystatin (Nystatin Suspension*) 500,000 units PO TID [facility] Stop: 06/12/18 10:08 Last Admin: 06/08/18 13:26 Dose: 500,000 units Paroxetine HCl (Paxil Tab*) 20 mg PO DAILY [facility] Last Admin: 06/08/18 08:35 Dose: 20 mg Sodium Chloride (Sodium Chloride 0.65% Nasal [place]*) 1 spray BOTH NARES Q4H PRN PRN Reason: CONGESTION Last Admin: 06/08/18 08:34 Dose: 1 spray Tamsulosin HCl (Flomax Cap*) 0.4 mg PO DAILY [facility] Last Admin: 06/08/18 08:35 Dose: 0.4 mg Throat Lozenges (Chloraseptic Kat*) 1 kat PO Q6H PRN PRN Reason: SORE THROAT Last Admin: 03/16/19 19:40 Dose: 1 kat Zolpidem Tartrate (Ambien Tab*) 5 mg PO BEDTIME PRN PRN Reason: INSOMNIA Last Admin: 06/05/18 00:12 Dose: 5 mg Vital Signs - 8 hr 06/08/18 06/08/18 06/08/18 08:34 11:11 11:13 Temperature 98.0 F Pulse Rate 89 Respiratory 16 20 20 Rate Blood Pressure 129/87 (mmHg) O2 Sat by Pulse 98 Oximetry 06/08/18 06/08/18 06/08/18 11:14 12:14 14:16 Temperature Pulse Rate 101 Respiratory 22 20 18 Rate Blood Pressure (mmHg) O2 Sat by Pulse 92 Oximetry Oxygen Devices in Use Now: None Appearance: Patient is a 62yo male who appears stated age and is sitting in the bed in NAD. Eyes: No Scleral Icterus, PERRLA Ears/Nose/Mouth/Throat: NL Teeth, Lips, Gums, Clear Oropharnyx, Mucous Membranes Moist Neck: NL Appearance and Movements; NL JVP, Trachea Midline Respiratory: Symmetrical Chest Expansion and Respiratory Effort, - - Expiratory wheezing throughout, diminished. Cardiovascular: NL Sounds; No Murmurs; No JVD, RRR, No Edema Abdominal: NL Sounds; No Tenderness; No Distention, No Hepatosplenomegaly Lymphatic: No Cervical Adenopathy Extremities: No Edema, No Clubbing, Cyanosis Skin: No Rash or Ulcers, No Nodules or Sclerosis Neurological: Alert and Oriented x 3, NL Sensation, NL Muscle Strength and Tone , - - CN II-XII intact. Result Diagrams: 06/06/18 06:08 06/08/18 06:00 Microbiology and Other Data: Microbiology 06/05/18 00:10 Gram Stain - Final Sputum 06/04/18 13:50 Influenza Types A,B Antigen - Final Nasal Specimen received for Influenza A/B Molecular testing Assess/Plan/Problems-Billing Assessment: 62 yo male with a PMH of COPD, tobacco abuse, remote hx of hydrocephalus with FLIGHT PHYSICIAN shunt, hx of intraoperative CVA, multiple craniotomies, back pain, depression/anxiety who presented on 06/04 to the ER with c/o SOB foun dto be hypoxic with a RLL PNA. Hospitalized 03/2018 with pna and COPD exacerbation with slow improvement. - Patient Problems (1) Acute respiratory failure with hypoxia Current Visit: Yes Status: Acute Code(s): J96.01 - ACUTE RESPIRATORY FAILURE WITH HYPOXIA SNOMED Code(s): 39856988 Comment: - COPD exacerbation with possible RLL PNA - appears the exacerbation was 2nd to exposure of dust. He did however present with a fever/chills. Mild leukocytosis. - Chest xray "right lower lung zone airspace opacification concerning for pna" - Continue azithro & ceftriaxone, Azithro finished today - Continue Solumedrol 40 mg daily, will transition to PO tomorrow. - Blood cultures negative - Influenza negative - urine for S.pneumoniae and legionella negative - Able to wean to RA today. - consulted Dr. Crockett - will see today (2) COPD exacerbation Current Visit: Yes Status: Acute Priority: High Onset Date: 03/05/14 Code(s): J44.1 - CHRONIC OBSTRUCTIVE PULMONARY DISEASE W (ACUTE) EXACERBATION SNOMED Code(s): 313829788 Comment: -See above - Add daily Vitamin C (should be DC'd home on this, tobacco use depletes Vit C and should help inflammation/Immunity) (3) Anxiety Current Visit: Yes Status: Chronic Code(s): F41.9 - ANXIETY DISORDER, UNSPECIFIED SNOMED Code(s): 21384451 Comment: - Continue Paxil. - Euthymic, Needing infrequent 1 time doses of ativan. (4) Full code status Current Visit: Yes Status: Acute Priority: Medium Onset Date: 03/05/14 Code(s): Z78.9 - OTHER SPECIFIED HEALTH STATUS SNOMED Code(s): 877472783 (5) DVT prophylaxis Current Visit: Yes Status: Acute Priority: Medium Onset Date: 03/05/14 Code(s): ZXY9612 - SNOMED Code(s): 605064784 Comment: - HSQ Status and Disposition: inpatient with acute hypoxic resp failure. Home when medically stable, hopefully tomorrow.
--- NOTE | 2018-06-08 20:15 | CONS ---
PULMONARY CONSULTATION REPORT: DATE OF CONSULTATION: 06/08/18 CONSULTATION REQUESTED BY: Jasmine Wiggins NP REASON FOR CONSULTATION: Evaluation of shortness of breath. HISTORY OF PRESENT ILLNESS: The patient is a 62-year-old male, smoker with significant smoking history. He has a history of COPD, admitted in March for COPD exacerbation and was also treated for pneumonia at that time. The patient presents for evaluation of worsening shortness of breath, fevers and chills. The patient reports no sick contacts. The patient reports having some construction near his house and reports exposure to dust. 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 He has significant smoking history and continues to smoke and is positive about quitting now. He has been having worsening shortness of breath at home recently. He was found to have low oxygen saturation around 80s at home. He also had fevers, chills with productive cough. Given hypoxemia, he was brought into the ER for further evaluation. He was found to be tachycardic, febrile and was coughing with significant phlegm production. He continues to have cough and is able to bring lots of mucus. The patient reports feeling slightly improved. However, he is getting significantly short of breath even with minimal activity. Denies any recent travel. He has a history of COPD, treated with Symbicort and rescue inhaler and nebulizers at home. He did not see significant benefit from nebulizers and rescue inhaler prior to presentation. He has had further evaluation in the emergency room which included chest x-ray. I personally reviewed chest x-ray images and with the patient today. There is evidence of air space opacities in the right lower lung zone concerning for pneumonia. Also seen are old rib fractures which were also seen on prior x- rays. The patient reports family history of lung cancers and is concerned about having lung cancer. He never had low-dose screening CT. PAST MEDICAL HISTORY: COPD, tobacco abuse, obstructive hydrocephalus with DUMP TRUCK OPERATOR shunt and CVA with a complicated postop course, history of back pain and spasms , BPH, depression, anxiety, history of falls in the past and rib fractures. PAST SURGICAL HISTORY: DUMP TRUCK OPERATOR shunt, craniotomies, right knee arthroscopy. MEDICATIONS AT HOME: 1. Vitamin D3. 2. Baclofen. 3. DuoNeb. 4. Ventolin. 5. Tylenol. 6. Prednisone 10 mg. 7. Vitamin B. 8. Flomax. 9. Symbicort. 10. Paxil 1 tablet daily. ALLERGIES: PHENYTOIN and BLUEBERRIES. FAMILY HISTORY: Mother with cardiac disease. Father with esophageal cancer. SOCIAL HISTORY: Smoker, 3/4th to 1 pack per day for 47 years. No alcohol or drug abuse. REVIEW OF SYSTEMS: All 14 systems reviewed as per HPI. PHYSICAL EXAM: The patient is in bed, in no apparent distress. Vital Signs: Temperature 98, pulse 101 beats per minute, respiratory rate 18 per minute, O2 sat 92% on room air, blood pressure 129/87. HEENT: Pupils equal, reactive to light. Mucous membranes moist. Lungs: Poor air entry bilaterally. Distant breath sounds, slight wheeze on auscultation. Cardiovascular: S1, S2 present. Tachycardic. Abdomen: Soft, nontender, nondistended. Bowel sounds present. Extremities: Normal range of motion. No edema. Skin: No rash or bruises. Neuro: Alert, awake, oriented x3. No focal deficits. DIAGNOSTIC STUDIES/LAB DATA: WBC count 6.1, decreased from 11.3 on admission; hemoglobin 12.8; hematocrit 37; platelet count of 230,000. Blood gas analysis on admission showed no hypercapnia. PO2 was 75. Sodium 139, potassium 4.1, chloride 103, bicarb 34, BUN 31, creatinine 0.61. Influenza A and B negative. Chest x-ray as described above in the HPI. Pulse oximetry showed significant hypoxemia with O2 sat of 62%, O2 less than 89 for about 12 minutes. IMPRESSION AND RECOMMENDATION: 62-year-old male with significant smoking history, continues to smoke, admitted with worsening shortness of breath and found to have pneumonia. The patient had recent hospitalization in March for chronic obstructive pulmonary disease exacerbation, did not appreciate pneumonia on chest x- ray at that time, but the patient felt like he had double pneumonia at that point. He definitely is improving and his O2 sats are normal at baseline. Will have to evaluate for ambulatory O2 assessment. He would quality for oxygen at home as his overnight oximetry was consistent with hypoxemia for more than 5 minutes at night. Smoking cessation education and counseling was performed during today's visit that lasted 4 minutes. The patient agreed to quit smoking. Discussed interventions that will help quit smoking. Continue with current antibiotics. Continue with bronchodilators. Out of bed to chair as tolerated. Would start tapering Solu- Medrol. Will need PFTs and low dose lung cancer screening CT as outpatient. Thank you for allowing me to participate in the care of your patient. Will follow up with you. [id number]/[facility] #: [id number] RADHA
[2018-06-08] MEDS: Baclofen TAB* 10 MG PO PRN (21:34)
[2018-06-09] MEDS: Heparin VIAL(*) 5000 UNITS/ML VIAL (FIVE THOUSAND) SUBCUT SCH ×2 (05:08→13:16)
[2018-06-09 06:19] LABS: BUN/Creatinine Ratio 47.5 (8-20); Calcium 8.6 mg/dL (8.6-10.3); EGFR African American 163.2 (>60); EGFR Non-African American 134.8 (>60); Magnesium 2.1 mg/dL (1.9-2.7)
[2018-06-09] MEDS: Mometasone/Formoter 200/5 MDI INH SCH ×2 (08:02→11:11)
[2018-06-09] MEDS: CMCS: Diclofenac 1% GEL (NF) 100 GM TUBE TOPICAL SCH (08:46)
[2018-06-09] MEDS: Lactobacillus Acidophilus* 1 TAB PO SCH (08:49)
[2018-06-09] MEDS: Cholecalciferol TAB* 1000 UNITS PO SCH (08:49)
[2018-06-09] MEDS: Tamsulosin CAP* 0.4 MG PO SCH (08:50)
[2018-06-09] MEDS: Benzonatate CAP* 100 MG PO SCH (08:50)
[2018-06-09] MEDS: guaiFENesin ER TAB 600 MG PO SCH (08:50)
[2018-06-09] MEDS: PARoxetine HCL TAB* 20 MG PO SCH (08:50)
[2018-06-09] MEDS: Nicotine PATCH 21 MG/24 HR* PATCH TRANSDERM SCH (08:51)
[2018-06-09] MEDS: Nystatin SUSPENSION* 100000 UNITS/ML 5 ML UDC PO SCH ×2 (08:51→13:16)
[2018-06-09] MEDS: Ascorbic Acid TAB* 500 MG PO SCH (08:51)
[2018-06-09] MEDS: Acetaminop/Codeine 30 MG TAB* 1 TAB (300 MG/30 MG) PO PRN (08:55)
[2018-06-09] MEDS ORDERED: predniSONE TAB* 20 MG PO SCH (09:00)
[2018-06-09 11:55] VITALS: BP 128/83
[2018-06-09] MEDS: cefTRIAXone(*) 1 GM in NS 0.9% 50 ML* 50 ML IVPB SCH (13:16)
--- NOTE | 2018-06-09 23:16 | DS ---
CC: Dr. Alphonso Juárez; Dr. Miracle Crockett * DISCHARGE SUMMARY: DATE OF ADMISSION: 06/04/18 DATE OF DISCHARGE: 06/09/18 PRIMARY CARE PROVIDER: Alphonso Juárez DO MY ATTENDING WHILE IN THE HOSPITAL: Jese Miller MD * (DICTATED BY DOLORES AUSTIN) CONSULTING WIGS SALESPERSON: Miracle Crockett MD PRIMARY DISCHARGE DIAGNOSES: 1. Chronic obstructive pulmonary disease exacerbation. 2. Community-acquired pneumonia. 3. Acute hypoxic respiratory failure, resolved. SECONDARY DISCHARGE DIAGNOSES: 1. Chronic obstructive pulmonary disease. 2. Tobacco abuse. 3. History of obstructive hydrocephalus with GEAR SHAPER SET UP OPERATOR shunt, complicated by cerebrovascular accident. 4. Benign prostatic hypertrophy. 5. Depression. 6. Anxiety. STUDIES DONE WHILE IN THE HOSPITAL: Chest x-ray from 05/25/18 read as right lung zone airspace opacification concerning for pneumonia, old left-sided rib fractures. Pulse oximetry overnight showed 12 minutes of time with oxygen saturation less than 89%. MEDICATIONS AT DISCHARGE: 1. DuoNeb inhaler 1 neb inhalation q.3 hours as needed. 2. Baclofen 10 mg p.o. t.i.d. as needed. 3. Albuterol 2 puffs inhalation q.4 hours as needed. 4. Paroxetine 1 tab p.o. daily. 5. Tylenol with Codeine 1 tab at noon as needed, 2 tabs at bedtime as needed. 6. Vitamin D3 5000 units daily. 7. B complex 1 cap p.o. daily. 8. Tamsulosin 1 cap p.o. daily. 9. Symbicort 160/4.5 two puffs inhalation b.i.d. 10. Ascorbic acid 500 mg p.o. b.i.d. 11. Cefuroxime 500 mg p.o. b.i.d. x4. 12. Docusate 100 mg p.o. b.i.d. as needed. 13. Mucinex 600 mg p.o. b.i.d. x20. 14. Lactobacillus acidophilus 1 tab p.o. b.i.d. 15. Prednisone 5 mg p.o. daily with tapers. 16. Spiriva inhaler 18 mcg inhalation daily. New medications on discharge: 1. Vitamin C. 2. Cefuroxime. 3. Docusate. 4. Guaifenesin. 5. Lactobacillus. 6. Prednisone. 7. Spiriva. Medications discontinued at discharge: 1. Prednisone 10 mg p.o. daily. HOSPITAL COURSE: This is a brief summary of the patient's presentation. For more details, please see the history and physical from Natalie Perez NP , on 06/04/18. In brief, the patient is a 62-year-old male with past medical history as above who presented to the emergency department when he was exposed to some construction dust and developed a cough and shortness of breath. He began to feel very poorly, had fevers and chills, and was brought into the emergency department with oxygen saturations in the 80s. The patient was given dexamethasone inhalers. The patient was febrile, coughing, with right lower lobe consolidation as above. The patient admitted to the hospital and started on ceftriaxone and azithromycin. The patient admitted to this hospital in March for COPD exacerbation and concern for pneumonia at that time as well. The patient was started on IV steroids with Solu-Medrol 40 mg every 8 hours and this was steadily titrated throughout his hospitalization. The patient had negative urine antigens. The patient had pulse oximetry as above on 2 L with significant desaturations. The patient improved slowly allowing for slow weaning of his steroids. The patient continued to need supplemental oxygen. The patient had concern for lung cancer given his slow progress. It was discussed with the patient that given his pneumonia, CT for lung cancer would be nondiagnostic at this point. The patient was seen in consultation by Dr. Miracle Crockett of Pulmonology who recommended continuing the patient's current management and to follow up outpatient for PFTs and a low-dose screening CT as well as for the patient to quit smoking. The patient was able to be weaned off his oxygen entirely on 06/09/18, though he is recommended to continue with nocturnal oxygen. The patient was stable enough for discharge on 06/09/18. PHYSICAL EXAMINATION ON THE DAY OF DISCHARGE: General: The patient is a 62- year- old male who appears stated age and sitting comfortably in the bed, in no acute distress. Vital Signs: At the time of discharge, temperature 97.4, pulse rate 86, respiratory rate 20, oxygen saturation 98% on room air, blood pressure 128/83. HEENT: Head is normocephalic, atraumatic. Sclerae anicteric. No conjunctival injection. Nasal mucosa is moist. Oral mucosa is moist. No pharyngeal erythema, discharge, or exudate. Neck: Supple, nontender. No lymphadenopathy. No carotid bruits auscultated. No JVD. Cardiac: Regular rate and rhythm. No clicks, murmurs, gallops, or rubs. Pulses 2+ in the bilateral dorsalis pedis, posterior tibialis, and radial areas. Respiratory: Clear to auscultation bilaterally. No wheezes, rales, or rhonchi. Good air exchange bilaterally. Abdomen: Soft, nontender, nondistended. Bowel sounds present. Normoactive in all 4 quadrants. No hepatosplenomegaly. No abdominal bruits auscultated. No hepatojugular reflux. Genitourinary: No suprapubic or CVA tenderness. Skin: Clean, dry, intact. No rash. Neuro: Cranial nerves II through XII intact. No focal deficits. Alert and oriented x3. Psychiatric: Pleasant and cooperative. DISCHARGE PLAN: The patient will be discharged to home. The patient will have nebulizers as above. The patient will be on triple lung inhaler therapy with his home Symbicort as well as the addition of tiotropium. The patient will have a steroid taper with 40 mg daily for 3 days followed by 20 mg daily for 3 days. The patient should follow up with his primary care provider in 1 week to document continued improvement and for general medical management. The patient is prediabetic and should discuss this with his primary care provider. The patient should follow up with Dr. Miracle Crockett for PFTs and a low-dose screening chest CT in 4 to 6 weeks. The patient should return to the hospital for severe shortness of breath, chest pain, passing out or other alarming symptoms. TIME SPENT: Approximately 60 minutes was spent on the discharge of this patient , 30 of which was spent [id number] with the patient obtaining history and physical and discussing treatment plan. DOLORES AUSTIN [id number]/[facility] #: [id number] MTDD
== END 2018-06-09 15:35 | disposition home or self-care (01) | DRG 193 ==
LOC: ED 12:40 → MEDTELE 14:52
PROVIDERS: ADMIT Internal Medicine; ATTEND Internal Medicine
DX: J18.9 Pneumonia, unspecified organism (principal); J96.01 Acute respiratory failure with hypoxia; J44.1 Chronic obstructive pulmonary disease with (acute) exacerbation; J44.0 Chronic obstructive pulmonary disease with (acute) lower respiratory infection; B37.0 Candidal stomatitis; F17.210 Nicotine dependence, cigarettes, uncomplicated; N40.0 Benign prostatic hyperplasia without lower urinary tract symptoms; F32.9 Major depressive disorder, single episode, unspecified; F41.9 Anxiety disorder, unspecified; G89.29 Other chronic pain; E55.9 Vitamin D deficiency, unspecified; R73.03 Prediabetes; Z98.2 Presence of cerebrospinal fluid drainage device; Z86.73 Personal history of transient ischemic attack (TIA), and cerebral infarction without residual deficits; Z79.1 Long term (current) use of non-steroidal anti-inflammatories (NSAID); Z79.51 Long term (current) use of inhaled steroids; Z79.52 Long term (current) use of systemic steroids; Z79.899 Other long term (current) drug therapy; Z82.49 Family history of ischemic heart disease and other diseases of the circulatory system; Z80.0 Family history of malignant neoplasm of digestive organs; Z88.5 Allergy status to narcotic agent; Z91.018 Allergy to other foods
CPT/HCPCS: 36415; 71045; 80048; 80053; 82306; 82607; 82803; 83036; 83605; 83735; 83880; 84484; 85025; 85610; 86140; 87040; 87070; 87205; 87899; 93005; 94640; 94762; 99284; 99406; A9270-GY; J0360; J0456; J0696; J1644; J1885; J2060; J2920; J2930; J3475; J7512

== ENCOUNTER 2019-10-26 10:27 | Inpatient (IN) ==
[2019-10-26] MEDS ORDERED: Albuterol/Ipratropium NEB.SOL (2.5/0.5 MG) 3 ML NEB.SOLN INH ONE (10:37)
[2019-10-26 11:00] LABS: ABS Lymphocytes 0.8 10^3/ul (1.0-4.8); ABS Monocytes 0.8 10^3/ul (0-0.8); ABS Neutrophils 7.9 10^3/ul (1.5-7.7); Eosinophil % 0.2 %; Hematocrit 42 % (42-52); Hemoglobin 14.7 g/dL (14.0-18.0); Lymphocyte % 8.8 %; Mean Corpuscular HGB Conc 35 g/dL (31-36); Mean Corpuscular Hemoglobin 34 pg (27-31); Mean Corpuscular Volume 98 fL (80-94); Mean Platelet Volume 7.4 fL (7.4-10.4); Platelet Count 199 10^3/uL (150-450); Red Blood Count 4.33 10^6 /uL (4.18-5.48); Red Cell Distribution Width 14 % (10-15); White Blood Count 9.6 10^3/uL (3.5-10.8)
[2019-10-26 11:24] LABS: Troponin I 0.01 ng/mL (<0.03)
[2019-10-26 11:32] LABS: Albumin 3.9 g/dL (3.2-5.2); Albumin/Globulin Ratio 1.3 (1-3); BUN/Creatinine Ratio 18.3 (8-20); C Reactive Protein 9.32 mg/L (<8.01); Calcium 9.1 mg/dL (8.6-10.3); EGFR African American 115.6 (>60); EGFR Non-African American 95.5 (>60); Globulin 3.1 g/dL (2-4); Potassium 4.1 mmol/L (3.5-5.0); Total Bilirubin 0.6 mg/dL (0.2-1.0)
[2019-10-26] MEDS ORDERED: fentaNYL 100 mcg/2 ml 50 MCG/ML VIAL IV SLOW PU ONE (13:01)
[2019-10-26 13:44] LABS: Urine Appearance Clear; Urine Bilirubin Negative (Negative); Urine Blood Negative (Negative); Urine Color Yellow; Urine Glucose Negative (Negative); Urine Ketones Negative (Negative); Urine Nitrite Negative (Negative); Urine Protein Negative (Negative); Urine Specific Gravity 1.019 (1.010-1.030); Urine Urobilinogen Negative (Negative)
[2019-10-26] MEDS ORDERED: oxyCODONE/Acetamin 5/325 mg TAB PO PRN (14:35)
[2019-10-26] MEDS ORDERED: Morphine 4 MG/ML VIAL (1 ml) IV ONE (14:42)
[2019-10-26] MEDS ORDERED: Acetaminop/Codeine 300mg/30mg TAB PO PRN ×2 (16:03→16:04)
[2019-10-26] MEDS ORDERED: Albuterol/Ipratropium NEB.SOL (2.5/0.5 MG) 3 ML NEB.SOLN INH PRN (16:10)
[2019-10-26] MEDS: Enoxaparin 40 MG/0.4 ML SYR SUBCUT SCH (18:01)
[2019-10-26] MEDS: Mometasone/Formoter 200/5 MDI INH SCH (19:04)
[2019-10-26] MEDS: Analgesic BALM 114 GM TOPICAL SCH (21:31)
[2019-10-26] MEDS: Lidocaine PATCH 5% PATCH TRANSDERM SCH (21:32)
[2019-10-27] MEDS: Mometasone/Formoter 200/5 MDI INH SCH ×2 (07:13→19:27)
[2019-10-27] MEDS: Acetaminop/Codeine 300mg/30mg TAB PO PRN ×2 (09:25→17:04)
[2019-10-27] MEDS: Lidocaine PATCH 5% PATCH TRANSDERM SCH ×2 (09:31→09:37)
[2019-10-27] MEDS: Senna TAB 8.6 mg TAB PO SCH (09:32)
[2019-10-27] MEDS: Fluticasone NASAL SPRAY 50MCG 16 gm SPRAY BTL INTRANASAL SCH (09:36)
[2019-10-27] MEDS: Analgesic BALM 114 GM TOPICAL SCH ×3 (09:38→20:27)
[2019-10-27] MEDS ORDERED: Lidocaine Patch REMOVE PATCH PATCH OFF SCH (10:00)
[2019-10-27] MEDS: Enoxaparin 40 MG/0.4 ML SYR SUBCUT SCH (17:08)
[2019-10-28] MEDS: Mometasone/Formoter 200/5 MDI INH SCH ×2 (07:34→20:08)
[2019-10-28] MEDS: Lidocaine PATCH 5% PATCH TRANSDERM SCH (08:42)
[2019-10-28] MEDS: Senna TAB 8.6 mg TAB PO SCH (08:44)
[2019-10-28] MEDS: Analgesic BALM 114 GM TOPICAL SCH ×3 (08:50→20:58)
[2019-10-28] MEDS: Fluticasone NASAL SPRAY 50MCG 16 gm SPRAY BTL INTRANASAL SCH (08:50)
[2019-10-28] MEDS: Acetaminop/Codeine 300mg/30mg TAB PO PRN ×2 (14:01→20:59)
[2019-10-28] MEDS: Enoxaparin 40 MG/0.4 ML SYR SUBCUT SCH (16:17)
[2019-10-28 19:29] LABS: BUN/Creatinine Ratio 45.2 (8-20); Calcium 9.5 mg/dL (8.6-10.3); EGFR African American 112.4 (>60); EGFR Non-African American 92.9 (>60); Potassium 4.6 mmol/L (3.5-5.0)
[2019-10-28] MEDS ORDERED: Lidocaine Patch REMOVE PATCH PATCH OFF SCH (21:00)
[2019-10-28] MEDS ORDERED: Nicotine GUM 2MG FRUIT FLAVOR PO PRN (23:24)
[2019-10-28 23:50] LABS: Urine Appearance Cloudy; Urine Bilirubin Negative (Negative); Urine Blood Negative (Negative); Urine Color Yellow; Urine Glucose Negative (Negative); Urine Ketones 1+ (Negative); Urine Nitrite Negative (Negative); Urine Protein 1+(30 mg/dL) (Negative); Urine Specific Gravity 1.032 (1.010-1.030); Urine Urobilinogen Negative (Negative)
[2019-10-29 00:03] LABS: Urine Bacteria Absent (Absent); Urine Red Blood Cell 3+(>10/hpf) (Absent); Urine Squamous Epithelial Cell Present (Absent); Urine White Blood Cell Trace(0-5/hpf) (Absent)
[2019-10-29 00:22] LABS: Urine Benzodiazepine Screen None Detected (None Detect); Urine Cannabinoids Screen None Detected (None Detect); Urine Opiates Screen Presumptive Positive (None Detect)
[2019-10-29] MEDS: Senna TAB 8.6 mg TAB PO SCH (07:17)
[2019-10-29] MEDS: Lidocaine PATCH 5% PATCH TRANSDERM SCH (07:18)
[2019-10-29] MEDS: Mometasone/Formoter 200/5 MDI INH SCH (07:51)
[2019-10-29] MEDS ORDERED: Nicotine PATCH 21 MG/24 HR PATCH TRANSDERM SCH (08:00)
[2019-10-29] MEDS: Fluticasone NASAL SPRAY 50MCG 16 gm SPRAY BTL INTRANASAL SCH (08:06)
[2019-10-29] MEDS: Analgesic BALM 114 GM TOPICAL SCH (08:33)
[2019-10-29 08:37] VITALS: BP 129/77
== END 2019-10-29 10:45 | disposition home or self-care (01) | DRG 135 ==
LOC: MED 10:27 → ED 10:27 → INTOOBSV 16:11 → OBSVTOIN 16:11 → MED 17:41
PROVIDERS: ADMIT Internal Medicine; ATTEND Internal Medicine

== ENCOUNTER 2021-05-16 06:28 | Observation (INO) ==
[~2021-05-16 06:28] MED LIST: Buffered Lidocaine 1% SYRIN 1 ml INTRADERM ONE; Bupivacaine 0.5% SDV PF 30ML VIAL ONE; Dexamethasone IV 4 MG/ML VIAL 1 ml VIAL ONE; Lactated Ringers 1000 ml BAG 1,000 ML IV SCH; Lidocaine 2% PF 5 ML VIAL ONE; Midazolam 2 mg/2 ml VIAL 1 mg/ml 2 ml VIAL (2 mg) ONE; Ondansetron 4 mg VIAL 2 MG/ML 2 ml VIAL ONE; Propofol 0 MG/0 ML BTL ONE; Propofol 10 MG/ML 20 ML BTL ONE; fentaNYL 100 mcg/2 ml 50 MCG/ML VIAL ONE
[2021-05-16] MEDS ORDERED: Phenylephrine IV 10 MG/ML 1 ml VIAL ONE (06:30)
[2021-05-16] MEDS ORDERED: ceFAZolin 2 GM in NS PREMIX 2 GM/100 ML BAG IVPB ONE (06:41)
[2021-05-16] MEDS ORDERED: Rocuronium 50 mg VIAL 10 mg/ml 5 ml VIAL (50 mg) ONE ×2 (07:08→08:35)
[2021-05-16] MEDS ORDERED: ROPIVACAINE 5 MG/ML 30 ML BTL (0.5%) ONE (07:12)
[2021-05-16] MEDS ORDERED: fentaNYL 100 mcg/2 ml 50 MCG/ML VIAL ONE ×2 (07:51→09:32)
[2021-05-16] MEDS ORDERED: HYDROmorphone 0.5 MG/0.5 ML SYRINGE ONE (07:51)
[2021-05-16] MEDS ORDERED: Acetaminophen IV 1 GM/100ML 100 ML IV ONE (08:05)
[2021-05-16] MEDS ORDERED: DiMENhydriNATE IV 50 mg/ml 1 ml VIAL IV PUSH PRN (08:07)
[2021-05-16] MEDS ORDERED: Naloxone 0.4 mg VIAL 0.4 mg/ml 1 ml VIAL IV PRN (08:07)
[2021-05-16] MEDS ORDERED: oxyCODONE/Acetamin 5/325 mg TAB PO PRN (08:07)
[2021-05-16] MEDS ORDERED: Levalbuterol HFA INHALER MDI ONE (08:36)
[2021-05-16] MEDS ORDERED: diPHENhydraMINE IV 50 MG/ML 1 ml VIAL (BENADRYL) IV PRN (08:44)
[2021-05-16] MEDS ORDERED: Ondansetron ODT 4 mg TAB 4 MG TAB PO PRN (08:44)
[2021-05-16] MEDS ORDERED: Magnesium Hydroxide LIQ 30 ML UDC PO PRN (08:44)
[2021-05-16] MEDS ORDERED: Ondansetron 4 mg VIAL 2 MG/ML 2 ml VIAL IV PRN (08:44)
[2021-05-16] MEDS ORDERED: Lactulose 30 ml UDC PO PRN (08:44)
[2021-05-16] MEDS ORDERED: diPHENhydraMINE 25 mg TAB PO PRN (08:44)
[2021-05-16] MEDS ORDERED: Albuterol HFA INHALER 8 gm MDI INH PRN (08:53)
[2021-05-16] MEDS ORDERED: Albuterol/Ipratropium NEB.SOL (2.5/0.5 MG) 3 ML NEB.SOLN INH PRN (08:53)
[2021-05-16] MEDS ORDERED: Labetalol IV 5 MG/ML 20 ml VIAL ONE (10:11)
[2021-05-16] MEDS ORDERED: HYDROmorphone 1 MG/1 ML SYRINGE ONE (10:31)
[2021-05-16] MEDS: HYDROmorphone 1 MG/1 ML SYRINGE IV PRN ×5 (10:33→11:10)
[2021-05-16] MEDS: Lactated Ringers 1000 ml BAG 1,000 ML IV SCH ×2 (12:00→23:07)
[2021-05-16] MEDS: Vitamin THERAPEUTIC TAB PO SCH (12:11)
[2021-05-16] MEDS ORDERED: Roflumilast 500 mcg TAB (NF) PO PRN (12:17)
[2021-05-16] MEDS: ceFAZolin 1 GM ADVAN 1 GM in NS 0.9% 50 ML 50 ML IVPB SCH (15:08)
[2021-05-16] MEDS: Senna TAB 8.6 mg TAB PO SCH (15:09)
[2021-05-16] MEDS ORDERED: Nicotine GUM 2MG FRUIT FLAVOR PO PRN (17:42)
[2021-05-16] MEDS: Mometasone/Formoter 200/5 MDI INH SCH (19:46)
[2021-05-16] MEDS ORDERED: Lidocaine 5% OINT TUBE TOPICAL SCH (21:00)
[2021-05-16] MEDS: Magnesium Hydroxide LIQ 30 ML UDC PO SCH (21:14)
[2021-05-17] MEDS: ceFAZolin 1 GM ADVAN 1 GM in NS 0.9% 50 ML 50 ML IVPB SCH ×2 (00:28→07:22)
[2021-05-17] MEDS ORDERED: Al Hydrox/Mg Hydrox/Simet LIQ 30 ML UDC PO PRN (04:51)
[2021-05-17 05:11] LABS: Hematocrit 34 % (42-52); Hemoglobin 11.6 g/dL (14.0-18.0); Mean Platelet Volume 7.7 fL (7.4-10.4); Platelet Count 168 10^3/uL (150-450)
[2021-05-17 05:26] LABS: Calcium 8.2 mg/dL (8.6-10.3); Potassium 4.4 mmol/L (3.5-5.0); eGFR CKD-EPI 99.4 (>60)
[2021-05-17 07:27] VITALS: BP 159/82
[2021-05-17] MEDS: Mometasone/Formoter 200/5 MDI INH SCH (07:43)
[2021-05-17] MEDS: Magnesium Hydroxide LIQ 30 ML UDC PO SCH (07:55)
[2021-05-17] MEDS: Vitamin THERAPEUTIC TAB PO SCH (07:56)
[2021-05-17] MEDS: Senna TAB 8.6 mg TAB PO SCH (07:56)
== END 2021-05-17 11:23 | disposition home or self-care (01) ==
LOC: SSU 06:28 → OR 06:28
PROVIDERS: ADMIT Orthopaedic Surgery Adult Reconstructive Orthopaedic Surgery; ATTEND Orthopaedic Surgery Adult Reconstructive Orthopaedic Surgery

== ENCOUNTER 2022-02-21 10:08 | Inpatient (IN) ==
[2022-02-21 10:45] LABS: ABS Lymphocytes 0.2 10^3/ul (1.0-4.8); ABS Monocytes 0.3 10^3/ul (0-0.8); ABS Neutrophils 7.6 10^3/ul (1.5-7.7); Hematocrit 43 % (42-52); Hemoglobin 14.4 g/dL (14.0-18.0); Lymphocyte % 2.4 %; Mean Corpuscular HGB Conc 33 g/dL (31-36); Mean Corpuscular Hemoglobin 34 pg (27-31); Mean Corpuscular Volume 103 fL (80-94); Mean Platelet Volume 7.3 fL (7.4-10.4); Nucleated Red Blood Cells % 0.1; Platelet Count 207 10^3/uL (150-450); Red Blood Count 4.22 10^6 /uL (4.18-5.48); Red Cell Distribution Width 14 % (10-15); White Blood Count 8.1 10^3/uL (3.5-10.8)
[2022-02-21 10:49] LABS: INR 0.98 (0.89-1.11)
[2022-02-21 11:27] LABS: Albumin 3.9 g/dL (3.2-5.2); Albumin/Globulin Ratio 1.4 (1-3); Calcium 8.8 mg/dL (8.6-10.3); Globulin 2.7 g/dL (2-4); Potassium 4.6 mmol/L (3.5-5.0); Total Bilirubin 0.3 mg/dL (0.2-1.0); Total Protein 6.6 g/dL (6.4-8.9)
[2022-02-21 12:23] LABS: High Sensitivity Troponin 1 Hr 674 pg/mL (<20)
[2022-02-21 14:20] LABS: High Sensitivity Troponin 3 Hr 1195 pg/mL (<20)
[2022-02-21] MEDS ORDERED: methylPREDNISolone SOD SUCC 125 mg 2 ML VIAL IV ONE (14:32)
[2022-02-21] MEDS ORDERED: cefTRIAXone 1 gm/50 mL D5W 1 GM/50 ML BAG IV SCH (14:45)
[2022-02-21] MEDS ORDERED: Iohexol 350 (CONTRAST) 500 ML MDV IV ONE (14:56)
[2022-02-21] MEDS ORDERED: Enoxaparin 40 MG/0.4 ML SYR SUBCUT SCH (15:00)
[2022-02-21] MEDS ORDERED: Ferric Gluconate IV 125 MG in NS 0.9% 100 ml BAG 100 ML IVPB SCH (16:00)
[2022-02-21] MEDS ORDERED: Albuterol/Ipratropium NEB.SOL (2.5/0.5 MG) 3 ML NEB.SOLN INH ONE (16:23)
[2022-02-21 16:42] LABS: C Reactive Protein 104.09 mg/L (<8.01)
[2022-02-21 17:35] LABS: Erythrocyte Sed Rate 36 mm/Hr (0-19)
[2022-02-21] MEDS: Mometasone/Formoter 200/5 MDI INH SCH (19:26)
[2022-02-21] MEDS ORDERED: Heparin DRIP 25,000 UNITS BAG 25,000 UNITS/500 ML BAG IV SCH (19:30)
[2022-02-21] MEDS ORDERED: Heparin 5000 UNITS/ML 1 mL VIAL IV SCH (20:00)
[2022-02-21] MEDS ORDERED: Enoxaparin 80 MG/0.8 ML SYR SUBCUT SCH (20:00)
[2022-02-21] MEDS ORDERED: Enoxaparin 30 MG/0.3 ML SYR SUBCUT ONE (22:00)
[2022-02-22] MEDS: Albuterol HFA INHALER 8 gm MDI INH PRN ×2 (02:01→07:49)
[2022-02-22 06:39] LABS: Hematocrit 42 % (42-52); Hemoglobin 14.4 g/dL (14.0-18.0); Mean Corpuscular HGB Conc 34 g/dL (31-36); Mean Corpuscular Hemoglobin 35 pg (27-31); Mean Corpuscular Volume 102 fL (80-94); Mean Platelet Volume 7.9 fL (7.4-10.4); Platelet Count 204 10^3/uL (150-450); Red Blood Count 4.16 10^6 /uL (4.18-5.48); Red Cell Distribution Width 14 % (10-15)
[2022-02-22 06:49] LABS: Anion Gap 8 mmol/L (2-11); Blood Urea Nitrogen 27 mg/dL (6-24); CO2 Carbon Dioxide 27 mmol/L (22-32); Chloride 102 mmol/L (101-111); Glucose 109 mg/dL (70-100); Magnesium 2.3 mg/dL (1.9-2.7); Potassium 4.5 mmol/L (3.5-5.0); Sodium 137 mmol/L (135-145); eGFR CKD-EPI 104.7 (>60)
[2022-02-22] MEDS: Enoxaparin 80 MG/0.8 ML SYR SUBCUT SCH ×2 (07:53→22:15)
[2022-02-22] MEDS: Mometasone/Formoter 200/5 MDI INH SCH ×2 (07:54→19:56)
[2022-02-22] MEDS: Ondansetron 4 mg VIAL 2 MG/ML 2 ml VIAL IV PRN (09:41)
[2022-02-22 13:10] LABS: % Iron Saturation 6 % (15-55); Iron 20 ug/dL (50-212); Total Iron Binding Capacity 308 mcg/dL (250-450); Transferrin 220 mg/dL (203-362); Unsaturated Iron Binding 288 ug/dL
[2022-02-22 13:32] LABS: Ferritin 201.7 ng/mL (24-336)
[2022-02-22 13:36] LABS: Folate 10.41 ng/mL (5.90-24.80); Vitamin B12 > 1450 pg/mL (180-914)
[2022-02-22] MEDS: Albuterol/Ipratropium NEB.SOL (2.5/0.5 MG) 3 ML NEB.SOLN INH SCH ×2 (14:43→19:56)
[2022-02-22 14:46] LABS: High Sensitivity Troponin 1 Hr 2782 pg/mL (<20)
[2022-02-22] MEDS ORDERED: cefTRIAXone 1 gm/50 mL D5W 1 GM/50 ML BAG IV SCH (16:00)
[2022-02-23] MEDS: Ondansetron 4 mg VIAL 2 MG/ML 2 ml VIAL IV PRN ×2 (04:00→09:51)
[2022-02-23] MEDS ORDERED: Albuterol/Ipratropium NEB.SOL (2.5/0.5 MG) 3 ML NEB.SOLN INH ONE (04:49)
[2022-02-23] MEDS ORDERED: Piperacillin/Tazobac ADVAN 3.375 GM in NS 0.9% 100 ml BAG 100 ML IV ONE (05:52)
[2022-02-23 05:56] LABS: PCO2 Arterial 49 mmHg (35-45); PO2 Arterial 79 mmHg (80-100)
[2022-02-23] MEDS ORDERED: Zosyn per Pharmacy NOTE FOLLOW UP SCH (06:00)
[2022-02-23 06:47] LABS: ABS Lymphocytes 0.3 10^3/ul (1.0-4.8); ABS Monocytes 0.4 10^3/ul (0-0.8); ABS Neutrophils 10.2 10^3/ul (1.5-7.7); Hematocrit 45 % (42-52); Hemoglobin 15.3 g/dL (14.0-18.0); Lymphocyte % 3.1 %; Mean Corpuscular HGB Conc 34 g/dL (31-36); Mean Corpuscular Hemoglobin 34 pg (27-31); Mean Corpuscular Volume 101 fL (80-94); Mean Platelet Volume 7.9 fL (7.4-10.4); Nucleated Red Blood Cells % 0.2; Platelet Count 201 10^3/uL (150-450); Red Cell Distribution Width 14 % (10-15)
[2022-02-23] MEDS: Albuterol/Ipratropium NEB.SOL (2.5/0.5 MG) 3 ML NEB.SOLN INH SCH ×4 (07:08→19:51)
[2022-02-23] MEDS: Mometasone/Formoter 200/5 MDI INH SCH ×2 (07:09→19:51)
[2022-02-23] MEDS ORDERED: Furosemide 40 mg/4 ml IV VIAL IV ONE (07:20)
[2022-02-23 07:23] LABS: Calcium 8.8 mg/dL (8.6-10.3); Potassium 4.6 mmol/L (3.5-5.0); eGFR CKD-EPI 87.2 (>60)
[2022-02-23] MEDS: methylPREDNISolone SOD SUCC 40 mg/ml 1 ml VIAL IV SCH ×2 (08:19→20:48)
[2022-02-23 09:27] LABS: High Sensitivity Troponin 1 Hr 4839 pg/mL (<20)
[2022-02-23] MEDS: Enoxaparin 80 MG/0.8 ML SYR SUBCUT SCH ×2 (09:51→20:48)
[2022-02-23 13:28] LABS: Urine Appearance Clear; Urine Bilirubin Negative (Negative); Urine Blood 1+ (Negative); Urine Color Straw; Urine Glucose 1+(50 mg/dL) (Negative); Urine Ketones Negative (Negative); Urine Nitrite Negative (Negative); Urine Protein Negative (Negative); Urine Specific Gravity 1.008 (1.002-1.030); Urine Urobilinogen Negative (Negative)
[2022-02-23 13:33] LABS: Urine Bacteria Absent (Absent); Urine Red Blood Cell Trace(0-2/hpf) (Absent); Urine White Blood Cell Absent (Absent)
[2022-02-23] MEDS: ZOSYN 3.375 GM Q8H per EXTENDED INFUSION IV SCH ×2 (13:58→21:08)
[2022-02-24] MEDS: ZOSYN 3.375 GM Q8H per EXTENDED INFUSION IV SCH ×3 (05:13→21:49)
[2022-02-24] MEDS ORDERED: nitroGLYCERIN DRIP 25,000 MCG/250 ML BTL ONE (07:54)
[2022-02-24] MEDS ORDERED: Heparin 1,000 UNIT/ML 10 ml (10,000 UNITS) CATHLAB/DIALYSIS ONE (07:54)
[2022-02-24] MEDS ORDERED: fentaNYL 100 mcg/2 ml 50 MCG/ML VIAL ONE (07:54)
[2022-02-24] MEDS ORDERED: VERAPAMIL 2.5 MG/ML 2 ML VIAL ** 5 mg/2 ml ONE (07:54)
[2022-02-24] MEDS ORDERED: Midazolam 5 mg/5 ml VIAL 1 mg/ml 5 ml VIAL (5 mg) ONE (07:54)
[2022-02-24] MEDS ORDERED: Heparin 2 UNITS/ML 1000 mls 2,000 ML IV ONE (07:54)
[2022-02-24] MEDS ORDERED: Lidocaine 1% MPF 5 ML VIAL ONE (07:54)
[2022-02-24] MEDS ORDERED: Iohexol 350 (CONTRAST) 100 ML PAK IV ONE (07:55)
[2022-02-24] MEDS: Albuterol/Ipratropium NEB.SOL (2.5/0.5 MG) 3 ML NEB.SOLN INH SCH ×4 (08:05→20:03)
[2022-02-24] MEDS: Mometasone/Formoter 200/5 MDI INH SCH ×2 (08:05→20:02)
[2022-02-24] MEDS ORDERED: NS 0.9% 1000 ml BAG 1,000 ML IV SCH (09:00)
[2022-02-24 10:31] LABS: ABS Lymphocytes 0.2 10^3/ul (1.0-4.8); ABS Monocytes 0.5 10^3/ul (0-0.8); Hematocrit 44 % (42-52); Hemoglobin 14.8 g/dL (14.0-18.0); Lymphocyte % 3.1 %; Mean Corpuscular HGB Conc 34 g/dL (31-36); Mean Corpuscular Hemoglobin 34 pg (27-31); Mean Corpuscular Volume 101 fL (80-94); Mean Platelet Volume 7.6 fL (7.4-10.4); Nucleated Red Blood Cells % 0.1; Platelet Count 211 10^3/uL (150-450); Red Blood Count 4.31 10^6 /uL (4.18-5.48); Red Cell Distribution Width 14 % (10-15); White Blood Count 7.8 10^3/uL (3.5-10.8)
[2022-02-24 11:19] LABS: Calcium 8.4 mg/dL (8.6-10.3); Potassium 4.6 mmol/L (3.5-5.0); eGFR CKD-EPI 92.9 (>60)
[2022-02-24] MEDS: methylPREDNISolone SOD SUCC 40 mg/ml 1 ml VIAL IV SCH ×2 (11:59→21:49)
[2022-02-24] MEDS ORDERED: Furosemide 40 mg/4 ml IV VIAL IV SLOW PU ONE (13:52)
[2022-02-24 14:41] LABS: Kappa Free Light Chain 1.24 mg/dL
[2022-02-24 16:58] LABS: Magnesium 2.6 mg/dL (1.9-2.7)
[2022-02-24] MEDS: Enoxaparin 40 MG/0.4 ML SYR SUBCUT SCH (21:48)
[2022-02-25] MEDS: ZOSYN 3.375 GM Q8H per EXTENDED INFUSION IV SCH ×3 (04:05→21:47)
[2022-02-25 07:12] LABS: Calcium 8.6 mg/dL (8.6-10.3); Potassium 4.6 mmol/L (3.5-5.0); eGFR CKD-EPI 81.1 (>60)
[2022-02-25] MEDS: Mometasone/Formoter 200/5 MDI INH SCH ×2 (07:33→19:45)
[2022-02-25] MEDS: SPIRIVA Respimat (tiotropium) 2.5 mcg/inh Inhaler INH SCH (07:34)
[2022-02-25] MEDS: Ondansetron 4 mg VIAL 2 MG/ML 2 ml VIAL IV PRN (09:03)
[2022-02-25 10:46] LABS: Albumin 2.9 g/dL (3.4-4.7); Albumin/Globulin Ratio 0.77; Gamma Globulin 0.4 g/dL (0.6-1.6); Total Protein(PEP) 6.6 g/dL (6.3 - 7.9)
[2022-02-25] MEDS ORDERED: Albuterol 2.5mg/3 ml (0.083%) NEB.SOLN INH SCH (15:00)
[2022-02-25] MEDS: Albuterol HFA INHALER 8 gm MDI INH SCH ×2 (15:24→19:46)
[2022-02-25] MEDS: Enoxaparin 40 MG/0.4 ML SYR SUBCUT SCH (21:47)
[2022-02-26] MEDS: ZOSYN 3.375 GM Q8H per EXTENDED INFUSION IV SCH ×3 (04:19→19:57)
[2022-02-26 05:54] LABS: Flag, M-protein Isotype Positive (Negative)
[2022-02-26 06:31] LABS: Calcium 8.7 mg/dL (8.6-10.3); Potassium 4.5 mmol/L (3.5-5.0); eGFR CKD-EPI 95.4 (>60)
[2022-02-26] MEDS: Mometasone/Formoter 200/5 MDI INH SCH ×2 (07:43→18:32)
[2022-02-26] MEDS: Albuterol HFA INHALER 8 gm MDI INH SCH (07:43)
[2022-02-26] MEDS: SPIRIVA Respimat (tiotropium) 2.5 mcg/inh Inhaler INH SCH (07:44)
[2022-02-26] MEDS: Albuterol 2.5mg/3 ml (0.083%) NEB.SOLN INH SCH ×3 (11:11→18:27)
[2022-02-26 14:49] LABS: Magnesium 2.7 mg/dL (1.9-2.7)
[2022-02-26] MEDS: Enoxaparin 40 MG/0.4 ML SYR SUBCUT SCH (20:16)
[2022-02-27] MEDS: ZOSYN 3.375 GM Q8H per EXTENDED INFUSION IV SCH (03:59)
[2022-02-27 06:20] LABS: Calcium 8.6 mg/dL (8.6-10.3); Potassium 4.3 mmol/L (3.5-5.0)
[2022-02-27 06:26] LABS: eGFR CKD-EPI 102.5 (>60)
[2022-02-27] MEDS: Albuterol 2.5mg/3 ml (0.083%) NEB.SOLN INH SCH ×2 (07:46→11:34)
[2022-02-27] MEDS: SPIRIVA Respimat (tiotropium) 2.5 mcg/inh Inhaler INH SCH (07:47)
[2022-02-27] MEDS: Mometasone/Formoter 200/5 MDI INH SCH (07:47)
[2022-02-27] MEDS ORDERED: Albuterol 2.5mg/3 ml (0.083%) NEB.SOLN INH PRN (11:23)
[2022-02-27 12:00] VITALS: BP 132/79
[2022-02-27] MEDS ORDERED: Albuterol HFA INHALER 8 gm MDI INH SCH (15:00)
== END 2022-02-27 13:15 | disposition home or self-care (01) | DRG 190 ==
LOC: ED 10:08 → EDHOLD 10:08 → MEDTELE 21:38 → SUATTDRO 02-22 12:00 → MEDTELE 02-23 06:49
PROVIDERS: ADMIT Internal Medicine; ATTEND Internal Medicine

== ENCOUNTER 2022-02-28 18:24 | Observation (INO) ==
[2022-02-28] MEDS ORDERED: Albuterol/Ipratropium NEB.SOL (2.5/0.5 MG) 3 ML NEB.SOLN INH ONE (18:27)
[2022-02-28 19:01] LABS: ABS Lymphocytes 0.3 10^3/ul (1.0-4.8); ABS Monocytes 0.2 10^3/ul (0-0.8); ABS Neutrophils 6.2 10^3/ul (1.5-7.7); Eosinophil % 0.1 %; Hematocrit 44 % (42-52); Lymphocyte % 4.9 %; Mean Corpuscular HGB Conc 34 g/dL (31-36); Mean Corpuscular Hemoglobin 34 pg (27-31); Mean Corpuscular Volume 98 fL (80-94); Mean Platelet Volume 7.5 fL (7.4-10.4); Nucleated Red Blood Cells % 0.1; Platelet Count 303 10^3/uL (150-450); Red Blood Count 4.45 10^6 /uL (4.18-5.48); Red Cell Distribution Width 13 % (10-15); White Blood Count 6.8 10^3/uL (3.5-10.8)
[2022-02-28 19:29] LABS: High Sens Troponin Baseline 86 pg/mL (<20)
[2022-02-28 19:40] LABS: ALT 40 U/L (7-52); AST 26 U/L (13-39); Albumin 3.7 g/dL (3.2-5.2); Albumin/Globulin Ratio 1.2 (1-3); Alkaline Phosphatase 40 U/L (35-149); Anion Gap 7 mmol/L (2-11); Blood Urea Nitrogen 24 mg/dL (6-24); C Reactive Protein 9.15 mg/L (<8.01); CO2 Carbon Dioxide 30 mmol/L (22-32); Calcium 8.6 mg/dL (8.6-10.3); Chloride 99 mmol/L (101-111); Glucose 146 mg/dL (70-100); Magnesium 1.9 mg/dL (1.9-2.7); Potassium 4.1 mmol/L (3.5-5.0); Sodium 136 mmol/L (135-145); Total Protein 6.7 g/dL (6.4-8.9); eGFR CKD-EPI 106.2 (>60)
[2022-02-28 20:38] LABS: High Sensitivity Troponin 1 Hr 98 pg/mL (<20)
[2022-03-01] MEDS ORDERED: Albuterol/Ipratropium NEB.SOL (2.5/0.5 MG) 3 ML NEB.SOLN INH ONE ×2 (06:07→07:44)
[2022-03-01] MEDS ORDERED: methylPREDNISolone SOD SUCC 125 mg 2 ML VIAL IV ONE (06:07)
[2022-03-01] MEDS ORDERED: cefTRIAXone 1 gm/50 mL D5W 1 GM/50 ML BAG IV ONE (06:10)
[2022-03-01 06:28] LABS: PCO2 Arterial 48 mmHg (35-45); PO2 Arterial 221 mmHg (80-100)
[2022-03-01] MEDS ORDERED: Magnesium Sulfate 2 gm BAG 2 GM/50 ML BAG IVPB ONE (07:45)
[2022-03-01] MEDS ORDERED: Furosemide 40 mg/4 ml IV VIAL IV SLOW PU ONE ×2 (07:56→14:00)
[2022-03-01] MEDS ORDERED: Morphine 2 MG/ML SYRINGE IV PRN (11:28)
[2022-03-01] MEDS ORDERED: Lidocaine 2% JELLY 6 ML Topical TOPICAL ONE (11:39)
[2022-03-01] MEDS: Enoxaparin 40 MG/0.4 ML SYR SUBCUT SCH (12:11)
[2022-03-01] MEDS: methylPREDNISolone SOD SUCC 40 mg/ml 1 ml VIAL IV SCH ×2 (12:11→20:57)
[2022-03-01] MEDS: Morphine 2 MG/ML SYRINGE IV PRN ×4 (12:13→23:24)
[2022-03-01] MEDS: Albuterol/Ipratropium NEB.SOL (2.5/0.5 MG) 3 ML NEB.SOLN INH SCH ×2 (15:37→19:02)
[2022-03-01] MEDS: Mometasone/Formoter 200/5 MDI INH SCH (19:02)
[2022-03-01] MEDS: Cholecalciferol (VIT D3) 1,000 unit TAB PO SCH (20:57)
[2022-03-01] MEDS ORDERED: Calcium Carb (TUMS) 500 mg CHEW TAB PO PRN (23:30)
[2022-03-02] MEDS: Lidocaine 4% CREAM (LMX) 5 GM TUBE TOPICAL SCH ×2 (00:24→20:34)
[2022-03-02] MEDS: methylPREDNISolone SOD SUCC 40 mg/ml 1 ml VIAL IV SCH (03:13)
[2022-03-02] MEDS: Mometasone/Formoter 200/5 MDI INH SCH ×2 (07:46→19:44)
[2022-03-02] MEDS: Albuterol/Ipratropium NEB.SOL (2.5/0.5 MG) 3 ML NEB.SOLN INH SCH (07:46)
[2022-03-02] MEDS: SPIRIVA Respimat (tiotropium) 2.5 mcg/inh Inhaler INH SCH (07:49)
[2022-03-02 08:14] LABS: Venous Bicarbonate HCO3 30.8 mmol/L (24-28)
[2022-03-02] MEDS ORDERED: Albuterol/Ipratropium NEB.SOL (2.5/0.5 MG) 3 ML NEB.SOLN INH PRN (08:19)
[2022-03-02 08:39] LABS: ABS Lymphocytes 0.5 10^3/ul (1.0-4.8); ABS Monocytes 0.3 10^3/ul (0-0.8); ABS Neutrophils 9.8 10^3/ul (1.5-7.7); Hematocrit 43 % (42-52); Hemoglobin 14.9 g/dL (14.0-18.0); Lymphocyte % 4.3 %; Mean Corpuscular HGB Conc 35 g/dL (31-36); Mean Corpuscular Hemoglobin 34 pg (27-31); Mean Corpuscular Volume 98 fL (80-94); Mean Platelet Volume 7.5 fL (7.4-10.4); Nucleated Red Blood Cells % 0.4; Platelet Count 324 10^3/uL (150-450); Red Blood Count 4.38 10^6 /uL (4.18-5.48); Red Cell Distribution Width 14 % (10-15); White Blood Count 10.5 10^3/uL (3.5-10.8)
[2022-03-02] MEDS ORDERED: Morphine 2 MG/ML SYRINGE IV PRN (08:45)
[2022-03-02] MEDS ORDERED: cefTRIAXone 1 gm/50 mL D5W 1 GM/50 ML BAG IV SCH (09:00)
[2022-03-02 09:04] LABS: Calcium 9.2 mg/dL (8.6-10.3); Magnesium 2.3 mg/dL (1.9-2.7); Potassium 4.1 mmol/L (3.5-5.0); eGFR CKD-EPI 103.3 (>60)
[2022-03-02] MEDS: Enoxaparin 40 MG/0.4 ML SYR SUBCUT SCH (12:41)
[2022-03-02] MEDS: Levalbuterol HFA INHALER MDI INH PRN (14:32)
[2022-03-02] MEDS: Albuterol HFA INHALER 8 gm MDI INH SCH ×2 (14:33→22:37)
[2022-03-02] MEDS: Cholecalciferol (VIT D3) 1,000 unit TAB PO SCH (20:32)
[2022-03-03] MEDS: Albuterol HFA INHALER 8 gm MDI INH SCH ×3 (01:04→13:14)
[2022-03-03] MEDS: Levalbuterol HFA INHALER MDI INH PRN ×2 (07:36→13:07)
[2022-03-03] MEDS: Mometasone/Formoter 200/5 MDI INH SCH (07:36)
[2022-03-03] MEDS: SPIRIVA Respimat (tiotropium) 2.5 mcg/inh Inhaler INH SCH (07:37)
[2022-03-03 11:31] VITALS: BP 115/78
[2022-03-03] MEDS: Enoxaparin 40 MG/0.4 ML SYR SUBCUT SCH (13:05)
== END 2022-03-03 15:50 | disposition home or self-care (01) ==
LOC: EDHOLD 18:24 → ED 18:24 → SUATTDRO 03-01 11:32 → MED 03-01 15:36
PROVIDERS: ADMIT Internal Medicine; ATTEND Internal Medicine

== ENCOUNTER 2022-09-03 11:10 | Observation (INO) ==
[2022-09-03 12:25] LABS: ABS Lymphocytes 0.4 10^3/uL (1.0-4.8); ABS Monocytes 0.4 10^3/uL (0.0-1.1); ABS Neutrophils 6.5 10^3/uL (1.5-7.6); Eosinophil % 0.1 %; Hemoglobin 13.9 g/dL (13.2-16.3); Mean Corpuscular Hemoglobin 32.2 pg (27-33); Mean Corpuscular Volume 94.7 fL (80-97); Mean Platelet Volume 7.6 fL (7.5-11.2); Nucleated Red Blood Cells % 0.1 /100 WBC (0.0-0.4); Platelet Count 267 10^3/uL (150-450); Red Blood Count 4.33 10^6/uL (4.06-5.63); Red Cell Distribution Width 14.2 % (12-17); White Blood Count 7.3 10^3/uL (3.6-10.2)
[2022-09-03 12:28] LABS: Urine Appearance Clear; Urine Bilirubin Negative (Negative); Urine Blood Negative (Negative); Urine Color Yellow; Urine Glucose 3+(>=500 mg/dL) (Negative); Urine Ketones Negative (Negative); Urine Nitrite Negative (Negative); Urine Protein 1+(30 mg/dL) (Negative); Urine Specific Gravity 1.024 (1.002-1.030); Urine Urobilinogen Negative (Negative)
[2022-09-03 12:32] LABS: Urine Bacteria Absent (Absent); Urine Red Blood Cell Trace(0-2/hpf) (Absent); Urine White Blood Cell Trace(0-5/hpf) (Absent)
[2022-09-03 12:42] LABS: ALT 18 U/L (7-52); AST 12 U/L (13-39); Albumin 3.7 g/dL (3.2-5.2); Albumin/Globulin Ratio 1.3 (1-3); Alkaline Phosphatase 70 U/L (35-149); Anion Gap 6 mmol/L (2-16); Blood Urea Nitrogen 18 mg/dL (6-24); CO2 Carbon Dioxide 27 mmol/L (22-32); Calcium 8.7 mg/dL (8.6-10.3); Chloride 111 mmol/L (101-111); Creatinine, Serum 0.65 mg/dL (0.67-1.17); Globulin 2.9 g/dL (2-4); Glucose 117 mg/dL (70-100); Potassium 3.9 mmol/L (3.5-5.0); Sodium 144 mmol/L (135-145); Total Protein 6.6 g/dL (6.4-8.9); eGFR CKD-EPI 105.2 (>60)
[2022-09-03 12:47] LABS: Alcohol, S < 13 mg/dL (<13)
[2022-09-03 12:48] LABS: High Sens Troponin Baseline 6 pg/mL (<20)
[2022-09-03 13:52] LABS: High Sensitivity Troponin 1 Hr 6 pg/mL (<20)
[2022-09-03] MEDS ORDERED: Naloxone 0.4 mg VIAL 0.4 mg/ml 1 ml VIAL IV PUSH ONE (13:57)
[2022-09-03 14:31] LABS: PCO2 Arterial 40 mmHg (35-45); PO2 Arterial 96 mmHg (80-100)
[2022-09-03] MEDS ORDERED: Enoxaparin 40 MG/0.4 ML SYR SUBCUT SCH (17:00)
[2022-09-03] MEDS ORDERED: Albuterol HFA INHALER 8 gm MDI INH PRN (18:26)
[2022-09-03] MEDS ORDERED: NON FORMULARY MED (Budesonide-Glycopyr-Formoterol [Breztri Aerosphere] 160-9-4.8 mcg/actua INH SCH (21:00)
[2022-09-04] MEDS ORDERED: CMCS: FLUTICAS/UMECLI/VILANT 200-62.5-25 MDI (NF) INH SCH (09:00)
[2022-09-04] MEDS ORDERED: SPIRIVA Respimat (tiotropium) 2.5 mcg/inh Inhaler INH SCH (09:00)
[2022-09-04] MEDS ORDERED: levETIRAcetam 500 MG IVPREMIX 500 MG/100 ML BAG IVPB ONE (11:52)
[2022-09-04 15:08] VITALS: BP 141/78
== END 2022-09-04 16:20 | disposition home or self-care (01) ==
LOC: EDHOLD 11:10 → ED 11:10 → MEDTELE 19:49
PROVIDERS: ADMIT Internal Medicine; ATTEND Internal Medicine

== ENCOUNTER 2022-09-07 06:02 | Observation (INO) ==
[2022-09-07 07:08] LABS: ABS Basophils 0.1 10^3/uL (0.0-0.1); ABS Eosinophils 0.3 10^3/uL (0.0-0.5); ABS Lymphocytes 0.6 10^3/uL (1.0-4.8); ABS Monocytes 1.2 10^3/uL (0.0-1.1); ABS Neutrophils 4.6 10^3/uL (1.5-7.6); Eosinophil % 4.7 %; Hematocrit 38.4 % (38-53); Lymphocyte % 9.2 %; Mean Corpuscular Hemoglobin 32.7 pg (27-33); Mean Corpuscular Hgb Conc 33.9 g/dL (31-36); Mean Corpuscular Volume 96.4 fL (80-97); Mean Platelet Volume 7.6 fL (7.5-11.2); Platelet Count 215 10^3/uL (150-450); Red Blood Count 3.98 10^6/uL (4.06-5.63); Red Cell Distribution Width 14.2 % (12-17); White Blood Count 6.7 10^3/uL (3.6-10.2)
[2022-09-07 07:35] LABS: Albumin 3.4 g/dL (3.2-5.2); Albumin/Globulin Ratio 1.3 (1-3); Calcium 8.4 mg/dL (8.6-10.3); Globulin 2.7 g/dL (2-4); Potassium 3.6 mmol/L (3.5-5.0); Total Bilirubin 0.4 mg/dL (0.2-1.0); Total Protein 6.1 g/dL (6.4-8.9)
[2022-09-07 08:03] LABS: TSH Ultra Thyroid Stim Horm 1.05 mcIU/mL (0.34-5.60)
[2022-09-07 08:05] LABS: PCO2 Arterial 45 mmHg (35-45); PO2 Arterial 131 mmHg (80-100)
[2022-09-07 08:41] LABS: Urine Appearance Clear; Urine Bilirubin Negative (Negative); Urine Blood Negative (Negative); Urine Color Yellow; Urine Glucose 3+(>=500 mg/dL) (Negative); Urine Ketones Negative (Negative); Urine Nitrite Negative (Negative); Urine Protein Negative (Negative); Urine Specific Gravity 1.016 (1.002-1.030); Urine Urobilinogen Negative (Negative)
[2022-09-07 08:50] LABS: Urine Benzodiazepine Screen None Detected (None Detect); Urine Buprenorphine Screen None Detected (None Detect); Urine Cannabinoids Screen None Detected (None Detect); Urine Fentanyl Screen None Detected (None Detect); Urine Hydrocodone Screen None Detected (None Detect); Urine Opiates Screen None Detected (None Detect)
[2022-09-07 08:55] LABS: High Sensitivity Troponin 1 Hr 6 pg/mL (<20)
[2022-09-07] MEDS ORDERED: levETIRAcetam IV 1,500 MG in NS 0.9% 100 ml BAG 100 ML IVPB ONE (14:00)
[2022-09-07] MEDS ORDERED: Albuterol HFA INHALER 8 gm MDI INH PRN (15:00)
[2022-09-07] MEDS ORDERED: Enoxaparin 40 MG/0.4 ML SYR SUBCUT SCH (15:00)
[2022-09-07] MEDS ORDERED: Albuterol 2.5mg/3 ml (0.083%) NEB.SOLN INH PRN (16:12)
[2022-09-07] MEDS ORDERED: cefTRIAXone 1 gm/50 mL D5W 1 GM/50 ML BAG IV SCH (20:00)
[2022-09-07] MEDS ORDERED: Azithromycin 500 mg/250 ml NS 500 MG/250 ML BAG IVPB SCH (21:00)
[2022-09-08] MEDS ORDERED: CMCS:FLUTICAS/UMECLI/VILANT 200-62.5-25 MDI (NF) INH SCH (09:00)
[2022-09-08 09:52] VITALS: BP 121/81
== END 2022-09-08 13:25 | disposition home or self-care (01) ==
LOC: ED 06:02 → EDHOLD 06:02 → SUATTDRO 13:17 → EDHOLD 15:26 → MED 15:52
PROVIDERS: ADMIT Hospitalist; ATTEND Internal Medicine